=== PATIENT | female | born 1945 | race Caucasian/White ===

== ENCOUNTER 2020-08-10 15:10 | Outpatient (REF) | payer MEDICARE, SELFPAY ==
--- NOTE | 2020-08-10 15:14 | MM_ITS ---
EXAMINATION: MM SCREENING DIGITAL BREAST TOMOSYNTHESIS, BILATERAL CLINICAL INFORMATION: Screening. Asymptomatic. The lifetime risk of breast cancer based on the Tyrer-Cuzick Model is 4%. COMPARISON: Mammography: 07/15/2019, 06/18/2018 TECHNIQUE: Digital breast tomosynthesis is performed in both the craniocaudal and mediolateral oblique views along with computer-aided detection (CAD). Synthesized 2D images are generated from the tomosynthesis. Additional left MLO view is provided. FINDINGS: There are scattered areas of fibroglandular density (ACR BI-RADS breast composition Category b). There are no significant masses, abnormal calcifications, or other abnormalities. There is biopsy clip marker posterior central 3:00 right breast. Parenchymal pattern is similar to prior studies. No significant changes. MM/MM tomosynthesis screening BI IMPRESSION: No mammographic evidence of malignancy. ASSESSMENT: BI-RADS 1: Negative RECOMMENDATION: Routine annual mammography screening. This patient's information was entered into a reminder system with a target due date for their next mammogram.
== END 2020-08-10 15:11 | disposition home or self-care (01) ==
LOC: HO.MAMMO 15:10
PROVIDERS: PCP Internal Medicine; Visit Provider Internal Medicine
DX: Z12.31 Encounter for screening mammogram for malignant neoplasm of breast (principal)
CPT/HCPCS: 77063; 77067

== ENCOUNTER 2020-11-10 09:26 | Outpatient (REF) | payer MEDICARE, SELFPAY ==
[2020-11-10 11:36] LABS: Hematocrit 43.9 % (37-47); Hemoglobin 14.3 g/dl (12.0-16.0); Mean Corpuscular HGB Conc 32.6 g/dl (31.0-35.0); Mean Corpuscular Hemoglobin 29.7 pg (27.0-33.0); Mean Corpuscular Volume 91.3 fL (80-98); Mean Platelet Volume 10.2 fL (9.4-12.3); Platelet Count 223 X10*3/uL (160-400); Red Blood Count 4.81 X10*6/uL (4.20-5.50); Red Cell Distribution Width 13.2 % (11.0-16.0); White Blood Count 4.7 X10*3/uL (4.8-10.8)
[2020-11-10 11:51] LABS: Alanine Aminotransferase 15 U/L (0-31); Albumin Level 4.1 g/dL (3.5-5.0); Alkaline Phosphatase 63 U/L (39-117); Anion Gap 11 (12-20); Aspartate Amino Transferase 21 U/L (5-31); Bilirubin Total 0.5 mg/dL (0.0-1.0); Blood Urea Nitrogen 20 mg/dL (9-16); Calcium 8.4 mg/dL (8.4-10.2); Carbon Dioxide 29 mmol/L (22-29); Chloride 106 mmol/L (96-108); Cholesterol 197 mg/dL; Estimated Glomerular Filt Rate > 60; Glucose Fasting 104 mg/dL (60-99); HDL Cholesterol 36 mg/dL; LDL Cholesterol Calculated 136 mg/dl; Potassium 4.6 mmol/L (3.3-5.1); Sodium 141 mmol/L (135-145); Triglycerides 129 mg/dL
[2020-11-10 12:00] LABS: Estimated Average Glucose 117 mg/dL; Hemoglobin A1c % 5.7 %
== END 2020-11-10 09:27 | disposition home or self-care (01) ==
LOC: HO.HMGCLDS 09:26
PROVIDERS: PCP Internal Medicine; Visit Provider Internal Medicine
DX: I10 Essential (primary) hypertension (principal); E78.5 Hyperlipidemia, unspecified; K58.9 Irritable bowel syndrome, unspecified; R73.9 Hyperglycemia, unspecified
CPT/HCPCS: 36415; 80053; 80061; 83036; 85027

== ENCOUNTER 2021-05-28 08:50 | Outpatient (REF) | payer MEDICARE, SELFPAY ==
[2021-05-28 11:30] LABS: Hematocrit 43.9 % (37-47); Hemoglobin 14.7 g/dl (12.0-16.0); Mean Corpuscular HGB Conc 33.5 g/dl (31.0-35.0); Mean Corpuscular Hemoglobin 29.9 pg (27.0-33.0); Mean Corpuscular Volume 89.2 fL (80-98); Mean Platelet Volume 10.7 fL (9.4-12.3); Platelet Count 205 X10*3/uL (160-400); Red Blood Count 4.92 X10*6/uL (4.20-5.50); Red Cell Distribution Width 13.5 % (11.0-16.0); White Blood Count 5.2 X10*3/uL (4.8-10.8)
[2021-05-28 11:49] LABS: Appearance Urine CLEAR; Color Urine YELLOW; Glucose Urine UA NEG (NEG); Leukocyte Esterase Urine NEG (NEG); Nitrite Urine NEG (NEG); Specific Gravity - Urine 1.015 (1.005-1.025); Urine Blood NEG (NEG); Urine Ketones NEG (NEG); Urine Protein NEG (NEG-TRACE)
[2021-05-28 12:11] LABS: RBC Urine 0 /HPF (0); Squamous Epithelial Cell Urine TRACE /LPF; WBC Urine 0 /HPF (0-4)
[2021-05-28 12:18] LABS: Vitamin D 25-OH Total 36.3 ng/mL (>30)
[2021-05-28 12:47] LABS: Alanine Aminotransferase 23 U/L (0-31); Albumin Level 4.2 g/dL (3.5-5.0); Alkaline Phosphatase 65 U/L (39-117); Anion Gap 13 (12-20); Aspartate Amino Transferase 24 U/L (5-31); Bilirubin Total 0.9 mg/dL (0.0-1.0); Blood Urea Nitrogen 14 mg/dL (9-16); Calcium 9.1 mg/dL (8.4-10.2); Carbon Dioxide 25 mmol/L (22-29); Chloride 107 mmol/L (96-108); Cholesterol 178 mg/dL; Estimated Glomerular Filt Rate > 60; Glucose Fasting 112 mg/dL (60-99); HDL Cholesterol 33 mg/dL; LDL Cholesterol Calculated 110 mg/dl; Potassium 4.2 mmol/L (3.3-5.1); Sodium 141 mmol/L (135-145); Total Protein 6.8 g/dL (6.5-8.0); Triglycerides 177 mg/dL
[2021-05-29 07:24] LABS: Estimated Average Glucose 123 mg/dL; Hemoglobin A1c % 5.9 %
== END 2021-05-28 08:51 | disposition home or self-care (01) ==
LOC: HO.HMGCLDS 08:50
PROVIDERS: PCP Internal Medicine; Visit Provider Internal Medicine
DX: E78.5 Hyperlipidemia, unspecified (principal); I10 Essential (primary) hypertension; R73.9 Hyperglycemia, unspecified; E55.9 Vitamin D deficiency, unspecified
CPT/HCPCS: 36415; 80053; 80061; 81001; 82306; 83036; 85027

== ENCOUNTER 2021-08-10 14:10 | Outpatient (REF) | payer MEDICARE, SELFPAY ==
[2021-08-10 17:00] LABS: Anion Gap 13 (12-20); Blood Urea Nitrogen 18 mg/dL (9-16); Calcium 9.6 mg/dL (8.4-10.2); Carbon Dioxide 28 mmol/L (22-29); Chloride 104 mmol/L (96-108); Estimated Glomerular Filt Rate > 60; Glucose Random 100 mg/dL (60-115); Potassium 4.5 mmol/L (3.3-5.1); Sodium 140 mmol/L (135-145)
[2021-08-10 17:23] LABS: TSH reflex Free T4 0.56 uIU/mL (0.32-4.0); Vitamin D 25-OH Total 43.2 ng/mL (>30)
== END 2021-08-10 14:11 | disposition home or self-care (01) ==
LOC: HO.HMGCLDS 14:10
PROVIDERS: PCP Internal Medicine; Visit Provider Internal Medicine
DX: R00.2 Palpitations (principal); I10 Essential (primary) hypertension; E55.9 Vitamin D deficiency, unspecified
CPT/HCPCS: 36415; 80048; 82306; 83735; 84443

== ENCOUNTER → 2021-08-24 14:39 | Outpatient (REF) | payer MEDICARE, SELFPAY ==
--- NOTE | 2021-08-24 14:42 | HM_ITS ---
Total monitoring time 2 days and 7 hours. Underlying rhythm is sinus. Average heart rate 82/Min. No atrial fibrillation or flutter or AV blocks or pauses. Very rare supraventricular and ventricular ectopy with minimal burden. No patient events. MTDD
== END ==
LOC: HO.CARD 14:39
PROVIDERS: PCP Internal Medicine; Visit Provider Internal Medicine
DX: R00.2 Palpitations (principal)
CPT/HCPCS: 93242

== ENCOUNTER 2022-05-25 08:55 | Outpatient (REF) | payer MEDICARE, SELFPAY ==
[2022-05-25 11:40] LABS: Estimated Average Glucose 117 mg/dL; Hemoglobin A1c % 5.7 %
[2022-05-25 12:34] LABS: Folate > 20.0 ng/mL (> or = 4.0); Vitamin B12 > 2000 pg/mL (200-900)
[2022-05-25 13:36] LABS: Estimated Glomerular Filt Rate > 60
[2022-05-25 14:37] LABS: Alanine Aminotransferase 23 U/L (0-31); Albumin Level 4.1 g/dL (3.5-5.0); Alkaline Phosphatase 70 U/L (39-117); Anion Gap 17 (12-20); Aspartate Amino Transferase 24 U/L (5-31); Bilirubin Total 0.4 mg/dL (0.0-1.0); Blood Urea Nitrogen 15 mg/dL (9-16); Calcium 9.4 mg/dL (8.4-10.2); Carbon Dioxide 24 mmol/L (22-29); Chloride 108 mmol/L (96-108); Cholesterol 196 mg/dL; Glucose Fasting 102 mg/dL (60-99); HDL Cholesterol 29 mg/dL; LDL Cholesterol Calculated 120 mg/dl; Potassium 4.6 mmol/L (3.3-5.1); Sodium 144 mmol/L (135-145); Total Protein 7.2 g/dL (6.5-8.0); Triglycerides 238 mg/dL
[2022-05-25 14:47] LABS: Vitamin D 25-OH Total 48.4 ng/mL (>30)
== END 2022-05-25 08:56 | disposition home or self-care (01) ==
LOC: HO.HMGCLDS 08:55
PROVIDERS: PCP Internal Medicine; Visit Provider Internal Medicine
DX: E78.5 Hyperlipidemia, unspecified (principal); I10 Essential (primary) hypertension; R73.9 Hyperglycemia, unspecified; E55.9 Vitamin D deficiency, unspecified
CPT/HCPCS: 36415; 80053; 80061; 82306; 82607; 82746; 83036

== ENCOUNTER 2022-06-10 11:39 | Outpatient (REF) | payer MEDICARE, SELFPAY ==
--- NOTE | ~2022-06-10 | MM_ITS ---
EXAMINATION: MM SCREENING DIGITAL BREAST TOMOSYNTHESIS, BILATERAL CLINICAL INFORMATION: Screening. Asymptomatic. The lifetime risk of breast cancer based on the Tyrer-Cuzick Model is 2%. COMPARISON: Mammography: 08/10/2020, 07/15/2019, 06/18/2018 TECHNIQUE: Digital breast tomosynthesis is performed in both the craniocaudal and mediolateral oblique views along with computer-aided detection (CAD). Synthesized 2D images are generated from the tomosynthesis. FINDINGS: There are scattered areas of fibroglandular density (ACR BI-RADS breast composition Category b). There are no significant masses, abnormal calcifications, or other abnormalities. Parenchymal pattern is similar to prior studies. There is no developing density or architectural abnormality. Incidental biopsy clip marker again seen posterior central right breast. The axilla and skin contours are unremarkable. No significant changes. MM/MM tomosynthesis screening BI IMPRESSION: No mammographic evidence of malignancy. ASSESSMENT: BI-RADS 1: Negative RECOMMENDATION: Routine annual mammography screening. This patient's information was entered into a reminder system with a target due date for their next mammogram.
== END 2022-06-10 11:40 | disposition home or self-care (01) ==
LOC: HO.MAMMO 11:39
PROVIDERS: PCP Internal Medicine; Visit Provider Internal Medicine
DX: Z12.31 Encounter for screening mammogram for malignant neoplasm of breast (principal)
CPT/HCPCS: 77063; 77067

== ENCOUNTER → 2022-07-14 13:25 | Outpatient (BNVA) | payer MEDICARE, SELFPAY | PROVIDERS: PCP Internal Medicine; Visit Provider Surgery Vascular Surgery | DX: I83.12 Varicose veins of left lower extremity with inflammation (principal) | CPT/HCPCS: 99202 ==

== ENCOUNTER 2022-12-07 08:08 | Outpatient (REF) | payer MEDICARE, SELFPAY ==
[2022-12-07 11:29] LABS: Appearance Urine Clear; Color Urine Yellow; Glucose Urine UA Negative (Negative); Leukocyte Esterase Urine Negative (Negative); Nitrite Urine Negative (Negative); PH 5.5 (5.0-9.0); Specific Gravity - Urine 1.015 (1.005-1.025); Urine Blood Negative (Negative); Urine Ketones Negative (Negative); Urine Protein Negative (Neg-Trace)
== END 2022-12-07 08:09 | disposition home or self-care (01) ==
LOC: HO.HMGCLDS 08:08
PROVIDERS: PCP Internal Medicine; Visit Provider Internal Medicine
DX: Z00.00 Encounter for general adult medical examination without abnormal findings (principal)
CPT/HCPCS: 81003

== ENCOUNTER 2022-12-08 08:26 | Outpatient (REF) | payer MEDICARE, SELFPAY ==
[2022-12-08 11:12] LABS: MANUAL DIFF FLAG NO
[2022-12-08 11:26] LABS: Basophils Percent Auto 0.5 % (0-2); Eosinophils Absolute Auto 0.4 X10*3/uL (0.0-0.4); Eosinophils Percent Auto 6.8 % (0-4); Hematocrit 48.3 % (37.0-47.0); Hemoglobin 15.8 g/dl (12.0-16.0); Imm Gran Abs Auto 0.01 X10*3/uL (0.00-0.03); Imm Gran Pct Auto 0.2 % (0.0-0.4); Lymphocytes Absolute Auto 2.1 X10*3/uL (1.2-4.9); Lymphocytes Percent Auto 36.7 % (20-40); Mean Corpuscular HGB Conc 32.7 g/dl (31.0-35.0); Mean Corpuscular Hemoglobin 29.9 pg (27.0-33.0); Mean Corpuscular Volume 91.3 fL (80.0-98.0); Mean Platelet Volume 10.2 fL (9.4-12.3); Monocytes Absolute Auto 0.6 X10*3/uL (0.1-1.2); Monocytes Percent Auto 10.2 % (2-11); Neutrophils Absolute Auto 2.6 x10*3/uL (2.0-8.3); Neutrophils Percent Auto 45.6 % (45-73); Platelet Count 251 X10*3/uL (160-400); Red Blood Count 5.29 X10*6/uL (4.20-5.50); Red Cell Distribution Width 13.2 % (11.0-16.0); White Blood Count 5.6 X10*3/uL (4.8-10.8)
[2022-12-08 11:49] LABS: Alanine Aminotransferase 16 U/L (0-31); Albumin Level 4.2 g/dL (3.5-5.0); Alkaline Phosphatase 79 U/L (39-117); Anion Gap 14 (12-20); Aspartate Amino Transferase 20 U/L (5-31); Bilirubin Total 0.6 mg/dL (0.0-1.0); Blood Urea Nitrogen 14 mg/dL (9-16); Calcium 9.2 mg/dL (8.4-10.2); Carbon Dioxide 25 mmol/L (22-29); Chloride 107 mmol/L (96-108); Cholesterol 205 mg/dL; Estimated Glomerular Filt Rate 55; Glucose Fasting 113 mg/dL (60-99); HDL Cholesterol 38 mg/dL; LDL Cholesterol Calculated 136 mg/dl; Potassium 4.3 mmol/L (3.3-5.1); Sodium 142 mmol/L (135-145); Triglycerides 158 mg/dL
[2022-12-08 12:07] LABS: Vitamin B12 1184 pg/mL (200-900); Vitamin D 25-OH Total 57.1 ng/mL (>30)
== END 2022-12-08 08:27 | disposition home or self-care (01) ==
LOC: HO.HMGCLDS 08:26
PROVIDERS: PCP Internal Medicine; Visit Provider Internal Medicine
DX: Z00.00 Encounter for general adult medical examination without abnormal findings (principal); E55.9 Vitamin D deficiency, unspecified; E78.5 Hyperlipidemia, unspecified; I10 Essential (primary) hypertension; R00.2 Palpitations; R73.9 Hyperglycemia, unspecified; E53.8 Deficiency of other specified B group vitamins
CPT/HCPCS: 36415; 80053; 80061; 82306; 82607; 82746; 84443; 85025

== ENCOUNTER 2023-06-07 08:38 | Outpatient (REF) | payer MEDICARE, SELFPAY ==
[2023-06-07 11:07] LABS: MANUAL DIFF FLAG NO
[2023-06-07 11:33] LABS: Basophils Percent Auto 0.4 % (0-2); Eosinophils Absolute Auto 0.2 X10*3/uL (0.0-0.4); Eosinophils Percent Auto 3.7 % (0-4); Hematocrit 45.3 % (37.0-47.0); Hemoglobin 15.1 g/dl (12.0-16.0); Imm Gran Abs Auto 0.02 X10*3/uL (0.00-0.03); Imm Gran Pct Auto 0.4 % (0.0-0.4); Lymphocytes Absolute Auto 1.5 X10*3/uL (1.2-4.9); Lymphocytes Percent Auto 29.8 % (20-40); Mean Corpuscular HGB Conc 33.3 g/dl (31.0-35.0); Mean Corpuscular Hemoglobin 29.5 pg (27.0-33.0); Mean Corpuscular Volume 88.6 fL (80.0-98.0); Monocytes Absolute Auto 0.6 X10*3/uL (0.1-1.2); Monocytes Percent Auto 11.3 % (2-11); Neutrophils Absolute Auto 2.8 x10*3/uL (2.0-8.3); Neutrophils Percent Auto 54.4 % (45-73); Platelet Count 239 X10*3/uL (160-400); Red Blood Count 5.11 X10*6/uL (4.20-5.50); Red Cell Distribution Width 13.5 % (11.0-16.0); White Blood Count 5.1 X10*3/uL (4.8-10.8)
[2023-06-07 12:20] LABS: Alanine Aminotransferase 19 U/L (0-31); Albumin Level 4.1 g/dL (3.5-5.0); Alkaline Phosphatase 65 U/L (39-117); Anion Gap 10 (12-20); Aspartate Amino Transferase 23 U/L (5-31); Bilirubin Total 0.7 mg/dL (0.0-1.0); Blood Urea Nitrogen 18 mg/dL (9-16); Calcium 9.4 mg/dL (8.4-10.2); Carbon Dioxide 28 mmol/L (22-29); Chloride 105 mmol/L (96-108); Cholesterol 197 mg/dL (<200); Estimated Glomerular Filt Rate > 60; Glucose Fasting 119 mg/dL (60-99); HDL Cholesterol 35 mg/dL (>40); LDL Cholesterol Calculated 130 mg/dL (<100); Potassium 4.4 mmol/L (3.3-5.1); Sodium 139 mmol/L (135-145); Total Protein 7.3 g/dL (6.5-8.0); Triglycerides 161 mg/dL (<150)
[2023-06-07 12:23] LABS: Folate 15.5 ng/mL (> or = 4.0); Vitamin B12 1143 pg/mL (200-900)
[2023-06-07 12:26] LABS: Estimated Average Glucose 120 mg/dL; Hemoglobin A1c % 5.8 % (<6.0)
== END 2023-06-07 08:39 | disposition home or self-care (01) ==
LOC: HO.HMGCLDS 08:38
PROVIDERS: PCP Internal Medicine; Visit Provider Internal Medicine
DX: E53.8 Deficiency of other specified B group vitamins (principal); I10 Essential (primary) hypertension; R73.9 Hyperglycemia, unspecified; E78.5 Hyperlipidemia, unspecified
CPT/HCPCS: 36415; 80053; 80061; 82607; 82746; 83036; 85025

== ENCOUNTER 2023-06-09 09:27 | Outpatient (AMB) | payer MEDICARE, SELFPAY ==
--- NOTE | 2023-06-09 09:28 | MHC.PC.OV ---
Vital Signs 06/09/23 09:29 Height 5 ft 2 in Weight 164 lb BMI 30.0 BP 110/64 Blood Pressure Location Lt brachial Position Sitting Pulse 90 Pulse Source Pulse Oximeter Pulse Oximetry (%) 98 Oxygen Delivery Method Room Air Intake Visit Reasons: 6 month follow up HTN Intake Note: Pt is here today for 6 months follow up visit on labs. Allergies donepezil Adverse Reaction (Intermediate, Verified 06/09/23 09:31) Nausea trazodone Adverse Reaction (Intermediate, Verified 06/09/23 09:31) Dizziness Medication List - Last Reconciled 06/09/23 by Beverley Perez MD ascorbic acid (vitamin C) 1 g PO DAILY cholecalciferol (vitamin D3) 50 mcg PO DAILY felodipine ER 2.5 mg PO DAILY ginkgo biloba-Panax ginseng rt 60-100 mg caps PO [glucosemide with MSM PO] lutein 20 mg PO DAILY multivitamin 1 tab PO DAILY olmesartan 40 mg PO DAILY vitamin B complex (B Complex-Vitamin B12 tablet) 1 tab PO DAILY Tobacco use date assessed: 06/09/23 Fall risk assessment: No Falls in past year Last assessed Fall Risk: 06/09/23 Dental Screening Dental Screen Date: 06/09/23 Did you have a dental visit in the last 12 months?: Yes Did you have a dental problem in the last 6 months where you did not have access to dental care?: No Was dental information given to patient?: Patient has dentist HPI 6 month follow up HTN HPI Details Pt presents for f/u HTN, stable on meds. Pt c/o midback pain and postnasal drip, stable on meds. PFSH Medical History Palpitations Vitamin D deficiency Annual physical exam Insomnia Memory deficit Hyperglycemia Hyperlipidemia History of mammogram Chronic neck pain Arthralgia Tension headache RLS (restless legs syndrome) Osteoarthritis of both knees Balance problem IBS (irritable bowel syndrome) Osteoarthritis of right shoulder Sciatica of left side Sciatica, right side Hypertension Surgical History H/O colonoscopy No pertinent past surgical history Family History (Updated 12/12/22 @ 10:46 by YANIV Howell) Father Stroke Mother Lung cancer Social History Housing: House Alcohol intake: current Alcohol intake frequency: holidays/special occasions only Patient Tobacco Use Status: Never used Tobacco e-Cigarette/Vaping Use: Never Used Current occupational status: retired Cognitive needs: No Hearing needs: No Vision needs: Yes Questionnaire Thrive Questionnaire Date Thrive assessed: 12/12/22 AUDIT C Alcohol Use Questionnaire (AUDIT-C) 1. How often do you have a drink containing alcohol?: Never 3. How often do you have six or more drinks on one occasion?: Never Total Score: 0 MABEL-7 AMB Questionnaire MABEL-7 Date AMBEL - 7 assessed: 12/12/22 Source: Developed by Drs. Rajesh Ellis, Sharon Delarosa, Mikie Staley and colleagues, with an educational carolann from [employer]. Review of Systems Const All systems reviewed & are unremarkable except as noted in HPI and below Reports no additional complaints Eyes Reports no additional complaints ENT Reports no additional complaints Card Reports no additional complaints Resp Reports no additional complaints GI Reports no additional complaints Reports no additional complaints Musc Reports no additional complaints Physical exam (Primary Care) Vital Signs: Last Vital Signs Pulse 90 06/09/23 09:29 BP 110/64 06/09/23 09:29 Pulse Ox 98 06/09/23 09:29 Oxygen Delivery Method Room Air 06/09/23 09:29 BMI result Body Mass Index 30.0 Tobacco/Smoking Status: Tobacco use Status Tobacco use date assessed 06/09/23 06/09/23 09:33 Patient Tobacco Use Status Never used Tobacco 06/09/23 09:33 e-Cigarette/Vaping Use Never Used 06/09/23 09:33 Thrive Assessment: Date of Thrive Assessment Date Thrive assessed 12/12/22 06/09/23 09:33 Const General: no acute distress Neck Neck: Yes supple Resp Effort & Inspection: normal respiratory effort Auscultation: clear to auscultation bilaterally Cardio Rhythm: regular rhythm Heart sounds: S1 normal heart sound present and S2 normal heart sound present GI Inspection: Yes normal to inspection Assessment and Plan Assessment & Plan (1) Back pain: Code(s): M54.9 - Dorsalgia, unspecified Plan: check CXR, back exercises (2) Hypertension: Code(s): I10 - Essential (primary) hypertension Plan: cont meds (3) Hyperglycemia: Code(s): R73.9 - Hyperglycemia, unspecified Plan: ADA diet, (4) Hyperlipidemia: Code(s): E78.5 - Hyperlipidemia, unspecified Plan: low cholesterol diet Orders: Orders Lipid Panel 6 Months E78.5 - Hyperlipidemia, unspecified, I10 - Essential (primary) hypertension, R73.9 - Hyperglycemia, unspecified XR chest 1V Today M54.9 - Dorsalgia, unspecified Comprehensive Half Way. Panel Fast 6 Months E78.5 - Hyperlipidemia, unspecified, I10 - Essential (primary) hypertension, R73.9 - Hyperglycemia, unspecified TSH reflex Free T4 6 Months E78.5 - Hyperlipidemia, unspecified, I10 - Essential (primary) hypertension, R73.9 - Hyperglycemia, unspecified Coding Level of Care Code Est Pt Level 3 (26559) Diagnoses Back pain M54.9 Hypertension I10 Hyperglycemia R73.9 Hyperlipidemia E78.5
[2023-06-09 09:29] VITALS: BP 110/64; PULSE 90; O2SAT 98
== END 2023-06-09 10:14 | disposition home or self-care (01) ==
PROVIDERS: Visit Provider Internal Medicine
DX: M54.9 Dorsalgia, unspecified (principal); I10 Essential (primary) hypertension; R73.9 Hyperglycemia, unspecified; E78.5 Hyperlipidemia, unspecified
CPT/HCPCS: 99213

== ENCOUNTER 2023-07-05 14:07 | Outpatient (REF) | payer MEDICARE, SELFPAY ==
--- NOTE | ~2023-07-05 | MM_ITS ---
EXAMINATION: MM SCREENING DIGITAL BREAST TOMOSYNTHESIS, BILATERAL CLINICAL INFORMATION: Screening. Asymptomatic. COMPARISON: Mammography: This study is compared with prior exams dating back to 2018. TECHNIQUE: Digital breast tomosynthesis is performed in both the craniocaudal and mediolateral oblique views along with computer-aided detection (CAD). Synthesized 2D images are generated from the tomosynthesis. FINDINGS: There are scattered areas of fibroglandular density (ACR BI-RADS breast composition Category b). There are no significant masses, abnormal calcifications, or other abnormalities. There is a tissue marker present in the right breast from prior benign percutaneous biopsy. MM/MM tomosynthesis screening BI IMPRESSION: No mammographic evidence of malignancy. ASSESSMENT: BI-RADS BI-RADS 2 - Benign Findings RECOMMENDATION: Routine annual mammography screening. 1 year F/U This examination should not preclude the clinical evaluation of a suspicious palpable abnormality. This patient's information was entered into a reminder system with a target due date for their next mammogram.
== END 2023-07-05 14:08 | disposition home or self-care (01) ==
LOC: HO.MAMMO 14:07
PROVIDERS: PCP Internal Medicine; Visit Provider Internal Medicine
DX: Z12.31 Encounter for screening mammogram for malignant neoplasm of breast (principal)
CPT/HCPCS: 77063; 77067

== ENCOUNTER → 2023-07-05 14:30 | Outpatient (BNV) | payer MEDICARE, SELFPAY | PROVIDERS: PCP Internal Medicine; Visit Provider Radiology Diagnostic Radiology | DX: Z12.31 Encounter for screening mammogram for malignant neoplasm of breast (principal) | CPT/HCPCS: 77063; 77067 ==

== ENCOUNTER 2023-09-01 07:51 | Outpatient (AMB) | payer MEDICARE, SELFPAY ==
--- NOTE | 2023-09-01 08:10 | A.OFFVIS_ITS ---
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 Patient reports pain has been present for over 5 years that has been progressively getting worse. She states pain radiates down her leg and her leg will give out. Hx of back surgery. No other tx. 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 She states she has worsening pain in her right hip which radiates down to her leg. Her pain is aggravated with lifting and getting in or out of her car. She also c/o her leg giving out with working and experiences pain to a point that she screams. She has not had any treatment in the past but she does perform some spine exercises which provides her transient relief. She has a history of back surgery on 07/25/22. [facility] Medical History (Updated 09/01/23 @ 13:17 by Alicia Garza PA-C) Palpitations Vitamin D deficiency Annual physical exam Insomnia Memory deficit Hyperglycemia Hyperlipidemia History of mammogram Chronic neck pain Arthralgia Tension headache RLS (restless legs syndrome) Osteoarthritis of both knees Balance problem IBS (irritable bowel syndrome) Osteoarthritis of right shoulder Sciatica of left side Sciatica, right side Hypertension Surgical History Hx of spinal surgery H/O colonoscopy No pertinent past surgical history Family History (Updated 12/12/22 @ 10:46 by Nathalia Parra Janna) Father Stroke Mother Lung cancer Social History (Reviewed 09/01/23 @ 08:22 by Poly Owens COUNT INCLUDES [facility]) Housing: House Alcohol intake: current Alcohol intake frequency: holidays/special occasions only Patient Tobacco Use Status: Never used Tobacco e-Cigarette/Vaping Use: Never Used Current occupational status: retired Cognitive needs: No Hearing needs: No Vision needs: Yes Review of Systems Const All systems reviewed & are unremarkable except as noted in HPI and below Physical Exam Vital Signs: BMI result Body Mass Index 30.0 Const General: cooperative, healthy appearing, comfortable, no acute distress, well developed and alert Orientation/consciousness: patient oriented x3 HEENT Head: Yes normal to inspection, Yes normocephalic and Yes atraumatic Eyes General: appearance normal, both eyes and all related structures Resp Effort & Inspection: normal respiratory effort and able to speak in complete sentences Cardio Rate: regular rate Peripheral pulses: Peripheral pulses 2+ throughout GI Palpation (GI): Soft to palpation Skin Lesions: no lesions Rashes: no rashes Neuro General: patient oriented x3 Extrem Other: Right hip: Normal to inspection, ambulates with a slight limp. Has mild discomfort with internal and extension rotation of hip. No significant stiffnes s. Mild discomfort with hip flexion against resistance. NVI. Results Reviewed Results Reviewed: Xrays were obtained in the office today and personally reviewed by me of the right hip show moderate to severe OA with osteophyte formation Assessment & Plan Assessment & Plan (1) Osteoarthritis of right hip: Code(s): M16.11 - Unilateral primary osteoarthritis, right hip Qualifiers: Osteoarthritis type: primary Qualified Code(s): M16.11 - Unilateral primary osteoarthritis, right hip Plan We had a lengthy discussion about the extent of her osteoarthritis and options available which include surgical intervention. He is interested in pursuing Total knee arthroplasty to improve his functional capacity and daily activities. I explained to her the procedure in detail, the hospital stays and details about post op rehab and precautions. He does understand all this and would like to move forward. I did put him in contact with our Nurse Navigator, Fay, who will set him up with pre op planning and book accordingly. All questions were answered. Orders: Orders XR hip RT w [id number] Today M25.559 - Pain in unspecified hip Patient Instructions: Scribed for Alicia Garza PA-C, by Jose Ortiz medical records coder, on 09/01/2023 at 8:00 AM EST. Alicia Cordoba PA-C, have personally reviewed and agree with the information entered by the scribe. Coding Level of Care Code New Pt Level 3 (57770) Diagnoses Primary osteoarthritis of right hip M16.11 Osteoarthritis type: primary
== END 2023-09-01 09:03 | disposition home or self-care (01) ==
PROVIDERS: PCP Internal Medicine; Visit Provider Physician Assistant
DX: M16.11 Unilateral primary osteoarthritis, right hip (principal)
CPT/HCPCS: 99203

== ENCOUNTER 2023-09-01 12:03 | Outpatient (REF) | payer MEDICARE, SELFPAY | END 2023-09-01 12:04 | disposition home or self-care (01) | LOC: HO.HOSX 12:03 | PROVIDERS: Visit Provider Physician Assistant | DX: M16.11 Unilateral primary osteoarthritis, right hip (principal); Z79.899 Other long term (current) drug therapy | CPT/HCPCS: 73502; 99202 ==

== ENCOUNTER 2023-09-21 14:03 | Outpatient (AMB) | payer MEDICARE, SELFPAY ==
--- NOTE | 2023-09-21 14:43 | MHC.OFFVIS ---
Intake Intake Visit Reasons: discuss RT HENRI Intake Note: Anitha is a 78 year old female who presnets today with her daughter to discuss possible Right HENRI Allergies donepezil Adverse Reaction (Intermediate, Verified 09/22/23 13:14) Nausea trazodone Adverse Reaction (Intermediate, Verified 09/22/23 13:14) Dizziness HPI discuss RT HENRI HPI Details Anitha is a 78 year old woman who presents to discuss her right hip OA. She complains of pain with daily activity, worse with climbing in/out of a car, or using stairs. Her pain has been present for ~5 years now, and she says it makes her scream at times. Her pain radiates down her leg, and her leg will occasionally give out on her. She feels she cannot engage in basic daily activities without pain. This problem has resulted in her avoiding many enjoyable recreational activities like walking. [facility] Medical History (Updated 09/24/23 @ 10:07 by Darius Call MD) Palpitations Vitamin D deficiency Annual physical exam Insomnia Memory deficit Hyperglycemia Hyperlipidemia History of mammogram Chronic neck pain Arthralgia Tension headache RLS (restless legs syndrome) Osteoarthritis of both knees Balance problem IBS (irritable bowel syndrome) Osteoarthritis of right shoulder Sciatica of left side Sciatica, right side Hypertension Surgical History Hx of spinal surgery H/O colonoscopy No pertinent past surgical history Family History Father Stroke Mother Lung cancer Social History Housing: House Alcohol intake: current Alcohol intake frequency: holidays/special occasions only Patient Tobacco Use Status: Never used Tobacco e-Cigarette/Vaping Use: Never Used Current occupational status: retired Cognitive needs: No Hearing needs: No Vision needs: Yes Review of Systems Const All systems reviewed & are unremarkable except as noted in HPI and below Physical Exam Const General: no acute distress, alert and awake Orientation/consciousness: patient oriented x3 HEENT Head: Yes normocephalic and Yes atraumatic Eyes EOM: EOMs intact bilaterally Resp Effort & Inspection: normal respiratory effort and able to speak in complete sentences Cardio Jugular venous distension: no JVD Skin General skin exam: turgor normal Rashes: no rashes Neuro General: patient oriented x3 Extrem Other: _ gait antalgia +impingement test right hip that reproduces her primary pain complaint +[facility] Psych Appearance: grossly normal Affect: normal affect Attitude: cooperative Results Reviewed Results Reviewed: I personally reviewed relevant radiographs. Moderate right hip OA with loss of joint space and subchondral sclerosis Assessment & Plan Assessment & Plan (1) Osteoarthritis of right hip: Code(s): M16.11 - Unilateral primary osteoarthritis, right hip Qualifiers: Osteoarthritis type: primary Qualified Code(s): M16.11 - Unilateral primary osteoarthritis, right hip Plan: Right hip OA that has been present for years and decreases the quality of her life. She had spinal fusion ~5 years ago that was helpful. She now would liek to be able to wlak without pain. I discussed surgical and non surgical options. I recommend right HENRI. She is healthy an d active and an excellent surgical candidate. I discussed the risks benefits and alternatives including but not limited to the risk of pain, infection, stiffness, fracture, dislocation, LLD and nerve injury as well as the need for further surgery as well as potential medical complications such as blood clots, pulmonary embolism and cardiac complications. She expressed understanding and we will proceed forward with pre operative clearance. Plan Scribed for Darius Call MD by Angus Rodriguez, emergency medical service coordinator, on 09/21/23 at 2:50 PM, EST. Coding Level of Care Code Est Pt Level 4 (99091) Diagnoses Primary osteoarthritis of right hip M16.11 Osteoarthritis type: primary
== END 2023-09-21 15:38 | disposition home or self-care (01) ==
PROVIDERS: PCP Internal Medicine; Visit Provider Orthopaedic Surgery
DX: M16.11 Unilateral primary osteoarthritis, right hip (principal)
CPT/HCPCS: 99214

== ENCOUNTER → 2023-09-21 14:03 | Outpatient (BNVA) | payer MEDICARE, SELFPAY | PROVIDERS: PCP Internal Medicine; Visit Provider Orthopaedic Surgery | DX: M16.11 Unilateral primary osteoarthritis, right hip (principal) | CPT/HCPCS: 99212 ==

== ENCOUNTER 2023-09-22 12:44 | Outpatient (AMB) | payer MEDICARE, SELFPAY ==
--- OUTSIDE RECORDS SUMMARY | 2023-09-22 12:45 | XMS_ITS | Continuity of Care Document ---
Author Name Unknown Organization [facility] Address [address] [place] [id number] Care Team Providers Care Companion Name Role Phone Beverley Perez MD Primary Care Physician [phone] Encounter [facility] ACCT [facility] [id number] Date(s): 08/04/20 - 09/03/20 [facility] [address] [place] [address]- Attending Physician: Jaycee Fields Admitting Physician: Jaycee Fields Referring Physician: Admtr ArAwa Allergies, Adverse Reactions, Alerts Substance Reaction Severity Status NKA Active Medications dicyclomine 10 mg oral capsule TK 1 C PO TID Start Date: 06/24/20 Status: Ordered Fish Oil By Mouth, Daily, 0 Refills, Maintenance, 11/14/19 10:49:00 EST Start Date: 11/14/19 Status: Ordered Glucosamine By Mouth, Daily, 0 Refills, Maintenance, 11/14/19 10:49:00 EST Start Date: 11/14/19 Status: Ordered Lutein By Mouth, Daily, 0 Refills, Maintenance, 05/04/20 10:41:00 EDT Start Date: 05/04/20 Status: Ordered olmesartan 40 mg oral tablet 1 tablet = 40 mg, By Mouth, Daily, # 30 tablet, 0 Refills, Maintenance, 05/04/20 10:39:00 EDT, Tablet Start Date: 05/04/20 Status: Ordered Vital-D By Mouth, Daily, 0 Refills, Maintenance, 11/14/19 10:49:00 EST Start Date: 11/14/19 Status: Ordered Problem List Condition Effective Dates Status Health Status Inform ant Chest pain(Confirmed) Active Right ovarian cyst(Confirmed) Active HTN (hypertension)(Confirmed) Active Social History Social History Type Response Smoking Status Never (less than 100 in lifetime) entered on: 05/04/20 Sex
[2023-09-22 12:49] VITALS: BP 130/74; PULSE 89; O2SAT 98; BMI 29.8
--- NOTE | 2023-09-22 12:49 | MHC.PC.OV ---
Vital Signs 09/22/23 12:49 Height 5 ft 2 in Weight 163 lb BMI 29.8 BP 130/74 Blood Pressure Location Lt brachial Position Sitting Pulse 89 Pulse Source Pulse Oximeter Pulse Oximetry (%) 98 Oxygen Delivery Method Room Air Intake Visit Reasons: back pain, left breast pain Intake Note: Pt is here today for a sick visit. Pt c/o back pain and L breast pain. Allergies donepezil Adverse Reaction (Intermediate, Verified 09/22/23 13:14) Nausea trazodone Adverse Reaction (Intermediate, Verified 09/22/23 13:14) Dizziness Medication List - Last Reconciled 09/22/23 by Beverley Perez MD ascorbic acid (vitamin C) 1 g PO DAILY cholecalciferol (vitamin D3) 50 mcg PO DAILY felodipine ER 2.5 mg PO DAILY ginkgo biloba-Panax ginseng rt 60-100 mg caps PO [glucosemide with MSM PO] lutein 20 mg PO DAILY multivitamin 1 tab PO DAILY olmesartan 40 mg PO DAILY Tobacco use date assessed: 09/22/23 Fall risk assessment: No Falls in past year Last assessed Fall Risk: 09/22/23 Dental Screening Dental Screen Date: 09/22/23 Did you have a dental visit in the last 12 months?: Yes Did you have a dental problem in the last 6 months where you did not have access to dental care?: No Was dental information given to patient?: Patient has dentist HPI back pain, left breast pain HPI Details Pt c/o chronic postnasal drip, intermittent cough for few weeks. Patient denies fever chills night sweats PND orthopnea. Hypertension is controlled on current medications She will have R hip replacement surgery in spring. [facility] Medical History (Updated 09/22/23 @ 13:41 by Beverley Perez MD) Palpitations Vitamin D deficiency Annual physical exam Insomnia Memory deficit Hyperglycemia Hyperlipidemia History of mammogram Chronic neck pain Arthralgia Tension headache RLS (restless legs syndrome) Osteoarthritis of both knees Balance problem IBS (irritable bowel syndrome) Osteoarthritis of right shoulder Sciatica of left side Sciatica, right side Hypertension Surgical History Hx of spinal surgery H/O colonoscopy No pertinent past surgical history Family History Father Stroke Mother Lung cancer Social History Housing: House Alcohol intake: current Alcohol intake frequency: holidays/special occasions only Patient Tobacco Use Status: Never used Tobacco e-Cigarette/Vaping Use: Never Used Current occupational status: retired Cognitive needs: No Hearing needs: No Vision needs: Yes Questionnaire PHQ-9 Over the last 2 weeks, how often have you been bothered by any of the following problems? 1. Little interest or pleasure in doing things: not at all 2. Feeling down, depressed, or hopeless: not at all 3. Trouble falling or staying asleep, or sleeping too much: not at all 4. Feeling tired or having little energy: not at all 5. Poor appetite or overeating: not at all 6. Feeling bad about yourself - or that you are a failure or have let yourself or your family down: not at all 7. Trouble concentrating on things, such as reading the newspaper or watching television: not at all 8. Moving or speaking so slowly that other people could have noticed. Or the opposite - being so fidgety or restless that you have been moving around a lot more than usual: not at all 9. Thoughts that you would be better off or of hurting yourself in some way: not at all Total score: 0 Depression Screening Interpretation: Negative Depression Screening Done: Yes Source: Developed by Drs. Rajesh Ellis, Sharon Delarosa, Mikie Staley and colleagues, with an educational carolann from [employer]. Thrive Questionnaire Date Thrive assessed: 09/22/23 I am a: Patient What is your living situation today?: I have a steady place to live Within the past 12 months, did the food you bought not last and you didn't have the money to get more?: Never true Within the past 12 months, did you worry whether your food would run out before you got money to buy more?: Never true Do you have trouble paying for medicines?: No Do you have trouble getting transportation to medical appointments?: No Do you have trouble paying your heating and electricity bill?: No Do you have trouble taking care of your child, family member or friend?: No Do you have trouble with day-to-day activities such as bathing, preparing meals, shopping, managing finances, etc.?: No Are you currently unemployed and looking for a job?: No Are you interested in more education?: No Please select the resources that you would like help with: None AUDIT C Alcohol Use Questionnaire (AUDIT-C) 1. How often do you have a drink containing alcohol?: Never 3. How often do you have six or more drinks on one occasion?: Never Total Score: 0 MABEL-7 AMB Questionnaire MABEL-7 Date MABEL - 7 assessed: 09/22/23 Feeling nervous, anxious, or on edge: 0 = Not at all Not being able to stop or control worryin = Not at all Worrying too much about different things: 0 = Not at all Trouble relaxin = Not at all Being so restless that it is hard to sit still: 0 = Not at all Becoming easily annoyed or irritable: 0 = Not at all Feeling afraid as if something awful might happen: 0 = Not at all Total MABEL-7 score (0-4 normal; 5-9 mild; 10-14 moderate; 15-21 severe): 0 Source: Developed by Drs. Rajesh Ellis, Sharon Delarosa, Mikie Staley and colleagues, with an educational carolann from [employer]. Review of Systems Const All systems reviewed & are unremarkable except as noted in HPI and below Reports no additional complaints Eyes Reports no additional complaints ENT Reports no additional complaints Card Reports no additional complaints Resp Reports no additional complaints GI Reports no additional complaints Reports no additional complaints Musc Reports no additional complaints Physical exam (Primary Care) Vital Signs: Last Vital Signs Pulse 89 09/22/23 12:49 BP 130/74 09/22/23 12:49 Pulse Ox 98 09/22/23 12:49 Oxygen Delivery Method Room Air 09/22/23 12:49 BMI result Body Mass Index 29.8 Tobacco/Smoking Status: Tobacco use Status Tobacco use date assessed 09/22/23 09/22/23 12:50 Patient Tobacco Use Status Never used Tobacco 09/22/23 12:50 e-Cigarette/Vaping Use Never Used 09/22/23 12:50 Depression Screening Interpretation: Negative Thrive Assessment: Date of Thrive Assessment Date Thrive assessed 12/12/22 09/22/23 12:50 Const General: no acute distress HENMT Head: Yes normal to inspection Ears: hearing grossly normal bilaterally General nose exam: Abnormal mucous membranes and turbinates present erythematous Face and sinus: No sinus tenderness Mouth: Normal oral and palatal mucosa present Throat: Yes postnasal drainage Eyes General: appearance normal, both eyes and all related structures Neck Neck: Yes no lymphadenopathy and Yes supple Thyroid: diffusely enlarged Resp Effort & Inspection: normal respiratory effort Auscultation: clear to auscultation bilaterally Cardio Rhythm: regular rhythm Heart sounds: S1 normal heart sound present and S2 normal heart sound present GI Inspection: Yes normal to inspection Palpation (GI): Soft to palpation Percussion: Yes normal to percussion Auscultation: normal bowel sounds Assessment and Plan Assessment & Plan (1) Enlarged thyroid: Code(s): E04.9 - Nontoxic goiter, unspecified Plan: check thyroid US (2) Postnasal drip: Code(s): R09.82 - Postnasal drip Plan: Try Flonase alternate with saline nasal spray and antihistamine as needed (3) Hypertension: Code(s): I10 - Essential (primary) hypertension Plan: Continue current medications (4) Osteoarthritis of right hip: Comment: advanced , will have surgery 01/02 Code(s): M16.11 - Unilateral primary osteoarthritis, right hip Qualifiers: Osteoarthritis type: primary Qualified Code(s): M16.11 - Unilateral primary osteoarthritis, right hip Plan: Follow-up with ortho Orders: Orders US thyroid Today E04.9 - Nontoxic goiter, unspecified Medications: Refilled felodipine ER 2.5 mg PO DAILY 90 tabs 3RF Coding Level of Care Code Est Pt Level 4 (39794) Diagnoses Enlarged thyroid E04.9 Postnasal drip R09.82 Hypertension I10 Primary osteoarthritis of right hip M16.11 Osteoarthritis type: primary
== END 2023-09-22 13:43 | disposition home or self-care (01) ==
LOC: HO.HMGC 12:44
PROVIDERS: PCP Internal Medicine; Visit Provider Internal Medicine
DX: E04.9 Nontoxic goiter, unspecified (principal); R09.82 Postnasal drip; I10 Essential (primary) hypertension; M16.11 Unilateral primary osteoarthritis, right hip
CPT/HCPCS: 99214

== ENCOUNTER 2023-10-10 15:25 | Outpatient (REF) | payer MEDICARE, SELFPAY ==
--- NOTE | ~2023-10-10 | US_ITS ---
EXAMINATION: US THYROID CLINICAL INFORMATION: Nontoxic goiter, unspecified. COMPARISON: None available. TECHNIQUE: Linear transducer butler-scale and color Doppler examination with attention to the region of the thyroid. FINDINGS: SIZE: Measurements of the thyroid lobes and nodules are given in sagittal, anteroposterior and transverse dimensions respectively. Right Thyroid Lobe: 5.8 x 1.8 x 1.6 cm, volume 8.8 mL. Parenchyma: The gland echotexture is homogeneous. Thyroid vascularity is normal. Left Thyroid Lobe: 7.0 x 3.5 x 3.0 cm, volume 38.5 mL. Parenchyma: The gland echotexture is heterogeneous. Thyroid vascularity is increased. Isthmus: 2.3 cm in maximum AP dimension. Estimated total number of nodules greater than or equal to 1 cm: 4. Consulting Solution Director nodules are described as follows: 1. Location: Right inferior isthmus. Size: 1.3 x 0.8 x 1.1 cm, volume 0.6 mL. Nodule characteristics: Composition: Solid/almost completely solid (2). Echogenicity: Isoechoic (1). Shape: Not taller than wide (0). Margins: Smooth (0). Echogenic Foci: None (0). ACR TI-RADS total points: 3 ACR TI-RADS category: 3 2. Location: Left inferior isthmus. Size: 0.8 x 2.0 x 2.3 cm, volume 6.6 mL. Nodule characteristics: Composition: Solid (2). Echogenicity: Hypoechoic (2). Shape: Not taller than wide (0). Margins: Extrathyroidal extension (3). Echogenic Foci: None (0). ACR TI-RADS total points: 7 ACR TI-RADS category: 5 3. Location: Left inferior. Size: 4.0 x 2.6 x 3.2 cm, volume 17.5 mL. Nodule characteristics: Composition: Solid (2). Echogenicity: Hypoechoic (2). Shape: Not taller than wide (0). Margins: Extrathyroidal extension (3). Echogenic Foci: Comet-tail artifacts (0). Macrocalcifications (1). ACR TI-RADS total points: 8 ACR TI-RADS category: 5 4. Location: Left superior. Size: 2.0 x 1.7 x 1.9 cm, volume 3.4 mL. Nodule characteristics: Composition: Solid (2). Echogenicity: Isoechoic (1). Shape: Not taller than wide (0). Margins: Irregular (2). Echogenic Foci: None (0). ACR TI-RADS total points: 5 ACR TI-RADS category: 4 NODES: No lymphadenopathy is seen in the tissue surrounding the thyroid gland. US/US thyroid IMPRESSION: 1. 4.0 cm inferior left thyroid lobe and 2.0 cm inferior thyroid isthmus TR 5 nodules both meet ACR biopsy criteria and are amenable to ultrasound-guided biopsy, if clinically indicated and not already performed. 2. There is an asymmetric goiter, left lobe greater than right. 3. There is heterogeneous thyroid echotexture and increased vascularity, which may be associated with thyroiditis. ACR TI-RADS RECOMMENDATION REFERENCE: Ultrasound-guided fine-needle aspiration, followup ultrasound, no further follow up. * TR1 (0 point) and TR2 (2 points): No FNA or follow up. * TR3 (3 points): FNA if more than or equal to 2.5 cm in maximum dimension, followup ultrasound in 1, 3 and 5 years if 1.5 to 2.4 cm in maximum dimension. * TR4 (4-6 points): FNA if more than or equal to 1.5 cm in maximum dimension, followup ultrasound in 1, 2, 3 and 5 years if 1 to 1.4 cm in maximum dimension. * TR5 (more than or equal to 7 points): FNA if more than or equal to 1 cm in maximum dimension, followup ultrasound every year for 5 years if 0.5 to 0.9 cm in maximum dimension. * TR3, TR4 or TR5 nodules that are below the size threshold for followup receive no follow up.
== END 2023-10-10 15:26 | disposition home or self-care (01) ==
LOC: HO.HMGCX 15:25
PROVIDERS: PCP Internal Medicine; Visit Provider Internal Medicine
DX: E04.9 Nontoxic goiter, unspecified (principal)
CPT/HCPCS: 76536

== ENCOUNTER → 2023-11-09 15:00 | Outpatient (BNVA) | payer MEDICARE, SELFPAY | PROVIDERS: PCP Internal Medicine; Visit Provider Orthopaedic Surgery ==

== ENCOUNTER → 2023-11-09 15:00 | Outpatient (BNVA) | payer MEDICARE, SELFPAY | PROVIDERS: PCP Internal Medicine; Visit Provider Orthopaedic Surgery ==

== ENCOUNTER 2023-11-27 08:52 | Outpatient (AMB) | payer MEDICARE, SELFPAY ==
--- NOTE | 2023-11-27 08:53 | A.OFFPC_ITS ---
Vital Signs 11/27/23 08:59 Height 5 ft 2 in Weight 165 lb BMI 30.2 BP 128/74 Blood Pressure Location Lt brachial Position Sitting Pulse 80 Pulse Source Pulse Oximeter Pulse Oximetry (%) 97 Oxygen Delivery Method Room Air Intake Visit Reasons: Pre op R hip surgery on 12/13/23 Dr. Call Intake Note: Pt is here today for pre op visit. Pt is having R hip surgery with Dr. Call on 12/13/23. Allergies donepezil Adverse Reaction (Intermediate, Verified 11/27/23 09:04) Nausea trazodone Adverse Reaction (Intermediate, Verified 11/27/23 09:04) Dizziness Medication List - Last Reconciled 11/27/23 by Beverley Perez MD amoxicillin 2,000 mg (4 x 500 mg) PO ONCE ascorbic acid (vitamin C) 1 g PO DAILY cholecalciferol (vitamin D3) 50 mcg PO DAILY felodipine ER 2.5 mg PO DAILY ginkgo biloba-Panax ginseng rt 60-100 mg caps PO [glucosemide with MSM PO] lutein 20 mg PO DAILY multivitamin 1 tab PO DAILY olmesartan 40 mg PO DAILY [prevagen PO] Tobacco use date assessed: 11/27/23 Dental Screening Dental Screen Date: 11/27/23 Did you have a dental visit in the last 12 months?: Yes Did you have a dental problem in the last 6 months where you did not have access to dental care?: No Was dental information given to patient?: Patient has dentist HPI HPI Comments History of Present Illness Details Pt presents for follow-up visit. Hypertension is controlled on current medications. Thyroid ultrasound showed multiple nodules including 2 large ones 4 cm and 2 cm. Patient had negative biopsy body scheduled to have partial thyroidectomy at [facility]. Hypertension is controlled on current medications patient complains of chronic midthoracic pain positional worse at the end of the day. Patient denies weakness or numbness in extremities, change in bladder or bowel function. [facility] Medical History (Updated 11/27/23 @ 10:28 by Beverley Perez MD) Palpitations Vitamin D deficiency Annual physical exam Insomnia Memory deficit Hyperglycemia Hyperlipidemia History of mammogram Chronic neck pain Arthralgia Tension headache RLS (restless legs syndrome) Osteoarthritis of both knees Balance problem IBS (irritable bowel syndrome) Osteoarthritis of right shoulder Sciatica of left side Sciatica, right side Hypertension Surgical History Hx of spinal surgery H/O colonoscopy No pertinent past surgical history Family History Father Stroke Mother Lung cancer Social History Housing: House Alcohol intake: current Alcohol intake frequency: holidays/special occasions only Patient Tobacco Use Status: Never used Tobacco e-Cigarette/Vaping Use: Never Used Current occupational status: retired Cognitive needs: No Hearing needs: No Vision needs: Yes Questionnaire Thrive Questionnaire Date Thrive assessed: 09/22/23 AUDIT C Alcohol Use Questionnaire (AUDIT-C) 1. How often do you have a drink containing alcohol?: Never 3. How often do you have six or more drinks on one occasion?: Never Total Score: 0 MABEL-7 AMB Questionnaire MABEL-7 Date MABEL - 7 assessed: 09/22/23 Source: Developed by Drs. Rajesh Ellis, Sharon Delarosa, Mikie Staley and colleagues, with an educational carolann from [employer]. Review of Systems Const All systems reviewed & are unremarkable except as noted in HPI and below Reports no additional complaints Eyes Reports no additional complaints ENT Reports no additional complaints Card Reports no additional complaints Resp Reports no additional complaints GI Reports no additional complaints Reports no additional complaints Physical exam (Primary Care) Vital Signs: Last Vital Signs Pulse 80 11/27/23 08:59 BP 128/74 11/27/23 08:59 Pulse Ox 97 11/27/23 08:59 Oxygen Delivery Method Room Air 11/27/23 08:59 BMI result Body Mass Index 30.2 Tobacco/Smoking Status: Tobacco use Status Tobacco use date assessed 11/27/23 11/27/23 09:07 Patient Tobacco Use Status Never used Tobacco 11/27/23 09:07 e-Cigarette/Vaping Use Never Used 11/27/23 08:53 Thrive Assessment: Date of Thrive Assessment Date Thrive assessed 09/22/23 11/27/23 08:53 Const General: no acute distress HENMT Head: Yes normal to inspection Face and sinus: Yes normal facial exam Neck Neck: Yes no lymphadenopathy and Yes supple Resp Effort & Inspection: normal respiratory effort Auscultation: clear to auscultation bilaterally Cardio Rhythm: regular rhythm Heart sounds: S1 normal heart sound present and S2 normal heart sound present GI Inspection: Yes normal to inspection Palpation (GI): Soft to palpation Percussion: Yes normal to percussion Auscultation: normal bowel sounds Back/Spine/Pelvis Other: Paraspinal tenderness in the midthoracic region no spinal tenderness, full range of motion in thoracic and lumbar spine Assessment and Plan Assessment & Plan (1) Thoracic back pain: Code(s): M54.6 - Pain in thoracic spine Plan: Obtain x-ray of T-spine patient declined physical therapy (2) Hyperglycemia: Code(s): R73.9 - Hyperglycemia, unspecified Plan: Continue ADA diet check fasting blood work today (3) Hyperlipidemia: Code(s): E78.5 - Hyperlipidemia, unspecified Plan: Continue low-cholesterol diet (4) Enlarged thyroid: Comment: 2 thyroid left nodules 4 cm and 2 cm, referred to Endo 11/04. Scheduled to have partial thyroidectomy 12/02 at [facility] Code(s): E04.9 - Nontoxic goiter, unspecified Plan: Follow-up with retail department manager and thyroid surgeon (5) Hypertension: Code(s): I10 - Essential (primary) hypertension Plan: Continue current medications, EKG showed normal sinus with no ST-T changes Orders: Orders Vitamin D 25-OH Total Today E78.5 - Hyperlipidemia, unspecified, M54.6 - Pain in thoracic spine, R73.9 - Hyperglycemia, unspecified XR thoracic spine 2V Today M54.6 - Pain in thoracic spine TSH reflex Free T4 Today E78.5 - Hyperlipidemia, unspecified, M54.6 - Pain in thoracic spine, R73.9 - Hyperglycemia, unspecified Comprehensive Jud. Panel Fast Today E78.5 - Hyperlipidemia, unspecified, M54.6 - Pain in thoracic spine, R73.9 - Hyperglycemia, unspecified Complete Blood Count Auto Diff Today E78.5 - Hyperlipidemia, unspecified, M54.6 - Pain in thoracic spine, R73.9 - Hyperglycemia, unspecified Vitamin B12 and Folate Today E78.5 - Hyperlipidemia, unspecified, M54.6 - Pain in thoracic spine, R73.9 - Hyperglycemia, unspecified Medications: New amoxicillin 1 hr prior to dental visit 2,000 mg (4 x 500 mg) PO ONCE 4 caps 1RF Coding Level of Care Code Est Pt Level 4 (38727) Diagnoses Thoracic back pain M54.6 Hyperglycemia R73.9 Hyperlipidemia E78.5 Enlarged thyroid E04.9 Hypertension I10
[2023-11-27 08:59] VITALS: BP 128/74; PULSE 80; O2SAT 97; BMI 30.2
== END 2023-11-27 10:31 | disposition home or self-care (01) ==
PROVIDERS: PCP Internal Medicine; Visit Provider Internal Medicine
DX: M54.6 Pain in thoracic spine (principal); R73.9 Hyperglycemia, unspecified; E78.5 Hyperlipidemia, unspecified; E04.9 Nontoxic goiter, unspecified; I10 Essential (primary) hypertension
CPT/HCPCS: 99214

== ENCOUNTER 2023-11-27 09:52 | Outpatient (REF) | payer MEDICARE, SELFPAY ==
--- NOTE | ~2023-11-27 | XR_ITS ---
EXAMINATION: XR THORACOLUMBAR SPINE CLINICAL INFORMATION: Pain. COMPARISON: None available. TECHNIQUE: 2 views of the thoracic spine. FINDINGS: No acute compression deformity or subluxation. Mild multilevel intervertebral disc height loss with small anterior osteophytes. Normal appearance of the posterior elements. No significant paraspinal soft tissue abnormality. XR/XR thoracic spine 2V IMPRESSION: 1. No acute compression deformity or subluxation. 2. Mild thoracic spondylosis.
[2023-11-27 13:12] LABS: MANUAL DIFF FLAG NO
[2023-11-27 13:41] LABS: Basophils Percent Auto 0.6 % (0-2); Eosinophils Absolute Auto 0.2 X10*3/uL (0.0-0.4); Eosinophils Percent Auto 4.2 % (0-4); Hematocrit 46.1 % (37.0-47.0); Hemoglobin 15.1 g/dl (12.0-16.0); Imm Gran Abs Auto 0.01 X10*3/uL (0.00-0.03); Imm Gran Pct Auto 0.2 % (0.0-0.4); Lymphocytes Absolute Auto 1.6 X10*3/uL (1.2-4.9); Lymphocytes Percent Auto 31.2 % (20-40); Mean Corpuscular HGB Conc 32.8 g/dl (31.0-35.0); Mean Corpuscular Hemoglobin 29.6 pg (27.0-33.0); Mean Corpuscular Volume 90.4 fL (80.0-98.0); Mean Platelet Volume 10.6 fL (9.4-12.3); Monocytes Absolute Auto 0.6 X10*3/uL (0.1-1.2); Monocytes Percent Auto 10.6 % (2-11); Neutrophils Absolute Auto 2.8 x10*3/uL (2.0-8.3); Neutrophils Percent Auto 53.2 % (45-73); Platelet Count 223 X10*3/uL (160-400); Red Cell Distribution Width 13.2 % (11.0-16.0); White Blood Count 5.3 X10*3/uL (4.8-10.8)
[2023-11-27 14:24] LABS: Alanine Aminotransferase 21 U/L (0-31); Albumin Level 4.1 g/dL (3.5-5.0); Alkaline Phosphatase 61 U/L (39-117); Anion Gap 13 (12-20); Aspartate Amino Transferase 24 U/L (5-31); Bilirubin Total 0.4 mg/dL (0.0-1.0); Blood Urea Nitrogen 21 mg/dL (9-16); Calcium 9.1 mg/dL (8.4-10.2); Carbon Dioxide 26 mmol/L (22-29); Chloride 106 mmol/L (96-108); Cholesterol 181 mg/dL (<200); Estimated Glomerular Filt Rate > 60; Glucose Fasting 103 mg/dL (60-99); HDL Cholesterol 33 mg/dL (>40); LDL Cholesterol Calculated 110 mg/dL (<100); Potassium 4.7 mmol/L (3.3-5.1); Sodium 140 mmol/L (135-145); TSH reflex Free T4 0.61 uIU/mL (0.32-4.0); Total Protein 7.4 g/dL (6.5-8.0); Triglycerides 191 mg/dL (<150); Vitamin D 25-OH Total 48.4 ng/mL (>30)
[2023-11-27 14:27] LABS: Folate 13.1 ng/mL (> or = 4.0); Vitamin B12 862 pg/mL (200-900)
== END 2023-11-27 09:53 | disposition home or self-care (01) ==
LOC: HO.HMGCX 09:52
PROVIDERS: PCP Internal Medicine; Visit Provider Internal Medicine
DX: M54.6 Pain in thoracic spine (principal); R73.9 Hyperglycemia, unspecified; E78.5 Hyperlipidemia, unspecified; I10 Essential (primary) hypertension
CPT/HCPCS: 36415; 72070; 80053; 80061; 82306; 82607; 82746; 84443; 85025

== ENCOUNTER 2023-12-07 14:46 | Outpatient (AMB) | payer MEDICARE, SELFPAY ==
--- NOTE | 2023-12-07 14:49 | MHC.OFFVIS ---
Intake Vital Signs 12/07/23 14:53 Height 5 ft 2 in Weight 165 lb BMI 30.2 Intake Visit Reasons: pre-op right HENRI 12/13/23 with NE Intake Note: Anitha is a 78 year old female who presents today for a pre op appointment for her right HENRI 12/13/23 NE. Allergies donepezil Adverse Reaction (Intermediate, Verified 12/07/23 14:52) Nausea trazodone Adverse Reaction (Intermediate, Verified 12/07/23 14:52) Dizziness HPI pre-op right HENRI 12/13/23 with NE HPI Details 78-year-old female who presents in the office today for her preoperative history and physical exam prior to a right total hip arthroplasty to be performed on 12/13/[address] Darius Call. Patient is accompanied in the office today by her daughter who is interrupting for her. Patient has an allergy history, as follows: -Donepezil; nausea -Trazodone; dizziness Patient is currently taking, as follows: -Amoxicillin 2,000 mg PO once -Ascorbic acid 1 gram PO daily PRN -Cholecalciferol 50 mcg PO daily -Coenzyme Q10 200 mg PO daily -Felodipine ER 2.5 mg PO daily -Ginkgo biloba-panax ginseng er 60-100 mg 2 caps PO daily -Lutein 20 mg PO daily -Olmesartan 40 mg PO daily -Prevagen 1 tab PO daily -Vitamin E 180 mg PO daily Patient has a medical history, as follows: -Thyroid nodule -Palpitations -Vitamin D deficiency -Insomnia -Memory deficit -Hyperglycemia -Hyperlipidemia -Arthralgia -Tension headache -RLS (restless legs syndrome) -Balance problem -IBS (irritable bowel syndrome) -Sciatica of left side -Sciatica, right side -Hypertension Patient has a surgical history, as follows: -Hx of bunionectomy -Hx of shoulder surgery; bilateral -Hx of spinal surgery; 07/2022 -Hx of colonoscopy; 07/2020 Dr. Mathis [facility] Medical History (Updated 12/05/23 @ 12:11 by Bette Birmingham RN) Thyroid nodule Arthritis Palpitations Vitamin D deficiency Annual physical exam Insomnia Memory deficit Hyperglycemia Hyperlipidemia History of mammogram Chronic neck pain Arthralgia Tension headache RLS (restless legs syndrome) Osteoarthritis of both knees Balance problem IBS (irritable bowel syndrome) Osteoarthritis of right shoulder Sciatica of left side Sciatica, right side Hypertension Surgical History (Updated 12/05/23 @ 12:13 by Bette Birmingham RN) History of bunionectomy Hx of shoulder surgery Hx of spinal surgery H/O colonoscopy Family History Father Stroke Mother Lung cancer Social History Housing: House Are you a primary laboratory animal caretaker to a significant other at home: No Do you presently have visiting nurse or other home services: No Alcohol intake: current Alcohol intake frequency: does not drink Patient Tobacco Use Status: Never used Tobacco e-Cigarette/Vaping Use: Never Used Current occupational status: retired Cognitive needs: No Hearing needs: No Vision needs: Yes Review of Systems Const All systems reviewed & are unremarkable except as noted in HPI and below Physical Exam Vital Signs: BMI result Body Mass Index 30.2 Const General: cooperative, healthy appearing and no acute distress Orientation/consciousness: patient oriented x3 HEENT Head: Yes normocephalic and Yes atraumatic Eyes EOM: EOMs intact bilaterally Resp Effort & Inspection: normal respiratory effort and able to speak in complete sentences Cardio Jugular venous distension: no JVD Rate: regular rate Peripheral pulses: Peripheral pulses 2+ throughout GI Palpation (GI): Soft to palpation Skin General skin exam: turgor normal Lesions: no lesions Rashes: no rashes Neuro General: patient oriented x3 Extrem Other: Right hip: Skin is clean and intact _ gait antalgia +impingement test right hip that reproduces her primary pain complaint +[facility] 90/30/10 Psych Appearance: grossly normal Affect: normal affect Attitude: cooperative Assessment & Plan Assessment & Plan (1) Osteoarthritis of right hip: Code(s): M16.11 - Unilateral primary osteoarthritis, right hip Qualifiers: Osteoarthritis type: primary Qualified Code(s): M16.11 - Unilateral primary osteoarthritis, right hip Plan: Beverley fuentes [phone] please call after surgery Would need ambulance transport home Plan for 2 night stay, has cancer and cannot help her much at home. Plan Ms. Xavier is a 78-year-old female who presents in the office today for her preoperative history and physical exam prior to a right total hip arthroplasty to be performed on 12/13/[address] Darius Call. Patient is accompanied in the office today by her daughter who is interrupting for her. Patient has an allergy history, as follows: -Donepezil; nausea -Trazodone; dizziness Patient is currently taking, as follows: -Amoxicillin 2,000 mg PO once -Ascorbic acid 1 gram PO daily PRN -Cholecalciferol 50 mcg PO daily -Coenzyme Q10 200 mg PO daily -Felodipine ER 2.5 mg PO daily -Ginkgo biloba-panax ginseng er 60-100 mg 2 caps PO daily -Lutein 20 mg PO daily -Olmesartan 40 mg PO daily -Prevagen 1 tab PO daily -Vitamin E 180 mg PO daily Patient has a medical history, as follows: -Thyroid nodule -Palpitations -Vitamin D deficiency -Insomnia -Memory deficit -Hyperglycemia -Hyperlipidemia -Arthralgia -Tension headache -RLS (restless legs syndrome) -Balance problem -IBS (irritable bowel syndrome) -Sciatica of left side -Sciatica, right side -Hypertension Patient has a surgical history, as follows: -Hx of bunionectomy -Hx of shoulder surgery; bilateral -Hx of spinal surgery; 07/2022 -Hx of colonoscopy; 07/2020 Dr. Mathis I discussed in detail the procedure and what to expect pre and post operatively. We discussed the risks, benefits and alternatives to the surgery as well as the rehabilitation course. The risks; which include, but are not limited to infection, bleeding, nerve injury, ongoing pain, swelling, and stiffness, perioperative risk of injury to bones and soft tissues, and blood clots. I have answered all questions and with their understanding they have consented to move forward with a left total knee arthroplasty to be performed on 12/13/[address] Darius Call. Follow up will be at the post operative appointment on 12/28/2023 at 3:00 pm, or sooner if needed. Patient is requesting aid to get her home. Her daughter states she is not able to get into the car now and it will be worse after the surgery. They would like for her to have an ambulance ride home. Please call daughter, Beverley, after surgery [phone] They are requesting that her daughter is the main contact and is to act as medical proxy for her mother. A business card was supplied in the office today. Plan for a 2 night stay, has cancer and cannot help the patient with car after the surgery. Patient Instructions: Beverley daughter [phone] please call after surgery Scribed by Tawnya Angulo medical device assembler, for Denisse Magallanes PA-C on 12/07/2023 at 2:51 pm, EST. Coding Level of Care Code Global (30323) Diagnoses Primary osteoarthritis of right hip M16.11 Osteoarthritis type: primary
[2023-12-07 14:53] VITALS: BMI 30.2
== END 2023-12-07 16:40 | disposition home or self-care (01) ==
PROVIDERS: PCP Internal Medicine; Visit Provider Physician Assistant
DX: M16.11 Unilateral primary osteoarthritis, right hip (principal)
CPT/HCPCS: 99024

== ENCOUNTER 2023-12-07 14:46 | Outpatient (REF) | payer MEDICARE, SELFPAY ==
--- NOTE | ~2023-12-07 | XR_ITS ---
EXAMINATION: XR HIP, RIGHT CLINICAL INFORMATION: Pain in unspecified hip COMPARISON: AP pelvis and right hip 09/01/2023 TECHNIQUE: Two views of the right hip. AP pelvis also obtained. FINDINGS: A grid overlies the center of the pelvis. There is bony demineralization. There is moderate narrowing of the cartilage space of the right hip medially. There is peripheral osteophyte formation of the right femoral head. There is subchondral cystic formation of the lateral aspect the right acetabular roof. The cartilage space of the left hip is well-maintained. There is mild subchondral sclerosis of the left acetabular roof. The femoral heads are smooth. There is no fracture or dislocation. The bilateral sacral iliac joints are symmetric and well-maintained. The pubic symphysis is intact. There are multiple pelvic phleboliths. There has been a prior fusion at L5-S1. XR/XR hip RT min 2V IMPRESSION: Moderate osteoarthritis of the right hip and very mild osteoarthritic changes of the left hip. No fracture or dislocation.
== END 2023-12-07 14:47 | disposition home or self-care (01) ==
LOC: HO.HOSX 14:46
PROVIDERS: PCP Internal Medicine; Visit Provider Physician Assistant
DX: Z01.818 Encounter for other preprocedural examination (principal); M16.11 Unilateral primary osteoarthritis, right hip
CPT/HCPCS: 73502; 99212

== ENCOUNTER 2023-12-13 06:29 | Day surgery (SDC) | payer MEDICARE, SELFPAY ==
[2023-12-05 12:28] VITALS: BP 132/61; PULSE 84; RESP 16; O2SAT 94; BMI 30.5
[2023-12-05 14:23] LABS: MRSA Nasal PCR NEGATIVE (Negative); SA Nasal PCR POSITIVE (Negative)
[2023-12-13] VITALS (17 sets, daily range): BP systolic 118–156; BP diastolic 59–81; PULSE 87–100; RESP 9–18; TEMP 36–36.6; O2SAT 93–98
--- NOTE | ~2023-12-13 | XR_ITS ---
EXAMINATION: XR PELVIS CLINICAL INFORMATION: Right total hip replacement. COMPARISON: 12/07/2023 TECHNIQUE: AP view of the pelvis. FINDINGS: Right total hip replacement has been performed, prosthetic components appear appropriate in position. Satisfactory alignment. Surgical hardware again identified lower lumbar spine. Pelvic phleboliths. XR/XR pelvis 1-2V IMPRESSION: Right total hip replacement.
--- NOTE | 2023-12-13 07:20 | MHC.SHP ---
Pre-Procedural Eval Section A - 24 Hr Update-Section A only Date of Service: 12/13/23 The patient is an INPATIENT: No Changes since office visit: No Cold of Flu in the past 2 weeks, No New Medical Problems, No Changes in Medication and No Patient answered all questions The patient has been examined within 24 hours of the surgical procedure. The History & Physical has been completed within 30 days and I have reviewed it.: Yes Section B - Complete if H&P > 30 days Chief Complaint: Unilateral primary osteoarthritis, right hip Allergies: Allergies Allergy/AdvReac Type Severity Reaction Status Date / Time donepezil AdvReac Intermediate Nausea Verified 12/13/23 06:36 trazodone AdvReac Intermediate Dizziness Verified 12/13/23 06:36 Plan I have reviewed the history and physical and performed a pertinent physical examination on my patient. No changes have occurred unless specified. Time Spent With Patient Time: Total time managing care of this patient today ____ minutes.
[2023-12-13] MEDS: Lactated Ringers 1,000 ML 100 ML IVCONT ×3 (07:30→23:07)
--- NOTE | 2023-12-13 07:30 | HO.ANESPROP2 ---
Documented by User: Faith Marcum NP 12/12/23 08:36 HPI - Anesthesia Eval Consult details Narrative: 78yo F for Right Hip Total Replacement PAT with Dr Castillo 12/05/23 Medically cleared PMFSH Active Problems Active Problems: All Active Problems (Updated 12/05/23 @ 12:11 by Bette Birmingham RN) Thoracic back pain (Acute) Postnasal drip (Acute) Enlarged thyroid (Acute) Osteoarthritis of right hip (Acute) Right hip pain (Acute) Back pain (Acute) Vitamin B12 deficiency (Acute) Varicose veins of left lower extremity with inflammation (Acute) Increased frequency of urination (Acute) Shortness of breath (Acute) Chest pain (Acute) Sciatica, right side (Acute) Palpitations (Acute) Vitamin D deficiency (Acute) Annual physical exam (Acute) Insomnia (Acute) Memory deficit (Acute) Hypertension (Acute) Hyperglycemia (Acute) Hyperlipidemia (Acute) Past Medical History Medical History (Updated 12/05/23 @ 12:11 by Bette Birmingham RN) Thyroid nodule Arthritis Palpitations Vitamin D deficiency Annual physical exam Insomnia Memory deficit Hyperglycemia Hyperlipidemia History of mammogram Chronic neck pain Arthralgia Tension headache RLS (restless legs syndrome) Osteoarthritis of both knees Balance problem IBS (irritable bowel syndrome) Osteoarthritis of right shoulder Sciatica of left side Sciatica, right side Hypertension Family History Family History Father Stroke Mother Lung cancer Surgical History Surgical History (Updated 12/05/23 @ 12:13 by Bette Birmingham RN) History of bunionectomy Hx of shoulder surgery Hx of spinal surgery H/O colonoscopy Social History Social History Housing: House Are you a primary director career services to a significant other at home: No Do you presently have visiting nurse or other home services: No Alcohol intake: current Alcohol intake frequency: does not drink Patient Tobacco Use Status: Never used Tobacco e-Cigarette/Vaping Use: Never Used Use of substances other than those prescribed or required for medical reasons: No Have you been hit, kicked, punched, or otherwise hurt by someone within the past year? If so, by whom?: No Advance Directives: No Advance Directives Information Provided: Yes Advance Directives on File: No Recently lost weight without trying: No Eating poorly because of decreased appetite: No Nutrition Risks: No Nutritional Risk Patient : No : No Poor oral hygiene: Yes (bottom partial denture, crown on the top X2) Current occupational status: retired Cognitive needs: No Hearing needs: No Vision needs: Yes Meds Allergies Allergy/AdvReac Type Severity Reaction Status Date / Time donepezil AdvReac Intermediate Nausea Verified 12/13/23 06:36 trazodone AdvReac Intermediate Dizziness Verified 12/13/23 06:36 Home Medications Medication Instructions Recorded Confirmed Last Taken Type ascorbic acid (vitamin C) 1,000 mg 1 g PO DAILY PRN Flu Symptoms 09/07/20 12/05/23 12/08/23 History tablet cholecalciferol (vitamin D3) 50 50 mcg PO DAILY@1700 09/07/20 12/05/23 12/08/23 History mcg (2,000 unit) tablet glucosemide with MSM 2 tab PO DAILY 09/07/20 12/05/23 12/08/23 History lutein 20 mg capsule 20 mg PO DAILY 09/07/20 12/05/23 12/08/23 History ginkgo biloba extract-Panax 2 cap PO DAILY 07/23/21 12/05/23 12/08/23 History ginseng root extract 60 mg-100 mg capsule prevagen 1 tab PO DAILY 11/27/23 12/05/23 12/08/23 History cholecalciferol (vitamin D3) 50 50 mcg PO DAILY 12/05/23 12/05/23 12/08/23 History mcg (2,000 unit) capsule (Vitamin D3) coenzyme Q10 200 mg capsule (Co 200 mg PO DAILY 12/05/23 12/05/23 12/08/23 History Q-10) vitamin E (dl, acetate) 180 mg 180 mg PO DAILY 12/05/23 12/05/23 12/08/23 History (400 unit) capsule Exam Height,Weight and Vital Signs: Height 5 ft 2 in Weight 75.75 kg Last Vital Signs Pulse 84 12/05/23 12:28 Resp 16 12/05/23 12:28 BP 132/61 12/05/23 12:28 Pulse Ox 94 12/05/23 12:28 O2 Del Method Room Air 12/05/23 12:28 Pertinent Lab Results Pertinent Lab Results: Laboratory Tests 12/05/23 12/05/23 12:35 13:08 Nasal Screen MRSA (PCR) NEGATIVE Nasal S. aureus Screen POSITIVE A Nasal MRSA/S.aureus Interp SEE NOTE Blood Type O Positive Antibody Screen NEGATIVE Laboratory Tests 11/27/23 10:04 WBC 5.3 Hgb 15.1 Hct 46.1 Plt Count 223 Sodium 140 Potassium 4.7 Chloride 106 Carbon Dioxide 26 BUN 21 H Creatinine 0.86 Narrative Narrative: EKG 11/2023 NSR @ 80 Assessment and Plan Assessment Anesthesia Assessment: Chart Reviewed Documented by User: Bijal Kang DO 12/13/23 07:36 PMFSH Past Medical History Medical History (Updated 12/05/23 @ 12:11 by Bette Birmingham RN) Thyroid nodule Arthritis Palpitations Vitamin D deficiency Annual physical exam Insomnia Memory deficit Hyperglycemia Hyperlipidemia History of mammogram Chronic neck pain Arthralgia Tension headache RLS (restless legs syndrome) Osteoarthritis of both knees Balance problem IBS (irritable bowel syndrome) Osteoarthritis of right shoulder Sciatica of left side Sciatica, right side Hypertension Family History Family History Father Stroke Mother Lung cancer Family history of problems with anesthesia: No Surgical History Surgical History (Updated 12/05/23 @ 12:13 by Bette Birmingham RN) History of bunionectomy Hx of shoulder surgery Hx of spinal surgery H/O colonoscopy History of Problems with Anesthesia: No Social History Social History Housing: House Are you a primary director career services to a significant other at home: No Do you presently have visiting nurse or other home services: No Alcohol intake: current Alcohol intake frequency: does not drink Patient Tobacco Use Status: Never used Tobacco e-Cigarette/Vaping Use: Never Used Use of substances other than those prescribed or required for medical reasons: No Have you been hit, kicked, punched, or otherwise hurt by someone within the past year? If so, by whom?: No Advance Directives: No Advance Directives Information Provided: Yes Advance Directives on File: No Recently lost weight without trying: No Eating poorly because of decreased appetite: No Nutrition Risks: No Nutritional Risk Patient : No : No Poor oral hygiene: Yes (bottom partial denture, crown on the top X2) Current occupational status: retired Cognitive needs: No Hearing needs: No Vision needs: Yes Meds Allergies Allergy/AdvReac Type Severity Reaction Status Date / Time donepezil AdvReac Intermediate Nausea Verified 12/13/23 06:36 trazodone AdvReac Intermediate Dizziness Verified 12/13/23 06:36 Home Medications Medication Instructions Recorded Confirmed Last Taken Type ascorbic acid (vitamin C) 1,000 mg 1 g PO DAILY PRN Flu Symptoms 09/07/20 12/05/23 12/08/23 History tablet cholecalciferol (vitamin D3) 50 50 mcg PO DAILY@1700 09/07/20 12/05/23 12/08/23 History mcg (2,000 unit) tablet glucosemide with MSM 2 tab PO DAILY 09/07/20 12/05/23 12/08/23 History lutein 20 mg capsule 20 mg PO DAILY 09/07/20 12/05/23 12/08/23 History ginkgo biloba extract-Panax 2 cap PO DAILY 07/23/21 12/05/23 12/08/23 History ginseng root extract 60 mg-100 mg capsule prevagen 1 tab PO DAILY 11/27/23 12/05/23 12/08/23 History cholecalciferol (vitamin D3) 50 50 mcg PO DAILY 12/05/23 12/05/23 12/08/23 History mcg (2,000 unit) capsule (Vitamin D3) coenzyme Q10 200 mg capsule (Co 200 mg PO DAILY 12/05/23 12/05/23 12/08/23 History Q-10) vitamin E (dl, acetate) 180 mg 180 mg PO DAILY 12/05/23 12/05/23 12/08/23 History (400 unit) capsule Exam Exam Date and Time: December 13, 2023 0730 Height,Weight and Vital Signs: Height 5 ft 2 in Weight 75.75 kg Last Vital Signs Pulse 84 12/05/23 12:28 Resp 16 12/05/23 12:28 BP 132/61 12/05/23 12:28 Pulse Ox 94 12/05/23 12:28 O2 Del Method Room Air 12/05/23 12:28 Height 5 ft 2 in Weight 75.75 kg Vital Signs Pulse Rate 84 12/05/23 12:28 Respiratory Rate 16 12/05/23 12:28 Blood Pressure 132/61 12/05/23 12:28 Pulse Oximetry 94 12/05/23 12:28 Oxygen Delivery Method Room Air 12/05/23 12:28 Pulse Rate 84 12/05/23 12:28 Respiratory Rate 16 12/05/23 12:28 Blood Pressure 132/61 12/05/23 12:28 Pulse Oximetry 94 12/05/23 12:28 Oxygen Delivery Method Room Air 12/05/23 12:28 Airway Mallampati Class: I TM Dist: >3cm Neck ROM: Full Loose/Missing/Broken Teeth: Yes (a few crowns and dentures already removed at home) Heart: S1S2 Lungs: CTAB Assessment and Plan Assessment Anesthesia Assessment: Anesthesia Plan Discussed and Chart Reviewed Final Anesthetic Review Family History of Problems with Anesthesia: No History of Problems with Anesthesia: No NPO: Yes ASA Class: II Final Preanesthetic Review: No Changes in Pt Med Stat, Meds/Allgs Chart Reviewed, Consent Obtained/Reviewed and Anes Risks/Benef Reviewed Patient Risk: Low Procedure Risk: Intermediate Anesthetic Plan Anesthetic Plan: GA and Agree w/ Assess. and Plan Disposition: Standard PACU
--- NOTE | 2023-12-13 10:21 | PM.OP ---
Brief Operative Note Date of Service: 12/13/23 Pre-op diagnosis: Right hip OA Post-op diagnosis: same Procedure: Right HENRI Implants: Kimmy Trident 2 48 [place] Accolade2 #5 127 deg with +4 32 ceramic femoral head Surgeon: Darius Call MD Anesthesia: GETA Was an Continuous Mining Machine Lode Miner used for this Procedure?: Yes Continuous Mining Machine Lode Miner: Denisse Magallanes Estimated blood loss (mL): 200 IV fluids (mL): 1,200 Pathology: other Condition: stable Disposition: PACU
--- NOTE | 2023-12-13 11:39 | P.CONHOSP_ITS ---
History of Present Illness Data of Consult Service Date: 12/13/23 Primary Care Provider: Beverley Perez MD HPI 78-year-old woman with a history of hypertension admitted by Orthopedic surgery and is status post right total hip arthroplasty. Surgery was unremarkable. The patient is hemodynamically stable. She has been able to eat and drink without any nausea or vomiting. She has no acute medical complaints at this time. Review of Systems Review of Systems: Denies any recent fever chills or decrease in appetite respiratory denies any shortness of breath or cough cardiovascular denies chest pain gastrointestinal denies any dysphagia abdominal pain nausea vomiting or diarrhea genitourinary denies any dysuria frequency or hematuria musculoskeletal denies any joint pain or swelling neuropsych denies any weakness or seizures all other systems reviewed are negative [facility] Medical History Thyroid nodule Arthritis Palpitations Vitamin D deficiency Annual physical exam Insomnia Memory deficit Hyperglycemia Hyperlipidemia History of mammogram Chronic neck pain Arthralgia Tension headache RLS (restless legs syndrome) Osteoarthritis of both knees Balance problem IBS (irritable bowel syndrome) Osteoarthritis of right shoulder Sciatica of left side Sciatica, right side Hypertension Family History Father Stroke Mother Lung cancer Surgical History History of bunionectomy Hx of shoulder surgery Hx of spinal surgery H/O colonoscopy Social History Household Members: [facility] Are you a primary healthcare management consultant to a significant other at home: No Do you presently have visiting nurse or other home services: No Alcohol intake: current Alcohol intake frequency: does not drink Patient Tobacco Use Status: Never used Tobacco e-Cigarette/Vaping Use: Never Used Use of substances other than those prescribed or required for medical reasons: No Currently Displaying Signs/Symptoms of Drug Intoxication Withdrawal: No Have you been hit, kicked, punched, or otherwise hurt by someone within the past year? If so, by whom?: No Do you feel safe in your current relationship?: Yes Is there a partner from a previous relationship who is making you feel unsafe now?: No Are you made to feel afraid or neglected: No Advance Directives: No Advance Directives Information Provided: Yes Advance Directives on File: No Do you have thoughts of harming others: None Do you have a plan to hurt others: No Plan Recently lost weight without trying: No Eating poorly because of decreased appetite: No Nutrition Risks: No Nutritional Risk Patient : No : No Poor oral hygiene: No Current occupational status: retired Cognitive needs: No Hearing needs: No Vision needs: Yes Meds Allergies Allergy/AdvReac Type Severity Reaction Status Date / Time donepezil AdvReac Intermediate Nausea Verified 12/13/23 06:36 trazodone AdvReac Intermediate Dizziness Verified 12/13/23 06:36 Active Medications: Current Medications Acetaminophen (Acetaminophen 325 Mg Tablet) 650 mg PO Q6H PRN PRN Reason: Pain, Mild (Pain Scale 1-3) Aspirin (Aspirin 325 Mg Tablet) 325 mg PO BID [facility] Celecoxib (Celecoxib 200 Mg Capsule) 200 mg PO BID [facility] Docusate Sodium (Docusate Sodium 100 Mg Capsule) 100 mg PO BID [facility] Haloperidol Lactate (Haloperidol Lactate 5 Mg/Ml Vial) 0.5 mg IVPUSH ONCE PRN PRN Reason: Nausea and Vomiting Hydromorphone HCl (Hydromorphone Hcl 0.5 Mg/0.5 Ml Syringe) 0.5 mg IVPUSH Q5M PRN; Protocol PRN Reason: Pain, Severe (Pain Scale 7-10) Stop: 12/13/23 13:36 Hydromorphone HCl (Hydromorphone Hcl 0.5 Mg/0.5 Ml Syringe) 0.25 mg IVPUSH Q4H PRN; Protocol PRN Reason: Pain, Severe (Pain Scale 7-10) Lactated Ringer's (Lr) 1,000 mls @ 100 mls/hr IVCONT .Q10H [facility] Last Admin: 12/13/23 07:30 Dose: 100 mls/hr Lactated Ringer's (Lr) 1,000 mls @ 100 mls/hr IVCONT .Q10H [facility] Cefazolin Sodium/Dextrose (Ancef) 2 gm in 50 mls @ 100 mls/hr IV POSTOP ONE Stop: 12/13/23 14:59 Ondansetron HCl (Ondansetron Hcl 4 Mg/2 Ml Vial) 4 mg IVPUSH Q8H PRN PRN Reason: Nausea and Vomiting Oxycodone HCl (Oxycodone Hcl Immed Release 5 Mg Tablet) 5 mg PO Q4H PRN PRN Reason: Pain, Moderate(Pain Scale 4-6) Oxycodone HCl (Oxycodone Hcl Er 10 Mg Tab.Er.12h) 10 mg PO BID [facility] Sodium Chloride (0.9 % Sodium Chloride Flush 3 Ml Syringe) 3 ml IVFLUSH QSHIFT [facility] Home Medications Medication Instructions Recorded Confirmed Last Taken Type ascorbic acid (vitamin C) 1,000 mg 1 g PO DAILY PRN Flu Symptoms 09/07/20 12/05/23 12/08/23 History tablet glucosemide with MSM 2 tab PO DAILY 09/07/20 12/05/23 12/08/23 History lutein 20 mg capsule 20 mg PO DAILY 09/07/20 12/05/23 12/08/23 History ginkgo biloba extract-Panax 2 cap PO DAILY 07/23/21 12/05/23 12/08/23 History ginseng root extract 60 mg-100 mg capsule prevagen 1 tab PO DAILY 11/27/23 12/05/23 12/08/23 History cholecalciferol (vitamin D3) 50 50 mcg PO DAILY 12/05/23 12/05/23 12/08/23 History mcg (2,000 unit) capsule (Vitamin D3) coenzyme Q10 200 mg capsule (Co 200 mg PO DAILY 12/05/23 12/05/23 12/08/23 History Q-10) vitamin E (dl, acetate) 180 mg 180 mg PO DAILY 12/05/23 12/05/23 12/08/23 History (400 unit) capsule Physical Exam Vital Signs and Narrative: Vital Signs: Last Vital Signs Temp 97.5 F 12/13/23 10:28 Pulse 90 12/13/23 11:30 Resp 10 L 12/13/23 11:30 BP 131/69 12/13/23 11:30 Pulse Ox 94 12/13/23 11:30 O2 Del Method Room Air 12/13/23 11:30 O2 Flow Rate 2 12/13/23 10:43 BMI result Body Mass Index 30.5 Appearing in no acute distress head is normocephalic atraumatic eyes pupils are PERRLA sclera is anicteric mouth throat mucous membranes are intact and moist neck is supple no lymphadenopathy, no JVD noted lung sounds are clear to auscultation heart regular rate rhythm, clear S1, S2 positive bowel sounds, abdomen is soft, nontender neuro patient is alert x3, no focal deficits Results Imaging Radiologist's Impressions: Impressions Pelvis X-Ray 12/13/23 11:09 IMPRESSION: Right total hip replacement. Assessment and Plan (1) Osteoarthritis of right hip: Qualifiers: Osteoarthritis type: primary Qualified Code(s): M16.11 - Unilateral primary osteoarthritis, right hip Status: Acute Plan 78-year-old woman admitted by Orthopedic surgery and is status post right total hip arthroplasty Right total hip arthroplasty Management as per surgical team Pain management Hypertension Stable blood pressure at this time On olmesartan at home, may continue tomorrow as blood pressure allows DVT prophylaxis with full-dose aspirin Medical consultation complete. Will sign off
--- NOTE | 2023-12-13 12:13 | PHA.MEDREC ---
Pharmacy Consult ? Medication Reconciliation Pharmacy has reviewed the medication reconciliation completed by nursing, utilized pffice visit med rec completed om 12/05/2023, remove amoxicillin as it is used prior to dental visits.
[2023-12-13] MEDS: HYDROmorphone HCl 0.5 MG/0.5 ML SYRINGE 0.25 MG IVPUSH (13:48)
[2023-12-13] MEDS: ceFAZolin Sodium/Dextrose,Iso 2 GM/50 ML PIGGYBACK IV (14:53)
[2023-12-13] MEDS: Acetaminophen 325 MG TABLET 650 MG PO (15:57)
[2023-12-13] MEDS: oxyCODONE HCl Immed Release 5 MG TABLET PO ×2 (15:57→19:45)
[2023-12-13] MEDS: Docusate Sodium 100 MG CAPSULE PO (19:45)
[2023-12-13] MEDS: oxyCODONE HCl ER 10 MG TAB.ER.12H PO (19:45)
[2023-12-13] MEDS: Celecoxib 200 MG CAPSULE PO (19:45)
[2023-12-14 04:00] VITALS: BP 126/58; PULSE 100; RESP 16; TEMP 36.7; O2SAT 93
[2023-12-14 06:20] LABS: Basophils Percent Auto 0.2 % (0-2); Hematocrit 36.8 % (37.0-47.0); Hemoglobin 12.1 g/dl (12.0-16.0); Imm Gran Abs Auto 0.08 X10*3/uL (0.00-0.03); Imm Gran Pct Auto 0.6 % (0.0-0.4); Lymphocytes Absolute Auto 1.4 X10*3/uL (1.2-4.9); Lymphocytes Percent Auto 10.7 % (20-40); MANUAL DIFF FLAG SCAN; Mean Corpuscular HGB Conc 32.9 g/dl (31.0-35.0); Mean Corpuscular Hemoglobin 29.8 pg (27.0-33.0); Mean Corpuscular Volume 90.6 fL (80.0-98.0); Mean Platelet Volume 9.8 fL (9.4-12.3); Monocytes Absolute Auto 1.5 X10*3/uL (0.1-1.2); Monocytes Percent Auto 11.9 % (2-11); Neutrophils Absolute Auto 9.8 x10*3/uL (2.0-8.3); Neutrophils Percent Auto 76.6 % (45-73); Platelet Count 198 X10*3/uL (160-400); Red Blood Count 4.06 X10*6/uL (4.20-5.50); Red Cell Distribution Width 14.1 % (11.0-16.0); SCAN SMEAR FLAG 1; White Blood Count 12.8 X10*3/uL (4.8-10.8)
[2023-12-14 06:33] LABS: Anion Gap 12 (12-20); Blood Urea Nitrogen 21 mg/dL (9-16); Calcium 8.7 mg/dL (8.4-10.2); Carbon Dioxide 26 mmol/L (22-29); Chloride 107 mmol/L (96-108); Estimated Glomerular Filt Rate > 60; Glucose Fasting 128 mg/dL (60-99); Potassium 4.9 mmol/L (3.3-5.1); Sodium 140 mmol/L (135-145)
[2023-12-14 07:24] LABS: SLIDE REVIEW VERIFIED
[2023-12-14 07:31] VITALS: BP 134/61; PULSE 98; RESP 18; TEMP 36.6; O2SAT 94
[2023-12-14] MEDS: Aspirin 325 MG TABLET PO (08:31)
[2023-12-14] MEDS: Vitamin E (Dl,Tocopheryl Acet) 180 MG (400 UNIT) CAPSULE PO (08:32)
[2023-12-14] MEDS: Cholecalciferol (Vitamin D3) 25 MCG TABLET 50 MCG PO (08:32)
[2023-12-14] MEDS: Celecoxib 200 MG CAPSULE PO (08:32)
[2023-12-14] MEDS: amLODIPine Besylate 2.5 MG TABLET PO (08:32)
[2023-12-14] MEDS: Docusate Sodium 100 MG CAPSULE PO (08:32)
[2023-12-14] MEDS: Valsartan 160 MG TABLET PO (08:32)
[2023-12-14] MEDS: oxyCODONE HCl ER 10 MG TAB.ER.12H PO (08:32)
[2023-12-14] MEDS: Lactated Ringers 1,000 ML 100 ML IVCONT (08:35)
[2023-12-14 08:41] VITALS: BP 134/61; PULSE 98; O2SAT 94
--- NOTE | 2023-12-14 10:21 | PM.DS ---
DS: Providers Provider Date of Service: 12/14/23 Primary care physician: Beverley Perez MD Consults: 12/13/23 10:16 Consult to Hospitalist Routine Comment: Consulting Provider: Hospitalist Reason For Exam: routine medical management DS: Diagnosis Discharge Diagnosis (1) Osteoarthritis of right hip: Status: Acute DS: Summary Hospital Course Hospital Course: The patient underwent a successful right total hip arthroplasty, they were transferred to PACU and then to the floor to recover. During their stay, their vitals were stable, afebrile at 97.9. Labs were unremarkable, H/H . POD 1 they were started on Aspirin 325mg po bid for DVT ppx, they also received Physical Therapy. Prior to discharge, their dressing was clean dry and intact and the plan was to be discharged home with VNA services. Time Attestation Discharge Coordination Time (in mins): 30 Quality: Safe Use of Opioids Does Pt have an Active Cancer Diagnosis on the Problem List?: No Quality: Stroke Does the patient have a stroke diagnosis?: No Physical Exam Vital Signs: Vital Signs: Last Vital Signs Temp 97.9 F 12/14/23 07:31 Pulse 98 12/14/23 08:41 Resp 18 12/14/23 07:31 BP 134/61 12/14/23 08:41 Pulse Ox 94 12/14/23 08:41 O2 Del Method Room Air 12/14/23 07:31 O2 Flow Rate 1 12/13/23 12:23 BMI result Body Mass Index 30.5 Const: General: cooperative, healthy appearing and no acute distress Resp: Effort & Inspection: normal respiratory effort and able to speak in complete sentences Cardio: Rate: regular rate Peripheral pulses: Peripheral pulses 2+ throughout GI: Palpation (GI): Soft to palpation Skin: Lesions: no lesions Rashes: no rashes Extrem: Other: rt hip dressing is c/d/i. Able to dorsi/plantar flex. Calf is supple and nontender. Sensation intact. Pedal pulse intact. DS: Data Data Completed and Pending Pending studies at discharge: Pending at discharge 12/13/23 09:52 Surgical [PTH] Routine Labs on day of discharge: Laboratory Results - last 24 hr 12/14/23 05:50 WBC 12.8 H RBC 4.06 L D Hgb 12.1 Hct 36.8 L D MCV 90.6 MCH 29.8 MCHC 32.9 RDW 14.1 Plt Count 198 MPV 9.8 Immature Gran % (Auto) 0.6 H Neut % (Auto) 76.6 H Lymph % (Auto) 10.7 L [place] % (Auto) 11.9 H Eos % (Auto) 0.0 Baso % (Auto) 0.2 Lymph # (Auto) 1.4 Deuel # (Auto) 1.5 H Eos # (Auto) 0.0 Baso # (Auto) 0.0 Abs Immat Gran (auto) 0.08 H Absolute Neuts (auto) 9.8 H Absolute Nucleated RBC 0.000 Nucleated RBC % (auto) 0.0 Smear Tech's Comments VERIFIED Sodium 140 Potassium 4.9 Chloride 107 Carbon Dioxide 26 Anion Gap 12 BUN 21 H Creatinine 0.80 Estim Creat Clear Calc 57.0 Estimated GFR > 60 Fasting Glucose 128 H Calcium 8.7 Discharge Plan Discharge Patient Disposition: Home, Self-Care Referrals: Denisse Magallanes PA-C [Physician Blown Film Extrusion Operator] - 12/28/23 3:00 pm Discharge Medications: New acetaminophen 325 mg Tablet 650 mg PO Q6H PRN (Reason: Pain, Mild (Pain Scale 1-3)) 30 Days Qty: 240 0RF aspirin 325 mg Tablet 325 mg PO BID 42 Days Qty: 84 0RF celecoxib 200 mg Capsule 200 mg PO BID 30 Days Qty: 60 0RF docusate sodium 100 mg Capsule 100 mg PO BID 30 Days Qty: 60 0RF oxycodone 5 mg Tablet 5 mg PO Q4H PRN (Reason: Pain, Moderate(Pain Scale 4-6)) 7 Days Qty: 42 0RF Rx Instructions: Partial Fill upon patient request. Continued olmesartan 40 mg tablet 40 mg PO DAILY Qty: 90 3RF coenzyme Q10 [Co Q-10] 200 mg Capsule 200 mg PO DAILY cholecalciferol (vitamin D3) [Vitamin D3] 50 mcg (2,000 unit) Capsule 50 mcg PO DAILY vitamin E (dl, acetate) 180 mg (400 unit) Capsule 180 mg PO DAILY glucosemide with MSM 2 tab PO DAILY lutein 20 mg capsule 20 mg PO DAILY Rx Instructions: give with meal/snack ascorbic acid (vitamin C) 1,000 mg tablet 1 g PO DAILY PRN (Reason: Flu Symptoms) felodipine 2.5 mg tablet extended release 24 hr 2.5 mg PO DAILY Qty: 90 3RF prevagen 1 tab PO DAILY ginkgo biloba-Panax ginseng rt 60-100 mg capsule 2 cap PO DAILY Discharge Orders: Discharge Order (Routine); Ordered 12/14/23 Ordered By: Denisse Magallanes Diet: Regular diet Activity on Discharge: Use cane or walker Activity Restrictions/Additional Instructions: Physical Therapy for total hip arthroplasty: posterior precautions, gait training, ROM, strength Limit stair climbing No showering, no tub bath-keep dressing clean, dry and intact No driving x6 weeks Continue anticoag tabs once a day x 6 weeks Follow up with [facility] in 2 weeks Print Language: Vietnamese
[2023-12-14] MEDS: oxyCODONE HCl Immed Release 5 MG TABLET PO (10:26)
[2023-12-14 10:35] VITALS: BP 134/61; PULSE 98; O2SAT 94
--- NOTE | 2023-12-14 11:22 | P.F2F_ITS ---
Service Date Service Date: 12/14/23 Encounter Date of encounter: 12/14/23 Reasons for Services Signs and symptoms assessed: s/p RTHA Pt. is considered homebound due to recent surgery. Unable to drive, poor balance, poor gait mechanics. Reason for physical therapy: home safety and mobility, therapeutic exercises, restore joint function, gait/transfer training, assess need for DME and ADL training Reason for occupational therapy: home safety and mobility, therapeutic exercises, restore joint function, gait/transfer training, assess need for DME and ADL training Homebound: Leaving the home is medically contraindicated at this time without the asist of a device and/or another person due th the listed conditions above and below. Reason homebound: unsteady gait / fall risk, leg weakness, pain with ambulation, pain with transfers, poor balance / fall risk and unable to drive Certification: Based on the above findings, I certify that this patient is confined to the home and needs intermittent [facility] care, physical therapy and/or speech therapy, or continues to need occupational therapy. The patient is under my care, and I have initiated the establishment of the plan of care. The patient will be followed by a physician who will periodically review the plan of care. Time Spent With Patient Time: Total time managing care of this patient today ____ minutes.
--- NOTE | 2023-12-14 11:25 | MHC.CM.PN ---
IMM delivered. Patient is from home w/ . Ambulates w/ walker. Independent w/ ADL's. PCP Beverley Perez MD HCP on file, agents are 1) Agustín and 2) daughter Beverley [phone] DP: Patient is medically cleared for dc home w/ services. Prefers [facility], who has accepted and is aware of dc. BLS transportation scheduled to return home at 3pm. Patient and RN aware.
[2023-12-14 11:35] VITALS: BP 134/61; PULSE 98; O2SAT 94
[2023-12-14 12:00] VITALS: BP 131/61; PULSE 97; RESP 18; TEMP 36.9; O2SAT 93
--- NOTE | 2023-12-14 14:40 | HO.POSTANES ---
Post Anesthesia Evaluation Post Anesthesia Evaluation Date of Service: 12/14/23 Vital Signs: Vital Signs Temp Pulse Resp BP Pulse Ox O2 Del Method 12/14/23 12:00 98.4 F 97 18 131/61 93 Room Air 12/14/23 11:35 98 134/61 94 12/14/23 10:35 98 134/61 94 12/14/23 08:41 98 134/61 94 12/14/23 07:31 97.9 F 98 18 134/61 94 Room Air 12/14/23 04:00 98.0 F 100 16 126/58 L 93 Room Air Anesthesia: General Mental Status: Awake Pain Control: Satisfactory Nausea/Vomiting: None Hydration: Adequate Anesthesia-Related Issues: No Anes. Related Issues
--- NOTE | 2023-12-15 16:50 | P.OP_ITS ---
Operative Note Operative Note Date of Service: 12/13/23 Narrative: Date of Service: 12/13/23 Pre-op diagnosis: Right hip OA Post-op diagnosis: same Procedure: Right HENRI Implants: [place] Trident 2 48 [place] Accolade2 #5 127 deg with +4 32 ceramic femoral head Surgeon: Darius Call MD Anesthesia: GETA Was an Ground Equipment Mechanic used for this Procedure?: Yes Ground Equipment Mechanic: Denisse Magallanes Estimated blood loss (mL): 200 IV fluids (mL): 1,200 Pathology: other Condition: stable Disposition: PACU Procedure in detail: Patient was brought into the operating room and placed in the right lateral decubitus position. All bony prominences were well padded and the limb was prepped and draped in standard sterile fashion. A time-out was called to identify proper site procedure proper surgeon IV antibiotics and 1 g of transaxemic acid were administered. I began by making a curvilinear incision over the posterolateral aspect of the greater trochanter. Dissection was taken down to the tensor fascia which was incised in line with the incision and a Charnley retractor was placed. Cautery was used to maintain hemostasis. The hip was internally rotated and the external rotators were identified. The vessels were cauterized and a full-thickness capsular/external rotator layer was developed starting just proximal to the piriformis. This layer was tagged and a dull Hohmann retractor was placed underneath the neck in the hip was dislocated. A neck cut was made 1 cm proximal to the lesser trochanter and the head and neck were removed and measured 44-46 mm on the back table. The head was eburnated. I then removed the labrum and cauterized the fovea. I started with a 42reamer and medialized to the inner table. I sequentially reamed up to a size 48 and impacted a 48mm cup at 45 degrees of inclination and 25 degrees of version. I then placed a 10deg posterior lipped liner and turned my attention to the femur. I identified the piriformis insertion and used this as a starting point for my beatrice cutter. The medius tendon was protected with a Hibs retractor. A Charnley awl was inserted in the canal and a curved curette used to remove the lateral bone. I irrigated copiously. I then sequentially broached in the patient's natural version to a size 5 and placed my trial implants. I used a #5/127/+4 based on my pre-operative template. Using a trail head I took the hip through range of motion. I was satisfied with the stability. I removed all instrumentation and copiously irrigated. I placed my final femoral implant and again took the hip through range of motion and was satisfied with the stability and length. The final +4/32 implant was impacted in place and the hip reduced. I then irrigated copiously and placed 1 g of local transaxemic acid. I performed a capsular closure with 2.0 fiberwire, Jin's fascia with 0 Vicryl, subcuticular with 2-0 Vicryl and the skin with edwin. Patient was placed into a sterile dressing. Patient was extubated brought to the recovery room in stable condition. There were no known complications.
== END 2023-12-14 15:17 | disposition home health service (06) ==
LOC: HO.SSS 06:30 → HO.S3 10:38
PROVIDERS: Physician Assistant; PCP Internal Medicine; Visit Provider Orthopaedic Surgery
PROC: (CPT 27130; principal; 2023-12-13 08:30)
DX: M16.11 Unilateral primary osteoarthritis, right hip (principal); E55.9 Vitamin D deficiency, unspecified; E78.5 Hyperlipidemia, unspecified; I10 Essential (primary) hypertension; R73.9 Hyperglycemia, unspecified; Z79.899 Other long term (current) drug therapy; Z88.8 Allergy status to other drugs, medicaments and biological substances
CPT/HCPCS: 27130; 36415; 72170; 80048; 85025; 86850; 86900; 86901; 87640; 87641; 88304; 88311; 97110; 97116; 97162; 97166; C1776; J0131; J0690; J1100; J1170; J2371; J2405; J2704; J2795; J3010; J7120

== ENCOUNTER → 2023-12-13 06:29 | Outpatient (BNV) | payer MEDICARE, SELFPAY | PROVIDERS: PCP Internal Medicine; Visit Provider Orthopaedic Surgery | DX: Z47.1 Aftercare following joint replacement surgery (principal); Z96.651 Presence of right artificial knee joint | CPT/HCPCS: 27130; 99024; 99212; G0180 ==

== ENCOUNTER → 2023-12-13 06:29 | Outpatient (BNV) | payer MEDICARE, SELFPAY | PROVIDERS: PCP Internal Medicine; Visit Provider Nurse Practitioner Acute Care | DX: I10 Essential (primary) hypertension (principal); M16.11 Unilateral primary osteoarthritis, right hip | CPT/HCPCS: 99222 ==

== ENCOUNTER 2023-12-28 10:41 | Outpatient (REF) | payer MEDICARE, SELFPAY ==
--- NOTE | ~2023-12-28 | XR_ITS ---
EXAMINATION: XR PELVIS CLINICAL INFORMATION: Pain in unspecified hip COMPARISON: Pelvis 12/13/2023 TECHNIQUE: AP view of the pelvis. FINDINGS: There is no significant change in the appearance of the right total hip arthroplasty. Prosthetic components appear in appropriate position. Satisfactory alignment. Surgical hardware is again identified in the lower lumbar spine. No fracture. The left hip joint space is maintained. Sacroiliac joints and pubic symphysis are normal. Pelvic phleboliths are again seen. XR/XR pelvis 1-2V IMPRESSION: Satisfactory appearance of right total hip arthroplasty.
== END 2023-12-28 10:42 | disposition home or self-care (01) ==
LOC: HO.HOSX 10:41
PROVIDERS: Visit Provider Physician Assistant
DX: T84.84XA Pain due to internal orthopedic prosthetic devices, implants and grafts, initial encounter (principal); Z96.641 Presence of right artificial hip joint
CPT/HCPCS: 72170; 99212

== ENCOUNTER 2023-12-28 14:52 | Outpatient (AMB) | payer MEDICARE, SELFPAY ==
--- NOTE | 2023-12-28 15:15 | MHC.OFFVIS ---
Vital Signs 12/28/23 15:24 Height 5 ft 2 in Weight 165 lb BMI 30.2 Intake Visit Reasons: PO right HENRI 12/13/23 with NE Intake Note: Anitha is a 78 year old female who presents today for a post op appointment s/p right HENRI 12/13/23 with NE. Patient reports she is doing well. Allergies donepezil Adverse Reaction (Intermediate, Verified 12/28/23 15:20) Nausea trazodone Adverse Reaction (Intermediate, Verified 12/28/23 15:20) Dizziness HPI HPI PO right HENRI 12/13/23 with NE: Details: 78-year-old female who presents in the office today 15 days status post right total hip arthroplasty, which was performed on 12/15/[address] Call. Patient went to PT today and was told she is doing well, and they do not feel she needs to continue to attend. Patient is accompanied in the office today by her daughter, who is translating for her. PFS Medical History (Updated 12/15/23 @ 00:03 by Alan Ruiz) Osteoarthritis of right hip Thyroid nodule Arthritis Palpitations Vitamin D deficiency Annual physical exam Insomnia Memory deficit Hyperglycemia Hyperlipidemia History of mammogram Chronic neck pain Arthralgia Tension headache RLS (restless legs syndrome) Osteoarthritis of both knees Balance problem IBS (irritable bowel syndrome) Osteoarthritis of right shoulder Sciatica of left side Sciatica, right side Hypertension Surgical History (Updated 12/28/23 @ 15:33 by Tawnya Angulo) History of bunionectomy Hx of shoulder surgery Hx of spinal surgery H/O colonoscopy Family History Father Stroke Mother Lung cancer Social History Household Members: Spouse Housing: Condominium Are you a primary before and after school daycare worker to a significant other at home: No Do you presently have visiting nurse or other home services: No Alcohol intake: current Alcohol intake frequency: does not drink Patient Tobacco Use Status: Never used Tobacco e-Cigarette/Vaping Use: Never Used service: No Current occupational status: retired Cognitive needs: No Hearing needs: No Vision needs: Yes Review of Systems Const All systems reviewed & are unremarkable except as noted in HPI and below Physical Exam Vital Signs: BMI result Body Mass Index 30.2 Const General: cooperative, healthy appearing and no acute distress Resp Effort & Inspection: normal respiratory effort and able to speak in complete sentences Cardio Rate: regular rate Peripheral pulses: Peripheral pulses 2+ throughout GI Palpation (GI): Soft to palpation Skin Lesions: no lesions Rashes: no rashes Extrem Other: Right hip: Incision site is clean, dry, and intact. No surrounding erythema or drainage. No signs of infection. Full ROM in all planes. Assessment & Plan Assessment & Plan (1) History of total right hip replacement: Onset Date: ~12/15/23 Comment: NE Code(s): Z96.641 - Presence of right artificial hip joint Category: Surgical Plan Ms. Xavier is a 78-year-old female who presents in the office today 15 days status post right total hip arthroplasty, which was performed on 12/15/[address] Call. Patient went to PT today and was told she is doing well, and they do not feel she needs to continue to attend. Patient is accompanied in the office today by her daughter, who is translating for her. [place] were removed and steri-stripes were applied. She will transition to outpatient physical therapy at this time. An order was placed in the office today. Follow-up will be in [address] Call, or sooner if needed. X-rays of the pelvis which were obtained while in the office today and were reviewed by me, Denisse Magallanes PA-C, revealed intact orthopedic hardware with good alignment. Orders: Orders XR pelvis 1-2V Today M25.559 - Pain in unspecified hip PT Evaluation and Treatment Today Z96.641 - Presence of right artificial hip joint Patient Instructions: Scribed by Tawnya Angulo medical authorization specialist, for Denisse Magallanes PA-C on 12/28/2023 at 3:30 pm, EST.
[2023-12-28 15:24] VITALS: BMI 30.2
== END 2023-12-28 15:42 | disposition home or self-care (01) ==
PROVIDERS: PCP Internal Medicine; Visit Provider Physician Assistant
DX: Z96.641 Presence of right artificial hip joint (principal)
CPT/HCPCS: 99024

== ENCOUNTER 2023-12-29 10:09 | Outpatient (AMB) | payer MEDICARE, SELFPAY ==
--- NOTE | 2023-12-29 10:17 | A.OFFVIS_ITS ---
Intake Visit Reasons: PO - right HENRI 12/13/23 with NE(wound check) Intake Note: Anitha is a 78 year old female who presents today s/p Right HENRI 12/13/23. Her steri strips had come off when she was using the bathroom. Incision site was cleaned and steris applied Allergies donepezil Adverse Reaction (Intermediate, Verified 12/28/23 15:20) Nausea trazodone Adverse Reaction (Intermediate, Verified 12/28/23 15:20) Dizziness HPI HPI PO - right HENRI 12/13/23 with NE(wound check): Details: 78--year-old female who presents in the office today 16 days status post right total hip arthroplasty, which was performed on 12/15/[address] Call. I last saw the patient yesterday, 12/27/2023, when she was instructed, she would transition to outpatient PT. Patient presented to the office reporting her steri-stripes fell off the skin. She reports her incision site does not look correct. PFS Medical History (Updated 12/15/23 @ 00:03 by Alan Ruiz) Osteoarthritis of right hip Thyroid nodule Arthritis Palpitations Vitamin D deficiency Annual physical exam Insomnia Memory deficit Hyperglycemia Hyperlipidemia History of mammogram Chronic neck pain Arthralgia Tension headache RLS (restless legs syndrome) Osteoarthritis of both knees Balance problem IBS (irritable bowel syndrome) Osteoarthritis of right shoulder Sciatica of left side Sciatica, right side Hypertension Surgical History (Updated 12/28/23 @ 15:33 by Tawnya Angulo) History of bunionectomy Hx of shoulder surgery Hx of spinal surgery H/O colonoscopy Family History Father Stroke Mother Lung cancer Social History Household Members: Spouse Housing: Condominium Are you a primary neonatal intensive care unit nurse to a significant other at home: No Do you presently have visiting nurse or other home services: No Alcohol intake: current Alcohol intake frequency: does not drink Patient Tobacco Use Status: Never used Tobacco e-Cigarette/Vaping Use: Never Used service: No Current occupational status: retired Cognitive needs: No Hearing needs: No Vision needs: Yes Review of Systems Const All systems reviewed & are unremarkable except as noted in HPI and below Physical Exam Const General: cooperative, healthy appearing and no acute distress Resp Effort & Inspection: normal respiratory effort and able to speak in complete sentences Cardio Rate: regular rate Peripheral pulses: Peripheral pulses 2+ throughout GI Palpation (GI): Soft to palpation Skin Lesions: no lesions Rashes: no rashes Extrem Other: Right hip: Incision site is clean, dry, and intact. No surrounding erythema or drainage. No signs of infection. Steri-stripes came off. NVI. Assessment & Plan Assessment & Plan (1) History of total right hip replacement: Onset Date: ~12/15/23 Comment: NE Code(s): Z96.641 - Presence of right artificial hip joint Category: Surgical Plan Ms. Xavier is a 78--year-old female who presents in the office today 16 days status post right total hip arthroplasty, which was performed on 12/15/[address] Call. I last saw the patient yesterday, 12/27/2023, when she was instructed, she would transition to outpatient PT. Patient presented to the office reporting her steri-stripes fell off the skin. She reports her incision site does not look correct. The incision site was cleaned, and new steri-stripes were applied in the office today. There are no signs of infection or erythema. Follow up will be at her regularly scheduled appointment, or sooner if needed. Patient Instructions: Scribed by Tawnya Angulo, bilingual medical assistant, for Denisse Magallanes PA-C on at 10:11 am, EST.
== END 2023-12-29 10:46 | disposition home or self-care (01) ==
LOC: HO.HOS 10:09
PROVIDERS: PCP Internal Medicine; Visit Provider Physician Assistant
DX: Z96.641 Presence of right artificial hip joint (principal)
CPT/HCPCS: 99024

== ENCOUNTER → 2023-12-29 10:09 | Outpatient (BNVA) | payer MEDICARE, SELFPAY | PROVIDERS: PCP Internal Medicine; Visit Provider Physician Assistant | DX: Z47.1 Aftercare following joint replacement surgery (principal); Z96.641 Presence of right artificial hip joint | CPT/HCPCS: 99212 ==

== ENCOUNTER 2024-01-18 14:57 | Outpatient (AMB) | payer MEDICARE, SELFPAY ==
--- NOTE | 2024-01-18 15:07 | A.OFFVIS_ITS ---
Intake Visit Reasons: 6 wk PO right HENRI 12/13/23 with NE Intake Note: Anitha is a 78 year old female who presents today for a 6 week post operative appointment s/p Right HENRI 12/13/23. Patient reports that she is doing well. Allergies donepezil Adverse Reaction (Intermediate, Verified 12/28/23 15:20) Nausea trazodone Adverse Reaction (Intermediate, Verified 12/28/23 15:20) Dizziness HPI HPI 6 wk PO right HENRI 12/13/23 with NE: Details: Anitha is a 78 year old female who presents today for a 6 week post operative appointment s/p Right HENRI 12/13/23. Patient reports that she is doing well. [facility] Medical History (Updated 12/15/23 @ 00:03 by Alan Ruiz) Osteoarthritis of right hip Thyroid nodule Arthritis Palpitations Vitamin D deficiency Annual physical exam Insomnia Memory deficit Hyperglycemia Hyperlipidemia History of mammogram Chronic neck pain Arthralgia Tension headache RLS (restless legs syndrome) Osteoarthritis of both knees Balance problem IBS (irritable bowel syndrome) Osteoarthritis of right shoulder Sciatica of left side Sciatica, right side Hypertension Surgical History (Updated 12/28/23 @ 15:33 by Tawnya Angulo) History of bunionectomy Hx of shoulder surgery Hx of spinal surgery H/O colonoscopy Family History Father Stroke Mother Lung cancer Social History [facility] Members: [facility] Are you a primary health care marketing manager to a significant other at home: No Do you presently have visiting nurse or other home services: No Alcohol intake: current Alcohol intake frequency: does not drink Patient Tobacco Use Status: Never used Tobacco e-Cigarette/Vaping Use: Never Used service: No Current occupational status: retired Cognitive needs: No Hearing needs: No Vision needs: Yes Physical Exam Extrem Other: nl gait inc c/d/i no pain with hip ROM Assessment & Plan Assessment & Plan (1) History of total right hip replacement: Onset Date: ~12/15/23 Comment: NE Code(s): Z96.641 - Presence of right artificial hip joint Category: Medical Plan: Doing well Continue activity as tolerated Hip precautions discussed f/u 6 weeks Coding Level of Care Code Global (91261) Diagnoses History of total right hip replacement Z96.641
== END 2024-01-18 15:11 | disposition home or self-care (01) ==
PROVIDERS: PCP Internal Medicine; Visit Provider Orthopaedic Surgery
DX: Z96.641 Presence of right artificial hip joint (principal)
CPT/HCPCS: 99024

== ENCOUNTER → 2024-01-18 14:57 | Outpatient (BNVA) | payer MEDICARE, SELFPAY | PROVIDERS: PCP Internal Medicine; Visit Provider Orthopaedic Surgery | DX: Z96.641 Presence of right artificial hip joint (principal); M16.11 Unilateral primary osteoarthritis, right hip | CPT/HCPCS: 99212 ==

== ENCOUNTER 2024-01-23 08:10 | Outpatient (REF) | payer MEDICARE, SELFPAY ==
[2024-01-23 10:50] LABS: Basophils Percent Auto 0.5 % (0-2); Eosinophils Absolute Auto 1.3 X10*3/uL (0.0-0.4); Eosinophils Percent Auto 20.2 % (0-4); Hematocrit 43.6 % (37.0-47.0); Hemoglobin 14.2 g/dl (12.0-16.0); Imm Gran Abs Auto 0.02 X10*3/uL (0.00-0.03); Imm Gran Pct Auto 0.3 % (0.0-0.4); Lymphocytes Absolute Auto 1.6 X10*3/uL (1.2-4.9); Lymphocytes Percent Auto 23.6 % (20-40); MANUAL DIFF FLAG SCAN; Mean Corpuscular HGB Conc 32.6 g/dl (31.0-35.0); Mean Corpuscular Hemoglobin 30.1 pg (27.0-33.0); Mean Corpuscular Volume 92.6 fL (80.0-98.0); Mean Platelet Volume 10.5 fL (9.4-12.3); Monocytes Absolute Auto 0.6 X10*3/uL (0.1-1.2); Monocytes Percent Auto 9.7 % (2-11); Neutrophils Percent Auto 45.7 % (45-73); Platelet Count 225 X10*3/uL (160-400); Red Blood Count 4.71 X10*6/uL (4.20-5.50); Red Cell Distribution Width 14.2 % (11.0-16.0); SCAN SMEAR FLAG 1; White Blood Count 6.6 X10*3/uL (4.8-10.8)
[2024-01-23 11:21] LABS: SLIDE REVIEW VERIFIED
[2024-01-23 11:32] LABS: Alanine Aminotransferase 18 U/L (0-31); Albumin Level 3.9 g/dL (3.5-5.0); Alkaline Phosphatase 79 U/L (39-117); Anion Gap 14 (12-20); Aspartate Amino Transferase 18 U/L (5-31); Bilirubin Total 0.4 mg/dL (0.0-1.0); Blood Urea Nitrogen 21 mg/dL (9-16); Calcium 9.3 mg/dL (8.4-10.2); Carbon Dioxide 23 mmol/L (22-29); Chloride 109 mmol/L (96-108); Estimated Glomerular Filt Rate > 60; Glucose Fasting 114 mg/dL (60-99); Iron 131 mcg/dL (30-160); Percent Iron Saturation 58 % (15-50); Potassium 4.4 mmol/L (3.3-5.1); Sodium 142 mmol/L (135-145); Total Iron Binding Capacity 226 mcg/dL (228-428); Unsaturated Iron Binding 95 ug/dL
[2024-01-23 11:52] LABS: TSH reflex Free T4 1.02 uIU/mL (0.32-4.0)
[2024-01-23 11:57] LABS: Vitamin B12 715 pg/mL (200-900)
== END 2024-01-23 08:11 | disposition home or self-care (01) ==
LOC: HO.HMGCLDS 08:10
PROVIDERS: PCP Internal Medicine; Visit Provider Internal Medicine
DX: R73.9 Hyperglycemia, unspecified (principal); E78.5 Hyperlipidemia, unspecified; E53.8 Deficiency of other specified B group vitamins
CPT/HCPCS: 36415; 80053; 82607; 82746; 83540; 84443; 85025

== ENCOUNTER 2024-02-26 10:03 | Outpatient (AMB) | payer MEDICARE, SELFPAY ==
[2024-02-26 10:06] VITALS: BP 142/72; PULSE 87; TEMP 36.8; O2SAT 96; BMI 30.4
--- NOTE | 2024-02-26 10:06 | AM.OFFWIN_ITS ---
Intake Vital Signs 02/26/24 10:06 Height 5 ft 2 in Weight 166 lb BMI 30.4 BP 142/72 H Blood Pressure Location Rt brachial Position Sitting Pulse 87 Pulse Source Pulse Oximeter Temp 98.2 F Temp Source Oral Pulse Oximetry (%) 96 Intake Visit Reasons: EP RT/LT AB pain Intake Note: pt is here for right and left abd pain, unable to give urine sample Patient Tobacco Use Status: Never used Tobacco Allergies donepezil Adverse Reaction (Intermediate, Verified 02/26/24 10:06) Nausea trazodone Adverse Reaction (Intermediate, Verified 02/26/24 10:06) Dizziness Do you need a note to return to daycare/school/sports/work: No HPI HPI Comments History of Present Illness Details Patient is a 78-year-old female complaining of 3 days of both right- sided and left-sided abdominal pain. She states the pain comes and goes on each side. She does admit to increased frequency of urination but denies any fevers, nausea, vomiting, diarrhea, pain with urination, history of diverticulitis, history of diverticulosis or kidney stones. She states she used a ?mixed of Faroese medications which she took on Monday and seemed to help for a little while. She is worried because her brother has pancreatic cancer. [facility] Medical History (Updated 02/26/24 @ 10:37 by Beckie Peacock PA-C) Osteoarthritis of right hip Thyroid nodule Arthritis Palpitations Vitamin D deficiency Annual physical exam Insomnia Memory deficit Hyperglycemia Hyperlipidemia History of mammogram Chronic neck pain Arthralgia Tension headache RLS (restless legs syndrome) Osteoarthritis of both knees Balance problem IBS (irritable bowel syndrome) Osteoarthritis of right shoulder Sciatica of left side Sciatica, right side Hypertension Surgical History (Updated 12/28/23 @ 15:33 by Tawnya Angulo) History of bunionectomy Hx of shoulder surgery Hx of spinal surgery H/O colonoscopy Family History Father Stroke Mother Lung cancer Social History Household Members: Spouse Housing: Condominium Are you a primary customer care manager to a significant other at home: No Do you presently have visiting nurse or other home services: No Alcohol intake: current Alcohol intake frequency: does not drink Patient Tobacco Use Status: Never used Tobacco e-Cigarette/Vaping Use: Never Used service: No Current occupational status: retired Cognitive needs: No Hearing needs: No Vision needs: Yes Review of Systems Const All systems reviewed & are unremarkable except as noted in HPI and below Physical Exam Vital Signs: Last Vital Signs Temp 98.2 F 02/26/24 10:06 Pulse 87 02/26/24 10:06 BP 142/72 H 02/26/24 10:06 Pulse Ox 96 02/26/24 10:06 BMI result Body Mass Index 30.4 Const General: cooperative, healthy appearing, comfortable, no acute distress and well developed Orientation/consciousness: patient oriented x3 Limitations: no limitations Eyes General: appearance normal, both eyes and all related structures Resp Effort & Inspection: normal respiratory effort and able to speak in complete sentences GI Inspection: Yes normal to inspection Palpation (GI): Soft to palpation, nontender and no guarding Skin Other: General skin exam: no rashes or lesions noted Neuro General: patient oriented x3 Results AMB Urinalysis, Automated UA Leukoctes 0 Norma/uL Last Edit by NERIS Stewart on 02/26/24 10:39 UA Nitrite Negative Last Edit by NERIS Stewart on 02/26/24 10:39 UA Urobilinogen 0.2 mg/dL Last Edit by NERIS Stewart on 02/26/24 10:3 9 UA Protein 0 mg/dL Last Edit by NERIS Stewart on 02/26/24 10:39 UA pH 6.0 Last Edit by NERIS Stewart on 02/26/24 10:39 UA Blood 0 Francisco/uL Last Edit by NERIS Stewart on 02/26/24 10:39 UA Specific [place] 1.005 Last Edit by NERIS Stewart on 02/26/24 10: 39 UA Ketone Negative Last Edit by NERIS Stewart on 02/26/24 10:39 UA Bilirubin 0 mg/dL Last Edit by NERIS Stewart on 02/26/24 10:39 UA Glucose 0 mg/dL Last Edit by NERIS Stewart on 02/26/24 10:39 Assessment & Plan Assessment & Plan (1) Abdominal pain in female: Code(s): R10.9 - Unspecified abdominal pain Plan UA is negative in the office, physical exam was unremarkable, vital signs are stable. It was not clear if she actually has increased frequency of urination. Recommended going to the emergency department if her symptoms continue or get worse. Did educate her that pancreatic cancer is not something I could diagnose here, she would need a CT scan and usually it is not painful. Orders: Orders AMB Urinalysis Automated Today Z13.9 - Encounter for screening, unspecified Coding Level of Care Code Est Pt Level 3 (09260) Diagnoses Abdominal pain in female R10.9
== END 2024-02-26 10:48 | disposition home or self-care (01) ==
PROVIDERS: PCP Internal Medicine; Visit Provider Physician Assistant
DX: R10.9 Unspecified abdominal pain (principal)
CPT/HCPCS: 81003; 99213

== ENCOUNTER 2024-03-08 08:06 | Outpatient (AMB) | payer MEDICARE, SELFPAY ==
[2024-03-08 08:10] VITALS: BP 124/70; PULSE 89; O2SAT 97; BMI 30.7
--- NOTE | 2024-03-08 08:10 | A.OFFPC_ITS ---
Vital Signs 03/08/24 08:10 Height 5 ft 2 in Weight 168 lb BMI 30.7 BP 124/70 Blood Pressure Location Rt brachial Position Sitting Pulse 89 Pulse Source Pulse Oximeter Pulse Oximetry (%) 97 Oxygen Delivery Method Room Air Intake Visit Reasons: Pre op cataract surgery 04/09/24 Intake Note: Pt is gere today for pre op visit.Pt is having cataract surgery on 04/09/24. Pt states that the the surgery is in CT. Allergies donepezil Adverse Reaction (Intermediate, Verified 03/08/24 08:14) Nausea trazodone Adverse Reaction (Intermediate, Verified 03/08/24 08:14) Dizziness Tobacco use date assessed: 03/08/24 Fall risk assessment: No Falls in past year Last assessed Fall Risk: 03/08/24 Dental Screening Dental Screen Date: 11/27/23 HPI Pre op cataract surgery 04/09/24 HPI Details Pt presents for preop for cataract surgery. HTN is stable on Olmesartan and Felodipine. [facility] Medical History (Updated 03/08/24 @ 08:34 by Beverley Perez MD) Osteoarthritis of right hip Thyroid nodule Arthritis Palpitations Vitamin D deficiency Annual physical exam Insomnia Memory deficit Hyperglycemia Hyperlipidemia History of mammogram Chronic neck pain Arthralgia Tension headache RLS (restless legs syndrome) Osteoarthritis of both knees Balance problem IBS (irritable bowel syndrome) Osteoarthritis of right shoulder Sciatica of left side Sciatica, right side Hypertension Surgical History History of bunionectomy Hx of shoulder surgery Hx of spinal surgery H/O colonoscopy Family History Father Stroke Mother Lung cancer Social History Household Members: Spouse Housing: Condominium Are you a primary career development engineer to a significant other at home: No Do you presently have visiting nurse or other home services: No Alcohol intake: current Alcohol intake frequency: does not drink Patient Tobacco Use Status: Never used Tobacco e-Cigarette/Vaping Use: Never Used service: No Current occupational status: retired Cognitive needs: No Hearing needs: No Vision needs: Yes Questionnaire PHQ-9 Over the last 2 weeks, how often have you been bothered by any of the following problems? 1. Little interest or pleasure in doing things: several days 2. Feeling down, depressed, or hopeless: not at all 3. Trouble falling or staying asleep, or sleeping too much: more than half the days 4. Feeling tired or having little energy: several days 5. Poor appetite or overeating: several days 6. Feeling bad about yourself - or that you are a failure or have let yourself or your family down: not at all 7. Trouble concentrating on things, such as reading the newspaper or watching television: nearly every day 8. Moving or speaking so slowly that other people could have noticed. Or the opposite - being so fidgety or restless that you have been moving around a lot more than usual: not at all 9. Thoughts that you would be better off or of hurting yourself in some way: not at all Total score: 8 Depression Screening Interpretation: Negative Depression Screening Done: Yes Source: Developed by Drs. Rajesh Ellis, Sharon Delarosa, Mikie Staley and colleagues, with an educational carolann from [employer]. Thrive Questionnaire Date Thrive assessed: 03/08/24 I am a: Patient What is your living situation today?: I have a steady place to live Within the past 12 months, did the food you bought not last and you didn't have the money to get more?: Sometimes True Within the past 12 months, did you worry whether your food would run out before you got money to buy more?: Sometimes True Do you have trouble paying for medicines?: No Do you have trouble getting transportation to medical appointments?: No Do you have trouble paying your heating and electricity bill?: No Do you have trouble taking care of your child, family member or friend?: No Do you have trouble with day-to-day activities such as bathing, preparing meals, shopping, managing finances, etc.?: No Are you currently unemployed and looking for a job?: No Are you interested in more education?: Yes Please select the resources that you would like help with: None THRIVE Score: 2 MABEL-7 AMB Questionnaire MABEL-7 Date MABEL - 7 assessed: 03/08/24 Feeling nervous, anxious, or on edge: 1 = Several days Not being able to stop or control worryin = Not at all Worrying too much about different things: 2 = More than half the days Trouble relaxin = Several days Being so restless that it is hard to sit still: 2 = More than half the days Becoming easily annoyed or irritable: 1 = Several days Feeling afraid as if something awful might happen: 0 = Not at all Total MABEL-7 score (0-4 normal; 5-9 mild; 10-14 moderate; 15-21 severe): 7 Source: Developed by Drs. Rajesh Ellis, Sharon Delarosa, Mikie Staley and colleagues, with an educational carolann from [facility]. Review of Systems Const All systems reviewed & are unremarkable except as noted in HPI and below Eyes Reports no additional complaints ENT Reports no additional complaints Card Reports no additional complaints Resp Reports no additional complaints GI Reports no additional complaints Reports no additional complaints Physical exam (Primary Care) Vital Signs: Last Vital Signs Pulse 89 03/08/24 08:10 BP 124/70 03/08/24 08:10 Pulse Ox 97 03/08/24 08:10 Oxygen Delivery Method Room Air 03/08/24 08:10 BMI result Body Mass Index 30.7 Tobacco/Smoking Status: Tobacco use Status Tobacco use date assessed 03/08/24 03/08/24 08:16 Patient Tobacco Use Status Never used Tobacco 03/08/24 08:10 e-Cigarette/Vaping Use Never Used 03/08/24 08:10 PHQ-9: PHQ-9 Score PHQ-9: Total score 8 03/08/24 08:22 Depression Screening Interpretation: Negative Thrive Assessment: Date of Thrive Assessment Date Thrive assessed 03/08/24 03/08/24 08:22 Const General: no acute distress HENMT Head: Yes normal to inspection Ears: hearing grossly normal bilaterally Face and sinus: Yes normal facial exam Throat: Yes posterior oropharynx normal Neck Neck: Yes supple Resp Effort & Inspection: normal respiratory effort Auscultation: clear to auscultation bilaterally Cardio Rhythm: regular rhythm Heart sounds: S1 normal heart sound present and S2 normal heart sound present GI Inspection: Yes normal to inspection Palpation (GI): Soft to palpation Percussion: Yes normal to percussion Assessment and Plan Assessment & Plan (1) Hypertension: Code(s): I10 - Essential (primary) hypertension Plan: Continue current medications (2) Cataract: Code(s): H26.9 - Unspecified cataract Plan: Patient is medically cleared for cataract surgery (3) Enlarged thyroid: Comment: 2 thyroid left nodules 4 cm and 2 cm, referred to Endo 11/04, negative bx Code(s): E04.9 - Nontoxic goiter, unspecified Plan: Follow-up with boat outboard engine mechanic regularly Coding Level of Care Code Est Pt Level 4 (62882) Diagnoses Hypertension I10 Cataract H26.9 Enlarged thyroid E04.9
== END 2024-03-08 08:35 | disposition home or self-care (01) ==
LOC: HO.HMGC 08:06
PROVIDERS: PCP Internal Medicine; Visit Provider Internal Medicine
DX: I10 Essential (primary) hypertension (principal); H26.9 Unspecified cataract; E04.9 Nontoxic goiter, unspecified
CPT/HCPCS: 99214

== ENCOUNTER 2024-03-18 14:41 | Outpatient (AMB) | payer MEDICARE, SELFPAY ==
--- NOTE | 2024-03-18 14:43 | A.OFFVIS_ITS ---
Vital Signs 03/18/24 14:46 Height 5 ft 2 in Weight 168 lb BMI 30.7 Intake Visit Reasons: OV right hip follow up Intake Note: Anitha is a 78 year old female who presents today with her daughter for a follow up visit s/p Right HENRI 12/13/23. Patient reports overall she is not doing bad. Has a list of questions she would like to go over with Dr Call. She has been continuing her activities as tolerated. Accompanied by: Daughter Allergies donepezil Adverse Reaction (Intermediate, Verified 03/18/24 14:45) Nausea trazodone Adverse Reaction (Intermediate, Verified 03/18/24 14:45) Dizziness HPI HPI OV right hip follow up: Details: Anitha is a 78 year old female who presents today with her daughter for a follow up visit s/p Right HENRI 12/13/23. Patient reports overall she is not doing bad. Has a list of questions she would like to go over with Dr Call. She has been continuing her activities as tolerated. She has been walking but feels that her back has been bothering her recently. She has NOT done any outpatient PT. [facility] Medical History Osteoarthritis of right hip Thyroid nodule Arthritis Palpitations Vitamin D deficiency Annual physical exam Insomnia Memory deficit Hyperglycemia Hyperlipidemia History of mammogram Chronic neck pain Arthralgia Tension headache RLS (restless legs syndrome) Osteoarthritis of both knees Balance problem IBS (irritable bowel syndrome) Osteoarthritis of right shoulder Sciatica of left side Sciatica, right side Hypertension Surgical History History of bunionectomy Hx of shoulder surgery Hx of spinal surgery H/O colonoscopy Family History Father Stroke Mother Lung cancer Social History Household Members: Spouse Housing: Condominium Are you a primary skin care technician to a significant other at home: No Do you presently have visiting nurse or other home services: No Alcohol intake: current Alcohol intake frequency: does not drink Patient Tobacco Use Status: Never used Tobacco e-Cigarette/Vaping Use: Never Used service: No Current occupational status: retired Cognitive needs: No Hearing needs: No Vision needs: Yes Physical Exam Vital Signs: BMI result Body Mass Index 30.7 Extrem Other: No hip pain with passive or active ROM. + Trendelenberg gait Assessment & Plan Assessment & Plan (1) History of total right hip replacement: Onset Date: ~12/15/23 Comment: NE Code(s): Z96.641 - Presence of right artificial hip joint Category: Surgical Plan: Doign well with poor gait mechanics and irritated lumbar paraspinal musclesd. Outpatient PT and follow up in 8 weeks Orders: Orders PT Evaluation and Treatment 03/18/24 Z96.641 - Presence of right artificial hip joint Coding Level of Care Code Global (39640) Diagnoses History of total right hip replacement Z96.641
[2024-03-18 14:46] VITALS: BMI 30.7
== END 2024-03-18 15:04 | disposition home or self-care (01) ==
PROVIDERS: PCP Internal Medicine; Visit Provider Orthopaedic Surgery
DX: Z47.1 Aftercare following joint replacement surgery (principal); Z96.641 Presence of right artificial hip joint
CPT/HCPCS: 99213

== ENCOUNTER → 2024-03-18 14:41 | Outpatient (BNVA) | payer MEDICARE, SELFPAY | PROVIDERS: PCP Internal Medicine; Visit Provider Orthopaedic Surgery | DX: Z47.1 Aftercare following joint replacement surgery (principal); Z96.641 Presence of right artificial hip joint | CPT/HCPCS: 99212 ==

== ENCOUNTER 2024-04-29 14:24 | Outpatient (AMB) | payer MEDICARE, SELFPAY ==
--- NOTE | 2024-04-29 14:29 | A.OFFVIS_ITS ---
Vital Signs 04/29/24 14:30 Height 5 ft 2 in Weight 168 lb BMI 30.7 Intake Visit Reasons: OV- right hip follow up Intake Note: Anitha is a 78 year old female who presents today with her daughter for a follow up visit s/p Right HENRI 12/13/23. Patient reports that she has intermittent pain. Allergies donepezil Adverse Reaction (Intermediate, Verified 03/18/24 14:45) Nausea trazodone Adverse Reaction (Intermediate, Verified 03/18/24 14:45) Dizziness HPI HPI OV- right hip follow up: Details: Anitha is a 78 year old female who presents today with her daughter for a follow up visit s/p Right HENRI 12/13/23. Patient reports that she has intermittent pain. [facility] Medical History Osteoarthritis of right hip Thyroid nodule Arthritis Palpitations Vitamin D deficiency Annual physical exam Insomnia Memory deficit Hyperglycemia Hyperlipidemia History of mammogram Chronic neck pain Arthralgia Tension headache RLS (restless legs syndrome) Osteoarthritis of both knees Balance problem IBS (irritable bowel syndrome) Osteoarthritis of right shoulder Sciatica of left side Sciatica, right side Hypertension Surgical History History of bunionectomy Hx of shoulder surgery Hx of spinal surgery H/O colonoscopy Family History Father Stroke Mother Lung cancer Social History Household Members: [facility] Are you a primary childcare attendant to a significant other at home: No Do you presently have visiting nurse or other home services: No Alcohol intake: current Alcohol intake frequency: does not drink Patient Tobacco Use Status: Never used Tobacco e-Cigarette/Vaping Use: Never Used service: No Current occupational status: retired Cognitive needs: No Hearing needs: No Vision needs: Yes Physical Exam Vital Signs: BMI result Body Mass Index 30.7 Extrem Other: Trendeleberg gait neg Trendelenberg sign No pain with passive or active hip ROM Assessment & Plan Assessment & Plan (1) History of total right hip replacement: Onset Date: ~12/15/23 Comment: NE Code(s): Z96.641 - Presence of right artificial hip joint Category: Surgical Plan: Right hip OA . Taught strengthening exercises. f/u 2 months Coding Level of Care Code Est Pt Level 3 (36093) Diagnoses History of total right hip replacement Z96.641
[2024-04-29 14:30] VITALS: BMI 30.7
== END 2024-04-29 14:48 | disposition home or self-care (01) ==
PROVIDERS: PCP Internal Medicine; Visit Provider Orthopaedic Surgery
DX: Z47.1 Aftercare following joint replacement surgery (principal); Z96.641 Presence of right artificial hip joint
CPT/HCPCS: 99212

== ENCOUNTER → 2024-04-29 14:24 | Outpatient (BNVA) | payer MEDICARE, SELFPAY | PROVIDERS: PCP Internal Medicine; Visit Provider Orthopaedic Surgery | DX: M25.551 Pain in right hip (principal); Z96.641 Presence of right artificial hip joint | CPT/HCPCS: 99212 ==

== ENCOUNTER 2024-05-02 08:05 | Outpatient (AMB) | payer MEDICARE, SELFPAY ==
--- NOTE | 2024-05-02 08:09 | MHC.PC.OV ---
Vital Signs 05/02/24 08:10 Height 5 ft 2 in Weight 167 lb BMI 30.5 BP 128/74 Blood Pressure Location Rt brachial Position Sitting Pulse 98 Pulse Source Pulse Oximeter Pulse Oximetry (%) 93 Oxygen Delivery Method Room Air Intake Visit Reasons: Pre op second eye cataract surgery on 05/06/24 Intake Note: Pt is here today for pre op visit. Pt is having cataract surgery on her R eye on 05/06/24. Allergies donepezil Adverse Reaction (Intermediate, Verified 05/02/24 08:14) Nausea trazodone Adverse Reaction (Intermediate, Verified 05/02/24 08:14) Dizziness Medication List - Last Reconciled 05/02/24 by Beverley Perez MD acetaminophen 650 mg (2 x 325 mg) PO Q6H PRN 30 days amoxicillin 2,000 mg (4 x 500 mg) PO ONCE ascorbic acid (vitamin C) 1 g PO DAILY PRN aspirin 325 mg PO BID 42 days cholecalciferol (vitamin D3) (Vitamin D3) 50 mcg PO DAILY coenzyme Q10 (Co Q-10) 200 mg PO DAILY docusate sodium 100 mg PO BID 30 days felodipine ER 2.5 mg PO DAILY ginkgo biloba-Panax ginseng rt 60-100 mg 2 caps PO DAILY [glucosemide with MSM 2 tabs PO DAILY] lutein 20 mg PO DAILY olmesartan 40 mg PO DAILY [prevagen 1 tab PO DAILY] vitamin E (dl, acetate) 180 mg PO DAILY Tobacco use date assessed: 05/02/24 Dental Screening Dental Screen Date: 11/27/23 HPI Pre op second eye cataract surgery on 05/06/24 HPI Details Pt presents for preop for cataract surgery. HTN is stable on meds. [facility] Medical History Osteoarthritis of right hip Thyroid nodule Arthritis Palpitations Vitamin D deficiency Annual physical exam Insomnia Memory deficit Hyperglycemia Hyperlipidemia History of mammogram Chronic neck pain Arthralgia Tension headache RLS (restless legs syndrome) Osteoarthritis of both knees Balance problem IBS (irritable bowel syndrome) Osteoarthritis of right shoulder Sciatica of left side Sciatica, right side Hypertension Surgical History History of bunionectomy Hx of shoulder surgery Hx of spinal surgery H/O colonoscopy Family History Father Stroke Mother Lung cancer Social History Household Members: Spouse Housing: Condominium Are you a primary child care attendant school to a significant other at home: No Do you presently have visiting nurse or other home services: No Alcohol intake: current Alcohol intake frequency: does not drink Patient Tobacco Use Status: Never used Tobacco e-Cigarette/Vaping Use: Never Used service: No Current occupational status: retired Cognitive needs: No Hearing needs: No Vision needs: Yes Questionnaire Thrive Questionnaire Date Thrive assessed: 05/02/24 I am a: Patient What is your living situation today?: I choose not to answer this question Within the past 12 months, did the food you bought not last and you didn't have the money to get more?: I choose not to answer this question Within the past 12 months, did you worry whether your food would run out before you got money to buy more?: I choose not to answer this question Do you have trouble paying for medicines?: I choose not to answer this question Do you have trouble getting transportation to medical appointments?: I choose not to answer this question Do you have trouble paying your heating and electricity bill?: I choose not to answer this question Do you have trouble taking care of your child, family member or friend?: I choose not to answer this question Do you have trouble with day-to-day activities such as bathing, preparing meals, shopping, managing finances, etc.?: I choose not to answer this question Are you currently unemployed and looking for a job?: I choose not to answer this question Are you interested in more education?: I choose not to answer this question Please select the resources that you would like help with: None Currently or been in a relationship where the following occur: I choose not to answer THRIVE Score: 0 MABEL-7 AMB Questionnaire MABEL-7 Date MABEL - 7 assessed: 03/08/24 Source: Developed by Drs. Rajesh Ellis, Sharon Delarosa, Mikie Staley and colleagues, with an educational carolann from [employer] Review of Systems Const All systems reviewed & are unremarkable except as noted in HPI and below Reports no additional complaints Eyes Reports no additional complaints ENT Reports no additional complaints Card Reports no additional complaints Resp Reports no additional complaints GI Reports no additional complaints Reports no additional complaints Physical exam (Primary Care) Vital Signs: Last Vital Signs Pulse 98 05/02/24 08:10 BP 128/74 05/02/24 08:10 Pulse Ox 93 05/02/24 08:10 Oxygen Delivery Method Room Air 05/02/24 08:10 BMI result Body Mass Index 30.5 Tobacco/Smoking Status: Tobacco use Status Tobacco use date assessed 05/02/24 05/02/24 08:16 Patient Tobacco Use Status Never used Tobacco 05/02/24 08:16 e-Cigarette/Vaping Use Never Used 05/02/24 08:16 Thrive Assessment: Date of Thrive Assessment Date Thrive assessed 05/02/24 05/02/24 08:16 Currently or been in a relationship where the following occur: I choose not to answer Const General: no acute distress HENMT Head: Yes normal to inspection Ears: hearing grossly normal bilaterally Mouth: Normal oral and palatal mucosa present Throat: Yes posterior oropharynx normal Eyes General: appearance normal, both eyes and all related structures Neck Neck: Yes no lymphadenopathy and Yes supple Resp Effort & Inspection: normal respiratory effort Auscultation: clear to auscultation bilaterally Cardio Rhythm: regular rhythm Heart sounds: S1 normal heart sound present and S2 normal heart sound present GI Inspection: Yes normal to inspection Palpation (GI): Soft to palpation Percussion: Yes normal to percussion Auscultation: normal bowel sounds Assessment and Plan Assessment & Plan (1) Hypertension: Code(s): I10 - Essential (primary) hypertension Plan: cont meds (2) Hyperlipidemia: Code(s): E78.5 - Hyperlipidemia, unspecified Plan: Continue low-cholesterol diet (3) Vitamin D deficiency: Code(s): E55.9 - Vitamin D deficiency, unspecified (4) Cataract: Code(s): H26.9 - Unspecified cataract Plan: Patient is medically cleared for cataract surgery Orders: Orders Comprehensive [place]. Panel Fast 6 Months E55.9 - Vitamin D deficiency, unspecified, E78.5 - Hyperlipidemia, unspecified, I10 - Essential (primary) hypertension Complete Blood Count Auto Diff 6 Months E55.9 - Vitamin D deficiency, unspecified, E78.5 - Hyperlipidemia, unspecified, I10 - Essential (primary) hypertension Lipid Panel 6 Months E55.9 - Vitamin D deficiency, unspecified, E78.5 - Hyperlipidemia, unspecified, I10 - Essential (primary) hypertension TSH reflex Free T4 6 Months E55.9 - Vitamin D deficiency, unspecified, E78.5 - Hyperlipidemia, unspecified, I10 - Essential (primary) hypertension Vitamin D 25-OH Total 6 Months E55.9 - Vitamin D deficiency, unspecified, E78.5 - Hyperlipidemia, unspecified, I10 - Essential (primary) hypertension Coding Level of Care Code Est Pt Level 3 (37591) Diagnoses Hypertension I10 Hyperlipidemia E78.5 Vitamin D deficiency E55.9 Cataract H26.9
[2024-05-02 08:10] VITALS: BP 128/74; PULSE 98; O2SAT 93; BMI 30.5
== END 2024-05-02 09:05 | disposition home or self-care (01) ==
PROVIDERS: PCP Internal Medicine; Visit Provider Internal Medicine
DX: I10 Essential (primary) hypertension (principal); E78.5 Hyperlipidemia, unspecified; E55.9 Vitamin D deficiency, unspecified; H26.9 Unspecified cataract
CPT/HCPCS: 99213

== ENCOUNTER 2024-05-29 07:57 | Outpatient (AMB) | payer MEDICARE, SELFPAY ==
[2024-05-29 08:10] VITALS: BP 118/78; PULSE 89; O2SAT 98; BMI 30.5
--- NOTE | 2024-05-29 08:10 | A.OFFPC_ITS ---
Vital Signs 05/29/24 08:10 Height 5 ft 2 in Weight 167 lb BMI 30.5 BP 118/78 Blood Pressure Location Rt brachial Position Sitting Pulse 89 Pulse Source Pulse Oximeter Pulse Oximetry (%) 98 Oxygen Delivery Method Room Air Intake Visit Reasons: Follow up on headaches Intake Note: Pt is here today for a follow up visit on headaches. Allergies donepezil Adverse Reaction (Intermediate, Verified 05/02/24 08:14) Nausea trazodone Adverse Reaction (Intermediate, Verified 05/02/24 08:14) Dizziness Medication List - Last Reconciled 05/29/24 by Beverley Perez MD acetaminophen 650 mg (2 x 325 mg) PO Q6H PRN 30 days amoxicillin 2,000 mg (4 x 500 mg) PO ONCE ascorbic acid (vitamin C) 1 g PO DAILY PRN cholecalciferol (vitamin D3) (Vitamin D3) 50 mcg PO DAILY [choline 800 mg ] felodipine ER 2.5 mg PO DAILY ginkgo biloba-Panax ginseng rt 60-100 mg 2 caps PO DAILY [glucosemide with MSM 2 tabs PO DAILY] [instafle 3 tablets] lutein 20 mg PO DAILY [magnesium PO] olmesartan 40 mg PO DAILY Tobacco use date assessed: 05/29/24 Dental Screening Dental Screen Date: 11/27/23 HPI Follow up on headaches HPI Details Pt c/o new onset VILLAFANA for 1 week sharp like in L temporal region constant spreading throughout the whole head. She denies fever chills nausea vomiting change in vision balanced weakness or numbness in extremities. Hypertension is controlled on current medications PFSH Medical History Osteoarthritis of right hip Thyroid nodule Arthritis Palpitations Vitamin D deficiency Annual physical exam Insomnia Memory deficit Hyperglycemia Hyperlipidemia History of mammogram Chronic neck pain Arthralgia Tension headache RLS (restless legs syndrome) Osteoarthritis of both knees Balance problem IBS (irritable bowel syndrome) Osteoarthritis of right shoulder Sciatica of left side Sciatica, right side Hypertension Surgical History History of bunionectomy Hx of shoulder surgery Hx of spinal surgery H/O colonoscopy Family History Father Stroke Mother Lung cancer Social History Household Members: Spouse Housing: Condominium Are you a primary plant health care technician to a significant other at home: No Do you presently have visiting nurse or other home services: No Alcohol intake: current Alcohol intake frequency: does not drink Patient Tobacco Use Status: Never used Tobacco e-Cigarette/Vaping Use: Never Used service: No Current occupational status: retired Cognitive needs: No Hearing needs: No Vision needs: Yes Questionnaire Thrive Questionnaire Date Thrive assessed: 05/02/24 I am a: Patient What is your living situation today?: I choose not to answer this question Within the past 12 months, did the food you bought not last and you didn't have the money to get more?: I choose not to answer this question Within the past 12 months, did you worry whether your food would run out before you got money to buy more?: I choose not to answer this question Do you have trouble paying for medicines?: I choose not to answer this question Do you have trouble getting transportation to medical appointments?: I choose not to answer this question Do you have trouble paying your heating and electricity bill?: I choose not to answer this question Do you have trouble taking care of your child, family member or friend?: I choose not to answer this question Do you have trouble with day-to-day activities such as bathing, preparing meals, shopping, managing finances, etc.?: I choose not to answer this question Are you currently unemployed and looking for a job?: I choose not to answer this question Are you interested in more education?: I choose not to answer this question Please select the resources that you would like help with: None Currently or been in a relationship where the following occur: I choose not to answer THRIVE Score: 0 MABEL-7 AMB Questionnaire MABEL-7 Date MABEL - 7 assessed: 03/08/24 Source: Developed by Drs. Rajesh Ellis, Sharon Delarosa, Mikie Staley and colleagues, with an educational carolann from [employer] Review of Systems Const All systems reviewed & are unremarkable except as noted in HPI and below Eyes Reports no additional complaints Card Reports no additional complaints Resp Reports no additional complaints GI Reports no additional complaints Reports no additional complaints Physical exam (Primary Care) Vital Signs: Last Vital Signs Pulse 89 05/29/24 08:10 BP 118/78 05/29/24 08:10 Pulse Ox 98 05/29/24 08:10 Oxygen Delivery Method Room Air 05/29/24 08:10 BMI result Body Mass Index 30.5 Tobacco/Smoking Status: Tobacco use Status Tobacco use date assessed 05/29/24 05/29/24 08:20 Patient Tobacco Use Status Never used Tobacco 05/29/24 08:10 e-Cigarette/Vaping Use Never Used 05/29/24 08:10 Thrive Assessment: Date of Thrive Assessment Date Thrive assessed 05/02/24 05/29/24 08:10 Currently or been in a relationship where the following occur: I choose not to answer Const General: no acute distress HENMT Head: Yes normal to inspection Ears: hearing grossly normal bilaterally Face and sinus: Yes normal facial exam Mouth: Normal oral and palatal mucosa present Throat: Yes posterior oropharynx normal Eyes General: appearance normal, both eyes and all related structures Visual Crow: normal visual crow by confrontation Pupils: Equal, round and reactive pupils present EOM: EOMs intact bilaterally Neck Neck: Yes supple Resp Effort & Inspection: normal respiratory effort Auscultation: clear to auscultation bilaterally Cardio Rhythm: regular rhythm Heart sounds: S1 normal heart sound present and S2 normal heart sound present Neuro Cranial nerves: Yes CN's II-XII intact bilaterally and Yes Equal, round and reactive pupils present Motor exam (neuro): 5/5 motor strength present throughout Coordination: [id number] test normal Romberg Test: Negative Assessment and Plan Assessment & Plan (1) New onset headache: Code(s): R51.9 - Headache, unspecified Plan: For new onset headache obtain CT of brain, check sed rate (2) Hypertension: Code(s): I10 - Essential (primary) hypertension Plan: Continue current medications (3) Hyperglycemia: Code(s): R73.9 - Hyperglycemia, unspecified Plan: Monitor A1c (4) Hyperlipidemia: Code(s): E78.5 - Hyperlipidemia, unspecified Plan: Continue low-cholesterol diet Orders: Orders Comprehensive Met. Panel Today R51.9 - Headache, unspecified Erythrocyte Sedimentation Rate Today R51.9 - Headache, unspecified Complete Blood Count Auto Diff Today R51.9 - Headache, unspecified CT head/brain wo IV con Today R51.9 - Headache, unspecified Lipid Panel Today E78.5 - Hyperlipidemia, unspecified, I10 - Essential (primary) hypertension, R00.2 - Palpitations, R73.9 - Hyperglycemia, unspecified Hemoglobin A1c Today E78.5 - Hyperlipidemia, unspecified, I10 - Essential (primary) hypertension, R00.2 - Palpitations, R73.9 - Hyperglycemia, unspecified TSH reflex Free T4 Today E78.5 - Hyperlipidemia, unspecified, I10 - Essential (primary) hypertension, R00.2 - Palpitations, R73.9 - Hyperglycemia, unspecified Coding Level of Care Code Est Pt Level 4 (42908) Diagnoses New onset headache R51.9 Hypertension I10 Hyperglycemia R73.9 Hyperlipidemia E78.5
== END 2024-05-29 08:59 | disposition home or self-care (01) ==
PROVIDERS: PCP Internal Medicine; Visit Provider Internal Medicine
DX: R51.9 Headache, unspecified (principal); I10 Essential (primary) hypertension; R73.9 Hyperglycemia, unspecified; E78.5 Hyperlipidemia, unspecified

== ENCOUNTER → 2024-05-29 07:57 | Outpatient (BNVA) | payer MEDICARE, SELFPAY | PROVIDERS: PCP Internal Medicine; Visit Provider Internal Medicine | DX: R51.9 Headache, unspecified (principal); I10 Essential (primary) hypertension; R73.9 Hyperglycemia, unspecified; E78.5 Hyperlipidemia, unspecified | CPT/HCPCS: 99212 ==

== ENCOUNTER 2024-06-04 07:15 | Outpatient (REF) | payer MEDICARE, SELFPAY ==
--- NOTE | ~2024-06-04 | CT_ITS ---
EXAMINATION: CT HEAD WITHOUT CONTRAST CLINICAL INFORMATION: Headaches unspecified COMPARISON: None available. TECHNIQUE: Contiguous axial imaging was performed from the skull base to vertex without intravenous administration of contrast. This CT examination was performed using dose optimization techniques as appropriate, variously including the following: *Automated exposure control *Adjustment of mA and/or kV according to patient size (this includes techniques or standardized protocols for targeted exams where dose is matched to indication/reason for exam; i.e. extremities or head) *Use of iterative reconstruction technique DLP: 710 mGy-cm FINDINGS: No intra or extra-axial fluid collection, hemorrhage, mass, or mass effect. Mild deep white matter gliosis noted. Punctate calcification in the basal ganglia. Calvarium intact. CT/CT head/brain wo IV con IMPRESSION: No acute intracranial pathology. Electronically signed by: Christopher Royal MD 06/04/2024 09:49 AM EDT
== END 2024-06-04 07:16 | disposition home or self-care (01) ==
LOC: HO.CT 07:15
PROVIDERS: PCP Internal Medicine; Visit Provider Internal Medicine
DX: R51.9 Headache, unspecified (principal)
CPT/HCPCS: 70450

== ENCOUNTER 2024-07-01 07:47 | Outpatient (REF) | payer MEDICARE, SELFPAY ==
[2024-07-01 10:12] LABS: MANUAL DIFF FLAG NO
[2024-07-01 10:32] LABS: Basophils Percent Auto 0.6 % (0-2); Eosinophils Absolute Auto 0.3 X10*3/uL (0.0-0.4); Hematocrit 45.3 % (37.0-47.0); Hemoglobin 14.7 g/dl (12.0-16.0); Imm Gran Abs Auto 0.01 X10*3/uL (0.00-0.03); Imm Gran Pct Auto 0.2 % (0.0-0.4); Lymphocytes Absolute Auto 1.5 X10*3/uL (1.2-4.9); Mean Corpuscular HGB Conc 32.5 g/dl (31.0-35.0); Mean Corpuscular Hemoglobin 29.6 pg (27.0-33.0); Mean Corpuscular Volume 91.3 fL (80.0-98.0); Mean Platelet Volume 10.2 fL (9.4-12.3); Monocytes Absolute Auto 0.5 X10*3/uL (0.1-1.2); Monocytes Percent Auto 10.5 % (2-11); Neutrophils Absolute Auto 2.8 x10*3/uL (2.0-8.3); Neutrophils Percent Auto 53.7 % (45-73); Platelet Count 250 X10*3/uL (160-400); Red Blood Count 4.96 X10*6/uL (4.20-5.50); Red Cell Distribution Width 14.4 % (11.0-16.0); White Blood Count 5.1 X10*3/uL (4.8-10.8)
[2024-07-01 10:40] LABS: Alanine Aminotransferase 27 U/L (0-31); Albumin Level 4.2 g/dL (3.5-5.0); Alkaline Phosphatase 73 U/L (39-117); Anion Gap 11 (12-20); Bilirubin Total 0.4 mg/dL (0.0-1.0); Blood Urea Nitrogen 18 mg/dL (9-16); Calcium 9.4 mg/dL (8.4-10.2); Carbon Dioxide 28 mmol/L (22-29); Chloride 106 mmol/L (96-108); Cholesterol 207 mg/dL (<200); Estimated Glomerular Filt Rate 56; Glucose Random 122 mg/dL (60-115); HDL Cholesterol 38 mg/dL (>40); LDL Cholesterol Calculated 131 mg/dL (<100); Potassium 4.9 mmol/L (3.3-5.1); Sodium 140 mmol/L (135-145); Total Protein 7.3 g/dL (6.5-8.0); Triglycerides 193 mg/dL (<150)
[2024-07-01 10:42] LABS: Estimated Average Glucose 126 mg/dL; Hemoglobin A1C 161.1497 umol/L; Total Hemoglobin (HGBA1C) 3794.2057 umol/L
[2024-07-01 11:12] LABS: TSH reflex Free T4 0.85 uIU/mL (0.32-4.0)
[2024-07-01 11:13] LABS: Erythrocyte Sedimentation Rate 9 MM/HR (0-20)
[2024-07-01 11:44] LABS: Aspartate Amino Transferase 28 U/L (5-31)
== END 2024-07-01 07:48 | disposition home or self-care (01) ==
LOC: HO.HMGCLDS 07:47
PROVIDERS: PCP Internal Medicine; Visit Provider Internal Medicine
DX: Z47.1 Aftercare following joint replacement surgery (principal); M76.71 Peroneal tendinitis, right leg; Z96.641 Presence of right artificial hip joint; R51.9 Headache, unspecified; I10 Essential (primary) hypertension; R73.9 Hyperglycemia, unspecified; E78.5 Hyperlipidemia, unspecified; R00.2 Palpitations
CPT/HCPCS: 36415; 80053; 80061; 83036; 84443; 85025; 85652; 99212

== ENCOUNTER 2024-07-01 14:28 | Outpatient (AMB) | payer MEDICARE, SELFPAY ==
--- NOTE | 2024-07-01 14:44 | MHC.OFFVIS ---
Vital Signs 07/01/24 14:45 Height 5 ft 2 in Weight 167 lb BMI 30.5 Intake Visit Reasons: OV- right hip follow up Intake Note: Anitha is a 78 year old female who presents today with her daughter for a follow up visit s/p Right HENRI 12/13/23. Patient reports that she has intermittent pain. Allergies donepezil Adverse Reaction (Intermediate, Verified 05/02/24 08:14) Nausea trazodone Adverse Reaction (Intermediate, Verified 05/02/24 08:14) Dizziness HPI HPI OV- right hip follow up: Details: Anitha is a 78 year old female who presents today with her daughter for a follow up visit s/p Right HENRI 12/13/23. Patient reports that she has intermittent pain but that overall she is doing very well. Her primary complaint is right and foot pain. She states this is lateral and bothers her after a period of immobilization. She has had this in the past and has used orthotics. She does not currently have those and would like to be fitted for new orthotics. [facility] Medical History Osteoarthritis of right hip Thyroid nodule Arthritis Palpitations Vitamin D deficiency Annual physical exam Insomnia Memory deficit Hyperglycemia Hyperlipidemia History of mammogram Chronic neck pain Arthralgia Tension headache RLS (restless legs syndrome) Osteoarthritis of both knees Balance problem IBS (irritable bowel syndrome) Osteoarthritis of right shoulder Sciatica of left side Sciatica, right side Hypertension Surgical History History of bunionectomy Hx of shoulder surgery Hx of spinal surgery H/O colonoscopy Family History Father Stroke Mother Lung cancer Social History Household Members: Spouse Housing: Condominium Are you a primary small animal caretaker to a significant other at home: No Do you presently have visiting nurse or other home services: No Alcohol intake: current Alcohol intake frequency: does not drink Patient Tobacco Use Status: Never used Tobacco e-Cigarette/Vaping Use: Never Used service: No Current occupational status: retired Cognitive needs: No Hearing needs: No Vision needs: Yes Physical Exam Vital Signs: BMI result Body Mass Index 30.5 Extrem Other: Normal gait with no hip pain on range of motion. There is tenderness to palpation over the right peroneal tendons with mild pain on resisted ankle eversion. Assessment & Plan Assessment & Plan (1) History of total right hip replacement: Onset Date: ~12/15/23 Comment: NE Code(s): Z96.641 - Presence of right artificial hip joint Category: Surgical Plan: Status post hip replacement doing well. No additional recommendations as she is functional and with minimal pain and improving regularly. (2) Peroneal tendinitis, right leg: Code(s): M76.71 - Peroneal tendinitis, right leg Category: Medical Plan: Her primary complaint is right peroneal tendinitis. A referral was written for orthotic fitting. Medications: New [ankle orthosis] As directed 1 ea 0RF right peroneal tendonitis M76.71 - Peroneal tendinitis, right leg Coding Level of Care Code Est Pt Level 3 (46089) Diagnoses History of total right hip replacement Z96.641 Peroneal tendinitis, right leg M76.71
[2024-07-01 14:45] VITALS: BMI 30.5
== END 2024-07-01 15:07 | disposition home or self-care (01) ==
PROVIDERS: PCP Internal Medicine; Visit Provider Orthopaedic Surgery
DX: Z47.89 Encounter for other orthopedic aftercare (principal); Z96.641 Presence of right artificial hip joint; M76.71 Peroneal tendinitis, right leg
CPT/HCPCS: 99212

== ENCOUNTER 2024-07-02 10:48 | Outpatient (AMB) | payer MEDICARE, SELFPAY ==
[2024-07-02 10:49] VITALS: BP 110/70; PULSE 85; O2SAT 97; BMI 30.7
--- NOTE | 2024-07-02 10:49 | A.OFFPC_ITS ---
Vital Signs 07/02/24 10:49 Height 5 ft 2 in Weight 168 lb BMI 30.7 BP 110/70 Blood Pressure Location Rt brachial Position Sitting Pulse 85 Pulse Source Pulse Oximeter Pulse Oximetry (%) 97 Oxygen Delivery Method Room Air Intake Visit Reasons: 1 month f/up Intake Note: Pt is here today for 1 month follow up visit. Allergies donepezil Adverse Reaction (Intermediate, Verified 07/02/24 10:50) Nausea trazodone Adverse Reaction (Intermediate, Verified 07/02/24 10:50) Dizziness Medication List - Last Reconciled 07/02/24 by Beverley Perez MD acetaminophen 650 mg (2 x 325 mg) PO Q6H PRN 30 days amoxicillin 2,000 mg (4 x 500 mg) PO ONCE [ankle orthosis As directed] ascorbic acid (vitamin C) 1 g PO DAILY PRN cholecalciferol (vitamin D3) (Vitamin D3) 50 mcg PO DAILY [choline 800 mg ] felodipine ER 2.5 mg PO DAILY ginkgo biloba-Panax ginseng rt 60-100 mg 2 caps PO DAILY [glucosemide with MSM 2 tabs PO DAILY] [instafle 3 tablets] lutein 20 mg PO DAILY [magnesium PO] olmesartan 40 mg PO DAILY Tobacco use date assessed: 07/02/24 Dental Screening Dental Screen Date: 11/27/23 HPI 1 month f/up HPI Details Pt presents for HTN stable on meds. Pt has been following ADA and low cholesterol diet. Patient had a negative brain CT for chronic headaches. She has been under a lot of stress because of her 's [facility] Medical History Osteoarthritis of right hip Thyroid nodule Arthritis Palpitations Vitamin D deficiency Annual physical exam Insomnia Memory deficit Hyperglycemia Hyperlipidemia History of mammogram Chronic neck pain Arthralgia Tension headache RLS (restless legs syndrome) Osteoarthritis of both knees Balance problem IBS (irritable bowel syndrome) Osteoarthritis of right shoulder Sciatica of left side Sciatica, right side Hypertension Surgical History History of bunionectomy Hx of shoulder surgery Hx of spinal surgery H/O colonoscopy Family History Father Stroke Mother Lung cancer Social History Household Members: Spouse Housing: Condominium Are you a primary resident caregiver to a significant other at home: No Do you presently have visiting nurse or other home services: No Alcohol intake: current Alcohol intake frequency: does not drink Patient Tobacco Use Status: Never used Tobacco e-Cigarette/Vaping Use: Never Used service: No Current occupational status: retired Cognitive needs: No Hearing needs: No Vision needs: Yes Questionnaire Thrive Questionnaire Date Thrive assessed: 05/02/24 Do you have trouble getting transportation to medical appointments?: I choose not to answer this question Do you have trouble paying your heating and electricity bill?: I choose not to answer this question Do you have trouble taking care of your child, family member or friend?: I choose not to answer this question Do you have trouble with day-to-day activities such as bathing, preparing meals, shopping, managing finances, etc.?: I choose not to answer this question Are you currently unemployed and looking for a job?: I choose not to answer this question Are you interested in more education?: I choose not to answer this question Please select the resources that you would like help with: None Currently or been in a relationship where the following occur: I choose not to answer THRIVE Score: 0 AUDIT C Alcohol Use Questionnaire (AUDIT-C) 1. How often do you have a drink containing alcohol?: Never Total Score: 0 MABEL-7 AMB Questionnaire MABEL-7 Date MABEL - 7 assessed: 03/08/24 Feeling nervous, anxious, or on edge: 0 = Not at all Not being able to stop or control worryin = Not at all Worrying too much about different things: 0 = Not at all Trouble relaxin = Not at all Being so restless that it is hard to sit still: 0 = Not at all Becoming easily annoyed or irritable: 0 = Not at all Feeling afraid as if something awful might happen: 0 = Not at all Total MABEL-7 score (0-4 normal; 5-9 mild; 10-14 moderate; 15-21 severe): 0 Source: Developed by Drs. Rajesh Ellis, Sharon Delarosa, Mikie Staley and colleagues, with an educational carolann from [employer]. Review of Systems Const All systems reviewed & are unremarkable except as noted in HPI and below Card Reports no additional complaints Resp Reports no additional complaints GI Reports no additional complaints Reports no additional complaints Physical exam (Primary Care) Vital Signs: Last Vital Signs Pulse 85 07/02/24 10:49 BP 110/70 07/02/24 10:49 Pulse Ox 97 07/02/24 10:49 Oxygen Delivery Method Room Air 07/02/24 10:49 BMI result Body Mass Index 30.7 Tobacco/Smoking Status: Tobacco use Status Tobacco use date assessed 07/02/24 07/02/24 10:53 Patient Tobacco Use Status Never used Tobacco 07/02/24 10:53 e-Cigarette/Vaping Use Never Used 07/02/24 10:53 Thrive Assessment: Date of Thrive Assessment Date Thrive assessed 05/02/24 07/02/24 10:53 Currently or been in a relationship where the following occur: I choose not to answer Const General: no acute distress HENMT Head: Yes normal to inspection Ears: hearing grossly normal bilaterally Mouth: Normal oral and palatal mucosa present Throat: Yes posterior oropharynx normal Eyes General: appearance normal, both eyes and all related structures Neck Neck: Yes no lymphadenopathy and Yes supple Resp Effort & Inspection: normal respiratory effort Auscultation: clear to auscultation bilaterally Cardio Rhythm: regular rhythm Heart sounds: S1 normal heart sound present and S2 normal heart sound present GI Inspection: Yes normal to inspection Coding Level of Care Code Est Pt Level 4 (87101) Diagnoses Hypertension I10 Hyperglycemia R73.9 Vitamin D deficiency E55.9 Assessment & Plan Assessment & Plan (1) Hypertension: Code(s): I10 - Essential (primary) hypertension Category: Medical Plan: Continue current medications (2) Hyperglycemia: Code(s): R73.9 - Hyperglycemia, unspecified Category: Medical Plan: A1c is 6.0, ADA diet increase exercise weight loss discussed with the patient. Follow-up in 6 months with a fasting labs before (3) Vitamin D deficiency: Code(s): E55.9 - Vitamin D deficiency, unspecified Category: Medical Plan: Continue vitamin-D supplement Orders: Orders Complete Blood Count Auto Diff 6 Months E55.9 - Vitamin D deficiency, unspecified, I10 - Essential (primary) hypertension, R73.9 - Hyperglycemia, unspecified, Z00.00 - Encounter for general adult medical examination without abnormal findings TSH reflex Free T4 6 Months E55.9 - Vitamin D deficiency, unspecified, I10 - Essential (primary) hypertension, R73.9 - Hyperglycemia, unspecified, Z00.00 - Encounter for general adult medical examination without abnormal findings Hemoglobin A1c 6 Months E55.9 - Vitamin D deficiency, unspecified, I10 - Essential (primary) hypertension, R73.9 - Hyperglycemia, unspecified, Z00.00 - Encounter for general adult medical examination without abnormal findings Lipid Panel 6 Months E55.9 - Vitamin D deficiency, unspecified, I10 - Essential (primary) hypertension, R73.9 - Hyperglycemia, unspecified, Z00.00 - Encounter for general adult medical examination without abnormal findings Comprehensive [place]. Panel Fast 6 Months E55.9 - Vitamin D deficiency, unspecified, I10 - Essential (primary) hypertension, R73.9 - Hyperglycemia, unspecified, Z00.00 - Encounter for general adult medical examination without abnormal findings Medications: Refilled felodipine ER 2.5 mg PO DAILY 90 tabs 3RF olmesartan 40 mg PO DAILY 90 tabs 3RF
== END 2024-07-02 11:22 | disposition home or self-care (01) ==
PROVIDERS: PCP Internal Medicine; Visit Provider Internal Medicine
DX: I10 Essential (primary) hypertension (principal); R73.9 Hyperglycemia, unspecified; E55.9 Vitamin D deficiency, unspecified

== ENCOUNTER → 2024-07-02 10:48 | Outpatient (BNVA) | payer MEDICARE, SELFPAY | PROVIDERS: PCP Internal Medicine; Visit Provider Internal Medicine | DX: I10 Essential (primary) hypertension (principal); R73.9 Hyperglycemia, unspecified; E55.9 Vitamin D deficiency, unspecified; Z79.899 Other long term (current) drug therapy | CPT/HCPCS: 99212 ==

== ENCOUNTER 2024-07-10 13:59 | Outpatient (REF) | payer MEDICARE, SELFPAY ==
--- NOTE | ~2024-07-10 | MM_ITS ---
EXAMINATION: MM SCREENING DIGITAL BREAST TOMOSYNTHESIS, BILATERAL CLINICAL INFORMATION: Screening. Asymptomatic. COMPARISON: Mammography: Comparison is made with available priors TECHNIQUE: Digital breast mammography with tomosynthesis is performed in both the craniocaudal and mediolateral oblique views along with computer-aided detection (CAD). FINDINGS: There are scattered areas of fibroglandular density (ACR BI-RADS breast composition Category b). Right marker clip. There are no significant masses, abnormal calcifications, or other abnormalities. MM/MM tomosynthesis screening BI IMPRESSION: No mammographic evidence of malignancy. ASSESSMENT: BI-RADS BI-RADS 2 - Benign Findings RECOMMENDATION: Routine annual mammography screening. 1 year F/U This examination should not preclude the clinical evaluation of a suspicious palpable abnormality. This patient's information was entered into a reminder system with a target due date for their next mammogram. Electronically signed by: Araceli Kenny DO 07/19/2024 09:35 AM GIANNA
== END 2024-07-10 14:00 | disposition home or self-care (01) ==
LOC: HO.MAMMO 13:59
PROVIDERS: PCP Internal Medicine; Visit Provider Internal Medicine
DX: Z12.31 Encounter for screening mammogram for malignant neoplasm of breast (principal)
CPT/HCPCS: 77063; 77067

== ENCOUNTER → 2024-07-10 14:30 | Outpatient (BNV) | payer MEDICARE, SELFPAY | PROVIDERS: PCP Internal Medicine; Visit Provider Internal Medicine | DX: Z12.31 Encounter for screening mammogram for malignant neoplasm of breast (principal) | CPT/HCPCS: 77063; 77067 ==

== ENCOUNTER 2024-10-15 11:43 | Outpatient (REF) | payer MEDICARE, SELFPAY ==
--- OUTSIDE RECORDS SUMMARY | 2024-10-15 13:13 | XMS_ITS | Clinical Summary ---
Author Organization [employer] Address [address] [facility] 7 [place] [address] Care Team Providers Care Citizenship Teacher Name Role Phone Unavailable Primary Care Provider [...] Upcoming Encounters Date Type Department Care Team ([facility] st Contact Info) Description 11/11/2024 9:15 AM EST Office Visit [facility] [address] [place] [address] Health Maintenance Due Date Last Done Comments [...] to complete this topic Insurance DENTAL - [facility]
--- OUTSIDE RECORDS SUMMARY | 2024-10-15 13:13 | XMS_ITS | Clinical Summary ---
Author Organization [facility] Address [address] [place] [address] Phone Care Team Providers Care Equity Structurer Name Role Phone Beverley Perez MD Primary Care Provider [phone] Encounters Date Type Department Care Team Description 09/26/2024 Telephone [facility] [place] [address] [place] [address] Rinku Valentin MD from Last 3 Months Surgical History Surgery Date Site/Laterality Comments OTHER SURGICAL HISTORY Right PROCEDURE: [place] BIOPSY OVARY UNI/BI SEPARATE PROCEDURE Medical History [...] - [facility] [address] [place] [address] Rinku Valentin MD [address] [place] [address] 01/31/2025 2:15 PM EDT Appointment Radiology Department - [address] [phone] Health Maintenance Due Date Last Done Comments [...] age to complete this topic Care Teams Equity Structurer Relationship Specialty Start Date End Date Beverley Perez MD PCP - General Internal Medicine 11/23/15
--- OUTSIDE RECORDS SUMMARY | 2024-10-15 13:13 | XMS_ITS | Encounter Summary ---
Author Organization [facility] Address [address] [place] [address] Care Team Providers Care Warehouse Operations Associate Name Role Phone Beverley Perez MD Primary Care Provider [phone] Encounter Details Date Type Department Care Team (Late st Contact Info) Description 09/26/2024 Telephone [facility] [address] [place] [address] Rinku Valentin MD [address] [place] [phone] Social History Tobacco Use Types Packs/Day Years [...] Description 10/31/2024 2:00 PM EST [facility] [address] [place] [address] Rinku Valentin MD [address] [place] [address] 01/31/2025 2:15 PM EDT Appointment Radiology Department [address] [phone] documented as of this encounter Visit Diagnoses Not on filedocumented in this encounter Care Teams Warehouse Operations Associate Relationship Specialty Start Date End Date Beverley Perez MD PCP - General Internal Medicine 11/23/15 documented as of this encounter
[2024-10-15 17:00] LABS: Appearance Urine Clear; Color Urine Yellow; Glucose Urine UA Negative (Negative); Leukocyte Esterase Urine Negative (Negative); Nitrite Urine Negative (Negative); PH 5.5 (5.0-9.0); Urine Blood Negative (Negative); Urine Ketones Negative (Negative); Urine Protein Negative (Neg-Trace)
[2024-10-15 17:06] LABS: Bacteria Urine None Seen (None Seen); Hyaline Casts Urine 0-2 /LPF (0-2); RBC Urine 0-2 /HPF (0-2); Squamous Epithelial Cell Urine 0-2 /HPF (0-2); WBC Urine 0-5 /HPF (0-5)
== END 2024-10-15 11:44 | disposition home or self-care (01) ==
LOC: HO.HMGCLDS 11:43
PROVIDERS: PCP Internal Medicine; Visit Provider Internal Medicine
DX: R30.0 Dysuria (principal); K29.70 Gastritis, unspecified, without bleeding; I10 Essential (primary) hypertension
CPT/HCPCS: 81001; 87086; 96127; 99212

== ENCOUNTER 2024-10-15 11:43 | Outpatient (AMB) | payer MEDICARE, SELFPAY ==
[2024-10-15 11:50] VITALS: BP 126/72; PULSE 83; O2SAT 97; BMI 31.3
--- NOTE | 2024-10-15 11:50 | A.OFFPC_ITS ---
Vital Signs 10/15/24 11:50 Height 5 ft 2 in Weight 171 lb BMI 31.3 BP 126/72 Blood Pressure Location Lt brachial Position Sitting Pulse 83 Pulse Source Pulse Oximeter Pulse Oximetry (%) 97 Oxygen Delivery Method Room Air Intake Visit Reasons: Hiccups Intake Note: Pt is here today for a follow up visit. Allergies donepezil Adverse Reaction (Intermediate, Verified 10/15/24 11:57) Nausea trazodone Adverse Reaction (Intermediate, Verified 10/15/24 11:57) Dizziness Medication List - Last Reconciled 10/15/24 by Beverley Perez MD acetaminophen 650 mg (2 x 325 mg) PO Q6H PRN 30 days amoxicillin 2,000 mg (4 x 500 mg) PO ONCE [ankle orthosis As directed] ascorbic acid (vitamin C) 1 g PO DAILY PRN cholecalciferol (vitamin D3) (Vitamin D3) 50 mcg PO DAILY [choline 800 mg ] famotidine (Pepcid) 40 mg PO DAILY felodipine ER 2.5 mg PO DAILY ginkgo biloba-Panax ginseng rt 60-100 mg 2 caps PO DAILY [glucosemide with MSM 2 tabs PO DAILY] [instafle 3 tablets] lutein 20 mg PO DAILY [magnesium PO] olmesartan 40 mg PO DAILY Tobacco use date assessed: 10/15/24 Fall risk assessment: 1 Fall in past year Last assessed Fall Risk: 10/15/24 Dental Screening Dental Screen Date: 10/15/24 Did you have a dental visit in the last 12 months?: Yes Did you have a dental problem in the last 6 months where you did not have access to dental care?: No Was dental information given to patient?: Patient has dentist HPI Hiccups HPI Details Patient presents complaining of intermittent epigastric abdominal discomfort worse after eating on and off for few months. Patient denies change in bowel habits, constipation diarrhea hematochezia melena nausea vomiting. Patient reports frequent hiccups after eating. She complains of increased urinary frequency but no dysuria. Patient needs to urinate at least 5 times at night. She reports vaginal irritation but denies any vaginal discharge and had a normal pelvic exam with a tread booker last month. Hypertension is controlled on current medications. [facility] Medical History Osteoarthritis of right hip Thyroid nodule Arthritis Palpitations Vitamin D deficiency Annual physical exam Insomnia Memory deficit Hyperglycemia Hyperlipidemia History of mammogram Chronic neck pain Arthralgia Tension headache RLS (restless legs syndrome) Osteoarthritis of both knees Balance problem IBS (irritable bowel syndrome) Osteoarthritis of right shoulder Sciatica of left side Sciatica, right side Hypertension Surgical History History of bunionectomy Hx of shoulder surgery Hx of spinal surgery H/O colonoscopy Family History Father Stroke Mother Lung cancer Social History Household Members: [facility] Are you a primary patient centered care specialist to a significant other at home: No Do you presently have visiting nurse or other home services: No Alcohol intake: current Alcohol intake frequency: does not drink Patient Tobacco Use Status: Never used Tobacco e-Cigarette/Vaping Use: Never Used service: No Current occupational status: retired Cognitive needs: No Hearing needs: No Vision needs: Yes Questionnaire PHQ-9 Over the last 2 weeks, how often have you been bothered by any of the following problems? 1. Little interest or pleasure in doing things: not at all 2. Feeling down, depressed, or hopeless: not at all 3. Trouble falling or staying asleep, or sleeping too much: not at all 4. Feeling tired or having little energy: more than half the days 5. Poor appetite or overeating: not at all 6. Feeling bad about yourself - or that you are a failure or have let yourself or your family down: not at all 7. Trouble concentrating on things, such as reading the newspaper or watching television: not at all 8. Moving or speaking so slowly that other people could have noticed. Or the opposite - being so fidgety or restless that you have been moving around a lot more than usual: not at all 9. Thoughts that you would be better off or of hurting yourself in some way: not at all Total score: 2 Depression Screening Interpretation: Negative Depression Screening Done: Yes 12890 - PHQ-9 Billing: Yes Source: Developed by Drs. Rajesh Ellis, Sharon B.WMikie Guerra and colleagues, with an educational carolann from [employer]. Thrive Questionnaire Date Thrive assessed: 10/15/24 I am a: Patient AUDIT C Alcohol Use Questionnaire (AUDIT-C) 1. How often do you have a drink containing alcohol?: Never 3. How often do you have six or more drinks on one occasion?: Never Total Score: 0 MABEL-7 AMB Questionnaire MABEL-7 Date MABEL - 7 assessed: 10/15/24 Feeling nervous, anxious, or on edge: 2 = More than half the days Not being able to stop or control worryin = More than half the days Worrying too much about different things: 2 = More than half the days Trouble relaxin = Not at all Being so restless that it is hard to sit still: 0 = Not at all Becoming easily annoyed or irritable: 0 = Not at all Feeling afraid as if something awful might happen: 0 = Not at all Total MABEL-7 score (0-4 normal; 5-9 mild; 10-14 moderate; 15-21 severe): 6 Source: Developed by Drs. Rajesh Ellis, Mikie Bear and colleagues, with an educational carolann from [employer]. MABEL-7 Assessment Billing MABEL-7 Assessment Tool: MABEL-7 Assessment 26625 Review of Systems Const All systems reviewed & are unremarkable except as noted in HPI and below Eyes Reports no additional complaints ENT Reports no additional complaints Card Reports no additional complaints Resp Reports no additional complaints GI Reports no additional complaints Reports no additional complaints Musc Reports no additional complaints Physical exam (Primary Care) Vital Signs: Last Vital Signs Pulse 83 10/15/24 11:50 BP 126/72 10/15/24 11:50 Pulse Ox 97 10/15/24 11:50 Oxygen Delivery Method Room Air 10/15/24 11:50 BMI result Body Mass Index 31.3 Tobacco/Smoking Status: Tobacco use Status Tobacco use date assessed 10/15/24 10/15/24 11:52 Patient Tobacco Use Status Never used Tobacco 10/15/24 11:52 e-Cigarette/Vaping Use Never Used 10/15/24 11:52 PHQ-9: PHQ-9 Score PHQ-9: Total score 2 10/15/24 11:52 Depression Screening Interpretation: Negative Thrive Assessment: Date of Thrive Assessment Date Thrive assessed 10/15/24 10/15/24 11:52 Const General: no acute distress HENMT Head: Yes normal to inspection Eyes General: appearance normal, both eyes and all related structures Resp Effort & Inspection: normal respiratory effort Auscultation: clear to auscultation bilaterally Cardio Rhythm: regular rhythm Heart sounds: S1 normal heart sound present and S2 normal heart sound present GI Inspection: Yes normal to inspection Palpation (GI): Soft to palpation and nontender Percussion: Yes normal to percussion Auscultation: normal bowel sounds Coding Level of Care Code Est Pt Level 4 (54447) Diagnoses Dysuria R30.0 Gastritis K29.70 Hypertension I10 Additional Codes MABEL-7 Assessment Billing - MABEL-7 Assessment Tool: MABEL-7 Assessment 07021 ([id number]) PHQ-9 - 24821 - PHQ-9 Billing: Yes ([id number]) Assessment & Plan Assessment & Plan (1) Dysuria: Code(s): R30.0 - Dysuria Category: Medical Plan: Check UA and culture, try estradiol vaginal cream twice a week (2) Gastritis: Code(s): K29.70 - Gastritis, unspecified, without bleeding Category: Medical Plan: Anti GERD diet, try of Pepcid 40 mg daily if the symptoms persist patient will be referred to GI for endoscopy (3) Hypertension: Code(s): I10 - Essential (primary) hypertension Category: Medical Plan: Continue current medications Orders: Orders Urine Culture Today R30.0 - Dysuria UA w Microscopic Today R30.0 - Dysuria Medications: New famotidine (Pepcid) 40 mg PO DAILY 30 tabs 4RF estradiol 0.01%(0.1mg/gram) (Estrace) 1 g vaginal 2XW 42.5 grams 5RF
--- OUTSIDE RECORDS SUMMARY | 2024-10-15 12:39 | XMS_ITS | Clinical Summary ---
Author Organization [facility] Address [address] [place] [address] Phone Care Team Providers Care Oil Paint Shader Name Role Phone Beverley Perez MD Primary Care Provider [phone] Encounters Date Type Department Care Team Description 09/26/2024 Telephone Neurostroke - [place] [address] [place] [address] Rinku Valentin MD from Last 3 Months Surgical History Surgery Date Site/Laterality Comments OTHER SURGICAL HISTORY Right PROCEDURE: ID BIOPSY OVARY UNI/BI SEPARATE PROCEDURE Medical History Medical History Date Comments Diverticular disease DX:Divertic ular disease Hypertension DX:Hypertension Joint ache DX:Joint ache; C OMMENT: Back Fibroids DX:Fibroids Family History Medical History Relation Name Comments Lung cancer Mother Breast cancer Neg Hx Colon cancer Neg Hx Ovarian cancer Neg Hx Pancreatic cancer Neg Hx Prostate cancer Neg Hx Uterine cancer Neg Hx Relation Name Status Comments Mother Social History Tobacco Use Types Packs/Day Years Used Date Smoking Tobacco: Never Smokeless Tobacco: Never Alcohol Use Standard Drinks/Week Comments No 0 (1 standard drink = 0.6 oz pur e alcohol) Sex and Gender Information Value Date Recorded Sex Assigned at Not on file Gender Identity Not on file Sexual Orientation Not on file Obstetrics History Last Filed Vital Signs Vital Sign Reading Time Taken Comments Blood Pressure 113/70 12/04/2023 2:26 PM EDT Pulse 85 12/04/2023 2:26 PM EDT Temperature - - Respiratory Rate - - Oxygen Saturation - - Inhaled Oxygen Concentration - - Weight 75.8 kg (167 lb) 12/04/2023 2:26 PM EDT Height 157.5 cm (5' 2 ) 12/04/2023 2:26 PM EDT Body Mass Index 30.54 12/04/2023 2:26 PM EDT Plan of Treatment Upcoming Encounters Date Type Department Care Team (Late st Contact Info) Description 10/31/2024 2:00 PM EST Office Visit Neurostroke - [place] [address] [place] [phone] Rinku Valentin MD [address] [place] [address] 01/31/2025 2:15 PM EDT Appointment Radiology Department - [address] [phone] Health Maintenance Due Date Last Done Comments DTaP,Tdap,and Td Vaccines (1 - Tdap) 1966 Zoster Vaccines (1 of 2) 1997 Pneumococcal Vaccine: 65+ Ye ars (1 of 1 - PCV) 2012 RSV Immunization Patients 60 + Years Old (1 - 1-dose 75+ series) 2022 Depression Screening 04/09/2024 Falls Risk Assessment 04/09/2024 Hepatitis C Screening 04/09/2024 Medicare Annual Wellness Visit 04/09/2024 Osteoporosis Screening (Bone Density Screening) 04/09/2024 Social Influencers of Health Screening 04/09/2024 COVID-19 Vaccine ( - 2023-2 5 season) 2024 Influenza Vaccine (#1) 2024 HIB Vaccines Aged Out No longer eligi ble based on patient's age to complete this topic HPV Vaccines Aged Out No longer eligi ble based on patient's age to complete this topic Hepatitis A Vaccines Aged Out No long er eligible based on patient's age to complete this topic Hepatitis B Vaccines Aged Out No long er eligible based on patient's age to complete this topic IPV Vaccines Aged Out No longer eligi ble based on patient's age to complete this topic MMR Vaccines Aged Out No longer eligi ble based on patient's age to complete this topic Meningococcal ACWY Vaccine Aged Out N o longer eligible based on patient's age to complete this topic RSV Immunization Patients Un shen 20 months Aged Out No longer eligible b ased on patient's age to complete this topic Varicella Vaccines Aged Out No longer eligible based on patient's age to complete this topic Care Teams Oil Paint Shader Relationship Specialty Start Date End Date Beverley Perez MD PCP - General Internal Medicine 11/23/15
--- OUTSIDE RECORDS SUMMARY | 2024-10-15 12:40 | XMS_ITS | Encounter Summary ---
Author Organization [facility] Address [address] [place] [address] Care Team Providers Care Ranch Hand Name Role Phone Beverley Perez MD Primary Care Provider [phone] Encounter Details Date Type Department Care Team (Late st Contact Info) Description 09/26/2024 Telephone [facility] [place] [address] [place] [address] Rinku Valentin MD [address] [place] [id number] Social History Tobacco Use Types Packs/Day Years Used Date Smoking Tobacco: Never Smokeless Tobacco: Never Alcohol Use Standard Drinks/Week Comments No 0 (1 standard drink = 0.6 oz pur e alcohol) Sex and Gender Information Value Date Recorded Sex Assigned at Not on file Gender Identity Not on file Sexual Orientation Not on file documented as of this encounter Progress Notes * Poly García - 09/26/2024 10:12 AM EST Patients daughter called to make an appointment. However, we don't have a referral. I would have made an appointment. However, 's schedule isn't open for yet. documented in this encounter Plan of Treatment Upcoming Encounters Date Type Department Care Team (Late Contact Info) Description 10/31/2024 2:00 PM EST [facility] [address] [place] [address] Rinku Valentin MD [address] [place] [address] 01/31/2025 2:15 PM EDT Appointment Radiology Department [address] [address] documented as of this encounter Visit Diagnoses Not on filedocumented in this encounter Care Teams Ranch Hand Relationship Specialty Start Date End Date Beverley Perez MD PCP - General Internal Medicine 11/23/15 documented as of this encounter
--- OUTSIDE RECORDS SUMMARY | 2024-10-15 12:40 | XMS_ITS | Clinical Summary ---
Author Organization [facility] Address [address] [facility] 7 [place] [address] Care Team Providers Care Anchor Operator Name Role Phone Unavailable Primary Care Provider Unavailabl e Social History Tobacco Use Types Packs/Day Years Used Date Smoking Tobacco: Never Assessed Comments Unknown Sex and Gender Information Value Date Recorded Sex Assigned at Female 08/13/2024 12:27 PM EST Legal Sex Female 12:25 PM EST Gender Identity Female 08/13/2024 12:27 PM EST Sexual Orientation Don't know 08/13/2024 12 :27 PM EST Plan of Treatment Upcoming Encounters Date Type Department Care Team ([facility] st Contact Info) Description 11/11/2024 9:15 AM EST Office Visit [facility] [address] [place] [address] Health Maintenance Due Date Last Done Comments Dental Oral Exam 1947 Dental Prophylaxis 1947 Dental X-Ray: Bitewings 1947 Dental X-Ray: Full Mouth 1947 Depression Screening 1947 SDOH Screening 1947 Alcohol/Substance Use Screening 1959 Tobacco Screening 1959 Hepatitis C Screening 1965 DTaP/Tdap/Td Vaccines (1 - Tdap) 1966 Pneumococcal Vaccine: 50+ Ye ars (1 of 1 - PCV) 1997 Zoster Vaccines (1 of 2) 1997 RSV Patients and Pa tients Aged 60 years or older (1 - 1-dose 75+ series) 2022 COVID-19 Vaccine ( - 2023-2 5 season) [...] patient's age to complete this topic Meningococcal Vaccine Aged Out No aman kaitlyn eligible based on patient's age to complete this topic RSV under 20 months Aged Out No longe r eligible based on patient's age to complete this topic Rotavirus Vaccines Aged Out No longer eligible based on patient's age to complete this topic Insurance DENTAL - [facility]
== END 2024-10-15 12:57 | disposition home or self-care (01) ==
PROVIDERS: PCP Internal Medicine; Visit Provider Internal Medicine
DX: R30.0 Dysuria (principal); K29.70 Gastritis, unspecified, without bleeding; I10 Essential (primary) hypertension

== ENCOUNTER 2025-01-09 08:02 | Outpatient (REF) | payer MEDICARE, SELFPAY ==
--- OUTSIDE RECORDS SUMMARY | 2025-01-09 08:06 | XMS_ITS | Patient Health Record ---
Author Organization [employer] [facility] Address [address] [facility] [address] [place] [address] Care Team Providers Care Sitecore Developer Name Role Phone Beverley Perez MD Primary Care Provider FATOUMATA Pop Unavailable [phone] Allergies No Known Allergies Reason For Referral No Information Medications Medication SIG (Take, Route, Frequency, Duration) Notes Start Date End Date Status Lutein Active Fish Oil Active Glucosamine Active Clotrimazole-Betamethaso ne 1-0.05 % 1 application Externally Twice a day for 10 days 11/25/2024 Active Vitamin D-3 5000 UNIT 1 tablet Orally On ce a day for 30 day(s) Active Olmesartan Medoxomil 40 MG 1 tablet Orally Once a day for 30 day(s) Active Felodipine ER 2.5 MG as directed Orally Active Magnesium Active Choline Active Estradiol Active Niacin Not-Taking Vagisil Active Biotin 1 MG as directed Orally Not-Taking Vitamin C 500 MG as directed Orally Active Social History Tobacco Use: Social History Observation Description Date Details (start date - stop date) Never Smoker NA - NA Tobacco Use/Smoking Question Answer Notes Are you a nonsmoker Alcohol Screen (Audit-C) Question Answer Notes Did you have a drink containing alcohol in the p ast year? No Points 0 Interpretation Negative Problems Problem Type SNOMED Code ICD Code Onset Dates Problem Status W/U Status Risk Notes Problem Cyst of right ovary (853232320168 99469) Other ovarian cyst, right side (N83.291) Active confirmed Vital Signs Temperature 97.8 degrees Fahrenheit 11/25/2024 Blood pressure diastolic 88 mm Hg 11/25/2024 Height 62.5 in 11/25/2024 Blood pressure systolic 158 mm Hg 11/25/2024 Weight 167 lbs 11/25/2024 BMI 30.05 kg/m2 11/25/2024 Encounters Encounter Location Date Provider Diagnosis Total [email or web address] [facility] [address] [place] [address] 10/07/2024 FATOUMATA QUIÑONES Encounter for gynecological examination (general) (routine) without abnormal findings Z01.419 and Encounter for screening mammogram for malignant neoplasm of breast Z12.31 [facility] [email or web address] [facility] [address] [place] [address] 11/25/2024 FATOUMATA QUIÑONES Pruritus vulvae L29. 2 Assessments Encounter Date Diagnosis (ICD Code) Assessment Notes Treatment Notes Treatment Clinical Notes Section Notes 10/07/2024 Encounter for gynecological examination (general) (routine) without abnormal findings (ICD-10 - Z01.419) During the visit, the following areas of concern were addressed: Discussed sstopping cervical cancer screening as per ASCCP guidelines. Advised continued annual pelvic exams. Patient encouraged to increase her level of exercise. SBE technique encouraged/tau ght. Patient reminded when annual mammogram is due. Patient encouraged to keep colon screening up to date. She states she will take her blood pressure med when she gets home - she picked up a refill today. 11/25/2024 Pruritus vulvae (ICD-10 - L29.2) 10/07/2024 Encounter for screening mammogram for malignant neoplasm of breast (ICD-10 - Z12.31) Plan Of Treatment Pending Test Test Name Order Date PELVIC ULTRASOUND W/TRANSVAGINAL 020 PELVIC ULTRASOUND W/TRANSVAGINAL 021 ULTRASOUND: PELVIC W/TRANSVAGINAL 2022 MM Digital Screening Mammogram 3D 2024 MM Digital Screening Mammogram 3D 2022 Future Test Test Name Order Date PELVIC ULTRASOUND W/TRANSVAGINAL 019 ULTRASOUND: PELVIC W/TRANSVAGINAL 2018 Insurance Providers Payer Name Payer Address Payer Phone Subscriber Number Group Number Insured Name Patient Relationship to Insured Coverage Start Date Coverage End Date [employer] MEDICARE COMPLETE [address] [address] [place] [address] [id number] CORNELL JOSHI Self - patient is the insured Medical (General) History Medical History History ICD Code Hypertension Arthritis Other ovarian cyst, right side N83.291 Surgical History Surgery Date(Month/Year) Laparoscopy - Rt Cystectomy 2003 Shoulder Surgery 2007 Foot Surgery R shoulder 11/24/19 LUMBAR SURGERY @ L4 , L5 07/25/2022 Right hip replacement 2022 Hospitalization History Reason Date(Month/Year) see surgery Hx child
--- OUTSIDE RECORDS SUMMARY | 2025-01-09 08:06 | XMS_ITS ---
Author Name [facility] Organization Unknown Results Test Name/Text Value Interpretation Date Range Source Folate SerPl-mCnc 10.1ng/ml Normal [id number] - [facility] Vit B12 SerPl-mCnc 618pcg/mL Normal [id number] 180 - 91 4 [facility] History of Medication Use Medication Directions Dispensed Refills Start Date End Date Stat us estradioL (ESTRACE) 0.01 % (0.1 mg/gram) vaginal cream USE 1 GRAM VAGINALLY 2 TIMES A WEEK 10/15/2024 active famotidine (PEPCID) 40 mg tablet Take 1 tablet (40 mg total) by mouth 1 (one) time each day. 10/15/2024 active amoxicillin (AMOXIL) 500 mg capsule TAKE 4 CAPSULE BY MOUTH ONCE 1 HOURS PRIOR TO DENTAL VISIT 04/23/2024 active olmesartan (BENICAR) 40 mg tablet 10/06/2023 active ascorbic acid (VITAMIN C) 1,000 mg tablet Take 1 tablet (1,000 mg total) by mouth. active aspirin 325 mg EC tablet active biotin 1 mg capsule Take by mouth. active cholecalciferol (VITAMIN D-3) 50 mcg (2,000 unit) capsule Take 1 capsule (2,000 Units total) by mouth daily. active Problems Problem Status Onset Date Problem Type Date of Resoluti on Source Confusion active EncounterDiagnosisAct [facility] Other amnesia active 2024-10-[address] [facility] Encounters Encounter Type Encounter Reason Primary Diagnosis Location Date Ambulatory [facility] 01/07/2025 Ambulatory Memory Loss Other amnesia [facility] 10/31/2024 [facility] 05/23/2024 [facility] 05/07/2024 [facility] 04/23/2024 Ambulatory [facility] 04/09/2024 Ambulatory [facility] 11/14/2023 Care Team Organization Name Specialty Phone Email Start Date End Da te [facility] Beverley Perez Primary Care 11/20/2024 [facility] Beverley Perez Primary Care 11/01/2024 [facility] 12/01/2023 [facility] Beverley Perez Primary Care 11/14/2023 11/28/19 [facility] Beverley [facility] Primary Care 11/14/2023
--- OUTSIDE RECORDS SUMMARY | 2025-01-09 08:06 | XMS_ITS | Clinical Summary ---
Author Organization [employer] Address [address] [facility] [address] [place] [address] Care Team Providers Care Terra Cotta Mold Maker Name Role Phone Unavailable Primary Care Provider Unavailabl e Allergies No known active allergies Medications ascorbic acid (Vitamin C) 1000 MG tablet Take 1,000 mg by mouth. Active felodipine ER (Plendil) 2.5 MG 24 hr tablet Take 2.5 mg by mouth Once per day. Active olmesartan (BENIcar) 40 MG tablet 40 mg. 05/04/2020 Active biotin 1 MG capsule Take by mouth. Active cholecalciferol VITAMIN D (Vitamin D-3) 50 MCG (2000 UT) capsule Take by mouth. Active magnesium oxide (Mag-Ox) 400 mg tablet 400 mg Once per day. Active calcium citrate (Calcitrate) 950 (200 Ca) MG tablet Take 950 mg by mouth Once per day. Active choline fenofibrate (Trilipix) [address] capsule Take 800 mg by mouth Once per day. Do not crush, chew, or split. Active Active Problems Problem Noted Date Diagnosed Date Chest pain 12/02/2024 HTN (hypertension) 12/02/2024 Right ovarian cyst 12/02/2024 Other amnesia 10/31/2024 Nocturia 01/18/2018 Overview (12/02/2024): Last Assessment & Plan: Recommendd she limit fluid intake within 3 hours of going to bed. Urinary urgency 01/18/2018 Overview (12/02/2024): Last Assessment & Plan: Recommended avoid bladder irritants and timed urination Q 2 hours. Pain of left hip joint 11/13/2017 Primary osteoarthritis involving multiple joints 07/13/2017 Trochanteric bursitis of both hips 07/13/2017 Encounters Date Type Department Care Team Description 12/16/2024 Telephone [facility] [address] [place] [address] Jad RivasJEFFREY recinosKanika 12/02/2024 10:15 AM EDT Office Visit [facility]ULT [facility] [address] [place] [address] Bassam Rivas DDS Dental calculus (Primary Dx) from Last 3 Months Social History Tobacco Use Types Packs/Day Years Used Date Smoking Tobacco: Never Smokeless Tobacco: Never Tobacco Cessation:Counseling Given: Not Answered Alcohol Use Standard Drinks/Week Comments Never 0 (1 standard drink = 0.6 oz pur e alcohol) Comments Unknown Sex and Gender Information Value Date Recorded Sex Assigned at Female 08/13/2024 12:27 PM EST Legal Sex Female 12:25 PM EST Gender Identity Female 08/13/2024 12:27 PM EST Sexual Orientation Don't know 08/13/2024 12 :27 PM EST Last Filed Vital Signs Vital Sign Reading Time Taken Comments Blood Pressure 130/82 12/02/2024 10:22 AM EDT Pulse - - Temperature - - Respiratory Rate - - Oxygen Saturation - - Inhaled Oxygen Concentration - - Weight - - Height - - Body Mass Index - - Plan of Treatment Health Maintenance Due Date Last Done Comments Dental Oral Exam 1947 Dental Prophylaxis 1947 Dental X-Ray: Bitewings 1947 Dental X-Ray: Full Mouth 1947 Depression Screening 1947 Lipid Panel 1947 SDOH Screening 1947 Alcohol/Substance Use Screening 1959 Hepatitis C Screening 1965 DTaP/Tdap/Td Vaccines (1 - Tdap) 1966 Pneumococcal Vaccine: 50+ Ye ars (1 of 1 - PCV) 1997 Zoster Vaccines (1 of 2) 1997 RSV Patients and Pa tients Aged 60 years or older (1 - 1-dose 75+ series) 2022 COVID-19 Vaccine ( - 2023-2 5 season) 2024 Influenza Vaccine (#1) 2024 Tobacco Screening 12/02/2025 12/02/2024 HIB Vaccines Aged Out No longer eligi [...] on patient's age to complete this topic Procedures Procedure Name Priority Date/Time Associated Diagnosis Comments CASE PRESENTATION, DETAILED AND EXTENSIVE TREATMENT PLANNING Routine 12/02/2024 10:15 AM EDT LIMITED ORAL EVALUATION - PROBLEM FOCUSED Routine 12/02/2024 10:15 AM EDT 14,15 INTRAORAL - PERIAPICAL FIRST RADIOGRAPHIC IMAGE Routine 12/02/2024 10:15 AM EDT 14 CROWN - PORCELAIN/CERAMIC Routine 12/02/2024 12:00 AM EDT from Last 3 Months Insurance DENTAL - [facility]
--- OUTSIDE RECORDS SUMMARY | 2025-01-09 08:06 | XMS_ITS | Clinical Summary ---
Author Organization [facility] Address [address] [place] [address] Phone Care Team Providers Care Serger Name Role Phone Beverley Perez MD Primary Care Provider [phone] Medications amoxicillin (AMOXIL) 500 mg capsule TAKE 4 CAPSULE BY MOUTH ONCE 1 HOURS PRIOR TO DENTAL VISIT 4 Active ascorbic acid (VITAMIN C) 1,000 mg tablet Take 1 tablet (1,000 mg total) by mouth. Active aspirin 325 mg EC tablet Active biotin 1 mg capsule Take by mouth. Activ e cholecalciferol (VITAMIN D-3) 50 mcg (2,000 unit) capsule Take 1 capsule (2,000 Units total) by mouth daily. Active estradioL (ESTRACE) 0.01 % (0.1 mg/gram) vaginal cream USE 1 GRAM VAGINALLY 2 TIMES A WEEK 5 Active famotidine (PEPCID) 40 mg tablet Take 1 tablet (40 mg total) by mouth 1 (one) time each day. 5 Active olmesartan (BENICAR) 40 mg tablet 4 Active memantine (NAMENDA) 5 mg tabletIndicatio ns:Mild cognitive impairment Take 1 tablet (5 mg total) by mouth at bedtime for 14 days, THEN 2 tablets (10 mg total) at bedtime for 16 days. 46 each 5 02/07/20 25 Active memantine (NAMENDA) 10 mg tabletIndicatio ns:Mild cognitive impairment Take 1 tablet (10 mg total) by mouth at bedtime. 90 each 2 5 02/07/20 26 Active Active Problems Problem Noted Date Diagnosed Date Other amnesia 10/31/2024 Encounters Date Type Department Care Team Description 01/07/2025 2:20 PM EDT Office Visit Neurology - [address] [place] [phone] Rinku Valentin MD Cluster headache, not intractable, unspecified chronicity pattern (Primary Dx); Gait difficulty; Unilateral headache; Cerebral aneurysm, nonruptured; Mild cognitive impairment 11/21/2024 12:18 PM EDT - 11/21/2024 11:59 PM EDT Hospital Encounter [facility] Neurodiagnostic [address] [place] [phone] Memory change Discharge Disposition: Home or Self Care 11/05/2024 12:32 PM EST - 11/05/2024 11:59 PM EST Hospital Encounter Radiology Department - [address] [phone] Memory change Discharge Disposition: Home or Self Care 10/31/2024 2:00 PM EST Office Visit Neurostroke - [place] [address] [place] [phone] Rinku Valentin MD Confusion (Primary Dx); Memory change from Last 3 Months Surgical History Surgery Date Site/Laterality Comments OTHER SURGICAL HISTORY Right PROCEDURE: [place] BIOPSY OVARY UNI/BI SEPARATE PROCEDURE Medical History [...] Recorded Sex Assigned at Not on file Legal Sex Female 1:27 AM EST Gender Identity Not on file Sexual Orientation Not on file Obstetrics History Last Filed Vital Signs Vital Sign Reading Time Taken Comments Blood Pressure 162/86 10/31/2024 1:52 PM EST Pulse 86 10/31/2024 1:52 PM EST Temperature - - Respiratory Rate - - Oxygen Saturation 98% 10/31/2024 1:52 PM EST Inhaled Oxygen Concentration - - Weight 75.8 kg (167 lb) 12/04/2023 2:26 PM EDT Height 157.5 cm (5' 2 ) 12/04/2023 2:26 PM EDT Body Mass Index 30.54 12/04/2023 2:26 PM EDT Plan of Treatment Upcoming Encounters Date Type Department Care Team (Late st Contact Info) Description 01/30/2025 2:15 PM EDT Appointment Radiology Department [address] [address] Health Maintenance Due Date Last Done Comments DTaP,Tdap,and Td Vaccines (1 - Tdap) 1966 Zoster Vaccines (1 of 2) 1997 Pneumococcal Vaccine: 50+ Years (2 of 2 - PCV) 08/02/2017 08/02/2016 RSV Immunization Adult Patients (1 - 1-dose 75+ series) 2022 Cholesterol Screening (Lipid Panel) 04/09/2024 Depression Screening 04/09/2024 Falls Risk Assessment 04/09/2024 Hepatitis C Screening 04/09/2024 Medicare Annual Wellness Visit 04/09/2024 Osteoporosis Screening (Bone Density Screening) 04/09/2024 Social Influencers of Health Screening 04/09/2024 COVID-19 Vaccine ( season) 2024 06/01/2022, 06/14/2021, 12/13/2020, Additional history exists Hypertension/CHF/CAD Annual BMP Blood Test 10/31/2024 Influenza Vaccine (Season Ended) 2025 HIB Vaccines Aged Out No longer eligi [...] patient's age to complete this topic Meningococcal B Vaccine Aged Out No l onger eligible based on patient's age to complete this topic RSV Immunization Patients Under 20 months Aged Out No longer eligible based on patient's age to complete this topic Varicella Vaccines Aged Out No longer eligible based on patient's age to complete this topic Procedures Procedure Name Priority Date/Time Associated Diagnosis Comments ROUTINE EEG Routine 11/21/2024 2:23 PM EDT Memory change MR BRAIN WO CONTRAST Routine 11/05/2024 1:20 PM EST Memory change VITAMIN B12 AND FOLATE Routine 10/31/2024 2:51 PM EST Other amnesia from Last 3 Months Results * ROUTINE EEG (11/21/2024 2:23 PM EDT) Narrative Rinku Valentin MD - 11/21/2024 1:00 PM EDT Rinku Valentin MD ? 12/09/2024 ??5:04 PM ROUTINE ELECTROENCEPHALOGRAPHY (EEG) REPORT Study Date: 11/21/2024 Clinical Information History: Anitha Xavier is a 79 y.o. woman with concern of memory loss Medications: Current Outpatient Medications: ??amoxicillin (AMOXIL) 500 mg capsule, TAKE 4 CAPSULE BY MOUTH ONCE 1 HOURS PRIOR TO DENTAL VISIT, Disp: , Rfl: ??ascorbic acid (VITAMIN C) 1,000 mg tablet, Take 1 tablet (1,000 mg total) by mouth., Disp: , Rfl: ??aspirin 325 mg EC tablet, , Disp: , Rfl: ??biotin 1 mg capsule, Take by mouth., Disp: , Rfl: ??cholecalciferol (VITAMIN D-3) 50 mcg (2,000 unit) capsule, Take 1 capsule (2,000 Units total) by mouth daily., Disp: , Rfl: ??estradioL (ESTRACE) 0.01 % (0.1 mg/gram) vaginal cream, USE 1 GRAM VAGINALLY 2 TIMES A WEEK, Disp: , Rfl: ??famotidine (PEPCID) 40 mg tablet, Take 1 tablet (40 mg total) by mouth 1 (one) time each day., Disp: , Rfl: ??olmesartan (BENICAR) 40 mg tablet, , Disp: , Rfl: Recording Techniques A digital video EEG was performed using the standard international 10-20 electrode placement and single channel EKG electrode. ?? Total Recording Time: 24 minutes Montages: Standard 10-20 system montages Type of Study: Routine EEG Video recorded: Yes Conditions of Recording: Awake - drowsy - asleep Results Background: The record was well organized. The waking EEG was characterized by a symmetrical, well-formed and modulated 9-10 Hz posterior dominant rhythm, with medium amplitude (20-70 uV) and reactive to eye opening. The background over the rest of the head consisted of a mixture of alpha and beta frequencies. Sleep: During drowsiness, the alpha rhythm attenuated and diffuse background slowing appeared. Stage 2 sleep was characterized by the appearance of sleep spindles and vertex waves. Focal slowing: There were no focal abnormalities or persistent asymmetries. Epileptiform discharges: None Activation Procedures: Hyperventilation was not performed. Photic stimulation was not performed. Clinical events: None Heart Rate: Normal sinus rhythm Classification of the findings: ?? Normal Impression This is a normal routine EEG recording in the [id number] states. ??There were no seizures, periodic patterns, or epileptiform discharges. There is no focal slowing or persistent focal asymmetries of the background rhythms. CC Rinku Valentin MD Damian Moskal, MD Epileptologist [facility] us Rinku Valetnin MD NEUROLOGY ORDERABLES Final Resu lt * MR Brain wo Contrast (11/05/2024 1:20 PM EST) Anatomical Region Laterality Modality Head and Neck Magnetic Resonan ce 11/05/2024 2:15 PM EST Impressions 11/05/2024 2:26 PM EST 1. ??No acute intracranial findings. 2. ??Interval progression of the white matter changes, nonspecific, most likely secondary to chronic small vessel ischemic changes. -------- FINAL REPORT -------- Dictated By: Cortney Parish Dictated Date: 11/05/2024 14:15 ET Assigned Physician: Cortney Parish Reviewed and Electronically Signed By: Cortney Parish Signed Date: 11/05/2024 14:26 ET Workstation ID: [id number] Transcribed By: Self Edit Transcribed Date: 11/05/2024 14:15 ET Narrative 11/05/2024 2:26 PM EST MR BRAIN WO CONTRAST TECHNIQUE: Multisequence MRI of the brain was performed without administration of intravenous contrast. COMPARISON: Brain MRI on December 08, 2017. HISTORY: Memory loss FINDINGS: Brain Parenchyma: Multiple scattered white matter lesions, predominantly in bilateral frontal lobes, increased in number from 2018, likely represent chronic small vessel ischemic changes. ??No shift of midline structures. ??No evidence of acute infarct, parenchymal hemorrhage or mass effect. Ventricular System and Extra-Axial Spaces: Mild generalized prominence of the brain sulci is likely age appropriate. ??No hydrocephalus. ??No extra-axial fluid collection. Extracranial Structures: Arterial flow voids in the skull base are present. Paranasal sinuses and mastoid air cells are essentially clear. Procedure Note Cortney Parish MD - 11/05/2024 MR BRAIN WO CONTRAST TECHNIQUE: Multisequence MRI of the brain was performed withoutadministration of intravenous contrast. COMPARISON: Brain MRI on December 08, 2017. HISTORY: Memory loss FINDINGS: Brain Parenchyma: Multiple scattered white matter lesions, predominantlyin bilateral frontal lobes, increased in number from 2018, likelyrepresent chronic small vessel ischemic changes. No shift of midlinestructures. No evidence of acute infarct, parenchymal hemorrhage or masseffect. Ventricular System and Extra-Axial Spaces: Mild generalized prominence ofthe brain sulci is likely age appropriate. No hydrocephalus. Noextra-axial fluid collection. Extracranial Structures: Arterial flow voids in the skull base arepresent. Paranasal sinuses and mastoid air cells are essentially clear. IMPRESSION: 1. No acute intracranial findings. 2. Interval progression of the white matter changes, nonspecific, mostlikely secondary to chronic small vessel ischemic changes. -------- FINAL REPORT -------- Dictated By: Cortney Parish Dictated Date: 11/05/2024 14:15 ET Assigned Physician: Cortney Parish Reviewed and Electronically Signed By: Cortney Parish Signed Date: 11/05/2024 14:26 ET Workstation ID: [id number] Transcribed By: Self Edit Transcribed Date: 11/05/2024 14:15 ET Rinku Valentin MD IMG MRI PROCEDURES Final Result * Vitamin B12 and folate (10/31/2024 2:51 PM EST) Vitamin B-12 618 180 - 914 pcg/mL LAB CHEMISTRY METHOD 10/31/2024 4:57 PM EST [facility] Folate 10.1 >=3.0 ng/ml LAB CHEMISTRY METHOD 10/31/2024 4:57 PM EST [facility] Blood Venous blood specimen / Unknown Venipuncture / Unknown 10/31/2024 2:51 PM EST 10/31/2024 3:44 PM EST Rinku Valentin MD LAB BLOOD ORDERABLES Final Resu lt [facility] [address] [place] [address], [place] [phone] from Last [address] Insurance [facility] [place] [address] Care Teams Serger Relationship Specialty Start Date End Date Beverley Perez MD [address] [place] [address] PCP - General Internal Medicine 10/31/24
--- OUTSIDE RECORDS SUMMARY | 2025-01-09 08:06 | XMS_ITS ---
Author Organization [facility] Address [address] [facility] [address] [address] Care Team Providers Care Urologic Surgeon Name Role Phone Beverley Perez MD Primary Care Provider FATOUMATA Pop Unavailable [phone] Allergies No Known Allergies REASON FOR VISIT ? YEAST INFECT OTC NOT WORKING Medications Medication SIG (Take, Route, Frequency, Duration) Notes Start Date End Date Status Fish Oil Active Glucosamine Active Vitamin D-3 5000 UNIT 1 tablet Orally On ce a day for 30 day(s) Active Olmesartan Medoxomil 40 MG 1 tablet Orally Once a day for 30 day(s) Active Felodipine ER 2.5 MG as directed Orally Active Clotrimazole-Betamethaso ne 1-0.05 % 1 application Externally Twice a day for 10 days 11/25/2024 Active Magnesium Active Choline Active Estradiol Active Vagisil Active Lutein Active Niacin Not-Taking Biotin 1 MG as directed Orally Not-Taking [...] ast year? No Points 0 Interpretation Negative Vital Signs Temperature 97.8 degrees Fahrenheit 11/26/19 25 Blood pressure systolic 158 mm Hg 11/26/19 25 Blood pressure diastolic 88 mm Hg 025 Height 62.5 in 11/25/2024 Weight 167 lbs 11/25/2024 BMI 30.05 kg/m2 11/25/2024 Encounters Encounter Location Date Provider Diagnosis [facility] [address] [address] 11/25/2024 FATOUMATA ISHMAEL Pruritus vulvae L29.2 Assessments Encounter Date Diagnosis (ICD Code) Assessment Notes Treatment Notes Treatment Clinical Notes Section Notes 11/25/2024 Pruritus vulvae (ICD-10 - L29.2) Plan Of Treatment Medication Medication Name Sig Start Date Stop Date Notes Clotrimazole-Betamethasone 1-0.05 % 1 application Externally Twice a day for 10 days 11/25/2024 Next Appt Details Follow Up: prn, Reason: Progress Notes * CORNELL CHRISTENSENDOB: [birth year] (79 yo F)Acc No.[id number]:11/25/2024 PROGRESS NOTES Patient:?SUHDAKARBINHSOTOELENI CORNELL Provider:?FATOUMATA QUIÑONES MD :1945???Age:79 Y???Sex:Female D ate:11/25/2024 Address: [facility] Pcp:Beverley Perez MD Subjective: * Chief Complaints: * ? YEAST INFECT OTC NOT WO RKING * HPI: ???GUSSET EDGER (Problems):?79 year old female presents with c/o Vulvar Lesions/Itching/Pain:?Vulvar complaints:?itching ?Date of onset:?about a week ago ?Symptoms reported:?itching ?Severity of symptoms:?moderate ?Aggravating factors:?none ?Alleviating factors:?[id number] creams/ointments ?Prior treatments:?Vagisil anti-itch cream 3 times daily (contains benzocaine 20% and resorcinol 3%), as well as her usual twice weekly estradiol vaginal cream (Sundays and Wednesdays) ? She reports no change in her washing, but she reports she uses soap and a genital spray. Denies new sexual partners, hasn't been sexually active recently (her is very sick). * ROS:?General/Constitutional:?Denies?Chills.?Denies?Fever.?Hematology:?Denies?Swollen glands.?Women Only:?Patient denies?new sexual partners, wearing pads regularly, new soaps/detergents/fabric softeners.?Denies?Painful intercourse.?Denies?Vaginal discharge/itching.? * Medical History:? * Coating Engineer History:?/ Para?2/2.?Sexual activity?currently sexually active, with men.?Last Pap Smear:?04/08/20 NIL NEG HRHPV, PAPS NO LONGER INDICATED, 2018, neg.?Mammogram:?06/29.?LMP and menses?menopause at 55.?Endoscopy *?2019.?Colonoscopy?2020 With Endoscopy.?Bone Density:??date. States was WNL.?Gardasil:?has not had vaccine.?*Hep B Vac?unsure.? * OB History:?Total pregnancies?2.?Total living children?2.?NVD?2.? * Surgical History:?Laparoscop y - Rt Cystectomy 2004Shoulder Surgery 2008Foot Surgery R shoulder 11/24/19LUMBAR SURGERY @ L4 , L5 2Right hip replacement 2022 * Hospitalization/Major Diagno stic Procedure:?child see surgery Hx * Family History:?Mother: dece ased, lung cancer.?Father: .? * Social History:?Tobacco Use:?Tobacco Use/Smoking?Are you a?nonsmoker ???Sexual History:?Details of Sexual History?Are you sexually active??No ???Drugs/Alcohol:?Drugs?Have you used drugs other than those for medical reasons in the past 12 months??No ?Alcohol Screen (Audit-C)?Did you have a drink containing alcohol in the past year??No ?Points?0 ?Interpretation?Negative ???Miscellaneous:?Children: yes. ?Exercise: yes, walking. ?Housing: owns a home. ?Living with: spouse. ?Marital status: , Agustín. ?Natural support system: yes. ?Occupation: Retired. ?Pets: none. ?Sexually active: yes, monogamous relationship. * Medications:?TakingVagisil E stradiol Choline Magnesium Felodipine ER 2.5 MG Tablet Extended Release 24 Hour as directed Orally Olmesartan Medoxomil 40 MG Tablet 1 tablet Orally Once a day Vitamin D-3 5000 UNIT Tablet 1 tablet Orally Once a day Glucosamine Fish Oil Lutein Vitamin C 500 MG Capsule as directed Orally Taking Vagisil Taking Estradiol Taking Choline Taking Magnesium Taking Felodipine ER 2.5 MG Tablet Extended Release 24 Hour as directed Orally Taking Olmesartan Medoxomil 40 MG Tablet 1 tablet Orally Once a day Taking Vitamin D-3 5000 UNIT Tablet 1 tablet Orally Once a day Taking Glucosamine Taking Fish Oil Taking Lutein Taking Vitamin C 500 MG Capsule as directed Orally Not-TakingBiotin 1 MG Capsule as directed Orally Niacin Medication List reviewed and reconciled with the patientNot-Taking Biotin 1 MG Capsule as directed Orally Not-Taking Niacin Medication List reviewed and reconciled with the patient * Allergies:?N.K.D.A.no[Allerg ies Verified] Objective: * Vitals:?Ht: 62.5 in, Wt: 167 lbs, BMI:30.05Index, BP: 158/88 mm Hg, Temp: 97.8 F. * Examination: ???Genitourinary - Female: ?GENERAL APPEARANCE:? alert, oriented, no apparent distress, time study analyst present in room.?ABDOMEN:? soft, non-tender, no mass.?EXTERNAL GENITALS:?erythema inner vulva.?URETHRAL MEATUS:? normal.?VAGINA:? healthy pink mucosa without any lesions, large amount of white creamy medication present.?ANUS/PERINEUM:?normal.?CERVIX:? downward, normal appearing, no cervical movement tenderness.?UTERUS:? normal size, mobile, non tender.?OVARIES:? not palpable.? Assessment: * Assessment: 1.?Pruritus vulvae - L29.2 ( Primary)??? Plan: * Treatment: * Procedure Codes:? * Preventive Medicine:?Limit your exposure to pads or cotton fabrics that can hold moisture against the skin. Change underwear if they get damp. Wear nothing below the waist when going to bed at night. Stop using soap and sprays in the genital area - use only water for cleaning. * Follow Up:?prn * Images: Billing Information: * Visit Code:? 69182 Office Visit, Est Pt., Level 3. * Procedure Codes:? * Sign off status: Completed true * Provider:?FATOUMATA QUIÑONES MD Date:?2024 Generated for Alonso oreilly/Marilynn/eTransmitting on:?01/09/2025 08:06 AM EDT History and Physical Notes * HPI (History of Present Illness) Category Sub-Category Detail Notes Category Not es GUSSET EDGER (Problems) Vulvar Lesions/Itching/Pain: Vulvar complaints:: itching She reports no change in her washing, but she reports she uses soap and a genital spray. Denies new sexual partners, hasn't been sexually active recently (her is very sick). Date of onset:: about a week ago Symptoms reported:: itching Severity of symptoms:: moderate Aggravating factors:: none Alleviating factors:: over-t he-counter creams/ointments Prior treatments:: Vagisil anti-itch cr eam 3 times daily (contains benzocaine 20% and resorcinol 3%), as well as her usual twice weekly estradiol vaginal cream (Sundays and Wednesdays) Examination Category Sub-Category Detail Notes Category Not es Genitourinary - Female ABDOMEN: soft, non-tender, no mass EXTERNAL GENITALS: erythema inner vulva VAGINA: healthy pink mucosa without any lesions, large amount of white creamy medication present CERVIX: downward, normal leona earing, no cervical movement tenderness UTERUS: normal size, mobile, non tender OVARIES: not palpable GENERAL APPEARANCE: alert, oriented, no apparent distress, time study analyst present in room URETHRAL MEATUS: normal ANUS/PERINEUM: normal
--- OUTSIDE RECORDS SUMMARY | 2025-01-09 08:06 | XMS_ITS ---
Author Organization [facility] Address [address] [address] Care Team Providers Care Power Cutting Machine Operator Name Role Phone Beverley Perez MD Primary Care Provider FATOUMATA Pop Unavailable [phone] Allergies No Known Allergies REASON FOR VISIT LR MEDICARE PE Medications Medication SIG (Take, Route, Frequency, Duration) Notes Start Date End Date Status Felodipine ER 2.5 MG as directed Orally Active Olmesartan Medoxomil 40 MG 1 tablet Orally Once a day for 30 day(s) Active Niacin Not-Taking Choline Active Magnesium Active Glucosamine Active Fish Oil Active Lutein Active Vitamin C 500 MG as directed Orally Active Biotin 1 MG as directed Orally Not-Taking Vitamin D-3 5000 UNIT 1 tablet Orally On ce a day for 30 day(s) Active Social History Tobacco Use: Social History Observation Description Date Details (start date - stop date) Never Smoker NA - NA Tobacco Use/Smoking Question Answer Notes Are you a nonsmoker Alcohol Screen (Audit-C) Question Answer Notes Did you have a drink containing alcohol in the p ast year? No Points 0 Interpretation Negative Vital Signs Temperature 97.8 degrees Fahrenheit 10/07/19 25 Blood pressure systolic 160 mm Hg 10/07/19 25 Blood pressure diastolic 94 mm Hg 025 Height 62.5 in 10/07/2024 Weight 165 lbs 10/07/2024 BMI 29.69 kg/m2 10/07/2024 Encounters Encounter Location Date Provider Diagnosis [facility] [employer] [address] [address] 10/07/2024 FATOUMATA QUIÑONES Encounter for gynecological examination (general) (routine) without abnormal findings Z01.419 and Encounter for screening mammogram for malignant neoplasm of breast Z12.31 Assessments Encounter Date Diagnosis (ICD Code) Assessment [...] - she picked up a refill today. 10/07/2024 Encounter for screening mammogram for malignant neoplasm of breast (ICD-10 - Z12.31) Plan Of Treatment Treatment Notes Assessment Notes Encounter for gynecological examination (general) (routine) without abnormal findings During the visit, the following areas of concern were addressed: Discussed sstopping cervical cancer screening as per ASCCP guidelines. Advised continued annual pelvic exams. Patient encouraged to increase her level of exercise. SBE technique encouraged/taught. Patient reminded when annual mammogram is due. Patient encouraged to keep colon screening up to date. She states she will take her blood pressure med when she gets home - she picked up a refill today. 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 ?She has been in state of good health since her last exam. She has the following concerns: none Blood pressure is high, but she did not take her meds today. ?She has received the [employer] Covid-19 vaccine and boosters. ?Relationship status: since 1966. She is not sexually active. Sexual partner(s): male. She does not wish to have STI testing. ?The patient has never had an abnormal pap smear. Her most recent pap smear was 04/08/2020 - NIL, neg HR HPV. Pap smears are no longer indicated. ?She has not been diagnosed with breast cancer. She does not have a family history of breast cancer. Her last mammogram was 07/2024 (done at [facility] [place]). ?She does not have a family history of colon cancer. She a has had a colonoscopy. The last colonoscopy was in 2019. ?The patient does not exercise, since surgery - L4-L5 fusion. She walks daily, weather dependent. * ROS:?Annual Group Counselor Exam ROS:?Bowel habit changes?denies.?Bladder symptoms?denies.?Vaginal discharge, unusual?denies.?Vaginal itch or odor?denies.?weight or appetite changes?denies.?Chest pains, SOB?denies.?depression?denies.?General/Constitutional:?Denies?Headache.?Ophthalmologic:?Patient denies?seeing spots, or any other visual scotomata.?Breast:?Denies?Breast lump.?Denies?Nipple discharge.?Hematology:?Denies?Swollen glands.?Skin:?Patient denies?changing moles.?Psychiatric:?Denies?Anxiety.? * Medical History:? * Group Counselor History:?/ Para?2/2.?Sexual activity?currently sexually active, with men.?Last Pap Smear:?04/08/20 NIL NEG HRHPV, PAPS NO LONGER INDICATED, 2018, neg.?Mammogram:?06/29.?LMP and menses?menopause at 55.?Endoscopy *?2020.?Colonoscopy?2020 With Endoscopy.?Bone Density:??date. States was WNL.?Gardasil:?has not had vaccine.?*Hep B Vac?unsure.? * OB History:?Total pregnancies?2.?Total living children?2.?NVD?2.? * Surgical History:?Laparoscop y - Rt Cystectomy 2004Shoulder Surgery 2008Foot Surgery R shoulder 11/24/19LUMBAR SURGERY @ L4 , L5 07/25/2022ight hip replacement 2022 * Hospitalization/Major Diagno stic [...] none. ?Sexually active: yes, monogamous relationship. * Medications:?TakingCholine M agnesium Felodipine ER 2.5 MG Tablet Extended Release 24 Hour as directed Orally Olmesartan Medoxomil 40 MG Tablet 1 tablet Orally Once a day Vitamin D-3 5000 UNIT Tablet 1 tablet Orally Once a day Glucosamine Fish Oil Lutein Vitamin C 500 MG Capsule as directed Orally Taking Choline Taking Magnesium Taking Felodipine ER [...] Verified] Objective: * Vitals:?Ht: 62.5 in, Wt: 165 lbs, BMI:29.69Index, BP: 160/94 mm Hg, Temp: 97.8 F. * Examination: ???General Examination: ?GENERAL APPEARANCE:?in no acute distress, well developed, well nourished, client representative present in room.?HEAD:?normocephalic, atraumatic.?NECK/THYROID:?neck supple, full range of motion, thyroid normal.?LYMPH NODES:?no axillary or supraclavicular adenopathy.?SKIN:? normal, good turgor, no rashes, no suspicious lesions.?BREASTS:? normal, no dimpling, no discharge, no drainage, no masses palpable bilaterally, nontender.?ABDOMEN:? soft, non-tender, non distended without masses or hepatosplenomegay.?RECTAL:? normal tone, no masses palpable.?BACK:? no costovertebral angle tenderness.?FEMALE GENITOURINARY:?Vulva without lesions or masses, vagina pink without abnormal discharge, lesions or masses, cervix appears normal and is not tender to palpation, uterus is normal size, mobile, nontender and anteverted, ovaries are not palpable.?NEUROLOGIC:? alert and oriented, gait normal.?PSYCH:? alert, oriented, cognitive function intact, cooperative with exam, good eye contact, mood/affect full range, speech clear.? Assessment: * Assessment: 1.?Encounter for gynecologic al examination (general) (routine) without abnormal findings - Z01.419 (Primary)???2.?Encounter for screening mammogram for malignant neoplasm of breast - Z12.31??? Plan: * Treatment: 2.?Encounter for screening m ammogram for malignant neoplasm of breast?Imaging: MM Digital Screening Mammogram 3D * Procedure Codes:? * Follow Up:?2 year (Reason: R outine Group Counselor Exam) * Images: Billing Information: * Visit Code:? 80470 Preventive Care Est Pt. Age 65 and over. * Procedure Codes:? 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 She has been in state of good health since her last exam. She has the following concerns: none Blood pressure is high, but she did not take her meds today. She has received the [employer] Covid-19 vaccine and boosters. Relationship status: since 1966. She is not sexually active. Sexual partner(s): male. She does not wish to have STI testing. The patient has never had an abnormal pap smear. Her most recent pap smear was 04/08/2020 - NIL, neg HR HPV. Pap smears are no longer indicated. She has not been diagnosed with breast cancer. She does not have a family history of breast cancer. Her last mammogram was 07/2024 (done at [facility] [place]). She does not have a family history of colon cancer. She a has had a colonoscopy. The last colonoscopy was in 2019. The patient does not exercise, since surgery - L4-L5 fusion. She walks daily, weather dependent. Examination Category Sub-Category Detail Notes Category Not es General Examination GENERAL APPEARANCE: in no ac [place] distress, well developed, well nourished, client representative present in room HEAD: normocephalic, atrau matic NECK/THYROID: neck supple, full ra nge of motion, thyroid normal ABDOMEN: soft, non-tender, no n distended without masses or hepatosplenomegay NEUROLOGIC: alert and oriented, gait normal SKIN: normal, good turgor, no rashes, no suspicious lesions BACK: no costovertebral an gle tenderness BREASTS: normal, no dimpling, no discharge, no drainage, no masses palpable bilaterally, nontender LYMPH NODES: no axillary or supra clavicular adenopathy RECTAL: normal tone, no mass es palpable PSYCH: alert, oriented, cog nitive function intact, cooperative with exam, good eye contact, mood/affect full range, speech clear FEMALE GENITOURINARY: Vulva without lesi ons or masses, vagina pink without abnormal discharge, lesions or masses, cervix appears normal and is not tender to palpation, uterus is normal size, mobile, nontender and anteverted, ovaries are not palpable
--- OUTSIDE RECORDS SUMMARY | 2025-01-09 08:06 | XMS_ITS | Continuity of Care Document ---
Author Organization [facility] Address [address] [place] [address] Phone [phone] Care Team Providers Care Interpersonal Communications Professor Name Role Phone Beverley Perez Care Team Information Cycle Specialist + [phone] Problems Active Problems Provider Date Vitamin D deficiency GENEVIEVE Moran Onset: 0 02/09/2024 Hyperlipidemia GENEVIEVE Moran Onset: 2023 Essential hypertension GENEVIEVE Moran Onset: 02/09/2024 Non-toxic nodular goiter GENEVIEVE Moran Onse t: 02/09/2024 Insomnia GENEVIEVE Moran Onset: 2023 Memory impairment GENEVIEVE Moran Onset: 01/11 Irritable bowel syndrome GENEVIEVE Moran Onse t: 02/09/2024 Restless legs GENEVIEVE Moran Onset: 2023 Social History Type Date Description Comments Sex Unknown Marital Status Legal Status: Lives With Spouse Tobacco Use Start: Unknown Never Smoked Cigarettes ETOH Use Never used alcohol Allergies and adverse reactions Description No Known Drug Allergies Medications Active Medications SIG Qnty Indications Ordering Provider Date Felodipine ER2.5mg Tablets ER 24HR Take 1 Tablet By Mouth Daily Beverley Perez Olmesartan [id number] Tablets Take 1 Tablet By Mouth Daily Beverley Perez [id number] Tablets DR Take 1 Tablet By Mouth Twice Daily Denisse Magallanes PA Vital Signs Date Vital Result Comment 08/16/2024 10:12am BP Systolic 138 mmHg BP Diastolic 72 mmHg Heart Rate 94 /min Height 62 inches 5'2 Weight 168.00 lb BMI (Body Mass Index) 30.7 kg/m2 Results Test Acquired Date Facility Test Result H/L Range N ote TSH Rfx on Abnormal to Free T4 08/16/2024 [facility] TSH Rfx on Abnormal to Free T4 1.020 uIU/mL 0.450-4.50 0 Thyroid Peroxidase (Tpo) Ab 03/08/2024 [facility] Thyroid Peroxidase (Tpo) Ab <9 IU/mL 0-34 Medical Devices Description No Information Available Encounters Type Date Location Provider Dx Diagnosis Office Visit 08/16/2024 10:15a Main Office GENEVIEVE Moran E04.2 Nontoxic mult inodular goiter Assessments Date Code Description Provider 08/16/2024 E04.2 Nontoxic multinodular goiter GENEVIEVE Moran Plan of Treatment Future Appointment(s):* 02/14/2025 10:15 am - GENEVIEVE Moran at Main Office 02/09/2024 - GENEVIEVE Moarn* E04.2 Nontoxic multinodular goiter Functional Status Description No Information Available Mental Status Description No Information Available Referrals Description No Information Available
--- OUTSIDE RECORDS SUMMARY | 2025-01-09 08:06 | XMS_ITS | Encounter Summary ---
Author Organization [facility] Address [address] [place] [address] Care Team Providers Care Principal Programmer Name Role Phone eBverley Perez MD Primary Care Provider [phone] Reason for Referral * Imaging (Routine) - Pending Review Specialty Diagnoses / Procedures Referred By Contac t Referred To Contact Radiology Diagnoses Cluster headache, not intractable, unspecified chronicity pattern Unilateral headache Cerebral aneurysm, nonruptured Procedures MR Angio Head wo Contrast Rinku Valentin MD [address] [address] Phone: tel: fax: [address] [address] Phone: tel: Referral ID Status Reason Start Date Expiration Date V isits Requested Visits Authorized [id number] Pending Review 01/07/2025 01/07/2026 1 1 * Consultation (Routine) - Pending Review Specialty Diagnoses / Procedures Referred By Contac t Referred To Contact Physical Therapy Diagnoses Gait difficulty Rinku Valentin MD [address] [place] [address] [place] [address] Phone: tel: fax: Referral ID Status Reason Start Date Expiration Date Visits Requested Visits Authorized [id number] Pending Review Specialty Services Required 01/07/2025 01/07/2026 1 1 Encounter Details Date Type Department Care Team ([facility] Contact Info) Description 01/07/2025 2:20 PM EDT Office Visit Neurology - [address] [place] [phone] Rinku Valentin MD [address] [place] [address] [place] [address] Cluster headache, not intractable, unspecified chronicity pattern (Primary Dx); Gait difficulty; Unilateral headache; Cerebral aneurysm, nonruptured; Mild cognitive impairment Social History Tobacco Use Types Packs/Day Years [...] on file documented as of this encounter Ordered Prescriptions Prescription Sig Dispense Quantity Refills Last Filled Start Date End Date memantine (NAMENDA) 10 mg tabletIndications: Mild cognitive impairment Take 1 tablet (10 mg total) by mouth at bedtime. 90 each 2 02/06/2025 memantine (NAMENDA) 5 mg tabletIndications: Mild cognitive impairment Take 1 tablet (5 mg total) by mouth at bedtime for 14 days, THEN 2 tablets (10 mg total) at bedtime for 16 days. 46 each 01/07/2025 documented in this encounter Plan of Treatment Upcoming Encounters Date Type Department Care Team ([facility] Contact Info) Description 01/30/2025 2:15 PM EDT Appointment Radiology Department [address] [address] Scheduled Orders Name Type Priority Associated Diagnoses Orde r Schedule MR Angio Head wo Contrast Imaging Routine Cluster headache, not intractable, unspecified chronicity pattern Unilateral headache Cerebral aneurysm, nonruptured Expected: 01/07/2025, Expires: 01/07/2026 Scheduled Referrals Name Type Priority Associated Diagnoses Order Schedule Ambulatory referral to Physical Therapy and Athletic Training Outpatient Referral Routine Gait difficulty 1 Occurrences starting 01/07/2025 until 01/07/2026 documented as of this encounter Visit Diagnoses Diagnosis Cluster headache, not intractable, unspecified chronicity pattern- Primary Gait difficulty Abnormality of gait Unilateral headache Headache Cerebral aneurysm, nonruptured Mild cognitive impairment Mild cognitive impairment, so stated documented in this encounter Care Teams Principal Programmer Relationship Specialty Start Date End Date Beverley Perez MD [address] [place] [address] PCP - General Internal Medicine 10/31/24 documented as of this encounter
[2025-01-09 10:06] LABS: MANUAL DIFF FLAG NO
[2025-01-09 10:16] LABS: Basophils Percent Auto 0.6 % (0-2); Eosinophils Absolute Auto 0.3 X10*3/uL (0.0-0.4); Eosinophils Percent Auto 5.7 % (0-4); Hemoglobin 15.2 g/dl (12.0-16.0); Imm Gran Abs Auto 0.01 X10*3/uL (0.00-0.03); Imm Gran Pct Auto 0.2 % (0.0-0.4); Lymphocytes Absolute Auto 1.3 X10*3/uL (1.2-4.9); Lymphocytes Percent Auto 24.6 % (20-40); Mean Corpuscular Hemoglobin 30.3 pg (27.0-33.0); Mean Corpuscular Volume 91.6 fL (80.0-98.0); Mean Platelet Volume 10.2 fL (9.4-12.3); Monocytes Absolute Auto 0.6 X10*3/uL (0.1-1.2); Monocytes Percent Auto 11.2 % (2-11); Neutrophils Absolute Auto 3.2 x10*3/uL (2.0-8.3); Neutrophils Percent Auto 57.7 % (45-73); Platelet Count 215 X10*3/uL (160-400); Red Blood Count 5.02 X10*6/uL (4.20-5.50); Red Cell Distribution Width 13.8 % (11.0-16.0); White Blood Count 5.5 X10*3/uL (4.8-10.8)
[2025-01-09 10:20] LABS: Estimated Average Glucose 131 mg/dL; Hemoglobin A1C 163.8006 umol/L; Hemoglobin A1c % 6.2 % (<6.0); Total Hemoglobin (HGBA1C) 3747.7018 umol/L
[2025-01-09 10:44] LABS: Alanine Aminotransferase 23 U/L (0-31); Alkaline Phosphatase 62 U/L (39-117); Anion Gap 12 (12-20); Aspartate Amino Transferase 25 U/L (5-31); Bilirubin Total 0.6 mg/dL (0.0-1.0); Blood Urea Nitrogen 23 mg/dL (9-16); Calcium 9.4 mg/dL (8.4-10.2); Carbon Dioxide 28 mmol/L (22-29); Chloride 105 mmol/L (96-108); Cholesterol 194 mg/dL (<200); Estimated Glomerular Filt Rate 54; Glucose Fasting 122 mg/dL (60-99); HDL Cholesterol 43 mg/dL (>40); LDL Cholesterol Calculated 127 mg/dL (<100); Potassium 4.8 mmol/L (3.3-5.1); Sodium 140 mmol/L (135-145); Triglycerides 123 mg/dL (<150)
[2025-01-09 11:07] LABS: TSH reflex Free T4 0.89 uIU/mL (0.32-4.0)
== END 2025-01-09 08:03 | disposition home or self-care (01) ==
LOC: HO.HMGCLDS 08:02
PROVIDERS: PCP Internal Medicine; Visit Provider Internal Medicine
DX: Z00.00 Encounter for general adult medical examination without abnormal findings (principal); E55.9 Vitamin D deficiency, unspecified; I10 Essential (primary) hypertension; R73.9 Hyperglycemia, unspecified
CPT/HCPCS: 36415; 80053; 80061; 83036; 84443; 85025

== ENCOUNTER 2025-01-13 13:17 | Outpatient (AMB) | payer MEDICARE, SELFPAY ==
--- NOTE | 2025-01-13 13:29 | MHC.PC.OV ---
Vital Signs 01/13/25 13:30 Height 5 ft 2 in Weight 171 lb BMI 31.3 BP 134/76 Blood Pressure Location Lt brachial Position Sitting Respiration 18 Pulse 86 Pulse Source Pulse Oximeter Pulse Oximetry (%) 97 Oxygen Delivery Method Room Air Intake Visit Reasons: Annual PE - see comments Intake Note: Pt is here today for PE. Pt would like a referral for sleep study. Allergies donepezil Adverse Reaction (Intermediate, Verified 01/13/25 13:35) Nausea trazodone Adverse Reaction (Intermediate, Verified 01/13/25 13:35) Dizziness Medication List - Last Reconciled 01/13/25 by Beverley Perez MD acetaminophen 650 mg (2 x 325 mg) PO Q6H PRN 30 days amoxicillin 2,000 mg (4 x 500 mg) PO ONCE [ankle orthosis As directed] ascorbic acid (vitamin C) 1 g PO DAILY PRN biotin 1,000 mcg PO DAILY cholecalciferol (vitamin D3) (Vitamin D3) 50 mcg PO DAILY [choline 800 mg ] estradiol 0.01%(0.1mg/gram) (Estrace) 1 g vaginal 2XW famotidine (Pepcid) 40 mg PO DAILY felodipine ER 2.5 mg PO DAILY ginkgo biloba-Panax ginseng rt 60-100 mg 2 caps PO DAILY [glucosemide with MSM 2 tabs PO DAILY] glycine 1,000 mg PO [instafle 3 tablets] lutein 20 mg PO DAILY [magnesium PO] memantine 5 mg PO QAM olmesartan 40 mg PO DAILY vitamin K2 100 mcg PO DAILY Tobacco use date assessed: 01/13/25 Fall risk assessment: No Falls in past year Last assessed Fall Risk: 01/13/25 Dental Screening Dental Screen Date: 01/13/25 Did you have a dental visit in the last 12 months?: Yes Did you have a dental problem in the last 6 months where you did not have access to dental care?: No Was dental information given to patient?: Patient has dentist HPI Annual PE - see comments HPI Details Pt presents for PE. Patient reports chronic abdominal bloating and increased gas. She denies constipation or diarrhea, hematochezia melena nausea vomiting abdominal pain. She tried Pepcid without significant change. She had negative colonoscopy in 2019. [facility] Medical History (Updated 01/13/25 @ 15:21 by Beverley Perez MD) IBS (irritable bowel syndrome) Osteoarthritis of right hip Thyroid nodule Arthritis Palpitations Vitamin D deficiency Annual physical exam Insomnia Memory deficit Hyperglycemia Hyperlipidemia History of mammogram Chronic neck pain Arthralgia Tension headache RLS (restless legs syndrome) Osteoarthritis of both knees Balance problem Osteoarthritis of right shoulder Sciatica of left side Sciatica, right side Hypertension Surgical History History of bunionectomy Hx of shoulder surgery Hx of spinal surgery H/O colonoscopy Family History Father Stroke Mother Lung cancer Social History Household Members: Spouse Housing: [facility] Are you a primary career resource specialist to a significant other at home: No Do you presently have visiting nurse or other home services: No Alcohol intake: current Alcohol intake frequency: does not drink Patient Tobacco Use Status: Never used Tobacco e-Cigarette/Vaping Use: Never Used service: No Current occupational status: retired Cognitive needs: No Hearing needs: No Vision needs: Yes Questionnaire PHQ-9 Over the last 2 weeks, how often have you been bothered by any of the following problems? 1. Little interest or pleasure in doing things: not at all 2. Feeling down, depressed, or hopeless: not at all 3. Trouble falling or staying asleep, or sleeping too much: not at all 4. Feeling tired or having little energy: not at all 5. Poor appetite or overeating: not at all 6. Feeling bad about yourself - or that you are a failure or have let yourself or your family down: not at all 7. Trouble concentrating on things, such as reading the newspaper or watching television: several days 8. Moving or speaking so slowly that other people could have noticed. Or the opposite - being so fidgety or restless that you have been moving around a lot more than usual: not at all 9. Thoughts that you would be better off or of hurting yourself in some way: not at all Total score: 1 Depression Screening Interpretation: Negative Depression Screening Done: Yes 31819 - PHQ-9 Billing: Yes Source: Developed by Drs. Rajesh Ellis, Mikie Bear and colleagues, with an educational carolann from [employer]. Thrive Questionnaire Date Thrive assessed: 01/13/25 I am a: Patient What is your living situation today?: I have a steady place to live Within the past 12 months, did the food you bought not last and you didn't have the money to get more?: Never true Within the past 12 months, did you worry whether your food would run out before you got money to buy more?: Never true Do you have trouble paying for medicines?: No Do you have trouble getting transportation to medical appointments?: No Do you have trouble paying your heating and electricity bill?: No Do you have trouble taking care of your child, family member or friend?: No Do you have trouble with day-to-day activities such as bathing, preparing meals, shopping, managing finances, etc.?: No Are you currently unemployed and looking for a job?: No Are you interested in more education?: No THRIVE Score: 0 AUDIT C Alcohol Use Questionnaire (AUDIT-C) 1. How often do you have a drink containing alcohol?: Never 3. How often do you have six or more drinks on one occasion?: Never Total Score: 0 MABEL-7 AMB Questionnaire MABEL-7 Date MABEL - 7 assessed: 01/13/25 Feeling nervous, anxious, or on edge: 0 = Not at all Not being able to stop or control worryin = Not at all Worrying too much about different things: 0 = Not at all Trouble relaxin = Not at all Being so restless that it is hard to sit still: 0 = Not at all Becoming easily annoyed or irritable: 0 = Not at all Feeling afraid as if something awful might happen: 0 = Not at all Total MABEL-7 score (0-4 normal; 5-9 mild; 10-14 moderate; 15-21 severe): 0 Source: Developed by Drs. Rajesh Ellis, Mikie Bear and colleagues, with an educational carolann from [employer]. MABEL-7 Assessment Billing MABEL-7 Assessment Tool: MABEL-7 Assessment 90895 Review of Systems Const All systems reviewed & are unremarkable except as noted in HPI and below Reports no additional complaints Eyes Reports no additional complaints ENT Reports no additional complaints Card Reports no additional complaints Resp Reports no additional complaints GI Reports no additional complaints Reports no additional complaints Physical exam (Primary Care) Vital Signs: Last Vital Signs Pulse 86 01/13/25 13:30 Resp 18 01/13/25 13:30 BP 134/76 01/13/25 13:30 Pulse Ox 97 01/13/25 13:30 Oxygen Delivery Method Room Air 01/13/25 13:30 BMI result Body Mass Index 31.3 Tobacco/Smoking Status: Tobacco use Status Tobacco use date assessed 01/13/25 01/13/25 13:36 Patient Tobacco Use Status Never used Tobacco 01/13/25 13:36 e-Cigarette/Vaping Use Never Used 01/13/25 13:30 PHQ-9: PHQ-9 Score PHQ-9: Total score 1 01/13/25 13:50 Depression Screening Interpretation: Negative Thrive Assessment: Date of Thrive Assessment Date Thrive assessed 01/13/25 01/13/25 13:50 Const General: no acute distress HENMT Head: Yes normal to inspection General nose exam: Normal external nose present Mouth: Normal oral and palatal mucosa present Throat: Yes posterior oropharynx normal Eyes General: appearance normal, both eyes and all related structures Neck Neck: Yes no lymphadenopathy and Yes supple Resp Effort & Inspection: normal respiratory effort Auscultation: clear to auscultation bilaterally Cardio Rhythm: regular rhythm Heart sounds: S1 normal heart sound present and S2 normal heart sound present GI Inspection: Yes normal to inspection Palpation (GI): Soft to palpation Percussion: Yes normal to percussion Auscultation: normal bowel sounds Coding Level of Care Code Est Pt Prev Care >65y(15126) Diagnoses Annual physical exam Z00.00 Hypertension I10 Hyperlipidemia E78.5 Hyperglycemia R73.9 Sleep apnea G47.30 Dysuria R30.0 IBS (irritable bowel syndrome) K58.9 Additional Codes MABEL-7 Assessment Billing - MABEL-7 Assessment Tool: MABEL-7 Assessment 10791 ([id number]) PHQ-9 - 58065 - PHQ-9 Billing: Yes ([id number]) Assessment & Plan Assessment & Plan (1) Annual physical exam: Code(s): Z00.00 - Encounter for general adult medical examination without abnormal findings Category: Medical Plan: well balanced diet, regular exercise, (2) Hypertension: Code(s): I10 - Essential (primary) hypertension Category: Medical Plan: cont meds (3) Hyperlipidemia: Code(s): E78.5 - Hyperlipidemia, unspecified Category: Medical Plan: cont low cholesterol diet (4) Hyperglycemia: Code(s): R73.9 - Hyperglycemia, unspecified Category: Medical Plan: A1C is 6.2, ADA diet, regular exercise, weight loss discussed with the patient follow-up in 6 months with a fasting labs (5) Sleep apnea: Comment: Witnessed sleep apnea Code(s): G47.30 - Sleep apnea, unspecified Category: Medical Plan: Obtain sleep study for witnessed sleep (6) Dysuria: Code(s): R30.0 - Dysuria Category: Medical Plan: Check UA and culture today (7) IBS (irritable bowel syndrome): Code(s): K58.9 - Irritable bowel syndrome, unspecified Category: Medical Plan: Try dicyclomine Orders: Orders Lipid Panel 6 Months E78.5 - Hyperlipidemia, unspecified, I10 - Essential (primary) hypertension, R73.9 - Hyperglycemia, unspecified Hemoglobin A1c 6 Months E78.5 - Hyperlipidemia, unspecified, I10 - Essential (primary) hypertension, R73.9 - Hyperglycemia, unspecified UA w Microscopic Today E78.5 - Hyperlipidemia, unspecified, I10 - Essential (primary) hypertension, R73.9 - Hyperglycemia, unspecified Comprehensive [place]. Panel Fast 6 Months E78.5 - Hyperlipidemia, unspecified, I10 - Essential (primary) hypertension, R73.9 - Hyperglycemia, unspecified Complete Blood Count Auto Diff 6 Months E78.5 - Hyperlipidemia, unspecified, I10 - Essential (primary) hypertension, R73.9 - Hyperglycemia, unspecified RT home sleep study Today G47.30 - Sleep apnea, unspecified Urine Culture Today R30.0 - Dysuria Medications: New dicyclomine 10 mg PO TID 90 caps 0RF Refilled felodipine ER 2.5 mg PO DAILY 90 tabs 3RF olmesartan 40 mg PO DAILY 90 tabs 3RF Discontinued famotidine (Pepcid) Discontinued Reason: Doctor's Order 40 mg PO DAILY 30 tabs 4RF
[2025-01-13 13:30] VITALS: BP 134/76; PULSE 86; RESP 18; O2SAT 97; BMI 31.3
--- OUTSIDE RECORDS SUMMARY | 2025-01-13 14:43 | XMS_ITS | Continuity of Care Document ---
Author Organization [facility] Address [address] [place] [address] Phone [phone] Care Team Providers Care Taximeter Repairer Name Role Phone Beverley Perez Care Team Information Mail Clerk Bills + [phone] Problems Active Problems Provider Date Vitamin D [...] Tablet By Mouth Daily Beverley Perez Olmesartan [id number] Tablets Take 1 Tablet By Mouth Daily Beverley Perez [id number] Tablets DR Take 1 Tablet By Mouth [...] Moran at Main Office 02/09/2024 - GENEVIEVE Moran* E04.2 Nontoxic multinodular goiter Functional Status Description No Information Available Mental Status Description No Information Available Referrals Description No Information Available
--- OUTSIDE RECORDS SUMMARY | 2025-01-13 14:43 | XMS_ITS | Patient Health Record ---
Author Organization [facility] Address [address] [place] [address] Care Team Providers Care Cylinder Machine Operator Pulp Drier Name Role Phone Beverley Perez MD Primary Care Provider FATOUMATA Pop Unavailable [phone] Allergies No Known Allergies Reason For Referral [...] Risk Notes Problem Cyst of right ovary ([id number]) Other ovarian cyst, right side (N83.291) Active confirmed Vital Signs Temperature 97.8 degrees Fahrenheit 11/25/2024 Blood pressure diastolic 88 mm Hg 11/25/2024 Height 62.5 in 11/25/2024 Blood pressure systolic 158 mm Hg 11/25/2024 Weight 167 lbs 11/25/2024 BMI 30.05 kg/m2 11/25/2024 Encounters Encounter Location Date Provider Diagnosis [email or web address] [address] [place] [address] 10/07/2024 FATOUMATA QUIÑONES Encounter for gynecological examination (general) (routine) without abnormal findings Z01.419 and Encounter for screening mammogram for malignant neoplasm of breast Z12.31 [email or web address] [address] [place] [address] 11/25/2024 FATOUMATA QUIÑONES Pruritus vulvae L29. 2 [...] End Date [employer] MEDICARE COMPLETE [address] [address] [place] [address] [id number] CORNELL JOSHI Self - patient is the [...]
--- OUTSIDE RECORDS SUMMARY | 2025-01-13 14:43 | XMS_ITS ---
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 ?She has been in state of good health since her last exam. She has the following concerns: none Blood pressure is high, but she did not take her meds today. ?She has received the [employer] Covid-19 vaccine and boosters. ?Relationship status: since [...] Her last mammogram was 07/2024 (done at [facility]). ?She does not have a family history of colon cancer. She a has had a colonoscopy. The last colonoscopy was in 2019. ?The patient does not exercise, since surgery - L4-L5 fusion. She walks daily, weather dependent. 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 * Medical History:? 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 18683 Preventive Care Est Pt. Age 65 and over. * Procedure Codes:? 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 She has been in state of good health since her last exam. She has the following concerns: none Blood pressure is high, but she did not take her meds today. She has received the [employer] Covid-19 vaccine and boosters. Relationship status: since [...] Her last mammogram was 07/2024 (done at [facility]). She does not have a family history of colon cancer. She a has had a colonoscopy. The last colonoscopy was in 2019. The patient does not exercise, since surgery - L4-L5 fusion. She walks daily, weather dependent. Examination Category Sub-Category Detail Notes Category Not es General Examination GENERAL APPEARANCE: in no ac [place] distress, well developed, well nourished, concreter present in room HEAD: normocephalic, atrau matic [...]
--- OUTSIDE RECORDS SUMMARY | 2025-01-13 14:43 | XMS_ITS | Clinical Summary ---
Author Organization [email or web address] Address [address] [place] [address] Care Team Providers Care Multi Care Technician Name Role Phone Unavailable Primary Care Provider [...] Type Department Care Team Description 12/16/2024 Telephone [facility] [address] [place] [address] Jad RivasJEFFREY recinosKanika 12/02/2024 10:15 AM EDT Office Visit [facility] [address] [place] [address] Bassam Rivas DDS Dental calculus (Primary Dx) [...] from Last 3 Months Insurance DENTAL - [facility]
--- OUTSIDE RECORDS SUMMARY | 2025-01-13 14:43 | XMS_ITS ---
Author Organization [facility] [employer] [facility] Address [address] [place] [address] [address] Care Team Providers Care Electric Motorman Name Role Phone Beverley Perez MD Primary Care Provider FATOUMATA Pop Unavailable [phone] Allergies No Known Allergies REASON FOR VISIT [...] Provider Diagnosis [facility] [employer] [address] [address] 11/25/2024 FATOUMATA ISHMAEL Pruritus vulvae L29.2 Assessments [...] * CORNELL CHRISTENSENDOB: [birth year] (79 yo F)Acc No.[id number]:11/25/2024 PROGRESS NOTES Patient:?SUDHAKARBINHSOTOELENI CORNELL Provider:?FATOUMATA QUIÑONES MD :1945???Age:79 Y???Sex:Female D ate:11/25/2024 Address: [place] [facility] Pcp:Beverley Perez MD Subjective: * Chief Complaints: * ? YEAST INFECT OTC NOT WO RKING * HPI: ???WORK STUDY STUDENT (Problems):?79 year old female presents with c/o Vulvar Lesions/Itching/Pain:?Vulvar complaints:?itching ?Date of onset:?about a week ago ?Symptoms reported:?itching ?Severity of symptoms:?moderate ?Aggravating factors:?none ?Alleviating factors:?dirb-tcz-vfphlpm creams/ointments ?Prior treatments:?Vagisil anti-itch cream 3 times [...] softeners.?Denies?Painful intercourse.?Denies?Vaginal discharge/itching.? * Medical History:? 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 alert, oriented, no apparent distress, vp director of creative strategy present in room.?ABDOMEN:? soft, non-tender, no mass.?EXTERNAL [...] * Images: Billing Information: * Visit Code:? 16444 Office Visit, Est Pt., Level 3. * Procedure Codes:? * Sign off status: Completed true * Provider:?FATOUMATA QUIÑONES MD Date:?2024 Generated for Alonso oreilly/Marilynn/eTransmitting on:?01/13/2025 02:43 PM EDT History and Physical Notes * HPI (History of Present Illness) Category Sub-Category Detail Notes Category Not es WORK STUDY STUDENT (Problems) Vulvar Lesions/Itching/Pain: Vulvar complaints:: itching She [...] GENERAL APPEARANCE: alert, oriented, no apparent distress, vp director of creative strategy present in room URETHRAL MEATUS: normal ANUS/PERINEUM: normal
--- OUTSIDE RECORDS SUMMARY | 2025-01-13 14:44 | XMS_ITS | Encounter Summary ---
Author Organization [facility] Address [address] [place] [address] Care Team Providers Care Potable Water Treatment Operator Name Role Phone Beverley Perez MD Primary Care Provider [phone] Reason for Referral * Imaging (Routine) - Authorized Specialty Diagnoses / Procedures Referred By Contbetty t Referred To Contact Radiology Diagnoses Cluster headache, not intractable, unspecified chronicity pattern Unilateral headache Cerebral aneurysm, nonruptured Procedures MR Angio Head wo Contrast Crystal Valentin MD [address] [place] [address] Phone: tel: fax: [address] [address] Phone: tel: Referral ID Status Reason Start Date Expiration Date V isits Requested Visits Authorized [id number] Authorized 01/07/2025 01/07/2026 1 1 * Consultation (Routine) - Pending Review Specialty Diagnoses / Procedures Referred By Luna t Referred To Contact Physical Therapy Diagnoses Gait difficulty Crystal Valentin MD [address] [place] [address] [place] [address] Phone: tel: fax: Referral ID Status Reason Start Date Expiration Date Visits Requested Visits Authorized [id number] Pending Review Specialty Services Required 01/07/2025 01/07/2026 1 1 Reason for Visit * Reason Comments Memory Loss Encounter Details Date Type Department Care Team (Late st Contact Info) Description 01/07/2025 2:20 PM EDT Office Visit Neurology - [address] [place] [address] Crystal Valentin MD [address] [place] [address] Cluster headache, not intractable, unspecified chronicity pattern [...] 46 each 01/07/2025 documented in this encounter Progress Notes * Crystal Valentin MD - 01/07/2025 2:20 PM EDTAddended by: CRYSTAL VALENTIN on: 01/10/2025 08:32 AM Modules accepted: Level of Service * Crystal Valentin MD - 01/07/2025 2:20 PM EDT Ambulatory Neurology: Follow up Visit Chief Complaint/Reason for Visit: Chief Complaint Patient presents with Memory Loss History of Present Illness : Anitha Xavier is a 79 y.o. woman with HTN presenting for evaluation of vertigo, memory changes, headaches. She is accompanied by her daughter who provides collateral information. Memory difficultystarted approximately 2-3 years ago. It has gotten to the point where she has difficulty when cooking, sometimes forgets what ingredient she already put in. Mid-sentence will forget what she wants tosay or will lose her train of thought. Forgets where she puts things. She got in to use her 's car once and couldn't figure out how to use it. Headaches can have varying qualities. Bitemporal or band like, like nails or vertex of the head. Usually very brief (nails going into head for 1-2 minutes before resolving). She feels a squeezing sensation around her head all the time. Sensation of dizziness/loss of balance described as all of a sudden feels as if she is pulled to one side. No room spinning sensation. Never did vestibular therapy. Vertigo has been ongoing for several years, with intermittent exacerbations. She reports poor sleep, frequently waking up throughout the night. Unisom for sleep Felodipine Olmesartan Luten Glucosamine Ginkgo Biloba Biotin Choline Vitamin D Magnesium K2 Citracal 01/07/25: Since last time memory has been unchanged Does report increased stress recently due to 's worsening health condition (tearful during visit) Sometimes sudden onset headache, sometimes several seconds, usually left temporal and resolves. Toofast for medication to take effect Continues to have episodes of loss of balance. Often when goes from sitting to standing, but not always. Can also happen when standing at a counter and when twists to start walking etc. Does not haveLOC or darkening of vision. Patient fell asleep quickly after EEG was connected Allergies as of 01/07/2025 (Not on File) Family and Social History: Family History: Neurological FHx: Medical FHx: Social History: Home Situation: Smoking: None Alcohol: None Drugs: None Activities of daily living: Education: Driving: Past Medical History: Past Medical History: Diagnosis Date Diverticular disease DX:Diverticular disease Fibroids DX:Fibroids Hypertension DX:Hypertension Joint ache DX:Joint ache; COMMENT: Back Past Surgical History: Past Surgical History: Procedure Laterality Date OTHER SURGICAL HISTORY Right PROCEDURE: [place] BIOPSY OVARY UNI/BI SEPARATE PROCEDURE Current Outpatient Medications Medication Sig Dispense Refill amoxicillin (AMOXIL) 500 mg capsule TAKE 4 CAPSULE BY MOUTH ONCE 1 HOURS PRIOR TO DENTAL VISIT ascorbic acid (VITAMIN C) 1,000 mg tablet Take 1 tablet (1,000 mg total) by mouth. aspirin 325 mg EC tablet biotin 1 mg capsule Take by mouth. cholecalciferol (VITAMIN D-3) 50 mcg (2,000 unit) capsule Take 1 capsule (2,000 Units total) by mouth daily. estradioL (ESTRACE) 0.01 % (0.1 mg/gram) vaginal cream USE 1 GRAM VAGINALLY 2 TIMES A WEEK famotidine (PEPCID) 40 mg tablet Take 1 tablet (40 mg total) by mouth 1 (one) time each day. [START ON 02/06/2025] memantine (NAMENDA) 10 mg tablet Take 1 tablet (10 mg total) by mouth at bedtime. 90 each 2 memantine (NAMENDA) 5 mg tablet Take 1 tablet (5 mg total) by mouth at bedtime for 14 days, THEN 2 tablets (10 mg total) at bedtime for 16 days. 46 each 0 olmesartan (BENICAR) 40 mg tablet No current facility-administered medications for this visit. Review of symptoms No recent fevers, chills, chest pain, shortness of breath or palpitations. No focal weakness or focal sensory changes. Headaches, memory changes Remainder of ROS reviewed and negative except as discussed above and in HPI. EXAM There were no vitals filed for this visit. General Exam: Well appearing adult in no acute distress. HEENT: normocephalic, atraumatic. mucous membranes are moist. CARDIOVASCULAR heart rate regular RESPIRATORY: Respirations nonlabored EXTREMITIES AND SKIN: no clubbing, cyanosis, edema, or ecchymosis NEUROLOGIC: Mental Status: Awake and alert. Oriented to person, place, and date. Delayed recall 1/3. Naming intact. No aphasia. No dysarthria. Cranial Nerves: Pupils equal and reactive, no APD, no VF deficits EOM intact with nystagmus when looking to the left Sensation V1, V2,V3 intact to light touch Face symmetric Hearing intact Palate elevated symmetrically. Uvula midline. 5/5 shoulder shrug bilaterally Tongue midline Motor: Normal bulk and tone throughout No drift in b/l upper extremities. Strength 5/5 in bilateral bicep, triceps, hip flexion, knee flexion and extension, dorsiflexion andplantarflexion. Sensory: Normal to light touch throughout. Proprioception intact in both toes. Reflexes: Deferred Coordination: Finger to nose without dysmetria with mild tremor on left Station and Gait: Normal stance, no truncal ataxia. Narrow based gait with good arm swing although cautious. Unable to tandem (losing balance). Romberg negative Laboratory: No results found for: WBC , RBC , HCT , HGB , MCV , MCH , MCHC , RDW , PLTCOUNT , MPV , NEUTROPHILS , LYMPHOCYTES , MONOCYTES , BASOPHILS No results found for: BUN , CREATININE , NA , K , CL , CO2 , CALCIUM , ALBUMIN , ALKPHOS , AST , ALT No results found for: CHOL , HDL , LDLCALC , VLDL , TRIG No results found for: HGBA1C Imaging: Routine EEG 11/21/24: Classification of the findings: Normal Impression This is a normal routine EEG recording in the pgdhn-mavskb-ltijrp states. There were no seizures, periodic patterns, or epileptiform discharges. There is no focal slowing or persistent focal asymmetries of the background rhythms. MRI Brain without contrast 11/05/24: IMPRESSION: 1. No acute intracranial findings. 2. Interval progression of the white matter changes, nonspecific, most likely secondary to chronic small vessel ischemic changes. CTH at [facility] 06/04/24: Findings: No intra or extra-axial fluid collection, hemorrhage, mass or mass effect. Mild deep white matter gliosis noted. Punctate calcification in the basal ganglia. Calvarium intact. Assessment/Plan: Anitha Xavier is a 79 y.o. woman with HTN presenting for evaluation of vertigo, memory changes, headaches. She is accompanied by her daughter who provides collateral information. Memory difficultystarted approximately 2-3 years ago. It has gotten to the point where she has difficulty when cooking, sometimes forgets what ingredient she already put in. Mid-sentence will forget what she wants tosay or will lose her train of thought. Forgets where she puts things. She got in to use her 's car once and couldn't figure out how to use it. Headaches can have varying qualities. Bitemporal or band like, like nails or vertex of the head. Usually very brief (nails going into head for 1-2 minutes before resolving). She feels a squeezing sensation around her head all the time. Exam significant for nystagmus with left gaze. No dysmetria. Mild intention tremor b/l, L>R. Impression: Likely multifactorial; age related changes vs vascular changes vs neurodegenerative disorder vs poor sleep. They may be component of mood/anxiety; however, this less likely. She follows with endocrinology; do not need to repeat TSH at this time. Recommendations: -MRA head -Referral to PT[facility] in [place] -Memantine 5mg qhs for 14 days then 10mg qhs thereafter-discussed potential adverse effects -Ask PCP to sleep medicine for sleep evaluation also to help with insomnia (has had to take sleep aids in the past). Discussed sleep hygiene. -There is concern that some of her memory difficulty is due to underlying increased chronic life stressors. Discussed this with patient and family and advised to discuss further with PCP -Reviewed MRI Brain, EEG, serum B12 -Follow up with me in 3 months I spent more than 76 minutes for the chart review, interval history, examination of the patient, review of neurodiagnostic imaging report, formulation of treatment plan and discussion with the patient. Time was also spent for post visit documentation. I have applied the code G2211 to this patient's visit as the primary care provider managing patientwith memory loss leading to the extensive work up, and management associated with the medical care of this patient. This patient's serious conditions and complex medical conditions also required several consultants needing management and coordination through my office. I have reviewed all information as it pertains to the management of this patient for final approval. documented in this encounter Plan of Treatment Upcoming Encounters Date Type Department Care Team (Late st Contact Info) Description 01/14/2025 11:30 AM EDT Appointment Radiology Department - [address] [address] 01/30/2025 2:15 PM EDT Appointment Radiology Department - [address] [place] [address] Scheduled Orders Name Type Priority Associated Diagnoses [...] stated documented in this encounter Care Teams Potable Water Treatment Operator Relationship Specialty Start Date End Date Beverley Perez MD [address] [place] [address] PCP - General Internal Medicine 10/31/24 documented as of this encounter
== END 2025-01-13 14:28 | disposition home or self-care (01) ==
LOC: HO.HMCC 13:17
PROVIDERS: PCP Internal Medicine; Visit Provider Internal Medicine
DX: Z00.00 Encounter for general adult medical examination without abnormal findings (principal); I10 Essential (primary) hypertension; E78.5 Hyperlipidemia, unspecified; R73.9 Hyperglycemia, unspecified; G47.30 Sleep apnea, unspecified; R30.0 Dysuria; K58.9 Irritable bowel syndrome, unspecified

== ENCOUNTER → 2025-01-13 13:17 | Outpatient (BNVA) | payer MEDICARE, SELFPAY | PROVIDERS: PCP Internal Medicine; Visit Provider Internal Medicine | DX: Z00.00 Encounter for general adult medical examination without abnormal findings (principal); I10 Essential (primary) hypertension; E78.5 Hyperlipidemia, unspecified; R73.9 Hyperglycemia, unspecified; G47.30 Sleep apnea, unspecified; R30.0 Dysuria; K58.9 Irritable bowel syndrome, unspecified | CPT/HCPCS: 96127; 99397 ==

== ENCOUNTER 2025-01-14 08:47 | Outpatient (REF) | payer MEDICARE, SELFPAY ==
--- OUTSIDE RECORDS SUMMARY | 2025-01-14 09:19 | XMS_ITS | Clinical Summary ---
Author Organization [employer] Address [address] [facility] [address] [place] [address] Care Team Providers Care Television Maintenance Man Name Role Phone Unavailable Primary Care Provider [...] Type Department Care Team Description 12/16/2024 Telephone [facility] [address] [place] [address] Jad RivasJEFFREY recinosaKnika 12/02/2024 10:15 AM EDT Office Visit [facility] [address] [place] [address] Bassam Rivas DDS Dental calculus (Primary Dx) [...]
--- OUTSIDE RECORDS SUMMARY | 2025-01-14 09:19 | XMS_ITS | Patient Health Record ---
Author Organization [facility] Address [address] [facility] [facility] [address] [place] [address] Care Team Providers Care Senior Core Java Developer Name Role Phone Beverley Perez MD Primary Care Provider FATOUMATA Pop Unavailable [phone] Allergies No Known Allergies Reason For Referral [...] Risk Notes Problem Cyst of right ovary ([id number]) Other ovarian cyst, right side (N83.291) Active confirmed Vital Signs Temperature 97.8 degrees Fahrenheit 11/25/2024 Blood pressure diastolic 88 mm Hg 11/25/2024 Height 62.5 in 11/25/2024 Blood pressure systolic 158 mm Hg 11/25/2024 Weight 167 lbs 11/25/2024 BMI 30.05 kg/m2 11/25/2024 Encounters Encounter Location Date Provider Diagnosis [email or web address] [address] [place] [address] 10/07/2024 FATOUMATA QUIÑONES Encounter for gynecological examination (general) (routine) without abnormal findings Z01.419 and Encounter for screening mammogram for malignant neoplasm of breast Z12.31 [email or web address] [facility] [address] [place] [address] 11/25/2024 FATOUMATA QUIÑONES Pruritus vulvae L29. 2 [...] End Date [employer] MED[employer]ARE COMPLETE [address] [address] [place] [address] [id number] CORNELL JOSHI Self - patient is the [...]
--- OUTSIDE RECORDS SUMMARY | 2025-01-14 09:20 | XMS_ITS | Clinical Summary ---
Author Organization [facility] Address [address] [place] [address] Phone Care Team Providers Care Sheriff Detective Name Role Phone Beverley Perez MD Primary Care Provider [phone] Medications amoxicillin (AMOXIL) 500 mg capsule TAKE [...] 2:20 PM EDT Office Visit Neurology - [address] [place] [address] Rinku Valentin MD Cluster headache, not intractable, unspecified chronicity pattern (Primary Dx); Gait difficulty; Unilateral headache; Cerebral aneurysm, nonruptured; Mild cognitive impairment 11/21/2024 12:18 PM EDT - 11/21/2024 11:59 PM EDT Hospital Encounter [facility] [address] [place] [phone] Memory change Discharge Disposition: Home or Self Care 11/05/2024 12:32 PM EST - 11/05/2024 11:59 PM EST Hospital Encounter Radiology Department [address] [address] Memory change Discharge Disposition: Home or Self Care 10/31/2024 2:00 PM EST Office Visit Neurostroke - [place] [address] [place] [phone] Rinku Valentin MD Confusion (Primary Dx); Memory change from Last 3 Months Surgical History Surgery Date Site/Laterality Comments OTHER SURGICAL HISTORY Right PROCEDURE: [place] BIOPSY OVARY UNI/BI SEPARATE PROCEDURE Medical History [...] 11:30 AM EDT Appointment Radiology Department - [address] [address] 01/30/2025 2:15 PM EDT Appointment Radiology Department - [address] [address] Health Maintenance Due Date Last Done Comments [...] a normal routine EEG recording in the vlfxe-vksdnc-vnaaez states. ??There were no seizures, periodic patterns, or epileptiform discharges. There is no focal slowing or persistent focal asymmetries of the background rhythms. CC Rinku Valentin MD Damian Moskal, MD Epileptologist [facility] us Rinku Valentin MD NEUROLOGY ORDERABLES Final Resu lt * MR Brain wo Contrast (11/05/2024 1:20 PM EST) Anatomical Region Laterality Modality Head and Neck Magnetic Resonan ce 11/05/2024 2:15 PM EST Impressions 11/05/2024 2:26 PM EST 1. ??No acute intracranial findings. 2. ??Interval progression of the white matter changes, nonspecific, most likely secondary to chronic small vessel ischemic changes. -------- FINAL REPORT -------- Dictated By: Cortnye Parish Dictated Date: 11/05/2024 14:15 ET Assigned Physician: Cortney Parish Reviewed and Electronically Signed By: Cortney Parish Signed Date: 11/05/2024 14:26 ET Workstation ID: [id number] Transcribed By: Self Edit Transcribed Date: 11/05/2024 [...] Signed Date: 11/05/2024 14:26 ET Workstation ID: [id number] Transcribed By: Self Edit Transcribed Date: 11/05/2024 14:15 ET us Rinku Valentin MD IMG MRI PROCEDURES Final Result * Vitamin B12 and folate (10/31/2024 2:51 PM EST) Vitamin B-12 618 180 - 914 pcg/mL LAB CHEMISTRY METHOD 10/31/2024 4:57 PM EST [facility] Folate 10.1 >=3.0 ng/ml LAB CHEMISTRY METHOD 10/31/2024 4:57 PM EST [facility] Blood Venous blood specimen / Unknown Venipuncture / Unknown 10/31/2024 2:51 PM EST 10/31/2024 3:44 PM EST us Rinku Valentin MD LAB BLOOD ORDERABLES Final Resu lt [facility] [address] [place] [address], [place] [phone] from Last 3 Months Insurance [employer] [place] [address] Care Teams Sheriff Detective Relationship Specialty Start Date End Date Beverley Perez MD [address] [place] [address] PCP - General Internal Medicine 10/31/24
--- OUTSIDE RECORDS SUMMARY | 2025-01-14 09:20 | XMS_ITS | Encounter Summary ---
Author Organization [facility] Address [address] [place] [address] Care Team Providers Care Credit Administration Specialist Name Role Phone Beverley Perez MD Primary Care Provider [phone] Reason for Referral * Imaging (Routine) - Authorized Specialty Diagnoses / Procedures Referred By Contbetty t Referred To Contact Radiology Diagnoses Cluster headache, not intractable, unspecified chronicity pattern Unilateral headache Cerebral aneurysm, nonruptured Procedures MR Angio Head wo Contrast Crystal Valentin MD [address] [place] [address] Phone: tel: fax: [address] [address] Phone: tel: Referral ID Status Reason Start Date Expiration Date V isits Requested Visits Authorized [id number] Authorized 01/07/2025 01/07/2026 1 1 * Consultation (Routine) - Pending Review Specialty Diagnoses / Procedures Referred By Luna t Referred To Contact Physical Therapy Diagnoses Gait difficulty Crystal Valentin MD [address] [place] [address] [place] [address] Phone: tel: fax: Referral ID Status Reason Start Date Expiration Date Visits Requested Visits Authorized [id number] Pending Review Specialty Services Required 01/07/2025 01/07/2026 1 1 Reason for Visit * Reason Comments Memory Loss Encounter Details Date Type Department Care Team (Late st Contact Info) Description 01/07/2025 2:20 PM EDT Office Visit Neurology - [address] [place] [address] Crystal Valentin MD [address] [place] [address] Cluster headache, not intractable, unspecified chronicity pattern [...] Laterality Date OTHER SURGICAL HISTORY Right PROCEDURE: [place] BIOPSY OVARY UNI/BI SEPARATE PROCEDURE Current Outpatient [...] a normal routine EEG recording in the ullzj-rwdxsw-gmjfqy states. There were no seizures, periodic patterns, or epileptiform discharges. There is no focal slowing or persistent focal asymmetries of the background rhythms. MRI Brain without contrast 11/05/24: IMPRESSION: 1. No acute intracranial findings. 2. Interval progression of the white matter changes, nonspecific, most likely secondary to chronic small vessel ischemic changes. CTH at [facility] 06/04/24: Findings: No intra or extra-axial [...] Recommendations: -MRA head -Referral to [facility] in [place] -Memantine 5mg qhs for 14 days then [...] 11:30 AM EDT Appointment Radiology Department - [address] [address] 01/30/2025 2:15 PM EDT Appointment Radiology Department - [address] [place] [address] Scheduled Orders Name Type Priority Associated Diagnoses [...] stated documented in this encounter Care Teams Credit Administration Specialist Relationship Specialty Start Date End Date Beverley Perez MD [address] [place] [address] PCP - General Internal Medicine 10/31/24 documented as of this encounter
--- OUTSIDE RECORDS SUMMARY | 2025-01-14 09:20 | XMS_ITS ---
Author Organization [facility] Address [address] [address] Care Team Providers Care Supervisor Cytogenetic Laboratory Name Role Phone Beverley Perez MD Primary Care Provider FATOUMATA Pop Unavailable [phone] Allergies No Known Allergies REASON FOR VISIT [...] 10/07/2024 Encounters Encounter Location Date Provider Diagnosis 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 ?She has been in state of good health since her last exam. She has the following concerns: none Blood pressure is high, but she did not take her meds today. ?She has received the [employer] Covid-19 vaccine and boosters. ?Relationship status: since [...] Her last mammogram was 07/2024 (done at [place]). ?She does not have a family history of colon cancer. She a has had a colonoscopy. The last colonoscopy was in 2019. ?The patient does not exercise, since surgery - L4-L5 fusion. She walks daily, weather dependent. * ROS:?Annual Transfer Car Operator Drier Exam ROS:?Bowel habit changes?denies.?Bladder symptoms?denies.?Vaginal discharge, unusual?denies.?Vaginal itch or odor?denies.?weight or appetite changes?denies.?Chest pains, SOB?denies.?depression?denies.?General/Constitutional:?Denies?Headache.?Ophthalmologic:?Patient denies?seeing spots, or any other visual scotomata.?Breast:?Denies?Breast lump.?Denies?Nipple discharge.?Hematology:?Denies?Swollen glands.?Skin:?Patient denies?changing moles.?Psychiatric:?Denies?Anxiety.? * Medical History:? * Transfer Car Operator Drier History:?/ Para?2/2.?Sexual activity?currently sexually active, with men.?Last [...] no acute distress, well developed, well nourished, canvas goods supervisor present in room.?HEAD:?normocephalic, atraumatic.?NECK/THYROID:?neck supple, full range [...] * Follow Up:?2 year (Reason: R outine Transfer Car Operator Drier Exam) * Images: Billing Information: * Visit Code:? 44721 Preventive Care Est Pt. Age 65 and over. * Procedure Codes:? 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 She has been in state of good health since her last exam. She has the following concerns: none Blood pressure is high, but she did not take her meds today. She has received the [employer] Covid-19 vaccine and boosters. Relationship status: since [...] Her last mammogram was 07/2024 (done at [place]). She does not have a family history of colon cancer. She a has had a colonoscopy. The last colonoscopy was in 2019. The patient does not exercise, since surgery - L4-L5 fusion. She walks daily, weather dependent. Examination Category Sub-Category Detail Notes Category Not es General Examination GENERAL APPEARANCE: in no ac tlingit & haida distress, well developed, well nourished, canvas goods supervisor present in room HEAD: normocephalic, atrau matic [...]
--- OUTSIDE RECORDS SUMMARY | 2025-01-14 09:20 | XMS_ITS | Continuity of Care Document ---
Author Organization [facility] Address [address] [place] [address] Phone [phone] Care Team Providers Care Osd Clerk Name Role Phone Beverley Perez Care Team Information Campaign Worker [phone] Problems Active Problems Provider Date Vitamin D [...] Tablet By Mouth Daily Beverley Perez Olmesartan [id number] Tablets Take 1 Tablet By Mouth Daily Beverley Perez [id number] Tablets DR Take 1 Tablet By Mouth [...]
--- OUTSIDE RECORDS SUMMARY | 2025-01-14 09:20 | XMS_ITS ---
Author Organization [facility] Address [address] [employer] [address] [address] Care Team Providers Care Scenario Writer Name Role Phone Beverley Perez MD Primary Care Provider FATOUMATA Pop Unavailable [phone] Allergies No Known Allergies REASON FOR VISIT [...] Provider Diagnosis [facility] [address] [address] 11/25/2024 FATOUMATA ISHMAEL Pruritus vulvae L29.2 Assessments [...] * CORNELL CHRISTENSENDOB: [birth year] (79 yo F)Acc No.[id number]:11/25/2024 PROGRESS NOTES Patient:?SUDHAKARBINHSOTOELENI CORNELL Provider:?FATOUMATA QUIÑONES MD :1945???Age:79 Y???Sex:Female D ate:11/25/2024 Address: [facility] Pcp:Beverley Perez MD Subjective: * Chief Complaints: * ? 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 * Medical History:? * Operations Support Manager History:?/ Para?2/2.?Sexual activity?currently sexually active, with men.?Last [...] ?GENERAL APPEARANCE:? alert, oriented, no apparent distress, kier boiler present in room.?ABDOMEN:? soft, non-tender, no mass.?EXTERNAL [...] * Images: Billing Information: * Visit Code:? 80335 Office Visit, Est Pt., Level 3. * Procedure Codes:? 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
[2025-01-14 10:11] LABS: Appearance Urine Clear; Color Urine Yellow; Glucose Urine UA Negative (Negative); Leukocyte Esterase Urine Negative (Negative); Nitrite Urine Negative (Negative); PH 5.5 (5.0-9.0); Urine Blood Negative (Negative); Urine Ketones Negative (Negative); Urine Protein Negative (Neg-Trace)
[2025-01-14 10:16] LABS: Bacteria Urine None Seen (None Seen); Hyaline Casts Urine 0-2 /LPF (0-2); RBC Urine 0-2 /HPF (0-2); Squamous Epithelial Cell Urine 0-2 /HPF (0-2); WBC Urine 0-5 /HPF (0-5)
== END 2025-01-14 08:48 | disposition home or self-care (01) ==
LOC: HO.HMGCLDS 08:47
PROVIDERS: PCP Internal Medicine; Visit Provider Internal Medicine
DX: R73.9 Hyperglycemia, unspecified (principal); E78.5 Hyperlipidemia, unspecified; I10 Essential (primary) hypertension; R30.0 Dysuria
CPT/HCPCS: 81001; 87086

== ENCOUNTER 2025-02-11 08:28 | Outpatient (REF) | payer MEDICARE, SELFPAY ==
--- OUTSIDE RECORDS SUMMARY | 2025-02-12 08:37 | XMS_ITS | Patient Health Record ---
Author Organization [employer] [facility] Address [address] [facility] [address] [place] [address] Care Team Providers Care Mental Health Nurse Practitioner Name Role Phone Beverley Perez MD Primary Care Provider FATOUMATA Pop Unavailable [phone] Allergies No Known Allergies Reason For Referral [...] Risk Notes Problem Cyst of right ovary ([id number] 11070) Other ovarian cyst, right side (N83.291) Active confirmed Vital Signs Temperature 97.8 degrees Fahrenheit 11/25/2024 Blood pressure diastolic 88 mm Hg 11/25/2024 Height 62.5 in 11/25/2024 Blood pressure systolic 158 mm Hg 11/25/2024 Weight 167 lbs 11/25/2024 BMI 30.05 kg/m2 11/25/2024 Encounters Encounter Location Date Provider Diagnosis Total [employer] [facility] [address] [place] [address] 10/07/2024 FATOUMATA QUIÑONES Encounter for gynecological examination (general) (routine) without abnormal findings Z01.419 and Encounter for screening mammogram for malignant neoplasm of breast Z12.31 Total [employer] [facility] [address] [place] [address] 11/25/2024 FATOUMATA QUIÑONES Pruritus vulvae L29. 2 [...] End Date [employer] MEDICARE COMPLETE [address] [address] [place] [address] [id number] CORNELL JOSHI Self - patient is the [...]
== END 2025-02-11 08:29 | disposition home or self-care (01) ==
LOC: HO.HOSX 08:28
PROVIDERS: Visit Provider Physician Assistant
DX: Z13.89 Encounter for screening for other disorder (principal)

== ENCOUNTER 2025-02-17 12:26 | Outpatient (AMB) | payer MEDICARE, SELFPAY ==
--- NOTE | 2025-02-17 12:55 | A.OFFPC_ITS ---
Vital Signs 02/17/25 12:56 Height 5 ft 2 in Weight 169 lb BMI 30.9 BP 128/80 Blood Pressure Location Lt brachial Position Sitting Respiration 18 Pulse 83 Pulse Source Pulse Oximeter Temp 98.1 F Temp Source Oral Pulse Oximetry (%) 96 Oxygen Delivery Method Room Air Intake Visit Reasons: medication consulting Intake Note: Pt is here today for a sick visit. Pt c/o muscle cramps. Allergies donepezil Adverse Reaction (Intermediate, Verified 01/13/25 13:35) Nausea trazodone Adverse Reaction (Intermediate, Verified 01/13/25 13:35) Dizziness Medication List - Last Reconciled 02/17/25 by Beverley Perez MD acetaminophen 650 mg (2 x 325 mg) PO Q6H PRN 30 days amoxicillin 2,000 mg (4 x 500 mg) PO ONCE [ankle orthosis As directed] biotin 1,000 mcg PO DAILY cholecalciferol (vitamin D3) (Vitamin D3) 50 mcg PO DAILY [choline 800 mg ] dicyclomine 10 mg PO TID estradiol 0.01%(0.1mg/gram) (Estrace) 1 g vaginal 2XW felodipine ER 2.5 mg PO DAILY ginkgo biloba-Panax ginseng rt 60-100 mg 2 caps PO DAILY [glucosemide with MSM 2 tabs PO DAILY] glycine 1,000 mg PO [instafle 3 tablets] lutein 20 mg PO DAILY [magnesium PO] magnesium oxide 400 mg PO BEDTIME memantine 5 mg PO QAM olmesartan 40 mg PO DAILY vitamin K2 100 mcg PO DAILY Tobacco use date assessed: 01/13/25 Dental Screening Dental Screen Date: 01/13/25 HPI medication consulting HPI Details Patient presents for the follow-up. Her 2 weeks ago and patient is grieving. Hypertension is controlled on current medications. Patient complains of frequent leg cramps usually worse at night waking patient up. She tried taking sogc-nnz-fnwhhbt magnesium and mustard seeds without improvement [facility] Medical History IBS (irritable bowel syndrome) Osteoarthritis of right hip Thyroid nodule Arthritis Palpitations Vitamin D deficiency Annual physical exam Insomnia Memory deficit Hyperglycemia Hyperlipidemia History of mammogram Chronic neck pain Arthralgia Tension headache RLS (restless legs syndrome) Osteoarthritis of both knees Balance problem Osteoarthritis of right shoulder Sciatica of left side Sciatica, right side Hypertension Surgical History History of bunionectomy Hx of shoulder surgery Hx of spinal surgery H/O colonoscopy Family History Father Stroke Mother Lung cancer Social History Household Members: Spouse Housing: Condominium Are you a primary coronary care unit nurse to a significant other at home: No Do you presently have visiting nurse or other home services: No Alcohol intake: current Alcohol intake frequency: does not drink Patient Tobacco Use Status: Never used Tobacco e-Cigarette/Vaping Use: Never Used service: No Current occupational status: retired Cognitive needs: No Hearing needs: No Vision needs: Yes Questionnaire Thrive Questionnaire Date Thrive assessed: 10/15/24 I am a: Patient MABEL-7 AMB Questionnaire MABEL-7 Date MABEL - 7 assessed: 01/13/25 Source: Developed by Drs. Rajesh Ellis, Sharon Delarosa, Mikie Staley and colleagues, with an educational carolann from [employer]. Review of Systems Const All systems reviewed & are unremarkable except as noted in HPI and below Eyes Reports no additional complaints ENT Reports no additional complaints Card Reports no additional complaints Resp Reports no additional complaints GI Reports no additional complaints Reports no additional complaints Physical exam (Primary Care) Vital Signs: Last Vital Signs Temp 98.1 F 02/17/25 12:56 Pulse 83 02/17/25 12:56 Resp 18 02/17/25 12:56 BP 128/80 02/17/25 12:56 Pulse Ox 96 02/17/25 12:56 Oxygen Delivery Method Room Air 02/17/25 12:56 BMI result Body Mass Index 30.9 Tobacco/Smoking Status: Tobacco use Status Tobacco use date assessed 01/13/25 02/17/25 12:58 Patient Tobacco Use Status Never used Tobacco 02/17/25 12:58 e-Cigarette/Vaping Use Never Used 02/17/25 12:58 Thrive Assessment: Date of Thrive Assessment Date Thrive assessed 10/15/24 02/17/25 12:58 Const General: no acute distress HENMT Head: Yes normal to inspection Face and sinus: Yes normal facial exam Throat: Yes posterior oropharynx normal Resp Effort & Inspection: normal respiratory effort Auscultation: clear to auscultation bilaterally Cardio Rhythm: regular rhythm Heart sounds: S1 normal heart sound present and S2 normal heart sound present GI Inspection: Yes normal to inspection Palpation (GI): Soft to palpation Percussion: Yes normal to percussion Auscultation: normal bowel sounds Coding Level of Care Code Est Pt Level 3 (15806) Diagnoses Hypertension I10 Vitamin D deficiency E55.9 Leg cramps R25.2 Assessment & Plan Assessment & Plan (1) Hypertension: Code(s): I10 - Essential (primary) hypertension Category: Medical Plan: Continue current medications (2) Vitamin D deficiency: Code(s): E55.9 - Vitamin D deficiency, unspecified Category: Medical Plan: Continue vitamin-D supplement (3) Leg cramps: Code(s): R25.2 - Cramp and spasm Category: Medical Plan: Patient will try magnesium oxide, and quinine supplement Medications: New magnesium oxide 400 mg PO BEDTIME 90 tabs 0RF
[2025-02-17 12:56] VITALS: BP 128/80; PULSE 83; RESP 18; TEMP 36.7; O2SAT 96; BMI 30.9
--- OUTSIDE RECORDS SUMMARY | 2025-02-17 14:06 | XMS_ITS | Patient Health Record ---
Author Organization [facility] [facility] Address [address] [facility] [address] [place] [address] Care Team Providers Care Airplane Pilot Supervisor Name Role Phone Beverley Perez MD Primary Care Provider FATOUMATA Pop Unavailable [phone] Allergies No Known Allergies Reason For Referral [...] Risk Notes Problem Cyst of right ovary ([id number] 87250) Other ovarian cyst, right side (N83.291) Active confirmed Vital Signs Temperature 97.8 degrees Fahrenheit 11/25/2024 Blood pressure diastolic 88 mm Hg 11/25/2024 Height 62.5 in 11/25/2024 Blood pressure systolic 158 mm Hg 11/25/2024 Weight 167 lbs 11/25/2024 BMI 30.05 kg/m2 11/25/2024 Encounters Encounter Location Date Provider Diagnosis Total [facility] [address] [place] [address] 10/07/2024 FATOUMATA QUIÑONES Encounter for gynecological examination (general) (routine) without abnormal findings Z01.419 and Encounter for screening mammogram for malignant neoplasm of breast Z12.31 Total [facility] [address] [place] [address] 11/25/2024 FATOUMATA QUIÑONES Pruritus vulvae L29. 2 [...] End Date [employer]ARP MEDICARE COMPLETE [address] [address] [place] [address] [id number] CORNELL JOSHI Self - patient is the [...]
== END 2025-02-17 16:01 | disposition home or self-care (01) ==
LOC: HO.HMCC 12:27
PROVIDERS: PCP Internal Medicine; Visit Provider Internal Medicine
DX: I10 Essential (primary) hypertension (principal); E55.9 Vitamin D deficiency, unspecified; R25.2 Cramp and spasm

== ENCOUNTER → 2025-02-17 12:26 | Outpatient (BNVA) | payer MEDICARE, SELFPAY | PROVIDERS: PCP Internal Medicine; Visit Provider Internal Medicine | DX: I10 Essential (primary) hypertension (principal); E55.9 Vitamin D deficiency, unspecified; R25.2 Cramp and spasm | CPT/HCPCS: 99212 ==

== ENCOUNTER 2025-03-13 08:05 | Outpatient (AMB) | payer MEDICARE, SELFPAY ==
--- OUTSIDE RECORDS SUMMARY | 2025-03-13 08:08 | XMS_ITS | Clinical Summary ---
Author Organization [facility] Address [address] [facility] 7[address] [place] [address] Care Team Providers Care Wharf Attendant Name Role Phone Unavailable Primary Care Provider [...] Encounters Date Type Department Care Team Description 02/18/2025 Telephone [facility] ADULT DENTAL [address] [place] [address] Bassam Rivas DDS 12/16/2024 Telephone [facility] ADULT D[facility]AL [address] [place] [address] Bassam Rivas DDS from Last 3 Months Social History Tobacco [...] - 2023-2 5 season) 2024 Influenza Vaccine (Season Ended) 2025 Tobacco Screening 12/02/2025 12/02/2024 HIB Vaccines Aged [...] to complete this topic Insurance DENTAL - [facility] [place] [id number]
--- OUTSIDE RECORDS SUMMARY | 2025-03-13 08:08 | XMS_ITS ---
Author Name [facility] Organization Unknown Results Test Name/Text Value Interpretation Date Range Source Folate SerPl-mCnc 10.1 ng/ml Normal 10/31/2024 - [facility] Vit B12 SerPl-mCnc 618.0 pcg/mL Normal 10/31/2024 180 - 9 14 [facility] History of Medication Use Medication Directions Dispensed Refills Start Date End Date Stat memantine (NAMENDA) 5 mg tablet Take 1 tablet (5 mg total) by mouth at bedtime for 14 days, THEN 2 tablets (10 mg total) at bedtime for 16 days. 01/07/2025 active estradioL (ESTRACE) 0.01 % (0.1 mg/gram) vaginal [...] (2,000 Units total) by mouth daily. active memantine (NAMENDA) 10 mg tablet Take 1 tablet (10 mg total) by mouth at bedtime. active Problems Problem Status Onset Date Problem Type Date of Resolution Source Cerebral aneurysm, nonruptured active EncounterDiagnosisAct [facility] Cluster headache, not intractable, unspecified chronicity pattern active EncounterDiagnosisAct [facility] Unilateral headache active EncounterDiagnosisAct [facility] Other amnesia active 2024-10-31 ProblemAct [facility] Gait difficulty active EncounterDiagnosisAct [facility] Mild cognitive impairment active EncounterDiagnosisAct [facility] Encounters Encounter Type Encounter Reason Primary Diagnosis Location Date Ambulatory [facility] 01/07/2025 Ambulatory Memory Loss Other amnesia [facility] 10/31/2024 Ambulatory [place] 05/23/2024 [facility] 05/07/2024 [facility] 04/23/2024 [facility] [employer] 04/09/2024 [facility] 11/14/2023 Care Team Organization Name Specialty Phone Email Start Date End [facility] te [facility]/20/2024 [facility] 12/01/2023 [place] [facility] [facility] 11/14/2023 11/28/19 [email or web address] [facility] 11/14/2023
--- OUTSIDE RECORDS SUMMARY | 2025-03-13 08:08 | XMS_ITS | Patient Health Record ---
Author Organization [employer] [facility] Address [address] [place] [address] Care Team Providers Care Colorectal Surgeon Name Role Phone Beverley Perez MD Primary Care Provider FATOUMATA Pop Unavailable [phone] Allergies No Known Allergies Reason For Referral No Information Medications Medication SIG (Take, Route, Frequency, Duration) Notes Start Date End Date Status Lutein Active Fish Oil Active Glucosamine Active Clotrimazole-Betamethaso ne 1-0.05 % 1 application Externally Twice a day; Duration: 10 days 11/25/2024 Active Vitamin D-3 5000 UNIT 1 tablet Orally On ce a day; Duration: 30 day(s) Active Olmesartan Medoxomil 40 MG 1 tablet Orally Once a day; Duration: 30 day(s) Active Felodipine ER 2.5 MG [...] Risk Notes Problem Cyst of right ovary ([id number] 35469) Other ovarian cyst, right side (N83.291) Active confirmed Vital Signs Temperature 97.8 degrees Fahrenheit 11/25/2024 Blood pressure diastolic 88 mm Hg 11/25/2024 Height 62.5 in 11/25/2024 Blood pressure systolic 158 mm Hg 11/25/2024 Weight 167 lbs 11/25/2024 BMI 30.05 kg/m2 11/25/2024 Encounters Encounter Location Date Provider Diagnosis Total [employer] [facility] [address] [place] [address] 10/07/2024 FATOUMATA QUIÑONES Encounter for gynecological examination (general) (routine) without abnormal findings Z01.419 and Encounter for screening mammogram for malignant neoplasm of breast Z12.31 [facility] [employer] [facility] [address] [place] [address] 11/25/2024 FATOUMATA QUIÑONES Pruritus vulvae L29. 2 [...] End Date AARP MEDICARE COMPLETE [address] [address] [place] [address] [phone] [id number] CORNELL JOSHI Self - patient is the [...]
--- OUTSIDE RECORDS SUMMARY | 2025-03-13 08:09 | XMS_ITS | Clinical Summary ---
Author Organization [facility] [address] [facility] Address [address] [place] [address] Phone Care Team Providers Care Service Mechanic Name Role Phone Beverley Perez MD Primary Care Provider [phone] Medications amoxicillin (AMOXIL) 500 mg capsule TAKE [...] bedtime for 16 days. 46 each 5 Active memantine (NAMENDA) 10 mg tabletIndicatio ns:Mild cognitive impairment Take 1 tablet (10 mg total) by mouth at bedtime. 90 each 2 5 02/07/20 26 Active Active Problems Problem Noted Date Diagnosed Date Other amnesia 10/31/2024 Encounters Date Type Department Care Team Description 01/30/2025 1:46 PM EDT - 01/30/2025 11:59 PM EDT Hospital Encounter Radiology Department - [address] [phone] Multiple thyroid nodules Discharge Disposition: Home or Self Care 01/14/2025 11:15 AM EDT - 01/14/2025 11:59 PM EDT Hospital Encounter Radiology Department - [address] [address] Cluster headache, not intractable, unspecified chronicity pattern; Unilateral headache; Cerebral aneurysm, nonruptured Discharge Disposition: Home or Self Care 01/07/2025 2:20 PM EDT Office Visit Neurology - [address] [place] [address] Rinku Valentin MD Cluster headache, not intractable, unspecified chronicity pattern (Primary Dx); Gait difficulty; Unilateral headache; Cerebral aneurysm, nonruptured; Mild cognitive impairment from Last 3 Months Surgical History Surgery Date Site/Laterality Comments OTHER SURGICAL HISTORY Right PROCEDURE: PA BIOPSY OVARY UNI/BI SEPARATE PROCEDURE Medical History [...] Care Team (Late st Contact Info) Description 09/15/2025 9:20 AM EST Office Visit Endocrinology - [place] [address] [place] [address] Maddi De La Cruz PA [address] [place] [address] Health Maintenance Due Date Last Done Comments [...] Annual BMP Blood Test 10/31/2024 Influenza Vaccine (#1) 2025 HIB Vaccines Aged Out No longer [...] Procedure Name Priority Date/Time Associated Diagnosis Comments US HEAD NECK SOFT TISSUE Routine 01/30/2025 2:14 PM EDT Multiple thyroid nodules MR ANGIO HEAD WO CONTRAST Routine 01/14/2025 12:01 PM EDT Cluster headache, not intractable, unspecified chronicity pattern Unilateral headache Cerebral aneurysm, nonruptured from Last 3 Months Results * US Head Neck Soft Tissue (01/30/2025 2:14 PM EDT) Anatomical Region Laterality Modality Head and Neck Ultrasound 01/30/2025 2:18 PM EDT Impressions 01/30/2025 2:32 PM EDT No worrisome interval change in thyroid nodules. POS - [id number] -------- FINAL REPORT -------- Dictated By: Sara Mccracken Dictated Date: 01/30/2025 14:18 ET Assigned Physician: Sara Mccracken Reviewed and Electronically Signed By: Sara Mccracken Signed Date: 01/30/2025 14:32 ET Workstation ID: [id number] Transcribed By: Self Edit Transcribed Date: 01/30/2025 14:18 ET Narrative 01/30/2025 2:32 PM EDT EXAM: Thyroid ultrasound HISTORY: Follow-up thyroid nodules. History of nondiagnostic fine-needle aspirations of a left lower lobe nodule and left isthmus nodule on 11/10/2023. COMPARISON: 06/25/2024 and 10/10/2023 FINDINGS: Right thyroid lobe is normal in size measuring 4.9 x 1.9 x 1.6 cm. Left lobe is again noted to be enlarged measuring 6.1 x 3.4 x 2.3 cm. Isthmus measures 0.4 cm in thickness. Thyroid parenchyma is heterogeneous without hypervascularity on color Doppler. Right lobe: -1.2 x 1.1 x 0.8 cm predominantly solid isoechoic nodule in the lower lobe is not significantly changed in size but small cystic components have enlarged in the interval. Left lobe: -1.7 x 1.7 x 1.5 cm predominantly solid isoechoic nodule in mid lobe is not significantly changed in size but small cystic components are present. This was biopsy-proven benign 11/10/2023. -3.2 x 3.1 x 3.0 cm solid hypoechoic nodule in the lower lobe is not significantly changed. Isthmus: -2.8 x 2.0 x 1.6 cm solid hypoechoic nodule in the left inferior isthmus is not significantly changed. Procedure Note Sara Mccracken MD - 01/30/2025 EXAM: Thyroid ultrasound HISTORY: Follow-up thyroid nodules. History of nondiagnostic fine- needleaspirations of a left lower lobe nodule and left isthmus nodule on11/10/2023. COMPARISON: 06/25/2024 and 10/10/2023 FINDINGS: Right thyroid lobe is normal in size measuring 4.9 x 1.9 x 1.6 cm. Leftlobe is again noted to be enlarged measuring 6.1 x 3.4 x 2.3 cm. Isthmusmeasures 0.4 cm in thickness. Thyroid parenchyma is heterogeneous withouthypervascularity on color Doppler. Right lobe: -1.2 x 1.1 x 0.8 cm predominantly solid isoechoic nodule in the lower lobeis not significantly changed in size but small cystic components haveenlarged in the interval. Left lobe: -1.7 x 1.7 x 1.5 cm predominantly solid isoechoic nodule in mid lobe isnot significantly changed in size but small cystic components are present.This was biopsy-proven benign 11/10/2023. -3.2 x 3.1 x 3.0 cm solid hypoechoic nodule in the lower lobe is notsignificantly changed. Isthmus: -2.8 x 2.0 x 1.6 cm solid hypoechoic nodule in the left inferior isthmusis not significantly changed. IMPRESSION: No worrisome interval change in thyroid nodules. POS - [id number] -------- FINAL REPORT -------- Dictated By: Sara Mccracken Dictated Date: 01/30/2025 14:18 ET Assigned Physician: Sara Mccracken Reviewed and Electronically Signed By: Sara Mccracken Signed Date: 01/30/2025 14:32 ET Workstation ID: [id number] Transcribed By: Self Edit Transcribed Date: 01/30/2025 14:18 ET us Emil Ha MD IMАндрей US PROCEDURES Final Result * MR Angio Head wo Contrast (01/14/2025 12:01 PM EDT) Anatomical Region Laterality Modality Head and Neck Magnetic Resonan ce 01/14/2025 5:29 PM EDT Impressions 01/14/2025 5:34 PM EDT Impression:Normal MRA of the poarch of [place]. -------- FINAL REPORT -------- Dictated By: Sb Armenta Dictated Date: 01/14/2025 17:29 ET Assigned Physician: Sb Armenta Reviewed and Electronically Signed By: Sb Armenta Signed Date: 01/14/2025 17:34 ET Workstation ID: [id number] Transcribed By: Self Edit Transcribed Date: 01/14/2025 17:29 ET Narrative 01/14/2025 5:34 PM EDT MRA HEAD Clinical Statement: Cluster headaches Comparison: MRI brain from 11/05/2024 Technique: 3-D time of flight magnetic resonance angiographic images of the [place] were obtained and presented with the source images, compression image, and maximum intensity projection images in rotating format. Findings: The vertebral arteries are codominant. The basilar artery is normal in appearance and gives off normal superior cerebellar and posterior cerebral arteries. The internal carotid arteries are normal from the distal cervical segments to the carotid terminus. The middle and anterior cerebral arteries are normal in appearance. There is no evidence of significant intracranial stenosis, major branch occlusion, aneurysm, or vascular malformation. Procedure Note Sb Armenta MD - 01/14/2025 MRA HEAD Clinical Statement: Cluster headaches Comparison: MRI brain from 11/05/2024 Technique: 3-D time of flight magnetic resonance angiographic images ofthe [place] of [place] were obtained and presented with the source images,compression image, and maximum intensity projection images in rotatingformat. Findings: The vertebral arteries are codominant. The basilar artery is normal inappearance and gives off normal superior cerebellar and posterior cerebralarteries. The internal carotid arteries are normal from the distalcervical segments to the carotid terminus. The middle and anteriorcerebral arteries are normal in appearance. There is no evidence ofsignificant intracranial stenosis, major branch occlusion, aneurysm, orvascular malformation. IMPRESSION: Impression:Normal MRA of the [place] of [place]. -------- FINAL REPORT -------- Dictated By: Sb Armenta Dictated Date: 01/14/2025 17:29 ET Assigned Physician: Sb Armenta Reviewed and Electronically Signed By: Sb Armenta Signed Date: 01/14/2025 17:34 ET Workstation ID: [id number] Transcribed By: Self Edit Transcribed Date: 01/14/2025 17:29 ET Rinku Valentin MD IMG MRI PROCEDURES Final Result from Last 3 Months Insurance [facility] MEDICARE Care Teams Service Mechanic Relationship Specialty Start Date End Date Beverley Perez MD [address] [place] [address] PCP - General Internal Medicine 10/31/24
--- OUTSIDE RECORDS SUMMARY | 2025-03-13 08:09 | XMS_ITS | Continuity of Care Document ---
Author Organization [facility] Address [address] [place] [address] Phone [phone] Care Team Providers Care Cabin Service Agent Name Role Phone Beverley Perez Care Team Information Tnt Line Supervisor + [phone] Problems Active Problems Provider Date Vitamin D [...] Social History Type Date Description Comments Sex Female Sex Unknown Marital Status Legal Status: Lives With Spouse Tobacco Use Start: Unknown Never Smoked Cigarettes ETOH Use Never used alcohol Allergies and adverse reactions Description No Known Drug Allergies Medications Active Medications SIG Qnty Indications Ordering Provider Date Felodipine ER2.5mg Tablets ER 24HR Take 1 Tablet By Mouth Daily Beverley Perez Olmesartan Zcvnnnngt82rd Tablets Take 1 Tablet By Mouth Daily Beverley Perez Dezwmfv702ja Tablets DR Take 1 Tablet By Mouth Twice Daily Denisse Magallanes PA Iqygua55ey Capsules Unknown Vjfdurwvfzi628rt Capsules Unknown [id number] Chewtabs 1 by mouth every day Unknown Fsghzapyh696tx Tablets 1 by mouth every day Unknown Qxxotywanb26ik Tablets 1 by mouth every day Unknown Vital Signs Date Vital Result Comment 02/12/2025 2:25pm BP Systolic 120 mmHg BP Diastolic 64 mmHg Heart Rate 87 /min Height 62 inches 5'2 Weight 169.50 lb BMI (Body Mass Index) 31.0 kg/m2 Results Test Acquired Date Facility Test Result H/L Range N ote TSH Rfx on Abnormal to Free T4 08/16/2024 [facility] TSH Rfx on Abnormal to Free T4 1.020 uIU/mL 0.450-4.50 0 Thyroid Peroxidase (Tpo) Ab 03/08/2024 [facility] Thyroid Peroxidase (Tpo) Ab <9 IU/mL 0-34 Medical Devices Description No Information Available Encounters Type Date Location Provider Dx Diagnosis Office Visit 02/12/2025 2:15p Main Office GENEVIEVE Moran 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
[2025-03-13 08:11] VITALS: BP 144/76; PULSE 102; TEMP 37.1; O2SAT 96; BMI 31.0
--- NOTE | 2025-03-13 08:11 | AM.OFFWIN_ITS ---
Intake Vital Signs 03/13/25 08:11 Height 5 ft 2 in Weight 169 lb 6 oz BMI 31.0 BP 144/76 H Blood Pressure Location Rt brachial Position Sitting Pulse 102 H Pulse Source Pulse Oximeter Temp 98.8 F Temp Source Oral Pulse Oximetry (%) 96 Oxygen Delivery Method Room Air Intake Visit Reasons: EP Dry Cough, throat Intake Note: Patient went to of the country and returned last Monday and has had cough since she return, cough is dry non productive and not painful Patient Tobacco Use Status: Never used Tobacco Instrument Maker And Repairer Required: Yes Patient : No Allergies donepezil Adverse Reaction (Intermediate, Verified 03/13/25 08:16) Nausea trazodone Adverse Reaction (Intermediate, Verified 03/13/25 08:16) Dizziness Do you need a note to return to daycare/school/sports/work: Yes HPI HPI Comments History of Present Illness Details 79 y/o Female patient who presents to [facility] walk in clinic with c/o Non- productive cough for 5 days now. She was outside the country, returned Last Monday. Denies fevers, chills, nausea or vomiting. [facility] Medical History (Updated 03/13/25 @ 08:41 by Stephie Dodson NP) Acute respiratory disease IBS (irritable bowel syndrome) Osteoarthritis of right hip Thyroid nodule Arthritis Palpitations Vitamin D deficiency Annual physical exam Insomnia Memory deficit Hyperglycemia Hyperlipidemia History of mammogram Chronic neck pain Arthralgia Tension headache RLS (restless legs syndrome) Osteoarthritis of both knees Balance problem Osteoarthritis of right shoulder Sciatica of left side Sciatica, right side Hypertension Surgical History History of bunionectomy Hx of shoulder surgery Hx of spinal surgery H/O colonoscopy Family History Father Stroke Mother Lung cancer Social History Household Members: Spouse Housing: Condominium Are you a primary complex care nurse to a significant other at home: No Do you presently have visiting nurse or other home services: No Alcohol intake: current Alcohol intake frequency: does not drink Patient Tobacco Use Status: Never used Tobacco e-Cigarette/Vaping Use: Never Used Patient : No service: No Current occupational status: retired Cognitive needs: No Hearing needs: No Vision needs: Yes Review of Systems Const All systems reviewed & are unremarkable except as noted in HPI and below Physical Exam Vital Signs: Last Vital Signs Temp 98.8 F 03/13/25 08:11 Pulse 102 H 03/13/25 08:11 BP 144/76 H 03/13/25 08:11 Pulse Ox 96 03/13/25 08:11 Oxygen Delivery Method Room Air 03/13/25 08:11 BMI result Body Mass Index 31.0 Const General: no acute distress Nutritional Appearance: overweight Orientation/consciousness: patient oriented x3 HEENT Head: Yes normocephalic Ears: external ears normal and TM abnormal bulging and with fluid behind the TM bilateral; not perforated and not retracted General nose exam: Nasal discharge present Face and sinus: Yes sinuses nontender Mouth: moist mucous membranes Throat: Yes uvula midline Resp Effort & Inspection: normal respiratory effort and able to speak in complete sentences Auscultation: clear to auscultation bilaterally, no crackles, no rales, no rhonchi and no wheezes Cardio Heart sounds: S1 normal heart sound present and S2 normal heart sound present Neuro General: patient oriented x3 Assessment & Plan Assessment & Plan (1) Acute respiratory disease: Code(s): J06.9 - Acute upper respiratory infection, unspecified Plan: Ordered Cough medicines Ordered SARs Acetaminophen for pain relief. Orders: Orders SARS-CoV2/FLU/RSV Today J06.9 - Acute upper respiratory infection, unspecified Medications: New dextromethorphan polistirex ER (Delsym 12 hour) 10 mL PO Q12H 89 mL 0RF cough J06.9 - Acute upper respiratory infection, unspecified benzonatate 200 mg (2 x 100 mg) PO BID 60 caps 0RF cough J06.9 - Acute upper respiratory infection, unspecified Coding Level of Care Code Est Pt Level 4 (14857) Diagnoses Acute respiratory disease J06.9 Time Spent (min) 20
== END 2025-03-13 08:41 | disposition home or self-care (01) ==
PROVIDERS: PCP Internal Medicine; Visit Provider Nurse Practitioner Family
DX: J06.9 Acute upper respiratory infection, unspecified (principal)

== ENCOUNTER 2025-03-13 08:05 | Outpatient (REF) | payer MEDICARE, SELFPAY ==
[2025-03-13 11:07] LABS: Resp Syncy Virus RNA Qual PCR NEGATIVE (Negative); SARS COV2 PCR INHOUSE NEGATIVE (Negative)
== END 2025-03-13 08:06 | disposition home or self-care (01) ==
LOC: HO.LAB 08:05
PROVIDERS: PCP Internal Medicine; Visit Provider Nurse Practitioner Family
DX: J06.9 Acute upper respiratory infection, unspecified (principal); R05.9 Cough, unspecified; Z20.822 Contact with and (suspected) exposure to COVID-19
CPT/HCPCS: 87637; 99212

== ENCOUNTER → 2025-03-26 10:32 | Outpatient (REF) | payer MEDICARE, SELFPAY ==
--- OUTSIDE RECORDS SUMMARY | 2025-03-26 11:06 | XMS_ITS | Clinical Summary ---
Author Organization [facility] [address] Address [address] [place] [address] Phone Care Team Providers Care Distribution Operations Supervisor Name Role Phone Beverley Perez MD Primary Care Provider [phone] Medications amoxicillin (AMOXIL) 500 mg capsule TAKE [...] PM EDT Hospital Encounter Radiology Department - [address] [phone] Multiple thyroid nodules Discharge Disposition: Home or Self Care 01/14/2025 11:15 AM EDT - 01/14/2025 11:59 PM EDT Hospital Encounter Radiology Department - [address] [address] Cluster headache, not intractable, unspecified chronicity pattern; Unilateral headache; Cerebral aneurysm, nonruptured Discharge Disposition: Home or Self Care 01/07/2025 2:20 PM EDT Office Visit Neurology - [address] [place] [address] Rinku Valentin MD Cluster headache, not intractable, unspecified chronicity pattern (Primary Dx); Gait difficulty; Unilateral headache; Cerebral aneurysm, nonruptured; Mild cognitive impairment from Last 3 Months Surgical History Surgery Date Site/Laterality Comments OTHER SURGICAL HISTORY Right PROCEDURE: NC BIOPSY OVARY UNI/BI SEPARATE PROCEDURE Medical History [...] 9:20 AM EST Office Visit Endocrinology - [facility] [address] [place] [id number] Maddi De La Cruz PA [address] [place] [address] Health Maintenance Due Date Last Done Comments [...] interval change in thyroid nodules. POS - [id number] -------- FINAL REPORT -------- Dictated By: Sara Mccracken Dictated Date: 01/30/2025 14:18 ET Assigned Physician: Sara Mccracken Reviewed and Electronically Signed By: Sara Mccracken Signed Date: 01/30/2025 14:32 ET Workstation ID: [id number] Transcribed By: Self Edit Transcribed Date: 01/30/2025 [...] interval change in thyroid nodules. POS - [id number] -------- FINAL REPORT -------- Dictated By: Sara Mccracken Dictated Date: 01/30/2025 14:18 ET Assigned Physician: Sara Mccracken Reviewed and Electronically Signed By: Sara Mccracken Signed Date: 01/30/2025 14:32 ET Workstation ID: [id number] Transcribed By: Self Edit Transcribed Date: 01/30/2025 14:18 ET us Emil Ha MD IMАндрей US PROCEDURES Final Result * MR Angio Head wo Contrast (01/14/2025 12:01 PM EDT) Anatomical Region Laterality Modality Head and Neck Magnetic Resonan ce 01/14/2025 5:29 PM EDT Impressions 01/14/2025 5:34 PM EDT Impression:Normal MRA of the [place]. -------- FINAL REPORT -------- Dictated By: Sb Armenta Dictated Date: 01/14/2025 17:29 ET Assigned Physician: Sb Armenta Reviewed and Electronically Signed By: Sb Armenta Signed Date: 01/14/2025 17:34 ET Workstation ID: [id number] Transcribed By: Self Edit Transcribed Date: 01/14/2025 17:29 ET Narrative 01/14/2025 5:34 PM EDT MRA HEAD Clinical Statement: Cluster headaches Comparison: MRI brain from 11/05/2024 Technique: 3-D time of flight magnetic resonance angiographic images of the [place] were obtained and presented with [...] of flight magnetic resonance angiographic images ofthe [place] were obtained and presented with [...] orvascular malformation. IMPRESSION: Impression:Normal MRA of the [place]. -------- FINAL REPORT -------- Dictated By: Sb Armenta Dictated Date: 01/14/2025 17:29 ET Assigned Physician: Sb Armenta Reviewed and Electronically Signed By: Sb Armenta Signed Date: 01/14/2025 17:34 ET Workstation ID: [id number] Transcribed By: Self Edit Transcribed Date: 01/14/2025 17:29 ET Rinku Valentin MD IMG MRI PROCEDURES Final Result from Last 3 Months Insurance [facility] MEDICARE Care Teams Distribution Operations Supervisor Relationship Specialty Start Date End Date Beverley Perez MD [address] [place] [address] PCP - General Internal Medicine 10/31/24
--- OUTSIDE RECORDS SUMMARY | 2025-03-26 11:06 | XMS_ITS | Patient Health Record ---
Author Organization [facility] Address [address] [place] [address] Care Team Providers Care Spring Bender Name Role Phone Beverley Perez MD Primary Care Provider FATOUMATA Pop Unavailable [phone] Allergies No Known Allergies Reason For Referral [...] Risk Notes Problem Cyst of right ovary ([id number]) Other ovarian cyst, right side (N83.291) Active confirmed Vital Signs Temperature 97.8 degrees Fahrenheit 11/25/2024 Blood pressure diastolic 88 mm Hg 11/25/2024 Height 62.5 in 11/25/2024 Blood pressure systolic 158 mm Hg 11/25/2024 Weight 167 lbs 11/25/2024 BMI 30.05 kg/m2 11/25/2024 Encounters Encounter Location Date Provider Diagnosis [facility] [employer] [facility] [address] [place] [address] 10/07/2024 FATOUMATA QUIÑONES Encounter for gynecological examination (general) (routine) without abnormal findings Z01.419 and Encounter for screening mammogram for malignant neoplasm of breast Z12.31 [facility] [address] [place] [address] 11/25/2024 FATOUMATA QUIÑONES Pruritus vulvae L29. 2 [...] End Date [employer] MEDICARE COMPLETE [address] [address] [place] [address] [id number] CORNELL JOSHI Self - patient is the [...]
--- OUTSIDE RECORDS SUMMARY | 2025-03-26 11:06 | XMS_ITS | Clinical Summary ---
Author Organization [facility] Address [address] [place] [address] Care Team Providers Care Business Account Manager Name Role Phone Unavailable Primary Care Provider [...] Type Department Care Team Description 02/18/2025 Telephone [facility]ULT [facility] [address] [place] [address] Bassam Rivas DDS from Last 3 Months [...] - 1-dose 75+ series) 2022 COVID-19 Vaccine (1 - 2023-2 5 season) 2024 Influenza Vaccine (#1) 2025 Tobacco Screening 12/02/2025 12/02/2024 HIB Vaccines [...] to complete this topic Insurance DENTAL - [facility]
== END ==
LOC: HO.SL 10:32
PROVIDERS: PCP Internal Medicine; Visit Provider Internal Medicine
DX: G47.33 Obstructive sleep apnea (adult) (pediatric) (principal); G47.30 Sleep apnea, unspecified
CPT/HCPCS: 95806

== ENCOUNTER → 2025-03-26 10:40 | Outpatient (BNV) | payer MEDICARE, SELFPAY | PROVIDERS: PCP Internal Medicine; Visit Provider Internal Medicine | DX: G47.33 Obstructive sleep apnea (adult) (pediatric) (principal) | CPT/HCPCS: 95806 ==

== ENCOUNTER 2025-06-20 10:51 | Outpatient (AMB) | payer MEDICARE, SELFPAY ==
--- NOTE | 2025-06-20 11:00 | A.OFFVIS_ITS ---
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 Patient complains of frequent leg cramps usually worse at night waking patient up(like horse kicks). She tried taking jyuz-llw-hwpisqz magnesium and mustard seeds without improvement. HST in chart(AHI-20, ROSANA 74%. APAP 6-20cm) Staff Physical Therapy Assistant Required: Yes Staff Physical Therapy Assistant Services: Staff Physical Therapy Assistant Offered & Declined Staff Physical Therapy Assistant Name: Daughter Information Interpreted: non-clinical & clinical Accompanied by: Daughter Allergies donepezil Adverse Reaction (Intermediate, Verified 06/20/25 11:05) Nausea trazodone Adverse Reaction (Intermediate, Verified 06/20/25 11:05) Dizziness HPI Comments Details: 80 year old Thai speaking female presents for an evaluation of ching and memory issues. Beverley her daughter is here with her today and helps with history taking. HST reviewed with pt AHI is 20/hr and oxygen desaturation to 74%, below 88% for 19min, she has mild nocturnal hypoxemia. Once established on therapy [id number] will f/u with overnight oximetry. She recently lost her in January 2025 and has been living alone. Sasha lives 2 miles away from her and visits daily. Sasha notices Anitha's memory is poor as she is more forgetful and confused.She is easily fatigued and needs to nap daily. She used to be an excellent cook, now mixes up recipes and can not remember if salt was added to the dishes. She left soup on the stove and forgot to shut off the stove. She has to write everything down or she will not remember. She forgets the days of the week, loses track of time, lacks attention and focus. She needs direction and repetition with all tasks. She drives locally, short distances and never at night. She is independent with all ADLs. She can dress herself, showers, makes breakfast, and maintains a clean home. Sasha does all her finances, takes her grocery shopping and to her appts. She has bilateral RLS symptoms with kicking and moving her legs at night. She has painful cramps with paresthesias which wake her up from sleep. She has multiple night time arousals with snoring and gasping for air. She denies morning headaches, parasomnias, hallucination, GERD. She has on going balance and gait issues with many near falls is not using any assisted devices. [facility] Medical History Acute respiratory disease IBS (irritable bowel syndrome) Osteoarthritis of right hip Thyroid nodule Arthritis Palpitations Vitamin D deficiency Annual physical exam Insomnia Memory deficit Hyperglycemia Hyperlipidemia History of mammogram Chronic neck pain Arthralgia Tension headache RLS (restless legs syndrome) Osteoarthritis of both knees Balance problem Osteoarthritis of right shoulder Sciatica of left side Sciatica, right side Hypertension Surgical History History of bunionectomy Hx of shoulder surgery Hx of spinal surgery H/O colonoscopy Family History Father Stroke Mother Lung cancer Social History Household Members: [facility] Are you a primary caregiver assisted living to a significant other at home: No Do you presently have visiting nurse or other home services: No Alcohol intake: current Alcohol intake frequency: does not drink Patient Tobacco Use Status: Never used Tobacco e-Cigarette/Vaping Use: Never Used service: No Current occupational status: retired Cognitive needs: No Hearing needs: No Vision needs: Yes Physical Exam Vital Signs: Last Vital Signs Pulse 87 06/20/25 11:01 BP 134/70 06/20/25 11:01 Pulse Ox 93 06/20/25 11:01 Oxygen Delivery Method Room Air 06/20/25 11:01 BMI result Body Mass Index 30.4 Const General: cooperative, comfortable and no acute distress Nutritional Appearance: average body habitus HEENT Face and sinus: Yes face symmetric Teeth and gingiva: other ([place] score of 4) Eyes Pupils: Equal, round and reactive pupils present Neck Neck: Yes full ROM Resp Effort & Inspection: normal respiratory effort and able to speak in complete sentences Neuro Other: language barrier General: moves all extremities Cranial nerves: Yes Equal, round and reactive pupils present, Yes Normal accommodation reflex present, Yes Normal facial strength present, Yes Midline tongue present, Yes Ability to bilaterally rotate head present and Yes Ability to bilaterally elevate shoulders present Gait exam (Neuro): Normal gait present and Wide-based gait present Motor exam (neuro): 5/5 motor strength present throughout and Normal motor muscle tone present throughout Psych Appearance: grossly normal Speech and movement: Normal speech and movement present Attitude: cooperative Results Reviewed Results Reviewed: HST reviewed with pt AHI is 20/hr and oxygen desaturation to 74%, below 88% for 19min, she has mild nocturnal hypoxemia. Labs reviewed with pt. Assessment & Plan Assessment & Plan (1) CHING (obstructive sleep apnea): Code(s): G47.33 - Obstructive sleep apnea (adult) (pediatric) Category: Medical (2) Low vitamin D level: Code(s): R79.89 - Other specified abnormal findings of blood chemistry Category: Medical (3) RLS (restless legs syndrome): Code(s): G25.81 - Restless legs syndrome Category: Medical (4) Confusion and disorientation: Code(s): R41.0 - Disorientation, unspecified Category: Medical (5) Fatigue: Code(s): R53.83 - Other fatigue Category: Medical Qualifiers: Fatigue type: unspecified Qualified Code(s): R53.83 - Other fatigue (6) Chronic fatigue syndrome: Code(s): G93.32 - Myalgic encephalomyelitis/chronic fatigue syndrome Category: Medical Plan CHING Moderately severe will start her on cpap therapy and monitor for compliance, once established on therapy will evaluate nocturnal hypoxemia with night time pulse oximetry. rx sent [facility]. Cognitive impairment start donepezil 5mg po daily, will conduct MMSE at next visit. Bilateral Restless legs with cramps start Gabapentin 300mg po daily at bedtime. Magnesium 400mg po daily, continue B12 1000mcg po every other night. Labs B12 and Vitamin D request from Maria R Osullivan's office Language barrier [phone] please call daughter for mask fitting and appts. pt does not speak Swedish daughter is hcp. Orders: Orders Ferritin Today G93.32 - Myalgic encephalomyelitis/chronic fatigue syndrome, R53.83 - Other fatigue Homocysteine Today G47.9 - Sleep disorder, unspecified, G93.32 - Myalgic encephalomyelitis/chronic fatigue syndrome, R53.83 - Other fatigue Vitamin D 25-OH Total Today G93.32 - Myalgic encephalomyelitis/chronic fatigue syndrome, R53.83 - Other fatigue Vitamin B12 and Folate Today G93.32 - Myalgic encephalomyelitis/chronic fatigue syndrome, R53.83 - Other fatigue Methylmalonic Acid Today G47.9 - Sleep disorder, unspecified, G93.32 - Myalgic encephalomyelitis/chronic fatigue syndrome, R53.83 - Other fatigue Medications: New gabapentin 300 mg PO BEDTIME 90 caps 0RF Restless legs 3 months MDD 300mg G25.81 - Restless legs syndrome, G47.33 - Obstructive sleep apnea (adult) (pediatric), R79.89 - Other specified abnormal findings of blood chemistry donepezil 5 mg PO BEDTIME 90 tabs 0RF confusion 3 months MDD 5mg R41.0 - Disorientation, unspecified Patient Instructions: Sleep Hygiene provided: set a scheduled bedtime and wake time to help regulate the circadian rhythm and balance the release of pituitary hormones. Sleep in a dark room, temperatures below 68 degrees, and no devices n bed. Limit caffeinated products 6 hours prior to bed, and limit fluids 2-4 hours prior to bed. Gentle night yoga, diffusing essential oils, and playing soft music can be relaxing. Coding Level of Care Code New Pt Level 4 (56066) Diagnoses CHING (obstructive sleep apnea) G47.33 Low vitamin D level R79.89 RLS (restless legs syndrome) G25.81 Confusion and disorientation R41.0 Fatigue, unspecified type R53.83 Fatigue type: unspecified Chronic fatigue syndrome G93.32
[2025-06-20 11:01] VITALS: BP 134/70; PULSE 87; O2SAT 93; BMI 30.4
--- OUTSIDE RECORDS SUMMARY | 2025-06-20 11:57 | XMS_ITS | Continuity of Care Document ---
Author Organization [facility] Address [address] [place] [address] Phone [phone] Care Team Providers Care Air Hammer Stripper Name Role Phone Beverley Perez Care Team Information Water Quality Technician + [phone] Problems Active Problems Provider Date Vitamin D [...] Tablet By Mouth Daily Beverley Perez Olmesartan Ltrideuti47gy Tablets Take 1 Tablet By Mouth Daily Beverley Perez Wxfkflo751ft Tablets DR Take 1 Tablet By Mouth Twice Daily Denisse Magallanes PA Ykzmpg91yf Capsules Unknown Gmzdfezdplp979pi Capsules Unknown Uaespn6818upg Chewtabs 1 by mouth every day Unknown Trfkzwtdc091gn Tablets 1 by mouth every day Unknown Yvmekqeyjo95fw Tablets 1 by mouth every day Unknown [...] multinodular goiter GENEVIEVE Moran Plan of Treatment No Information Available Functional Status Description No Information Available Mental Status Description No Information Available Referrals Description No Information Available
== END 2025-06-20 11:42 | disposition home or self-care (01) ==
PROVIDERS: PCP Internal Medicine; Visit Provider Physician Assistant Medical
DX: G47.33 Obstructive sleep apnea (adult) (pediatric) (principal); R79.89 Other specified abnormal findings of blood chemistry; G25.81 Restless legs syndrome; R41.0 Disorientation, unspecified; R53.83 Other fatigue; G93.32 Myalgic encephalomyelitis/chronic fatigue syndrome
CPT/HCPCS: 99204

== ENCOUNTER → 2025-06-20 10:51 | Outpatient (BNVA) | payer MEDICARE, SELFPAY | PROVIDERS: PCP Internal Medicine; Visit Provider Physician Assistant Medical | DX: G47.33 Obstructive sleep apnea (adult) (pediatric) (principal); G93.32 Myalgic encephalomyelitis/chronic fatigue syndrome; G25.81 Restless legs syndrome; R53.83 Other fatigue; R41.0 Disorientation, unspecified; R79.89 Other specified abnormal findings of blood chemistry | CPT/HCPCS: 99202 ==

== ENCOUNTER 2025-07-10 08:19 | Outpatient (REF) | payer MEDICARE, SELFPAY ==
--- OUTSIDE RECORDS SUMMARY | 2025-07-10 08:54 | XMS_ITS | Encounter Summary ---
Author Organization [facility] Address [address] [place] [address] Care Team Providers Care Compression Molding Machine Tender Name Role Phone Beverley Perez MD Primary Care Provider Unavaila ble Encounter Details Date Type Department Care Team Description 10/19/2023 Transfer Records Medical Records [address] [place] [id number] Beverley Perez MD Social History Tobacco Use Types Packs/Day Years Used Date Smoking Tobacco: Never Smokeless Tobacco: Never Alcohol Use Standard Drinks/Week Comments No 0 (1 standard drink = 0.6 oz pur e alcohol) Sex Assigned at Date Recorded Not on file Job Start Date Occupation Industry Not on file Not on file Not on file documented as of this encounter Plan of Treatment Not on file documented as of this encounter Visit Diagnoses Not on filedocumented in this encounter Care Teams Compression Molding Machine Tender Relationship Specialty Start Date End Date Beverley Perez MD PCP - General Internal Medicine 11/23/15 documented as of this encounter
--- OUTSIDE RECORDS SUMMARY | 2025-07-10 08:54 | XMS_ITS | Continuity of Care Document ---
Author Organization [facility] Address [address] [place] [address] Phone [phone] Care Team Providers Care Clinical Documentation Clerk Name Role Phone Beverley Perez Care Team Information Director Of National Sales + [phone] Problems Active Problems Provider Date Vitamin D [...] Tablet By Mouth Daily Beverley Perez Olmesartan Wjnnhhdoj45am Tablets Take 1 Tablet By Mouth Daily Beverley Perez Zvqgdgd706qn Tablets DR Take 1 Tablet By Mouth Twice Daily Denisse Magallanes PA Aisegj51ny Capsules Unknown Xhidmagfeoj523uj Capsules Unknown Tlyjuw6881owa Chewtabs 1 by mouth every day Unknown Tqtzdyxyg936pk Tablets 1 by mouth every day Unknown Ngmocnsdad27gq Tablets 1 by mouth every day Unknown [...]
--- OUTSIDE RECORDS SUMMARY | 2025-07-10 08:54 | XMS_ITS | Clinical Summary ---
Author Organization [facility] Address [address] [address] Phone Care Team Providers Care Kindergartners Helper Name Role Phone Beverley Perez MD Primary Care Provider [phone] Allergies Active Allergy Reactions Criticality Noted Date Comments Ibuprofen Mental Status Change 07/13/2017 Acetaminophen Mental Status Change 07/13/2017 Medications omega 6-ydp-ibc-fish oil 1,000 mg (120 mg-180 mg) Cap Take 1 capsule by mouth daily. Active cholecalciferol (VITAMIN D3) 2,000 unit capsule Take 2,000 Units by mouth daily. Active olmesartan (BENICAR) 40 mg tablet Take 40 mg by mouth daily. Active ginkgo biloba 40 mg Tab Take by mouth. Active glucosamine 500 mg CapIndications: with MSM Take 500 mg by mouth daily. Indications: with MSM Active VITAMIN K2 ORAL Take by mouth. Active LUTEIN ORAL Take by mouth daily. Active ascorbic acid, vitamin C, (VITAMIN C) 1000 MG tablet Take 1,000 mg by mouth daily as needed. Active Active Problems Problem Noted Date Diagnosed Date Pain of left hip joint 11/13/2017 Trochanteric bursitis of both hips 07/13/2017 Primary osteoarthritis involving multiple joints 07/13/2017 Assessment & Plan (10/13/2019 4:53 PM EST): Joint protection, energy conservation. Gentle, regular exercise routine. Avoid falls, injuries, overuse. Limit stair climbing, squatting, kneeling. Keep body weight in ideal range for her height. She may benefit from topical cream such as Arnica, Biofreeze, Aspercreme versus medicated patches such as salonpas, icy hot patch 2-3 times daily and if necessary at bedtime x 3 weeks. Carefully continue glucosamine with MSM. Regular warm pool therapy may provide additional benefit. If worse, unable to manage with above measures consider local steroid injection. Pamphlet on Synvisc provided today Social History Tobacco Use Types Packs/Day Years Used Date Smoking Tobacco: Never Smokeless Tobacco: Never Alcohol Use Standard Drinks/Week Comments No 0 (1 standard drink = 0.6 oz pur e alcohol) Education Answer Date Recorded Are you interested in more education? Not on justo e 01/06/2023 Are you concerned about learning? Not on file 01/06/2023 No 01/06/2023 No 01/06/2023 Digital Access Answer Date Recorded No 02/04/2023 No 02/04/2023 No 02/04/2023 Reliable internet access at home? Not on file 02/04/2023 Device with a working camera? Not on file Comments Unknown Sex and Gender Information Value Date Recorded Sex Assigned at Not on file Legal Sex Female 10:06 PM EDT Gender Identity Not on file Sexual Orientation Not on file Last Filed Vital Signs Vital Sign Reading Time Taken Comments Blood Pressure 130/64 10/10/2019 8:12 AM EST Pulse 76 12/19/2016 10:43 AM EDT Temperature - - Respiratory Rate - - Oxygen Saturation - - Inhaled Oxygen Concentration - - Weight 72 kg (158 lb 12.8 oz) 10/10/2019 8:12 AM EST with shoes Height 160 cm (5' 3 ) 10/10/2019 8:12 AM EST Body Mass Index 28.13 10/10/2019 8:12 AM EST Plan of Treatment Health Maintenance Due Date Last Done Comments Adult Td,Tdap Booster 1945 CREATININE LEVEL 1945 LIPID PANEL 1947 POTASSIUM LEVEL 1947 DEPRESSION SCREENING 1959 HEPATITIS C SCREENING 1965 ZOSTER VACCINES (1 of 2) 1997 OSTEOPOROSIS SCREENING INITIAL (ONE-TIME) 2012 PNEUMOCOCCAL VACCINES (50+ years) (2 of 2 - PCV) 08/02/2017 08/02/2016 RSV VACCINE (1 - 1-dose 75+ series) 2022 INFLUENZA VACCINE (#1) 2025 COVID-19 VACCINE (2024- season) 2025 06/01/2022, 06/14/2021, 12/13/2020, Additional history exists SMOKING STATUS SCREENING (Once After 26 Yrs) Completed 10/10/2019 HEPATITIS A VACCINES Aged Out No long er eligible based on patient's age to complete this topic HIB VACCINES Aged Out No longer eligi ble based on patient's age to complete this topic MENINGOCOCCAL VACCINES (ACWY) Aged Out No longer eligible based on patient's age to complete this topic MENINGOCOCCAL VACCINES (B) Aged Out N o longer eligible based on patient's age to complete this topic Medical Devices Not on file Insurance [facility] MEDIC[facility] REPLACEMENT [facility] RE[facility] REPLACEMENT [facility]PLACEMENT [facility] MED[facility] REPLACEMENT [facility] MED[facility] REPLACEMENT [facility] MEDIC[facility] REPLACEMENT [place] [id number] [facility] MEDIC[facility] REPLACEMENT [place] [id number] Care Teams Kindergartners Helper Relationship Specialty Start Date End Date Beverley Perez MD [address] [place] [address] PCP - General Internal Medicine 07/12/17 Additional Source Comments The information contained in this document represents components of the legal health record. It is not the complete legal health record.[facility]
--- OUTSIDE RECORDS SUMMARY | 2025-07-10 08:54 | XMS_ITS | Clinical Summary ---
Author Organization [employer] Address [address] [facility] [address] [place] [address] Care Team Providers Care Wood Model Builder Name Role Phone Unavailable Primary Care Provider Unavailabl e Allergies Active Allergy Reactions Criticality Noted Date Comments Acetaminophen Mental status change 07/13/2017 Ibuprofen Mental status change 07/13/2017 Medications ascorbic acid (Vitamin C) 1000 MG [...] Do not crush, chew, or split. Active Lutein 20 MG tablet Take by mouth. Active glucosamine-brittanie droitin 500-400 MG tablet Take 1 tablet by mouth 3 times daily. Active famotidine (Pepcid) 40 MG/5ML suspension Take by mouth. Active memantine (Namenda) 5 MG tablet Take by mouth. Active Glucosamine 500 MG capsule Take 500 mg by mouth Once per day. Active Active Problems Problem Noted Date Diagnosed [...] Encounters Date Type Department Care Team Description 05/13/2025 1:00 PM EDT Office Visit [facility] [address] [place] [address] Regina Willingham DDS 04/30/2025 Telephone [facility] [address] [place] [address] Regina Willingham DDS 04/28/2025 1:00 PM EDT Office Visit [facility] [address] [place] [address] Bassam Rivas DDS 04/14/2025 11:30 AM EDT Office Visit [facility] [address] [place] [address] Regina Willingham DDS from Last 3 Months Social History [...] Sign Reading Time Taken Comments Blood Pressure 130/78 04/28/2025 1:35 PM EDT Pulse 67 04/28/2025 1:35 PM EDT Temperature - - Respiratory Rate - - Oxygen Saturation - - Inhaled Oxygen Concentration - - Weight - - Height - - Body Mass Index - - Plan of Treatment Health Maintenance Due Date Last Done Comments Depression Screening 1947 Lipid Panel 1947 SDOH Screening 1947 Alcohol/Substance Use Screening 1959 Hepatitis C Screening 1965 DTaP/Tdap/Td Vaccines (1 - Tdap) 1966 Pneumococcal Vaccine: 50+ Ye ars (1 of 1 - PCV) 1997 Zoster Vaccines (1 of 2) 1997 RSV Patients and Pa tients Aged 60 years or older (1 - 1-dose 75+ series) 2022 COVID-19 Vaccine (1 - 2023-2 5 season) 2025 Influenza Vaccine (#1) 2025 Dental Oral Exam 11/11/2025 05/13/2025 Dental Prophylaxis 11/11/2025 05/13/2025 Tobacco Screening 05/13/2026 05/13/2025 Dental X-Ray: Bitewings 05/14/2026 05/13/2025 Dental X-Ray: Full Mouth 05/14/2028 05/13/2025 HIB Vaccines Aged Out No longer eligi [...] Procedure Name Priority Date/Time Associated Diagnosis Comments INTRAORAL - COMPLETE SERIES OF RADIOGRAPHIC IMAGES Routine 05/13/2025 1:00 PM EDT COMPREHENSIVE ORAL EVALUATION - NEW OR ESTABLISHED PATIENT Routine 05/13/2025 1:00 PM EDT PROPHYLAXIS - ADULT Routine 05/13/2025 1 :00 PM EDT 27 ROOT CANAL Routine 05/13/2025 12:00 AM EDT 27 CROWN - PORCELAIN/CERAMIC Routine 05/13/2025 12:00 AM EDT 25 FI COMPOSITE FILLING Routine 05/13/20 25 12:00 AM EDT 24 FI COMPOSITE FILLING Routine 05/13/20 12:00 AM EDT 23 FF(V)I COMPOSITE FILLING Routine 05/13/2025 12:00 AM EDT 22 FF(V) COMPOSITE FILLING Routine 05/13/2025 12:00 AM EDT 21 CROWN - PORCELAIN/CERAMIC Routine 05/13/2025 12:00 AM EDT 20 CROWN - PORCELAIN/CERAMIC Routine 05/13/2025 12:00 AM EDT 15 DO AMALGAM FILLING Routine 05/13/2025 12:00 AM EDT 13 CROWN - PORCELAIN/CERAMIC Routine 05/13/2025 12:00 AM EDT 12 CROWN - PORCELAIN/CERAMIC Routine 05/13/2025 12:00 AM EDT 12 ROOT CANAL Routine 05/13/2025 12:00 AM EDT 11 CROWN - PORCELAIN/CERAMIC Routine 05/13/2025 12:00 AM EDT 11 ROOT CANAL Routine 05/13/2025 12:00 AM EDT 10 MIDFF(V)LL(V) COMPOSITE FILLING Routine 05/13/2025 12:00 AM EDT 9 MIDFF(V)LL(V) COMPOSITE FILLING Routine 05/13/2025 12:00 AM EDT 8 MIDFF(V)LL(V) COMPOSITE FILLING Routine 05/13/2025 12:00 AM EDT 7 MIDFF(V)LL(V) COMPOSITE FILLING Routine 05/13/2025 12:00 AM EDT 6 CROWN - PORCELAIN/CERAMIC Routine 05/13/2025 12:00 AM EDT 7 ROOT CANAL Routine 05/13/2025 12:00 AM EDT 6 ROOT CANAL Routine 05/13/2025 12:00 AM EDT 22 FLL(V) COMPOSITE FILLING Routine 05/13/2025 12:00 AM EDT 14 LIMITED ORAL EVALUATION - PROBLEM FOCUSED Routine 04/28/2025 1:00 PM EDT CONSULTATION - DIAGNOSTIC SERVICE PROVIDED BY DENTIST OR PHYSICIAN OTHER THAN REQUESTING DENTIST OR PHYSICIAN Routine 04/14/2025 11:30 AM EDT from Last 3 Months Insurance DENTAL - [facility]
--- OUTSIDE RECORDS SUMMARY | 2025-07-10 08:54 | XMS_ITS | Clinical Summary ---
Author Organization [facility] [address] [facility] Address [address] [place] [address] Phone Care Team Providers Care Health Safety Instructor Name Role Phone Beverley Perez MD Primary Care Provider [phone] Medications amoxicillin (AMOXIL) 500 mg capsule TAKE [...] at bedtime. 90 each 2 5 02/07/20 Active Active Problems Problem Noted Date Diagnosed Date Other amnesia 10/31/2024 Surgical History Surgery Date Site/Laterality Comments OTHER SURGICAL HISTORY Right PROCEDURE: KS BIOPSY OVARY UNI/BI SEPARATE PROCEDURE Medical History [...] 9:20 AM EST Office Visit Endocrinology - [place] [address] [place], [place] [phone] Maddi De La Cruz PA [address] [place] [address] Health Maintenance Due Date Last Done Comments DTaP,Tdap,and Td Vaccines (1 - Tdap) 1966 Zoster Vaccines (1 of 2) 1997 Pneumococcal Vaccine: 50+ Years (2 of 2 - PCV) 08/02/2017 08/02/2016 RSV Immunization Adult Patients (1 - 1-dose 75+ series) 2022 Cholesterol Screening (Lipid Panel) 04/09/2024 Falls Risk Assessment 04/09/2024 Hepatitis C Screening 04/09/2024 Medicare Annual Wellness Visit 04/09/2024 Osteoporosis Screening (Bone Density Screening) 04/09/2024 Social Influencers of Health Screening 04/09/2024 Depression Screening 09/11/2024 Hypertension/CHF/CAD Annual BMP Blood Test 10/31/2024 COVID-19 Vaccine ( season) 2025 06/01/2022, 06/14/2021, 12/13/2020, Additional history exists Influenza Vaccine (#1) 2025 HIB Vaccines Aged [...] patient's age to complete this topic Insurance [employer] MEDICARE Care Teams Health Safety Instructor Relationship Specialty Start Date End Date Beverley Perez MD [address] [place] [address] PCP - General Internal Medicine 10/31/24
--- OUTSIDE RECORDS SUMMARY | 2025-07-10 08:54 | XMS_ITS | Encounter Summary ---
Author Organization [employer] Address [address] [facility] [address] [place] [address] Care Team Providers Care Knockout Man Name Role Phone Unavailable Primary Care Provider Unavailabl e Reason for Visit * Reason Onset Date Comments [facility] medical records release and grievance review 03/28/2025 Encounter Details Date Type Department Care Team (Late st Contact Info) Description 03/28/2025 Telephone [facility] [address] [place] [address] WarrenuBassam, DDS [address] [place] [address] [facility] medical records release and grievance review Social History Tobacco Use Types Packs/Day Years Used Date Smoking Tobacco: Never Smokeless Tobacco: Never Alcohol Use Standard Drinks/Week Comments Never 0 (1 standard drink = 0.6 oz pur e alcohol) Comments Unknown Sex and Gender Information Value Date Recorded Sex Assigned at Female 08/13/2024 12:27 PM EST Legal Sex Female 12:25 PM EST Gender Identity Female 08/13/2024 12:27 PM EST Sexual Orientation Don't know 08/13/2024 12 :27 PM EST documented as of this encounter Miscellaneous Notes * Telephone Encounter - Jovita Bates - 03/28/2025 12:00 PM EDT [facility] called in asking if fax for medical records release and grievance review was received at [facility] fax number [phone]. Confirmed with both [facility] front end wheel loader operator as well as Jessica at [facility] front end wheel loader operator and it has not been received. They are going to resend today. documented in this encounter Plan of Treatment Not on file documented as of this encounter Visit Diagnoses Not on filedocumented in this encounter
--- OUTSIDE RECORDS SUMMARY | 2025-07-10 08:55 | XMS_ITS | Encounter Summary ---
Author Organization [facility] Address [address] [facility] [place] [address] Care Team Providers Care Clarification Operator Name Role Phone Beverley Perez MD Primary Care Provider Maea ble Encounter Details Date Type Department Care Team Description 12/15/2015 Business Doc Medical Records [address] [place] [id number] Abstract, Provider Social History Tobacco Use Types Packs/Day Years Used Date Smoking Tobacco: Never Alcohol Use Standard Drinks/Week Comments [...] on filedocumented in this encounter Care Teams Clarification Operator Relationship Specialty Start Date End Date Beverley Perez MD PCP - General Internal Medicine 11/23/15 documented as of this encounter
--- OUTSIDE RECORDS SUMMARY | 2025-07-10 08:55 | XMS_ITS | Patient Health Record ---
Author Organization [employer] [facility] Address [address] [facility] [address] [place] [address] Care Team Providers Care Electronic Assembler Group Leader Name Role Phone Beverley Perez MD Primary Care Provider FATOUMATA Pop Unavailable [phone] Allergies No Known Allergies Reason For Referral [...] Risk Notes Problem Cyst of right ovary ([id number]) Other ovarian cyst, right side (N83.291) Active confirmed Vital Signs Temperature 97.8 degrees Fahrenheit 11/25/2024 Blood pressure diastolic 88 mm Hg 11/25/2024 Height 62.5 in 11/25/2024 Blood pressure systolic 158 mm Hg 11/25/2024 Weight 167 lbs 11/25/2024 BMI 30.05 kg/m2 11/25/2024 Encounters Encounter Location Date Provider Diagnosis Total [facility] [employer] [facility] [address] [place] [address] 10/07/2024 FATOUMATA QUIÑONES Encounter for gynecological examination (general) (routine) without abnormal findings Z01.419 and Encounter for screening mammogram for malignant neoplasm of breast Z12.31 Total [facility] [address] [facility] [address] [place] [address] 11/25/2024 FATOUMATA QUIÑONES Pruritus vulvae L29. 2 [...] End Date [employer] MED[employer]ARE COMPLETE [address] [address] [place] [address] [id number] CORNELL JOSHI Self - patient is the [...]
[2025-07-10 11:05] LABS: MANUAL DIFF FLAG NO
[2025-07-10 11:09] LABS: Hematocrit 45.2 % (37.0-47.0); Hemoglobin 14.4 g/dl (12.0-16.0); Imm Gran Abs Auto 0.01 X10*3/uL (0.00-0.03); Imm Gran Pct Auto 0.2 % (0.0-0.4); Lymphocytes Absolute Auto 1.2 X10*3/uL (1.2-4.9); Mean Corpuscular HGB Conc 31.9 g/dl (31.0-35.0); Mean Corpuscular Hemoglobin 28.7 pg (27.0-33.0); Mean Corpuscular Volume 90.2 fL (80.0-98.0); NRBC Abs Auto 0.000 X10*3/uL (0.0-0.012); NRBC Pct Auto 0.0 /100WBC (0.0-0.2); Platelet Count 227 X10*3/uL (160-400); Red Blood Count 5.01 X10*6/uL (4.20-5.50); White Blood Count 4.5 X10*3/uL (4.8-10.8)
[2025-07-10 12:04] LABS: Alanine Aminotransferase 17 U/L (0-31); Albumin Level 4.1 g/dL (3.5-5.0); Alkaline Phosphatase 65 U/L (39-117); Anion Gap 11 (12-20); Aspartate Amino Transferase 26 U/L (5-31); Blood Urea Nitrogen 15 mg/dL (9-16); Calcium 8.6 mg/dL (8.4-10.2); Carbon Dioxide 25 mmol/L (22-29); Chloride 108 mmol/L (96-108); Cholesterol 189 mg/dL (<200); Estimated Glomerular Filt Rate > 60; HDL Cholesterol 37 mg/dL (>40); Potassium 4.2 mmol/L (3.3-5.1); Sodium 140 mmol/L (135-145); Total Protein 7.0 g/dL (6.5-8.0); Triglycerides 172 mg/dL (<150)
[2025-07-10 13:20] LABS: Appearance Urine Clear; Glucose Urine UA Negative (Negative); PH 6.0 (5.0-9.0); Specific Gravity - Urine <= 1.005 (1.005-1.025)
== END 2025-07-10 08:20 | disposition home or self-care (01) ==
LOC: HO.HMGCLDS 08:19
PROVIDERS: PCP Internal Medicine; Visit Provider Internal Medicine
DX: I10 Essential (primary) hypertension (principal); R73.9 Hyperglycemia, unspecified; E78.5 Hyperlipidemia, unspecified; E55.9 Vitamin D deficiency, unspecified; E53.8 Deficiency of other specified B group vitamins
CPT/HCPCS: 36415; 80053; 80061; 81001; 82570; 83036; 85025

== ENCOUNTER 2025-07-14 12:49 | Outpatient (REF) | payer MEDICARE, SELFPAY ==
--- NOTE | ~2025-07-14 | XR_ITS ---
EXAMINATION: XR SHOULDER, LEFT CLINICAL INFORMATION: M25.512 - Pain in left shoulder COMPARISON: None available. TECHNIQUE: Three views of the left shoulder. FINDINGS: Bone mineralization is decreased. Mild acromioclavicular arthritis. No acute fracture. Glenohumeral joint space is maintained. Mild inferior glenoid subchondral cysts. No abnormal soft tissue calcifications. XR/XR shoulder LT min 2V IMPRESSION: No acute findings Electronically signed by: Elias Masters MD 07/15/2025 03:10 PM GIANNA NEVAREZ
== END 2025-07-14 12:50 | disposition home or self-care (01) ==
LOC: HO.HMGCX 12:49
PROVIDERS: PCP Internal Medicine; Visit Provider Internal Medicine
DX: M25.512 Pain in left shoulder (principal); R10.9 Unspecified abdominal pain; R14.0 Abdominal distension (gaseous); G89.29 Other chronic pain; I10 Essential (primary) hypertension; Z79.899 Other long term (current) drug therapy
CPT/HCPCS: 73030; 96127; 99212

== ENCOUNTER 2025-07-14 12:49 | Outpatient (AMB) | payer MEDICARE, SELFPAY ==
--- NOTE | 2025-07-14 13:07 | MHC.PC.OV ---
Vital Signs 07/14/25 13:08 Height 5 ft 2 in Weight 165 lb BMI 30.2 BP 126/68 Blood Pressure Location Rt brachial Position Sitting Respiration 16 Pulse 88 Pulse Source Pulse Oximeter Temp 97.9 F Temp Source Oral Pulse Oximetry (%) 98 Oxygen Delivery Method Room Air Intake Visit Reasons: 6m follow up Allergies donepezil Adverse Reaction (Intermediate, Verified 07/14/25 13:13) Nausea trazodone Adverse Reaction (Intermediate, Verified 07/14/25 13:13) Dizziness Medication List - Last Reconciled 07/14/25 by Beverley Perez MD acetaminophen 650 mg (2 x 325 mg) PO Q6H PRN 30 days [ankle orthosis As directed] biotin 1,000 mcg PO DAILY cholecalciferol (vitamin D3) (Vitamin D3) 50 mcg PO DAILY [choline 800 mg ] dextromethorphan polistirex ER (Delsym 12 hour) 10 mL PO Q12H dicyclomine 10 mg PO TID donepezil 5 mg PO BEDTIME 3 months MDD 5mg estradiol 0.01%(0.1mg/gram) (Estrace) 1 g vaginal 2XW felodipine ER 2.5 mg PO DAILY gabapentin 300 mg PO BEDTIME 3 months MDD 300mg ginkgo biloba-Panax ginseng rt 60-100 mg 2 caps PO DAILY [glucosemide with MSM 2 tabs PO DAILY] lutein 20 mg PO DAILY magnesium oxide 400 mg PO BEDTIME olmesartan 40 mg PO DAILY vitamin K2 100 mcg PO DAILY Tobacco use date assessed: 07/14/25 Fall risk assessment: No Falls in past year Last assessed Fall Risk: 07/14/25 Dental Screening Dental Screen Date: 01/13/25 HPI 6m follow up HPI Details Pt presents complaining of worsening abdominal pain bloating some nausea no vomiting for 1 week. She denies change in bowel habits hematochezia melena fever or chills back pain. Patient reports decreased appetite. She complains of chronic left shoulder pain when lifting heavy or reaching overhead for 1 year after fall. She denies any weakness or numbness in extremity. Hypertension is controlled on current medications. [facility] Medical History (Updated 07/14/25 @ 14:11 by Beverley Perez MD) Shoulder pain, left Acute respiratory disease IBS (irritable bowel syndrome) Osteoarthritis of right hip Thyroid nodule Arthritis Palpitations Vitamin D deficiency Annual physical exam Insomnia Memory deficit Hyperglycemia Hyperlipidemia History of mammogram Chronic neck pain Arthralgia Tension headache RLS (restless legs syndrome) Osteoarthritis of both knees Balance problem Osteoarthritis of right shoulder Sciatica of left side Sciatica, right side Hypertension Surgical History History of bunionectomy Hx of shoulder surgery Hx of spinal surgery H/O colonoscopy Family History Father Stroke Mother Lung cancer Social History Household Members: Spouse Housing: Condominium Are you a primary caretaker grounds to a significant other at home: No Do you presently have visiting nurse or other home services: No Alcohol intake: current Alcohol intake frequency: does not drink Patient Tobacco Use Status: Never used Tobacco e-Cigarette/Vaping Use: Never Used service: No Current occupational status: retired Cognitive needs: No Hearing needs: No Vision needs: Yes Questionnaire PHQ-9 Over the last 2 weeks, how often have you been bothered by any of the following problems? 1. Little interest or pleasure in doing things: not at all 2. Feeling down, depressed, or hopeless: not at all 3. Trouble falling or staying asleep, or sleeping too much: not at all 4. Feeling tired or having little energy: not at all 5. Poor appetite or overeating: not at all 6. Feeling bad about yourself - or that you are a failure or have let yourself or your family down: not at all 7. Trouble concentrating on things, such as reading the newspaper or watching television: not at all 8. Moving or speaking so slowly that other people could have noticed. Or the opposite - being so fidgety or restless that you have been moving around a lot more than usual: not at all 9. Thoughts that you would be better off or of hurting yourself in some way: not at all Total score: 0 Depression Screening Interpretation: Negative Depression Screening Done: Yes Source: Developed by Drs. Rajesh Ellis, Sharon Delarosa, Mikie Staley and colleagues, with an educational carolann from [employer]. Thrive Questionnaire Date Thrive assessed: 10/15/24 What is your living situation today?: I have a steady place to live Within the past 12 months, did the food you bought not last and you didn't have the money to get more?: Never true Within the past 12 months, did you worry whether your food would run out before you got money to buy more?: Never true Do you have trouble paying for medicines?: No Do you have trouble getting transportation to medical appointments?: No Do you have trouble paying your heating and electricity bill?: No Do you have trouble taking care of your child, family member or friend?: No Do you have trouble with day-to-day activities such as bathing, preparing meals, shopping, managing finances, etc.?: No Are you currently unemployed and looking for a job?: No Are you interested in more education?: No Please select the resources that you would like help with: None Currently or been in a relationship where the following occur: No concerns reported THRIVE Score: 0 AUDIT C Alcohol Use Questionnaire (AUDIT-C) 1. How often do you have a drink containing alcohol?: Never Total Score: 0 MABEL-7 AMB Questionnaire MABEL-7 Date MABEL - 7 assessed: 01/13/25 Feeling nervous, anxious, or on edge: 0 = Not at all Not being able to stop or control worryin = Not at all Worrying too much about different things: 0 = Not at all Trouble relaxin = Not at all Being so restless that it is hard to sit still: 0 = Not at all Becoming easily annoyed or irritable: 0 = Not at all Feeling afraid as if something awful might happen: 0 = Not at all Total MABEL-7 score (0-4 normal; 5-9 mild; 10-14 moderate; 15-21 severe): 0 Source: Developed by Drs. Rajesh Ellis, Sharon Delarosa, Mikie Staley and colleagues, with an educational carolann from [employer]. Review of Systems Const All systems reviewed & are unremarkable except as noted in HPI and below ENT Reports no additional complaints Card Reports no additional complaints Resp Reports no additional complaints GI Reports no additional complaints Reports no additional complaints Physical exam (Primary Care) Vital Signs: Last Vital Signs Temp 97.9 F 07/14/25 13:08 Pulse 88 07/14/25 13:08 Resp 16 07/14/25 13:08 BP 126/68 07/14/25 13:08 Pulse Ox 98 07/14/25 13:08 Oxygen Delivery Method Room Air 07/14/25 13:08 BMI result Body Mass Index 30.2 Tobacco/Smoking Status: Tobacco use Status Tobacco use date assessed 07/14/25 07/14/25 13:15 Patient Tobacco Use Status Never used Tobacco 07/14/25 13:08 e-Cigarette/Vaping Use Never Used 07/14/25 13:08 PHQ-9: PHQ-9 Score PHQ-9: Total score 0 07/14/25 14:05 Depression Screening Interpretation: Negative Thrive Assessment: Date of Thrive Assessment Date Thrive assessed 10/15/24 07/14/25 13:08 Currently or been in a relationship where the following occur: No concerns reported Const General: no acute distress HENMT Head: Yes normal to inspection Throat: Yes posterior oropharynx normal Resp Effort & Inspection: normal respiratory effort Auscultation: clear to auscultation bilaterally Cardio Rhythm: regular rhythm Heart sounds: S1 normal heart sound present and S2 normal heart sound present GI Inspection: Yes normal to inspection Palpation (GI): Soft to palpation and Tenderness to palpation present (GI) in the LLQ; with no rebound tenderness Auscultation: normal bowel sounds Extrem Other: Decreased range of motion in the left shoulder, no joint tenderness Coding Level of Care Code Est Pt Level 4 (47204) Diagnoses Shoulder pain, left M25.512 Diverticulitis K57.92 Hypertension I10 Assessment & Plan Assessment & Plan (1) Shoulder pain, left: Code(s): M25.512 - Pain in left shoulder Category: Medical Plan: For chronic lower shoulder pain obtain x-ray and refer to physical therapy (2) Diverticulitis: Code(s): K57.92 - Diverticulitis of intestine, part unspecified, without perforation or abscess without bleeding Category: Medical Plan: Obtain CT of the abdomen to evaluate for diverticulitis (3) Hypertension: Code(s): I10 - Essential (primary) hypertension Category: Medical Plan: Continue current medications Orders: Orders XR shoulder LT min 2V Today M25.512 - Pain in left shoulder CT abdomen pelvis wo/w IV con Today K57.92 - Diverticulitis of intestine, part unspecified, without perforation or abscess without bleeding CT abdomen pelvis w IV con Today K57.92 - Diverticulitis of intestine, part unspecified, without perforation or abscess without bleeding PT Evaluation and Treatment Today M25.512 - Pain in left shoulder Medications: New Myrbetriq ER (mirabegron) 50 mg PO DAILY 90 tabs 0RF NS Refilled magnesium oxide 400 mg PO BEDTIME 90 tabs 3RF
[2025-07-14 13:08] VITALS: BP 126/68; PULSE 88; RESP 16; TEMP 36.6; O2SAT 98; BMI 30.2
--- OUTSIDE RECORDS SUMMARY | 2025-07-14 16:15 | XMS_ITS | Clinical Summary ---
Author Organization [facility] Address [address] [address] Phone Care Team Providers Care Nail Specialist Name Role Phone Beverley Perez MD Primary Care Provider [phone] Allergies Active Allergy Reactions Criticality Noted Date Comments Ibuprofen Mental Status Change 07/13/2017 Acetaminophen Mental Status Change 07/13/2017 Medications omega 3-fes-pxj-fish oil 1,000 mg (120 mg-180 mg) Cap [...] topic Medical Devices Not on file Insurance [facility] MEDICARE REPLACEMENT [facility] MEDICARE REPLACEMENT [facility] MEDICARE [facility]PLACEMENT [facility] MEDICARE [facility]PLACEMENT [facility] MEDICARE REPLACEMENT [facility] MEDICARE REPLACEMENT [facility] MEDICARE REPLACEMENT [place] [id number] [facility] MEDICARE REPLACEMENT [place] [id number] Care Teams Nail Specialist Relationship Specialty Start Date End Date Beverley Perez MD [address] [place] [address] PCP - General Internal Medicine 07/12/17 Additional Source Comments The information contained in this document represents components of the legal health record. It is not the complete legal health record.[facility]
--- OUTSIDE RECORDS SUMMARY | 2025-07-14 16:16 | XMS_ITS | Patient Health Record ---
Author Organization [employer] [facility] Address [address] [facility] [address] [place] [address] Care Team Providers Care Shipping Clerk Name Role Phone Beverley Perez MD Primary Care Provider FATOUMATA Pop Unavailable [phone] Allergies No Known Allergies Reason For Referral [...] Risk Notes Problem Cyst of right ovary ([id number] 25970) Other ovarian cyst, right side (N83.291) Active confirmed Vital Signs Temperature 97.8 degrees Fahrenheit 11/25/2024 Blood pressure diastolic 88 mm Hg 11/25/2024 Height 62.5 in 11/25/2024 Blood pressure systolic 158 mm Hg 11/25/2024 Weight 167 lbs 11/25/2024 BMI 30.05 kg/m2 11/25/2024 Encounters Encounter Location Date Provider Diagnosis Total [employer] [facility] [address] [place] [address] 10/07/2024 FATOUMATA QUIÑONES Encounter for gynecological examination (general) (routine) without abnormal findings Z01.419 and Encounter for screening mammogram for malignant neoplasm of breast Z12.31 [employer] [facility] [address] [facility] [address] [place] [address] 11/25/2024 FATOUMATA QUIÑONES Pruritus vulvae L29. 2 [...] End Date [employer] MEDICARE COMPLETE [address] [address] [place] [address] [phone] [id number] CORNELL JOSHI Self - patient is the [...]
--- OUTSIDE RECORDS SUMMARY | 2025-07-14 16:16 | XMS_ITS | Continuity of Care Document ---
Author Organization [facility] Address [address] [facility] [address] [place] [address] Phone [phone] Care Team Providers Care Electric Organ Assembler Name Role Phone Beverley Perez Care Team Information Spinning Frame Fixer [phone] Problems Active Problems Provider Date Vitamin D [...] Tablet By Mouth Daily Beverley Perez Olmesartan Vodakdocy03jx Tablets Take 1 Tablet By Mouth Daily Beverley Perez Jmemrac846gl Tablets DR Take 1 Tablet By Mouth Twice Daily Denisse Magallanes PA Abophq79xx Capsules Unknown Nxsvayhdhbr502hy Capsules Unknown Uiepjx9017szh Chewtabs 1 by mouth every day Unknown Vuxhdiflx506wh Tablets 1 by mouth every day Unknown Amogtgvsxq15uu Tablets 1 by mouth every day Unknown [...]
--- OUTSIDE RECORDS SUMMARY | 2025-07-14 16:16 | XMS_ITS | Clinical Summary ---
Author Organization [facility] [address] [facility] Address [address] [place] [address] Phone Care Team Providers Care Business Info Consultant Name Role Phone Beverley Perez MD Primary Care Provider [phone] Medications amoxicillin (AMOXIL) 500 mg capsule TAKE [...] 9:20 AM EST Office Visit Endocrinology - [place] [address] [place], [place] [phone] Maddi De La Cruz PA [address] [place] [address] Health Maintenance Due Date Last Done Comments [...] topic Insurance [employer] MEDICARE Care Teams Business Info Consultant Relationship Specialty Start Date End Date Beverley Perez MD [address] [place] [address] PCP - General Internal Medicine 10/31/24
--- OUTSIDE RECORDS SUMMARY | 2025-07-14 16:16 | XMS_ITS | Clinical Summary ---
Author Organization [employer] Address [address] [facility] 7t [place] [address] Care Team Providers Care Primary Special Educator Name Role Phone Unavailable Primary Care Provider [...] Description 05/13/2025 1:00 PM EDT Office Visit [facility] [address] [place] [address] Regina Willingham DDS 04/30/2025 Telephone [facility] [address] [place] [address] Regina Willingham DDS 04/28/2025 1:00 PM EDT Office Visit [facility] [address] [place] [address] Bassam Rivas DDS 04/14/2025 11:30 AM EDT Office Visit [facility] [address] [place] [address] Regina Willingham DDS from Last 3 Months [...] from Last 3 Months Insurance DENTAL - [facility]
--- OUTSIDE RECORDS SUMMARY | 2025-07-14 16:16 | XMS_ITS | Encounter Summary ---
Author Organization [employer] Address [address] [facility] 7t [place] [address] Care Team Providers Care Graphite Pan Drier Tender Name Role Phone Unavailable Primary Care Provider Unavailabl e Reason for Visit * Reason Onset Date Comments [facility] medical records release and grievance review 03/28/2025 Encounter Details Date Type Department Care Team (Late st Contact Info) Description 03/28/2025 Telephone [facility] ADULT D[facility] [address] [place] [address] WarrenuBassam, DDS [address] [place] [address] [facility] medical records release and grievance review [...] Jovita Bates - 03/28/2025 12:00 PM EDT [facility] called in asking if fax for medical records release and grievance review was received at [facility] fax number [phone]. Confirmed with both [facility] administrative assistant front desk as well as Jessica at [facility] administrative assistant front desk and it has not been received. They are going to resend today. documented in this encounter Plan of Treatment Not on file documented as of this encounter Visit Diagnoses Not on filedocumented in this encounter
== END 2025-07-14 15:21 | disposition home or self-care (01) ==
LOC: HO.HMCC 12:50
PROVIDERS: PCP Internal Medicine; Visit Provider Internal Medicine
DX: M25.512 Pain in left shoulder (principal); K57.92 Diverticulitis of intestine, part unspecified, without perforation or abscess without bleeding; I10 Essential (primary) hypertension

== ENCOUNTER → 2025-07-14 14:18 | Outpatient (BNV) | payer MEDICARE, SELFPAY | PROVIDERS: PCP Internal Medicine; Visit Provider Radiology Diagnostic Ultrasound | DX: M25.512 Pain in left shoulder (principal) | CPT/HCPCS: 73030 ==

== ENCOUNTER 2025-08-11 12:13 | Outpatient (REF) | payer MEDICARE, SELFPAY ==
--- NOTE | ~2025-08-11 | MM_ITS ---
EXAMINATION: MM SCREENING DIGITAL BREAST TOMOSYNTHESIS, BILATERAL CLINICAL INFORMATION: Screening. Asymptomatic. COMPARISON: Mammography: Comparison is made with available priors TECHNIQUE: Digital breast mammography with tomosynthesis is performed in both the craniocaudal and mediolateral oblique views along with computer-aided detection (CAD). FINDINGS: There are scattered areas of fibroglandular density. Right marker clip. There are no significant masses, abnormal calcifications, or other abnormalities. MM/MM tomosynthesis screening BI IMPRESSION: No mammographic evidence of malignancy. ASSESSMENT: BI-RADS Category 2: Benign RECOMMENDATION: Routine annual mammography screening. 1 year F/U This examination should not preclude the clinical evaluation of a suspicious palpable abnormality. This patient's information was entered into a reminder system with a target due date for their next mammogram. Electronically signed by: Araceli Kenny DO 08/11/2025 02:24 PM GIANNA
--- OUTSIDE RECORDS SUMMARY | 2025-08-11 15:56 | XMS_ITS | Continuity of Care Document ---
Author Organization [facility] Address 2 [facility] [address] [place] [address] Phone [phone] Care Team Providers Care Tanning Wheel Operator Name Role Phone Beverley Perez Care Team Information Collection Systems Worker [phone] Problems Active Problems Provider Date Vitamin D [...] Tablet By Mouth Daily Beverley Perez Olmesartan Lchndjiqd08gg Tablets Take 1 Tablet By Mouth Daily Beverley Perez Tjqphnr951ee Tablets DR Take 1 Tablet By Mouth Twice Daily Denisse Magallanes PA Wodmjz74cv Capsules Unknown Uypwkqxeedr236mf Capsules Unknown Oxczzr6531tam Chewtabs 1 by mouth every day Unknown Dlboiembx468ec Tablets 1 by mouth every day Unknown Ponaisxytg97ef Tablets 1 by mouth every day Unknown [...]
--- OUTSIDE RECORDS SUMMARY | 2025-08-11 15:56 | XMS_ITS | Encounter Summary ---
Author Organization [employer] Address 75 [facility] 7t [place] [address] Care Team Providers Care Board Saw Runner Name Role Phone Unavailable Primary Care Provider Unavailabl e Reason for Visit * Reason Onset Date Comments [facility] medical records release and grievance review 03/28/2025 Encounter Details Date Type Department Care Team (Late st Contact Info) Description 03/28/2025 Telephone [facility] ADULT DENTAL [address] [place] [address] WarrenuBassam, DDS [address] [place] [address] [facility] medical records release and grievance review Social [...] Jovita Bates - 03/28/2025 12:[address] [facility] called in asking if fax for medical records release and grievance review was received at [facility] fax number [phone]. Confirmed with both [facility] front window cashier as well as Jessica at [facility] front window cashier and it has not been received. They are going to resend today. documented in this encounter Plan of Treatment Not on file documented as of this encounter Visit Diagnoses Not on filedocumented in this encounter
--- OUTSIDE RECORDS SUMMARY | 2025-08-11 15:56 | XMS_ITS | Clinical Summary ---
Author Organization [employer] Address [address] [facility] 7t [place] [address] Care Team Providers Care Pasteuriser Operator Name Role Phone Unavailable Primary Care [...] Description 05/13/2025 1:00 PM EDT Office Visit [facility] ADULT [facility] [address] [place] [address] Regina Willingham DDS from Last 3 Months [...] 75+ series) 2022 COVID-19 Vaccine (1 - 2024-2 6 season) 2025 Influenza Vaccine (#1) 2025 Dental [...] EDT 24 FI COMPOSITE FILLING Routine 05/13/20 25 12:00 AM EDT 23 FF(V)I COMPOSITE FILLING [...] COMPOSITE FILLING Routine 05/13/2025 12:00 AM EDT from Last 3 Months Insurance DENTAL - [facility]
--- OUTSIDE RECORDS SUMMARY | 2025-08-11 15:56 | XMS_ITS | Clinical Summary ---
Author Organization [facility] Address [address] [address] Phone Care Team Providers Care Manual Arts Therapy Teacher Name Role Phone Beverley Perez MD Primary Care Provider [phone] Allergies Active Allergy Reactions Criticality Noted Date Comments Ibuprofen Mental Status Change 07/13/2017 Acetaminophen Mental Status Change 07/13/2017 Medications omega 4-uqm-dbn-fish oil 1,000 mg (120 mg-180 mg) Cap [...] topic Medical Devices Not on file Insurance [facility] MEDICARE REPLACEMENT [facility] MEDICARE [facility] MEDICARE [facility] MEDICARE REPLACEMENT [facility] MEDICARE REPLACEMENT [facility] MEDICARE REPLACEMENT [facility] MEDICARE REPLACEMENT [place] [id number] [facility] MEDICARE REPLACEMENT [place] [id number] Care Teams Manual Arts Therapy Teacher Relationship Specialty Start Date End Date Beverley Perez MD [address] [place] [address] PCP - General Internal Medicine 07/12/17 Additional Source Comments The information contained in this document represents components of the legal health record. It is not the complete legal health record.[facility]
--- OUTSIDE RECORDS SUMMARY | 2025-08-11 15:57 | XMS_ITS | Clinical Summary ---
Author Organization [facility] [address] [facility] Address [address] [place] [address] Phone Care Team Providers Care Field Liability Generalist Name Role Phone Beverley Perez MD Primary Care Provider [phone] Medications amoxicillin (AMOXIL) 500 mg capsule TAKE [...] Site/Laterality Comments OTHER SURGICAL HISTORY Right PROCEDURE: [place] BIOPSY OVARY UNI/BI SEPARATE PROCEDURE Medical History [...] Care Team (Late st Contact Info) Description 09/08/2025 1:00 PM EST Office Visit Urogynecology - [address] [phone] Magali Recinos MD [address] [place] [address] [address] [address] [place] [address] 09/15/2025 9:30 AM EST Office Visit Endocrinology - [place] [address] [place] [address] Maddi De La Cruz PA [address] [place] [address] Health Maintenance Due Date Last Done Comments [...] topic Insurance [employer] MEDICARE Care Teams Field Liability Generalist Relationship Specialty Start Date End Date Beverley Perez MD [address] [place] [address] PCP - General Internal Medicine 10/31/24
== END 2025-08-11 12:14 | disposition home or self-care (01) ==
LOC: HO.MAMMO 12:13
PROVIDERS: PCP Internal Medicine; Visit Provider Internal Medicine
DX: Z12.31 Encounter for screening mammogram for malignant neoplasm of breast (principal)
CPT/HCPCS: 77063; 77067

== ENCOUNTER → 2025-08-11 12:45 | Outpatient (BNV) | payer MEDICARE, SELFPAY | PROVIDERS: PCP Internal Medicine; Visit Provider Internal Medicine | DX: Z12.31 Encounter for screening mammogram for malignant neoplasm of breast (principal) | CPT/HCPCS: 77063; 77067 ==

== ENCOUNTER 2025-08-12 07:05 | Outpatient (REF) | payer MEDICARE, SELFPAY ==
--- NOTE | ~2025-08-12 | CT_ITS ---
CLINICAL HISTORY: K57.92 - Diverticulitis of intestine, part unspecified, without perforat... CT abdomen and pelvis with contrast Comparison: None provided Findings: The lung bases are clear. The liver, gallbladder, spleen, adrenal glands and pancreas demonstrate no acute process Kidneys demonstrate mild fullness of the collecting system. No definite ureteral calculus. Evaluation limited by artifact from multifocal hardware. The bladder is partially distended. Extensive diverticulosis with very faint stranding about the distal sigmoid. No bowel obstruction, pneumatosis, free air or abscess. Lobular uterus with multiple masses. Complex cystic structure, left adnexa. Diffuse atherosclerotic disease present. Postsurgical and degenerative changes seen within the spine Impression: Probable very mild diverticulitis of the distal sigmoid colon. No abscess or free air. Multiple uterine masses, possibly fibroids, as well as a complex cystic structure involving the left adnexa. Consider outpatient ultrasound for more complete evaluation. This document has been electronically signed by: Jr Gale MD on 08/12/2025 11:15:40
--- OUTSIDE RECORDS SUMMARY | 2025-08-12 07:07 | XMS_ITS | Clinical Summary ---
Author Organization [facility] 444 [facility] Address [address] [place] [address] Phone Care Team Providers Care Asbestos Shingle Inspector Name Role Phone Beverley Perez MD Primary Care Provider [phone] Medications amoxicillin (AMOXIL) 500 mg capsule TAKE [...] Site/Laterality Comments OTHER SURGICAL HISTORY Right PROCEDURE: [place] BIOPSY OVARY UNI/BI SEPARATE PROCEDURE Medical History [...] 1:00 PM EST Office Visit Urogynecology - [address] [phone] Magali Recinos MD [address] [place] [address] [address] [place] [address] 09/15/2025 9:30 AM EST Office Visit Endocrinology - [place] [address] [place] [address] Maddi De La Cruz PA [address] [place] [address] Health Maintenance Due Date Last Done Comments [...] topic Insurance [employer] MEDICARE Care Teams Asbestos Shingle Inspector Relationship Specialty Start Date End Date Beverley Perez MD [address] [place] [address] PCP - General Internal Medicine 10/31/24
--- OUTSIDE RECORDS SUMMARY | 2025-08-12 07:07 | XMS_ITS | Clinical Summary ---
Author Organization [employer] Address 75 [facility] 7t [place] [address] Care Team Providers Care Process Mold Technician Name Role Phone Unavailable Primary Care [...] Description 05/13/2025 1:00 PM EDT Office Visit [facility]ULT [facility] [address] [place] [address] Regina Willingham DDS from Last 3 Months [...] from Last 3 Months Insurance DENTAL - [facility]
--- OUTSIDE RECORDS SUMMARY | 2025-08-12 07:07 | XMS_ITS | Encounter Summary ---
Author Organization [employer] Address [address] [facility] 7t [place] [address] Care Team Providers Care Earth Moving Machine Operator Name Role Phone Unavailable Primary Care Provider Unavailabl e Reason for Visit * Reason Onset Date Comments [facility] medical records release and grievance review 03/28/2025 Encounter Details Date Type Department Care Team (Late st Contact Info) Description 03/28/2025 Telephone [facility] [address] [place] [address] WarrenuBassam, DDS [address] [place] [address] [facility] medical records release and grievance review [...] Jovita Bates - 03/28/2025 12:00 PM EDT [facility] called in asking if fax for medical records release and grievance review was received at [facility] fax number [phone]. Confirmed with both [facility] front desk assistant as well as Jessica at [facility] front desk assistant and it has not been received. They are going to resend today. documented in this encounter Plan of Treatment Not on file documented as of this encounter Visit Diagnoses Not on filedocumented in this encounter
--- OUTSIDE RECORDS SUMMARY | 2025-08-12 07:07 | XMS_ITS | Continuity of Care Document ---
Author Organization [facility] Address 2 [facility] [address] [place] [address] Phone [phone] Care Team Providers Care Client Integration Manager Name Role Phone Beverley Perez Care Team Information Milk Route Deliverer [phone] Problems Active Problems Provider Date Vitamin D [...] Tablet By Mouth Daily Beverley Perez Olmesartan Afxchecpd73qv Tablets Take 1 Tablet By Mouth Daily Beverley Perez Chgvcng157uf Tablets DR Take 1 Tablet By Mouth Twice Daily Denisse Magallanes PA Wqbsxx11br Capsules Unknown Pcbszllutus350xh Capsules Unknown Djmgni8931hhk Chewtabs 1 by mouth every day Unknown Zetxehede251yx Tablets 1 by mouth every day Unknown Ofazjokhnr81do Tablets 1 by mouth every day Unknown [...]
--- OUTSIDE RECORDS SUMMARY | 2025-08-12 07:07 | XMS_ITS | Clinical Summary ---
Author Organization [facility] Address [address] [address] Phone Care Team Providers Care Director Of Compensation Name Role Phone Beverley Perez MD Primary Care Provider [phone] Allergies Active Allergy Reactions Criticality Noted Date Comments Ibuprofen Mental Status Change 07/13/2017 Acetaminophen Mental Status Change 07/13/2017 Medications omega 4-uze-riz-fish oil 1,000 mg (120 mg-180 mg) Cap [...] topic Medical Devices Not on file Insurance [facility] MEDICARE REPLACEMENT [facility] MEDICARE REPLACEMENT [facility] MEDICARE REPLACEMENT [facility] MEDICARE REPLACEMENT [facility] MEDICARE [facility]PLACEMENT [facility] MEDICARE REPLACEMENT [facility] MEDICARE REPLACEMENT [place] [id number] [facility] MEDICARE REPLACEMENT [place] [id number] Care Teams Director Of Compensation Relationship Specialty Start Date End Date Beverley Perez MD [address] [place] [address] PCP - General Internal Medicine 07/12/17 Additional Source Comments The information contained in this document represents components of the legal health record. It is not the complete legal health record.[facility]
[2025-08-12] MEDS: iohexoL 350 MG/ML 100 ML INFUS..BTL IV (10:06)
[2025-08-12] MEDS: Barium Sulfate Oral (Mocha) 450 ML ORAL.SUSP 900 ML PO (10:14)
[2025-08-12 12:33] LABS: Creatinine POC 0.8 mg/dL (0.5-1.4); GFR POC > 60
== END 2025-08-12 07:06 | disposition home or self-care (01) ==
LOC: HO.CT 07:05
PROVIDERS: PCP Internal Medicine; Visit Provider Internal Medicine
DX: K57.92 Diverticulitis of intestine, part unspecified, without perforation or abscess without bleeding (principal)
CPT/HCPCS: 74177; 82565; Q9967

== ENCOUNTER → 2025-08-12 07:10 | Outpatient (BNV) | payer MEDICARE, SELFPAY | PROVIDERS: PCP Internal Medicine; Visit Provider Radiology Vascular & Interventional Radiology | DX: R19.00 Intra-abdominal and pelvic swelling, mass and lump, unspecified site (principal) | CPT/HCPCS: 74177 ==

== ENCOUNTER 2025-08-21 14:08 | Outpatient (AMB) | payer MEDICARE, SELFPAY ==
--- OUTSIDE RECORDS SUMMARY | 2025-08-19 03:20 | XMS_ITS ---
Author Organization [facility] Address [address] [address] Care Team Providers Care Project Administrator Name Role Phone Beverley Perez MD Primary Care Provider FATOUMATA Pop Unavailable [phone] Allergies No Known Allergies REASON FOR VISIT F/U FROM CT SCAN Medications Medication SIG (Take, Route, Frequency, Duration) Notes Start Date End Date Status Felodipine ER 2.5 MG as directed Orally Active Fish Oil Active Glucosamine Active Vitamin D-3 5000 UNIT 1 tablet Orally On ce a day; Duration: 30 day(s) Active Olmesartan Medoxomil 40 MG 1 tablet Orally Once a day; Duration: 30 day(s) Active Vagisil Active Clotrimazole-Betamethaso ne 1-0.05 % 1 application Externally Twice a day; Duration: 10 days 11/25/2024 Active Magnesium Active Choline Active Estradiol Active Vitamin C 500 MG as directed Orally Active Lutein Active Biotin 1 MG as directed Orally Not-Taking Niacin Not-Taking Social History Tobacco Use: Social History Observation Description Date Details (start date - stop date) Never Smoker NA - NA Tobacco Use/Smoking Question Answer Notes Are you a nonsmoker Alcohol Screen (Audit-C) Question Answer Notes Did you have a drink containing alcohol in the p ast year? No Points 0 Interpretation Negative Vital Signs Temperature 97.3 degrees Fahrenheit 08/19/20 25 Blood pressure systolic 144 mm Hg 08/19/20 25 Blood pressure diastolic 78 mm Hg 025 Height 62.5 in 08/19/2025 Weight 161 lbs 08/19/2025 BMI 28.97 kg/m2 08/19/2025 Encounters Encounter Location Date Provider Diagnosis [facility] [address] [place] [address] 08/19/2025 FATOUMATA QUIÑONES Abnormal findings on diagnostic imaging of other abdominal regions, including retroperitoneum R93.5 ; Other ovarian cyst, left side N83.292 ; Other ovarian cyst, right side N83.291 and Pruritus vulvae L29.2 Assessments Encounter Date Diagnosis (ICD Code) Assessment Notes Treatment Notes Treatment Clinical Notes Section Notes 08/19/2025 Abnormal findings on diagnostic imaging of other abdominal regions, including retroperitoneum (ICD-10 - R93.5) 08/19/2025 Other ovarian cyst, left side (ICD-10 - N83.292) I suspect left and right were transposed in the CT scan, as 2 separate ultrasounds, 5 years apart, showed a stable right ovarian cyst. Will obtain ultrasound to confirm. 08/19/2025 Other ovarian cyst, right side (ICD-10 - N83.291) 08/19/2025 Pruritus vulvae (ICD-10 - L29.2) Plan Of Treatment Medication Medication Name Sig Start Date Stop Date Notes Clotrimazole-Betamethasone 1-0.05 % 1 application Externally Twice a day; Duration: 10 days 11/25/2024 Treatment Notes Assessment Notes Other ovarian cyst, left side I suspect left and right were transposed in the CT scan, as 2 separate ultrasounds, 5 years apart, showed a stable right ovarian cyst. Will obtain ultrasound to confirm. Pending Test Test Name Order Date ULTRASOUND: PELVIC W/TRANSVAGINAL 2024 Next Appt Details Follow Up: prn, Reason: Provider Name:FATOUMATA Boudreaux, 09/26/2025 11:00:00 AM, [address], [address], [place], [address], Progress Notes * CORNELL CHRISTENSENDOB: [birth year] (80 yo F)Acc No.[id number]:08/19/2025 PROGRESS NOTES Patient: CORNELL DIAZ Provider: Yareli QUIÑONES MD :1945 A ge:80 Y S ex:Female Date:08/19/2025 Address:[address] [place], [place] [address], [place] Pcp:Beverley Perez MD Subjective: * Chief Complaints: * F /U FROM CT SCAN * HPI: C onstitutional: Patient is here today for a follow up visit. She underwent a CT scan on 08/12/25 for a diagnosis of diverticulitis, as ordered by her PCP. In addition to mild diverticulitis, the CT scan showed multiple uterine masses, possibly fibroids, as well a a complex cystic structure involving the left adnexa. Recommend ultrasound for more complete evaluation. An ultrasound at this office on 08/14/23 showed a uterus with multiple fibroids, stable (compared to? u/s in 2018) and the right ovary measuring 3.4 x 2.9 x 2.0 with a septated complex cystic lesion replacing the majority of the ovary, measuring 3.1 x 1.9 x 2.4 cm (previously 3.1 x 2.0 x 2.6cm in 2018). Left ovary was not seen (also not seen on 2018 u/s). She reports: abdominal pain, which is why she had the CT scan. She is here with daughter, Beverley, who is translating for her. She requests a refill of lotrisone. * ROS: G eneral/Constitutional: Denies C hills. D enies F ever. G astrointestinal: Admits A bdominal pain. D enies C hange in bowel habits. D enies D ecreased appetite. D enies N ausea. D enies V omiting. ? W omen Only: Patient denies a bnormal bleeding. D enies V aginal discharge/itching. 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 S exual activity c urrently sexually active, with men. L ast Pap Smear: NIL NEG HRHPV, PAPS NO LONGER INDICATED, 2018, neg.? M ammogram: . L MP and menses m enopause at 55. M enopause: B eliana at age: 7 3 E ndoscopy * 2 020. C olonoscopy 2 020 With Endoscopy. B one Density: ? date. States was WNL. G ardasil: h as not had vaccine. * Hep B Vac u nsure. * OB History: T otal pregnancies 2 . T otal living children 2 . N VD 2 . * Surgical History: L aparoscopy - Rt Cystectomy 2004Shoulder Surgery 2008Foot Surgery R shoulder 11/24/19LUMBAR SURGERY @ L4 , L5 2Right hip replacement 2022 * Hospitalization/Major Diagno stic Procedure: c hild see surgery Hx * Family History: M other: , lung cancer. F ather: . * Social History: T obacco Use: T obacco Use/Smoking A re you a n onsmoker S exual History: D etails of Sexual History A re you sexually active? N o D rugs/Alcohol: D rugs H ave you used drugs other than those for medical reasons in the past 12 months? N o Alcohol Screen (Audit-C) D id you have a drink containing alcohol in the past year? N o P oints 0 I nterpretation N egative M iscellaneous: C hildren: yes. Exercise: yes, walking. Housing: owns a home. Living with: spouse. Marital status: , Agustín. Natural support system: yes. Occupation: Retired. Pets: none. Sexually active: yes, monogamous relationship. * Medications: T akingVagisil Estradiol Choline Magnesium Felodipine ER 2.5 MG Tablet [...] reviewed and reconciled with the patient * Allergies: N .K.D.A.no[Allergies Verified] Objective: * Vitals: H t: 62.5 in, Wt: 161 lbs, BMI:28.97Index, BP: 144/78 mm Hg, Temp: 97.3 F. * Examination: G enitourinary - Female: GENERAL APPEARANCE: alert, oriented, no apparent distress. Assessment: * Assessment: 1. A bnormal findings on diagnostic imaging of other abdominal regions, including retroperitoneum - R93.5 (Primary) 2 . O ther ovarian cyst, left side - N83.292 ?3. O ther ovarian cyst, right side - N83.291 4 . P ruritus vulvae - L29.2? Plan: * Treatment: 2. O ther ovarian cyst, left side I maging: ULTRASOUND: PELVIC W/TRANSVAGINAL Notes: I suspect left and right were transposed in the CT scan, as 2 separate ultrasounds, 5 years apart, showed a stable right ovarian cyst. Will obtain ultrasound to confirm. 3. O ther ovarian cyst, right side I maging: ULTRASOUND: PELVIC W/TRANSVAGINAL 4. P ruritus vulvae Refill Clotrimazole-Betamethasone Cream, 1-0.05 %, 1 application, Externally, Twice a day, 10 days, 30 gram, Refills 1. * Procedure Codes: * Follow Up: p rn * Images: Billing Information: * Visit Code: 42790 Office Visit, Est Pt., Level 3. * Procedure Codes: * Sign off status: Completed true * Provider: Yareli QUIÑONES MD Date: 10/20/2024 Generated for Alonso oreilly/Marilynn/Fredoitting on: 10/22/2024 09:36 PM EST History and Physical Notes * HPI (History of Present Illness) Category Sub-Category Detail Notes Category Not es Constitutional Patient is here today for a follow up visit. She underwent a CT scan on 08/12/25 for a diagnosis of diverticulitis, as ordered by her PCP. In addition to mild diverticulitis, the CT scan showed multiple uterine masses, possibly fibroids, as well a a complex cystic structure involving the left adnexa. Recommend ultrasound for more complete evaluation. An ultrasound at this office on 08/14/23 showed a uterus with multiple fibroids, stable (compared to u/s in 2018) and the right ovary measuring 3.4 x 2.9 x 2.0 with a septated complex cystic lesion replacing the majority of the ovary, measuring 3.1 x 1.9 x 2.4 cm (previously 3.1 x 2.0 x 2.6cm in 2018). Left ovary was not seen (also not seen on 2018 u/s). She reports: abdominal pain, which is why she had the CT scan. She is here with daughter, Beverley, who is translating for her. She requests a refill of lotrisone. Examination Category Sub-Category Detail Notes Category Not es Genitourinary - Female GENERAL APPEARANCE: alert , oriented, no apparent distress
--- NOTE | 2025-08-21 14:11 | A.OFFPC_ITS ---
Vital Signs 08/21/25 14:20 Height 5 ft 2 in Weight 165 lb BMI 30.2 BP 134/82 Blood Pressure Location Lt brachial Position Sitting Respiration 16 Pulse 73 Pulse Source Pulse Oximeter Temp 98.7 F Temp Source Oral Pulse Oximetry (%) 95 Oxygen Delivery Method Room Air Intake Visit Reasons: chest pain Intake Note: Pt is here today for a sick visit. Pt c/o L side sharp chest pain which happened this morning at 5 am. Allergies donepezil Adverse Reaction (Intermediate, Verified 08/21/25 14:23) Nausea trazodone Adverse Reaction (Intermediate, Verified 08/21/25 14:23) Dizziness Medication List - Last Reconciled 08/21/25 by Beverley Perez MD acetaminophen 650 mg (2 x 325 mg) PO Q6H PRN 30 days [ankle orthosis As directed] biotin 1,000 mcg PO DAILY cholecalciferol (vitamin D3) (Vitamin D3) 50 mcg PO DAILY [choline 800 mg ] dextromethorphan polistirex ER (Delsym 12 hour) 10 mL PO Q12H dicyclomine 10 mg PO TID donepezil 5 mg PO BEDTIME 3 months MDD 5mg estradiol 0.01%(0.1mg/gram) (Estrace) 1 g vaginal 2XW felodipine ER 2.5 mg PO DAILY gabapentin 300 mg PO BEDTIME 3 months MDD 300mg ginkgo biloba-Panax ginseng rt 60-100 mg 2 caps PO DAILY [glucosemide with MSM 2 tabs PO DAILY] lutein 20 mg PO DAILY magnesium oxide 400 mg PO BEDTIME Myrbetriq ER (mirabegron) 50 mg PO DAILY NS olmesartan 40 mg PO DAILY vitamin K2 100 mcg PO DAILY Tobacco use date assessed: 08/21/25 Dental Screening Dental Screen Date: 01/13/25 HPI chest pain HPI Details Pt complains of L side chest sharp pain constant since 5 AM improve after taking four 81 mg aspirins. Patient denies pleurisy cough fever chills shortness or breath diaphoresis palpitations nausea vomiting GI or complaints. [facility] Medical History (Updated 08/21/25 @ 15:46 by Beverley Perez MD) Shoulder pain, left Acute respiratory disease IBS (irritable bowel syndrome) Osteoarthritis of right hip Thyroid nodule Arthritis Palpitations Vitamin D deficiency Annual physical exam Insomnia Memory deficit Hyperglycemia Hyperlipidemia History of mammogram Chronic neck pain Arthralgia Tension headache RLS (restless legs syndrome) Osteoarthritis of both knees Balance problem Osteoarthritis of right shoulder Sciatica of left side Sciatica, right side Hypertension Surgical History History of bunionectomy Hx of shoulder surgery Hx of spinal surgery H/O colonoscopy Family History Father Stroke Mother Lung cancer Social History Household Members: Spouse Housing: [facility] Are you a primary respiratory care assistant to a significant other at home: No Do you presently have visiting nurse or other home services: No Alcohol intake: current Alcohol intake frequency: does not drink Patient Tobacco Use Status: Never used Tobacco e-Cigarette/Vaping Use: Never Used service: No Current occupational status: retired Cognitive needs: No Hearing needs: No Vision needs: Yes Questionnaire Thrive Questionnaire Date Thrive assessed: 10/15/24 MABEL-7 AMB Questionnaire MABEL-7 Date MABEL - 7 assessed: 01/13/25 Source: Developed by Drs. Rajesh Ellis, Sharon Delarosa, Mikie Staley and colleagues, with an educational carolann from [employer]. Review of Systems Const All systems reviewed & are unremarkable except as noted in HPI and below Eyes Reports no additional complaints ENT Reports no additional complaints Card Reports no additional complaints Resp Reports no additional complaints GI Reports no additional complaints Reports no additional complaints Physical exam (Primary Care) Vital Signs: Last Vital Signs Temp 98.7 F 08/21/25 14:20 Pulse 73 08/21/25 14:20 Resp 16 08/21/25 14:20 BP 134/82 08/21/25 14:20 Pulse Ox 95 08/21/25 14:20 Oxygen Delivery Method Room Air 08/21/25 14:20 BMI result Body Mass Index 30.2 Tobacco/Smoking Status: Tobacco use Status Tobacco use date assessed 08/21/25 08/21/25 14:26 Patient Tobacco Use Status Never used Tobacco 08/21/25 14:11 e-Cigarette/Vaping Use Never Used 08/21/25 14:11 Thrive Assessment: Date of Thrive Assessment Date Thrive assessed 10/15/24 08/21/25 14:11 Const General: no acute distress HENMT Head: Yes normal to inspection Neck Neck: Yes supple Chest Chest palpation & inspection: normal inspection of the chest and localized rib tenderness with anteroposterior compression (Left lower ribs) Resp Effort & Inspection: normal respiratory effort Auscultation: clear to auscultation bilaterally Cardio Rhythm: regular rhythm Heart sounds: S1 normal heart sound present and S2 normal heart sound present Coding Level of Care Code Est Pt Level 4 (35647) Diagnoses Hypertension I10 Costochondritis M94.0 Assessment & Plan Assessment & Plan (1) Hypertension: Code(s): I10 - Essential (primary) hypertension Category: Medical Plan: Continue current medications (2) Costochondritis: Code(s): M94.0 - Chondrocostal junction syndrome [Tietze] Category: Medical Plan: EKG showed normal sinus rhythm no ST-T changes. Meloxicam 50 mg daily for 7 days is prescribed and supportive care discussed with the patient Orders: Orders AMB EKG-In Office Today I10 - Essential (primary) hypertension, R07.9 - Chest pain, unspecified Comprehensive [place]. Panel Fast 5 Months E04.9 - Nontoxic goiter, unspecified, I10 - Essential (primary) hypertension, R73.9 - Hyperglycemia, unspecified Complete Blood Count Auto Diff 5 Months E04.9 - Nontoxic goiter, unspecified, I10 - Essential (primary) hypertension, R73.9 - Hyperglycemia, unspecified Lipid Panel 5 Months E04.9 - Nontoxic goiter, unspecified, I10 - Essential (primary) hypertension, R73.9 - Hyperglycemia, unspecified Hemoglobin A1c 5 Months E04.9 - Nontoxic goiter, unspecified, I10 - Essential (primary) hypertension, R73.9 - Hyperglycemia, unspecified TSH reflex Free T4 5 Months E04.9 - Nontoxic goiter, unspecified, I10 - Essential (primary) hypertension, R73.9 - Hyperglycemia, unspecified Medications: New meloxicam 15 mg PO DAILY 7 tabs 0RF
[2025-08-21 14:20] VITALS: BP 134/82; PULSE 73; RESP 16; TEMP 37.1; O2SAT 95; BMI 30.2
--- OUTSIDE RECORDS SUMMARY | 2025-08-21 21:36 | XMS_ITS | Clinical Summary ---
Author Organization [employer] Address [address] [facility] 7[address] [place] [address] Care Team Providers Care Systems Technician Name Role Phone Unavailable Primary Care [...] Encounters Date Type Department Care Team Description 08/21/2025 Telephone [facility] [address] [place] [address] Javier Garcia DMD from Last 3 Months Social History Tobacco [...] 1965 DTaP/Tdap/Td Vaccines (1 - Tdap) 1966 Zoster Vaccines (1 of 2) 1997 Pneumococcal Vaccine: 50+ Years (2 of 2 - PCV) 08/02/2017 08/02/2016 RSV Patients and Patients Aged 60 years or older (1 - 1-dose 75+ series) 2022 COVID-19 Vaccine ( - season) 2025 06/01/2022, 06/14/2021, 12/13/2020, Additional history exists Influenza Vaccine (#1) 2025 Dental Oral Exam [...] Procedure Name Priority Date/Time Associated Diagnosis Comments PROPHYLAXIS - ADULT Routine 05/13/2025 1 :00 PM EDT INTRAORAL - COMPLETE SERIES OF RADIOGRAPHIC IMAGES Routine 05/13/2025 1:00 PM EDT COMPREHENSIVE ORAL EVALUATION - NEW OR ESTABLISHED PATIENT Routine 05/13/2025 1:00 PM EDT from Last 3 Months or Most Recently Relevant to Health Maintenance Insurance DENTAL - [facility] [place] [id number]
--- OUTSIDE RECORDS SUMMARY | 2025-08-21 21:36 | XMS_ITS | Encounter Summary ---
Author Organization [employer] Address [address] [facility] [address] [place] [address] Care Team Providers Care Braze Operator Name Role Phone Unavailable Primary Care Provider Unavailabl e Reason for Visit * Reason Onset Date Comments [facility] medical records release and grievance review 03/28/2025 Encounter Details Date Type Department Care Team (Late st Contact Info) Description 03/28/2025 Telephone [facility] ADULT D[facility] [address] [place] [address] WarrenuBassam, DDS [address] [place] [address] [facility] medical records release and grievance review Social [...] Jovita Bates - 03/28/2025 12:00 PM EDT [facility] called in asking if fax for medical records release and grievance review was received at [facility] fax number [phone]. Confirmed with both [facility] front end web designer as well as Jessica at [facility] front end web designer and it has not been received. They are going to resend today. documented in this encounter Plan of Treatment Not on file documented as of this encounter Visit Diagnoses Not on filedocumented in this encounter
--- OUTSIDE RECORDS SUMMARY | 2025-08-21 21:36 | XMS_ITS | Clinical Summary ---
Author Organization [facility] Address [address] [address] Phone Care Team Providers Care Forest Fire Equipment Operator Name Role Phone Beverley Perez MD Primary Care Provider [phone] Allergies Active Allergy Reactions Criticality Noted Date Comments Ibuprofen Mental Status Change 07/13/2017 Acetaminophen Mental Status Change 07/13/2017 Medications omega 5-tnn-fzz-fish oil 1,000 mg (120 mg-180 mg) Cap [...] topic Medical Devices Not on file Insurance [facility] MEDICARE REPLACEMENT [facility]PL[facility]EMENT [facility] REPL[facility]EMENT [facility] MED[facility] REPLACEMENT [facility] MED[facility] REPLACEMENT [facility] MEDICARE REPLACEMENT [place] [id number] [facility] MEDIC[facility] REPLACEMENT [place] [id number] Care Teams Forest Fire Equipment Operator Relationship Specialty Start Date End Date Beverley Perez MD [address] [place] [address] PCP - General Internal Medicine 07/12/17 Additional Source Comments The information contained in this document represents components of the legal health record. It is not the complete legal health record.[facility]
--- OUTSIDE RECORDS SUMMARY | 2025-08-21 21:36 | XMS_ITS | Continuity of Care Document ---
Author Organization [facility] Address [address] [facility] [address] [place] [address] Phone [phone] Care Team Providers Care Entertainment Usher Name Role Phone Beverley Perez Care Team Information Electrical Design Engineer [phone] Problems Active Problems Provider Date Vitamin D [...] Tablet By Mouth Daily Beverley Perez Olmesartan [id number] Tablets Take 1 Tablet By Mouth Daily Beverley Perez [id number] Tablets DR Take 1 Tablet By Mouth Twice Daily Denisse Magallanes PA [id number] Capsules Unknown [id number] Capsules Unknown [id number] Chewtabs 1 by mouth every day Unknown [id number] Tablets 1 by mouth every day Unknown Vxdtyxjaoj07bh Tablets 1 by mouth every day Unknown [...]
--- OUTSIDE RECORDS SUMMARY | 2025-08-21 21:37 | XMS_ITS | Patient Health Record ---
Author Organization [employer] [facility] (Formerly [facility]) Address [address] [place] [address] Care Team Providers Care Hedis Registered Nurse Rn Name Role Phone Beverley Perez MD Primary Care Provider Jania hines FATOUMATA QUIÑONES Unavailable [phone] Allergies No Known Allergies Results Component Value Reference Range Notes Urinalysis Reviewed date:07/24/2025 04:20:54 PM Interpretation: Performing Lab: Notes/Report: NITRITE NEG PH 8.0 PROTEIN TRACE S.G 1.000 WBC TRACE GLUCOSE NEG KETONES NEG UROBILINOGEN NEG BILIRUBIN NEG BLOOD TRACE Urine Culture, [id number] Reviewed date:07/28/2025 10:15:54 AM Interpretation: Performing Lab:[facility], Ileana Vandana Teena, [address] [employer], [place], Phone - [phone], Director - [facility] Notes/Report: Urine Culture, Routine Final report Result 1 No growth PDF Report Reviewed date:07/28/2025 10:16:23 AM Interpretation: Performing Lab:[facility] Ileana Hidalgo V[address] Teena, [place] [address], [place], Phone - [phone], Director - [facility] Notes/Report: Reason For Referral No Information Medications Medication SIG (Take, Route, Frequency, Duration) Notes Start Date End Date Status Vagisil Active Vitamin C 500 MG as directed Orally Active Lutein Active Felodipine ER 2.5 MG as directed Orally Active Magnesium Active Choline Active Estradiol Active Niacin Not-Taking Fish Oil Active Glucosamine Active Vitamin D-3 5000 UNIT 1 tablet Orally On ce a day; Duration: 30 day(s) Active Olmesartan Medoxomil 40 MG 1 tablet Orally Once a day; Duration: 30 day(s) Active Clotrimazole-Betamethaso ne 1-0.05 % 1 application Externally Twice a day; Duration: 10 days 11/25/2024 Active Biotin 1 MG as directed Orally Not-Taking Social History Tobacco Use: Social History [...] Risk Notes Problem Cyst of right ovary ([id number]) Other ovarian cyst, right side (N83.291) Active confirmed Vital Signs Temperature 97.3 degrees Fahrenheit 08/19/2025 Blood pressure diastolic 78 mm Hg 08/19/2025 Height 62.5 in 08/19/2025 Blood pressure systolic 144 mm Hg 08/19/2025 Weight 161 lbs 08/19/2025 BMI 28.97 kg/m2 08/19/2025 Encounters Encounter Location Date Provider Diagnosis Total [address] [address] 10/07/2024 FATOUMATA QUIÑONES Encounter for gynecological examination (general) (routine) without abnormal findings Z01.419 and Encounter for screening mammogram for malignant neoplasm of breast Z12.[address] [address] 11/25/2024 FATOUMATA QUIÑONES Pruritus vulvae L29. [address] [address] 07/24/2025 FATOUMATA QUIÑONES Frequency of micturi tion R35.[address] [address] 08/19/2025 FATOUMATA QUIÑONES Abnormal findings on diagnostic imaging of other abdominal regions, including retroperitoneum R93.5 ; Other ovarian cyst, left side N83.292 ; Other ovarian cyst, right side N83.291 and Pruritus vulvae L29.[address] [address] 07/24/2025 FATOUMATA QUIÑONES Assessments Encounter Date Diagnosis (ICD Code) Assessment [...] today. 11/25/2024 Pruritus vulvae (ICD-10 - L29.2) 07/24/2025 Frequency of micturition (ICD-10 - R35.0) Will rule out UTI, but likely there is no infection. With urge incontinence requiring the use of pads, she would be best served with a urogynecologist. She needs to be within the [facility] network. Magali Recinos MD, MPH is a urogynecologist with [facility] office in [place], [place], but it appears she may see patients at [facility]. Will refer for her. I discussed this with Anitha's daughter, Shahla. I have also given Anitha information on bladder training as well as bladder irritants, which she is encouraged to read so she can perhaps reduce her symptoms while she awaits the evaluation with the specialist. 08/19/2025 Abnormal findings on diagnostic imaging of other abdominal regions, including retroperitoneum (ICD-10 - R93.5) 08/19/2025 Other ovarian cyst, left side (ICD-10 - N83.292) I suspect left and right were transposed in the CT scan, as 2 separate ultrasounds, 5 years apart, showed a stable right ovarian cyst. Will obtain ultrasound to confirm. 08/19/2025 Other ovarian cyst, right side (ICD-10 - N83.291) 10/07/2024 Encounter for screening mammogram for malignant neoplasm of breast (ICD-10 - Z12.31) 08/19/2025 Pruritus vulvae (ICD-10 - L29.2) 07/24/2025 Other Plan Of Treatment Pending Test Test Name Order Date PELVIC ULTRASOUND W/TRANSVAGINAL 020 PELVIC ULTRASOUND W/TRANSVAGINAL 021 ULTRASOUND: PELVIC W/TRANSVAGINAL 2022 ULTRASOUND: PELVIC W/TRANSVAGINAL 2024 MM Digital Screening Mammogram 3D 2024 MM Digital Screening Mammogram 3D 2022 Future Test Test Name Order Date PELVIC ULTRASOUND W/TRANSVAGINAL 019 ULTRASOUND: PELVIC W/TRANSVAGINAL 2018 Next Appt Details Provider Name:FATOUMATAJanna Boudreaux, 09/26/2025 11:00:00 AM, [address], [address], [place], [address], Insurance Providers Payer Name Payer Address Payer Phone Subscriber Number Group Number Insured Name Patient Relationship to Insured Coverage Start Date Coverage End Date AARP MEDICARE COMPLETE [address] [address] [place] [address] [id number] ANITHA JOSHI Self - patient is the insured [...]
--- OUTSIDE RECORDS SUMMARY | 2025-08-21 21:37 | XMS_ITS | Clinical Summary ---
Author Organization [facility] [address] [facility] Address [address] [place] [address] Phone Care Team Providers Care Senior Physician Name Role Phone Beverley Perez MD Primary Care Provider [phone] Medications amoxicillin (AMOXIL) 500 mg capsule TAKE [...] Site/Laterality Comments OTHER SURGICAL HISTORY Right PROCEDURE: [place] BIOPSY OVARY UNI/BI SEPARATE PROCEDURE Medical History [...] 1:00 PM EST Office Visit Urogynecology - [address] [phone] Magali Recinos MD [address] [place] [address] [address] [place] [address] 09/15/2025 9:30 AM EST Office Visit Endocrinology - [address] [place] [address] Maddi De La Cruz PA [address] [place] [address] Health Maintenance Due Date Last Done Comments [...] topic Insurance [employer] MEDICARE Care Teams Senior Physician Relationship Specialty Start Date End Date Beverley Perez MD [address] [place] [address] PCP - General Internal Medicine 10/31/24
--- OUTSIDE RECORDS SUMMARY | 2025-08-21 21:37 | XMS_ITS | Encounter Summary ---
Author Organization [employer] Address [address] 7t [place] [address] Care Team Providers Care Business Support Associate Name Role Phone Unavailable Primary Care Provider Unavailabl e Encounter Details Date Type Department Care Team (Late st Contact Info) Description 08/21/2025 Telephone [facility] ADULT DENTAL [address] [place] [address] Javier Garcia, DMD [address] [place] [address] Social History Tobacco Use Types Packs/Day Years [...] encounter Miscellaneous Notes * Telephone Encounter - Jayla Johnson - 08/21/2025 9:08 AM EST TC made to [facility] per patient to make sure that they recieved the xrays sent via email. Asked office to kindly call us back for confirmation. documented in this encounter Plan of Treatment Not on file documented as of this encounter Visit Diagnoses Not on filedocumented in this encounter
== END 2025-08-21 15:47 | disposition home or self-care (01) ==
LOC: HO.HMCC 14:08
PROVIDERS: PCP Internal Medicine; Visit Provider Internal Medicine
DX: I10 Essential (primary) hypertension (principal); M94.0 Chondrocostal junction syndrome [Tietze]

== ENCOUNTER → 2025-08-21 14:08 | Outpatient (BNVA) | payer MEDICARE, SELFPAY | PROVIDERS: PCP Internal Medicine; Visit Provider Internal Medicine | DX: I10 Essential (primary) hypertension (principal); M94.0 Chondrocostal junction syndrome [Tietze]; E04.9 Nontoxic goiter, unspecified; R07.9 Chest pain, unspecified | CPT/HCPCS: 99212 ==

== ENCOUNTER 2025-09-10 10:49 | Outpatient (AMB) | payer MEDICARE, SELFPAY ==
--- NOTE | 2025-09-10 10:53 | MHC.OFFWIV ---
Intake Vital Signs 09/10/25 10:58 Height 5 ft 2 in Weight 165 lb BMI 30.2 BP 120/64 Blood Pressure Location Lt brachial Position Sitting Respiration 16 Pulse 96 Pulse Source Pulse Oximeter Temp 98.1 F Temp Source Oral Pulse Oximetry (%) 95 Oxygen Delivery Method Room Air Intake Visit Reasons: EP abdominal pain, lt side is worse Intake Note: Persian speaking patient presents with s/s beginning this morning- lots of gas x1 hr, then full belly pain with LT side being the worse with extreme pain to touch, changes in BM-loose pieces of stool, was able to eat breakfast this morning, peeing normal, no headache, denies nausea Patient Tobacco Use Status: Never used Tobacco Allergies donepezil Adverse Reaction (Intermediate, Verified 09/10/25 10:58) Nausea trazodone Adverse Reaction (Intermediate, Verified 09/10/25 10:58) Dizziness Do you need a note to return to daycare/school/sports/work: No HPI HPI Comments History of Present Illness Details Patient is a 80yo F who presents to the office with abdominal pain She has documented hx of diverticulosis, diverticulitis, gastritis and IBS Patient sees Dr. Perez for PCP She had a CT scan of the abdomen pelvis on 08/12/25 which showed mild diverticulitis with uterine fibroids and a complicated L adnexal cystic mass Of note, nothing was seen in chart to show treatment/management of this diverticulitis finding Has been following a no seed diet Phone order management specialist for maori is being used Presents for abdominal pain a few days ago Worsening this morning Worsening and located LLQ that is now constant + extreme gas this morning with abdominal extension + severe sharp LLQ pain, Worse with palpation She denies similar pain this severe in the past Today was last BM which she states is not diarrhea; her normal is one long stool but now it is small pieces and feels like not emptying No melena or brbpr No nausea or vomiting No fever or chills PFSH Medical History (Updated 09/10/25 @ 11:32 by Meena Briones PA-C) Shoulder pain, left Acute respiratory disease IBS (irritable bowel syndrome) Osteoarthritis of right hip Thyroid nodule Arthritis Palpitations Vitamin D deficiency Annual physical exam Insomnia Memory deficit Hyperglycemia Hyperlipidemia History of mammogram Chronic neck pain Arthralgia Tension headache RLS (restless legs syndrome) Osteoarthritis of both knees Balance problem Osteoarthritis of right shoulder Sciatica of left side Sciatica, right side Hypertension Surgical History History of bunionectomy Hx of shoulder surgery Hx of spinal surgery H/O colonoscopy Family History Father Stroke Mother Lung cancer Social History Household Members: Spouse Housing: [facility] Are you a primary nursing care attendant to a significant other at home: No Do you presently have visiting nurse or other home services: No Alcohol intake: current Alcohol intake frequency: does not drink Patient Tobacco Use Status: Never used Tobacco e-Cigarette/Vaping Use: Never Used service: No Current occupational status: retired Cognitive needs: No Hearing needs: No Vision needs: Yes Review of Systems Const Denies chills and Denies fever(s) Card Denies chest pain and Denies dyspnea Resp Denies dyspnea GI Reports abdominal pain, Denies melena, Reports bloating, Denies hematochezia, Reports change in stool character, Reports constipation, Denies diarrhea and Denies vomiting Musc Denies back pain Physical Exam Exam Exam: General: Non-toxic, NAD. Speaking full sentences. Skin: Warm dry throughout Eye: EOMI HENT: Airway patent. Uvula midline. No pharyngeal erythema or edema. No DUDE WRANGLER. Respiratory: CTA bilaterally. No wheezes, rales or rhonchi Cardiac: RRR. No murmur Abdominal: BS present x4. + tenderness to light palpation RLQ < LLQ. + rebound LLQ. No rigidity appreciated MSK: Full ROM extremities. Neurology: Alert. No aphasia or facial droop. Gait without abnormality Psych: Good mood and affect Vital Signs: Last Vital Signs Temp 98.1 F 09/10/25 10:58 Pulse 96 09/10/25 10:58 Resp 16 09/10/25 10:58 BP 120/64 09/10/25 10:58 Pulse Ox 95 09/10/25 10:58 Oxygen Delivery Method Room Air 09/10/25 10:58 BMI result Body Mass Index 30.2 Assessment & Plan Assessment & Plan (1) Acute abdominal pain: Code(s): R10.9 - Unspecified abdominal pain Plan: Patient seen and evaluated. + acute abdomen on examination with rebound LLQ and mild diverticulosis and was not tx with antibiotics Call given to [facility] for r/o abscess vs perforation Daughter will bring down and pt declined ambulance. Patient gave verbal understanding and had no additional questions or concerns at time of discharge All questions answered (2) Diverticulitis: Code(s): K57.92 - Diverticulitis of intestine, part unspecified, without perforation or abscess without bleeding Plan: see above Coding Level of Care Code Est Pt Level 4 (22756) Diagnoses Acute abdominal pain R10.9 Diverticulitis K57.92
[2025-09-10 10:58] VITALS: BP 120/64; PULSE 96; RESP 16; TEMP 36.7; O2SAT 95; BMI 30.2
--- OUTSIDE RECORDS SUMMARY | 2025-09-10 12:15 | XMS_ITS | Encounter Summary ---
Author Organization [employer] Address [address] [facility] 7t [place] [address] Care Team Providers Care Fisher Sponge Hooking Name Role Phone Unavailable Primary Care Provider Unavailabl e Reason for Visit * Reason Onset Date Comments [facility] medical records release and grievance review 03/28/2025 Encounter Details Date Type Department Care Team (Late st Contact Info) Description 03/28/2025 Telephone [facility] ADULT DENTAL [address] [place] [address] WarrenuBassam, DDS [address] [place] [address] [facility] medical records release and grievance [...] Jovita Bates - 03/28/2025 12:00 PM EDT [facility] called in asking if fax for medical records release and grievance review was received at [facility] fax number [phone]. Confirmed with both [facility] front end loader operator as well as Jessica at [facility] front end loader operator and it has not been received. They are going to resend today. documented in this encounter Plan of Treatment Not on file documented as of this encounter Visit Diagnoses Not on filedocumented in this encounter
--- OUTSIDE RECORDS SUMMARY | 2025-09-10 12:15 | XMS_ITS | Clinical Summary ---
Author Organization [facility] Address [address] [address] Phone Care Team Providers Care Aquatics Assistant Department Head Name Role Phone Beverley Perez MD Primary Care Provider [phone] Allergies Active Allergy Reactions Criticality Noted Date Comments Ibuprofen Mental Status Change 07/13/2017 Acetaminophen Mental Status Change 07/13/2017 Medications omega 4-njq-tbl-fish oil 1,000 mg (120 mg-180 mg) Cap [...] topic Medical Devices Not on file Insurance [facility] MED[facility] REPLACEMENT [facility] REPL[facility]EMENT [facility] MED[facility] REPLACEMENT [facility] MED[facility] REPLACEMENT [facility] MED[facility] REPLACEMENT [facility] MEDIC[facility] REPLACEMENT [facility] MEDICARE REPLACEMENT [place] [id number] [facility] MEDIC[facility] REPLACEMENT [place] [id number] Care Teams Aquatics Assistant Department Head Relationship Specialty Start Date End Date Beverley Perez MD [address] [place] [address] PCP - General Internal Medicine 07/12/17 Additional Source Comments The information contained in this document represents components of the legal health record. It is not the complete legal health record.[facility]
--- OUTSIDE RECORDS SUMMARY | 2025-09-10 12:15 | XMS_ITS | Clinical Summary ---
Author Organization [employer] Address [address] [facility] 7[address] [place] [address] Care Team Providers Care Seasonal Driver Name Role Phone Unavailable Primary Care Provider [...] Department Care Team Description 08/21/2025 Telephone [facility] ADULT DENTAL [address] [place] [address] Javier Garcia DMD from Last 3 Months [...] Relevant to Health Maintenance Insurance DENTAL - [facility] [place] [id number]
--- OUTSIDE RECORDS SUMMARY | 2025-09-10 12:15 | XMS_ITS | Patient Health Record ---
Author Organization [employer] [facility] Address [address] [place] [address] Care Team Providers Care Frozen Foods Manager Name Role Phone Beverley Perez MD Primary Care Provider Jania hines FATOUMATA QUIÑONES Unavailable [phone] Allergies No Known Allergies Results Component Value Reference Range Notes Urinalysis Reviewed date:07/24/2025 04:20:54 PM Interpretation: Performing Lab: Notes/Report: NITRITE NEG PH 8.0 PROTEIN TRACE S.G 1.000 WBC TRACE GLUCOSE NEG KETONES NEG UROBILINOGEN NEG BILIRUBIN NEG BLOOD TRACE Urine Culture, [id number] Reviewed date:07/28/2025 10:15:54 AM Interpretation: Performing Lab:[facility], Ileana Vandana Teena, [address] [employer], [place], Phone - [phone], Director - [facility] Notes/Report: Urine Culture, Routine Final report Result 1 No growth PDF Report Reviewed date:07/28/2025 10:16:23 AM Interpretation: Performing Lab:[facility] Ileana Hidalgo Vandana Teena, [place] [address], [place], Phone - [phone], Director - [facility] Notes/Report: Reason For Referral No Information Medications [...] Risk Notes Problem Cyst of right ovary ([id number]) Other ovarian cyst, right side (N83.291) Active confirmed Vital Signs Temperature 97.3 degrees Fahrenheit 08/19/2025 Blood pressure diastolic 78 mm Hg 08/19/2025 Height 62.5 in 08/19/2025 Blood pressure systolic 144 mm Hg 08/19/2025 Weight 161 lbs 08/19/2025 BMI 28.97 kg/m2 08/19/2025 Encounters Encounter Location Date Provider Diagnosis Total [address] [address] 10/07/2024 FATOUMATA QUIÑONES Encounter for gynecological examination (general) (routine) without abnormal findings Z01.419 and Encounter for screening mammogram for malignant neoplasm of breast Z12.[address] [address] 11/25/2024 FATOUMATA QUIÑONES Pruritus vulvae L29. [address] [address] 07/24/2025 FATOUMATA QUIÑONES Frequency of micturi tion R35.[address] [address] 08/19/2025 FATOUMATA QUIÑONES Abnormal findings on diagnostic imaging of other abdominal regions, including retroperitoneum R93.5 ; Other ovarian cyst, left side N83.292 ; Other ovarian cyst, right side N83.291 and Pruritus vulvae L29.[address] [address] 07/24/2025 FATOUMATA QUIÑONES Assessments Encounter Date Diagnosis [...] urogynecologist. She needs to be within the [facility] network. Magali Recinos MD, MPH is a urogynecologist with [facility] office in [place], [place], but it appears she may see patients at [facility]. Will refer for her. I discussed [...] Provider Name:FATOUMATAJanna Boudreaux, 09/26/2025 11:00:00 AM, [address], [address], [place], [address], Insurance Providers Payer Name Payer Address Payer Phone Subscriber Number Group Number Insured Name Patient Relationship to Insured Coverage Start Date Coverage End Date AARP MEDICARE COMPLETE [address] [address] [place] [address] [phone] [id number] ANITHA JOSHI Self - patient is the [...]
--- OUTSIDE RECORDS SUMMARY | 2025-09-10 12:15 | XMS_ITS | Clinical Summary ---
Author Organization [facility] [address] [facility] Address [address] [place] [address] Phone Care Team Providers Care Termination Clerk Name Role Phone Beverley Perez MD Primary Care Provider [phone] Medications amoxicillin (AMOXIL) 500 mg capsule TAKE [...] Site/Laterality Comments OTHER SURGICAL HISTORY Right PROCEDURE: [place] BIOPSY OVARY UNI/BI SEPARATE PROCEDURE Medical History [...] Team (Late st Contact Info) Description 09/15/2025 9:30 AM EST Office Visit Endocrinology - [address] [address] Maddi De La Cruz PA [address] [place] [address] 10/08/2025 2:30 PM EST Office Visit Urogynecology - [address] [place] [address] Cornelia Talbert MD [address] [place] [address] [address] [place] [address] Health Maintenance Due Date Last Done Comments [...] topic Insurance [employer] MEDICARE Care Teams Termination Clerk Relationship Specialty Start Date End Date Beverley Perez MD [address] [place] [address] PCP - General Internal Medicine 10/31/24
== END 2025-09-10 11:42 | disposition home or self-care (01) ==
PROVIDERS: PCP Internal Medicine; Visit Provider Physician Assistant
DX: R10.9 Unspecified abdominal pain (principal); K57.92 Diverticulitis of intestine, part unspecified, without perforation or abscess without bleeding

== ENCOUNTER 2025-09-10 12:01 | Emergency (ER) | payer MEDICARE, SELFPAY ==
--- NOTE | ~2025-09-10 | CT_ITS ---
EXAMINATION: CT ABDOMEN AND PELVIS WITH CONTRAST CLINICAL INFORMATION: Left lower quadrant pain. COMPARISON: 08/12/2025. TECHNIQUE: Multidetector volumetric images were obtained from the superior aspect of the liver through the pubic symphysis following administration 65 mL of Omnipaque 350 intravenous contrast. Sagittal and coronal reformatted images were obtained on the technologist's workstation. Oral contrast: No This CT examination was performed using dose optimization techniques as appropriate, variously including the following: *Automated exposure control *Adjustment of mA and/or kV according to patient size (this includes techniques or standardized protocols for targeted exams where dose is matched to indication/reason for exam; i.e. extremities or head) *Use of iterative reconstruction technique FINDINGS: LUNG BASES: Lung bases are clear. Heart size is normal. There is a small type I hiatus hernia. There are no effusions. LIVER, GALLBLADDER, AND BILIARY TREE: The liver is normal in size, shape, and attenuation. No focal hepatic lesion or biliary ductal dilatation is present. The gallbladder is unremarkable with no evidence of radiopaque gallstones, gallbladder wall thickening, or obvious pericholecystic inflammatory changes. PANCREAS: Unremarkable. SPLEEN: Unremarkable. ADRENAL GLANDS: Unremarkable. KIDNEYS AND URETERS: The kidneys are normal in size, shape, and attenuation. No hydronephrosis, hydroureter, or calculi seen. No perinephric stranding. BLADDER: Unremarkable. GASTROINTESTINAL TRACT: Extensive diverticulosis of the sigmoid colon is present, with residual inflammation superiorly of the distal sigmoid from prior recent bout of diverticulitis. There is no abscess. There is a new region of inflammation of the distal descending colon with a prominent enhancing diverticulum and pericolonic fat stranding (series 3, image 63), consistent with a new focus of diverticulitis. No complication evident. The remainder of the colon is normal in caliber and course. There are no CT features of appendicitis. The small bowel is normal in caliber and course. The stomach is decompressed. There is a type I hiatus hernia at the GE junction. The duodenum is normal in appearance. There is no rectal abnormality. ABDOMINAL WALL: No significant hernia is appreciated. LYMPH NODES: No abnormal lymphadenopathy is present. VASCULAR: Moderate to heavy calcification of the aorta and iliac arteries. No aneurysm. PELVIC VISCERA: The uterus is unremarkable aside from small calcified fibroids. There is a left ovarian cyst measuring 2.8 cm in diameter maximally. This is unchanged. There is no right adnexal abnormality. OSSEOUS STRUCTURES: There is no suspicious lytic or blastic bone lesion present. There are degenerative changes throughout the spine. There has been prior fusion of L4-5 with transpedicular screws and posterior connecting rods. There is an intervening disc graft. There is a total right hip arthroplasty in place. No complication evident. CT/CT abdomen pelvis w IV con IMPRESSION: 1. There is a new focus of acute uncomplicated diverticulitis involving the distal descending colon. 2. There is mild residual inflammation of the distal sigmoid colon from recent bowel of sigmoid diverticulitis. There is no abscess or complication evident. 3. There is a stable 2.8 cm left ovarian cyst, for which ultrasound as outpatient is advised. 4. Additional ancillary findings as discussed in the body of the report. Electronically signed by: Matthew Bush MD 09/10/2025 03:32 PM [facility]
--- NOTE | 2025-09-10 12:29 | ED.ABDPAIN ---
HPI - Abdominal Pain General Chief Complaint: Abdominal Pain Stated Complaint: sent here for chrons by pcp Time Seen by Provider: 09/10/25 15:11 Source: patient and family (daughter) Mode of arrival: ambulatory Limitations: no limitations History of Present Illness ED Provider: SANJANA GALINDO PA-C HPI narrative: 80-year-old [place] speaking female with pmhx significant for IBS, HLD, HTN presents to the ED today for evaluation of abdominal pain x4 weeks. Patient is [place] speaking however prefers her daughter, who is at bedside, to interpret for her. Patient states that she has had pain to her left lower abdomen x4 weeks. She was initially evaluated by her primary care provider who ordered a CAT scan. She was informed that the CT scan showed a cyst to her left ovary. She has since followed up with her lineman a class and it was determined that this is not the cause of her pain. She contacted her primary care office due to continued left lower abdominal pain, they again reviewed the CT scan that was obtained 4 weeks ago and noted a finding of diverticulitis. Patient was never treated with any antibiotics. She was advised to come to the ED for further imaging. She admits to intermittent constipation and loose stool. Denies any nausea or vomiting. Denies fever, chills, urinary symptoms. She has not been trialing any [id number] pain medications at home. She has been drinking hot water as this seems to help with the discomfort. Related Data Home Medications ?Medication ?Instructions ?Recorded ?Confirmed glucosemide with MSM 2 tab PO DAILY 09/07/20 08/21/25 lutein 20 mg capsule 20 mg PO DAILY 09/07/20 08/21/25 ginkgo biloba extract-Panax 2 cap PO DAILY 07/23/21 08/21/25 ginseng root extract 60 mg-100 mg capsule cholecalciferol (vitamin D3) 50 50 mcg PO DAILY 12/05/23 08/21/25 mcg (2,000 unit) capsule (Vitamin D3) choline PO 05/29/24 08/21/25 biotin 800 mcg tablet 1,000 mcg PO DAILY 01/13/25 08/21/25 vitamin K2 100 mcg capsule 100 mcg PO DAILY 01/13/25 08/21/25 Previous Rx's ?Medication ?Instructions ?Recorded acetaminophen 325 mg tablet 650 mg (2 x 325 mg) PO Q6H PRN 12/14/23 Pain, Mild (Pain Scale 1-3) 30 days #240 tabs ankle orthosis #1 ea 07/02/24 estradiol 0.01% (0.1 mg/gram) 1 g vaginal 2XW #42.5 grams 10/15/24 vaginal cream (Estrace) felodipine 2.5 mg tablet,extended 2.5 mg PO DAILY #90 tabs 01/13/25 release 24 hr olmesartan 40 mg tablet 40 mg PO DAILY #90 tabs 01/13/25 dextromethorphan polistirex 30 10 ml PO Q12H cough #89 mL 03/13/25 mg/5 mL oral susp ext.release 12hr (Delsym 12 hour) dicyclomine 10 mg capsule 10 mg PO TID #90 caps 04/23/25 donepezil 5 mg tablet 5 mg PO BEDTIME confusion 3 months 06/20/25 #90 tabs gabapentin 300 mg capsule 300 mg PO BEDTIME Restless legs 3 06/20/25 months #90 caps Myrbetriq 50 mg tablet,extended 50 mg PO DAILY #90 tabs 07/14/25 release (mirabegron) magnesium oxide 400 mg (241.3 mg 400 mg PO BEDTIME #90 tabs 07/14/25 magnesium) tablet meloxicam 15 mg tablet 15 mg PO DAILY #7 tabs 08/21/25 amoxicillin 875 mg-potassium 1 tab PO Q12H 10 days #20 tabs 09/10/25 clavulanate 125 mg tablet morphine 15 mg immediate release 15 mg PO TID PRN pain 3 days #9 09/10/25 tablet tabs ondansetron 4 mg disintegrating 4 mg PO Q8H PRN nausea and 09/10/25 tablet vomiting #10 tabs Allergies Allergy/AdvReac Type Severity Reaction Status Date / Time donepezil AdvReac Intermediate Nausea Verified 09/10/25 12:34 trazodone AdvReac Intermediate Dizziness Verified 09/10/25 12:34 Review of Systems Review of Systems Yes all other systems are reviewed and are negative [facility] Past Medical History Attestation statement: The following information was validated with the patient. Source: old records reviewed and nursing notes reviewed Medical History Shoulder pain, left Acute respiratory disease IBS (irritable bowel syndrome) Osteoarthritis of right hip Thyroid nodule Arthritis Palpitations Vitamin D deficiency Annual physical exam Insomnia Memory deficit Hyperglycemia Hyperlipidemia History of mammogram Chronic neck pain Arthralgia Tension headache RLS (restless legs syndrome) Osteoarthritis of both knees Balance problem Osteoarthritis of right shoulder Sciatica of left side Sciatica, right side Hypertension Surgical History History of bunionectomy Hx of shoulder surgery Hx of spinal surgery H/O colonoscopy Family History Family History Father Stroke Mother Lung cancer Social History Social History Household Members: Spouse Housing: [facility] Are you a primary healthcare interpreter to a significant other at home: No Do you presently have visiting nurse or other home services: No Alcohol intake: current Alcohol intake frequency: does not drink Patient Tobacco Use Status: Never used Tobacco e-Cigarette/Vaping Use: Never Used service: No Current occupational status: retired Cognitive needs: No Hearing needs: No Vision needs: Yes Physical Exam ED Vital Signs: Vital Signs - 24 hr 09/10/25 12:30 09/10/25 16:28 Temperature 98.1 F Pulse Rate 87 Respiratory Rate 16 18 Blood Pressure 148/65 H Pulse Oximetry 96 Oxygen Delivery Method Room Air BMI result Body Mass Index 29.9 hypertensive vitals are otherwise wnl General: Well appearing, in no acute distress. Skin: Warm, dry, intact. No rashes or lesions. Head: Normocephalic, atraumatic. EENT: Hearing is intact b/l. Conjunctiva clear. PERRLA. EOM intact. Moist mucous membranes.? Neck: Supple without LAD Cardiac: Chest wall symmetric. RRR Lungs: Normal respiratory effort without accessory muscle use. CTA bilaterally Abdomen: Soft, nondistended, tender to palpation of left lower quadrant with guarding, no rebound tenderness, active bowel sounds x4, no CVAT Back: No midline spinous or paraspinal tenderness. No step off deformity. Ext: Upper and lower extremities atraumatic, without tenderness, deformity, swelling or erythema. Full ROM throughout Neuro: AOx3. Normal speech. Ambulating with steady gait Course Course Course Narrative: This is a Rapid Medical Exam performed in triage by Peri Camilo PA-C. Full HPI, ROS and PE to be performed by primary ED provider. 80-year-old [place] speaking female with a past medical history of IBS, arthralgia, or LS, HTN, presenting to the ED sent in from urgent care c/o continue/worsening left lower quadrant abdominal pain. Patient had outpatient CT AP on 08/12/2025 which showed mild diverticulitis but was never treated with antibiotics. PE: Abdomen is soft with + left lower quadrant tenderness Plan: Labs, UA Reevaluation(s) Reevaluation #1: CBC without leukocytosis. No anemia, H&H stable. Chemistry without acute electrolyte abnormality requiring intervention. No STELLA. Liver function and lipase WNL. Urine without infection. CTA/P showing new focus of acute uncomplicated diverticulitis involving distal descending colon, there is mild residual inflammation of the distal sigmoid colon from recent bout of sigmoid diverticulitis, no abscess or complication. Stable 2.8 cm left ovarian cyst. > discussed workup results with patient and her daughter. Will trial oral morphine. She is currently drinking water and tolerating crackers. Daughter and patient are agreeable with discharge for outpatient abx. Patient has remained stable throughout ED visit today. Discussed worrisome signs and symptoms and when to return to the ED. All questions answered at this time. Patient is agreeable with disposition and stable for discharge. Medical Decision Making Medical Decision Making [facility] Narrative: 80-year-old [place] speaking female with pmhx significant for IBS, HLD, HTN presents to the ED today for evaluation of abdominal pain x4 weeks. Patient is hypertensive, vitals are otherwise WNL. She is well-appearing, no acute distress. On exam, her abdomen is Differential diagnoses: diverticulitis, diverticulosis, UTI, constipation Abdominal exam without peritoneal signs. No evidence of acute abdomen at this time. Well appearing. Low suspicion for acute hepatobiliary disease (including acute cholecystitis), acute infectious processes (pneumonia, hepatitis, pyelonephritis, PID, TOA), vascular catastrophe, bowel obstruction or viscus perforation, ovarian cyst/ rupture/ torsion, ectopic. Presentation not consistent with other acute, emergent causes of abdominal pain at this time. Plan: labs, UA, CT AP, pain control, serial reassessment Differential Diagnosis Differential Diagnoses: The differential diagnosis associated with the presentation includes As above Admission/Observation Not indicated Lab Data MDM Lab Attestation statement: I reviewed the patient's lab results. as above. 09/10/25 14:18 09/10/25 14:18 Labs: Lab Results 09/10/25 09/10/25 Range/Units 14:16 14:18 WBC 10.1 (4.8-10.8) X10*3/uL RBC 4.85 (4.20-5.50) X10*6/uL Hgb 14.2 (12.0-16.0) g/dl Hct 44.3 (37.0-47.0) % MCV 91.3 (80.0-98.0) fL MCH 29.3 (27.0-33.0) pg MCHC 32.1 (31.0-35.0) g/dl RDW 13.3 (11.0-16.0) % Plt Count 252 (160-400) X10*3/uL MPV 9.5 (9.4-12.3) fL Immature Gran % (Auto) 0.5 H (0.0-0.4) % Neut % (Auto) 74.3 H (45-73) % Lymph % (Auto) 13.5 L (20-40) % [place] % (Auto) 8.3 (2-11) % Eos % (Auto) 3.1 (0-4) % Baso % (Auto) 0.3 (0-2) % Lymph # (Auto) 1.4 (1.2-4.9) X10*3/uL [place] # (Auto) 0.8 (0.1-1.2) X10*3/uL Eos # (Auto) 0.3 (0.0-0.4) X10*3/uL Baso # (Auto) 0.0 (0.0-0.2) X10*3/uL Abs Immat Gran (auto) 0.05 H (0.00-0.03) X10*3/uL Absolute Neuts (auto) 7.5 (2.0-8.3) x10*3/uL Absolute Nucleated RBC 0.000 (0.0-0.012) X10*3/uL Nucleated RBC % (auto) 0.0 (0.0-0.2) /100WBC Sodium 141 (135-145) mmol/L Potassium 4.7 (3.3-5.1) mmol/L Chloride 107 (96-108) mmol/L Carbon Dioxide 28 (22-29) mmol/L Anion Gap 11 L (12-20) BUN 18 H (9-16) mg/dL Creatinine 0.82 (0.5-1.4) mg/dL Estim Creat Clear Calc 53.3 Estimated GFR > 60 Random Glucose 105 (60-115) mg/dL Calcium 9.3 D (8.4-10.2) mg/dL Magnesium 2.2 (1.6-2.6) mg/dL Total Bilirubin 0.3 (0.0-1.0) mg/dL Direct Bilirubin 0.1 (0.0-0.5) mg/dL AST 26 (5-31) U/L ALT 24 (0-31) U/L Alkaline Phosphatase 81 (39-117) U/L Total Protein 7.4 (6.5-8.0) g/dL Albumin 3.9 (3.5-5.0) g/dL Lipase 23 (8-78) U/L Urine Color Yellow Urine Appearance Clear Urine pH 6.5 (5.0-9.0) Ur Specific [place] 1.010 (1.005-1.025) Urine Protein Negative (Neg-Trace) mg/dL Urine Glucose (UA) Negative (Negative) mg/dL Urine Ketones Negative (Negative) mg/dL Urine Blood Negative (Negative) Urine Nitrite Negative (Negative) Ur Leukocyte Esterase Trace H (Negative) Urine RBC 0-2 (0-2) /HPF Urine WBC 0-5 (0-5) /HPF Ur Squamous Epith Cells 0-2 (0-2) /HPF Urine Bacteria None Seen (None Seen) Hyaline Casts 0-2 (0-2) /LPF Independent Interpretation I performed an independent interpretation of an: CT Scan Interpretation: ct a/p without bowel obstruction Radiology Impression Discussion of test interpretation with radiology: I have reviewed the radiologist's reading. Radiologist Impression: Procedure(s): CT abdomen pelvis w IV con Accession Number(s): [id number] cc: Beverley Perez MD; Adia Duffy Report Number: [id number]: Total DLP = 650.00 mGy-cm Reason for Exam: LLQ pain EXAMINATION: CT ABDOMEN AND PELVIS WITH CONTRAST CLINICAL INFORMATION: Left lower quadrant pain. COMPARISON: 08/12/2025. TECHNIQUE: Multidetector volumetric images were obtained from the superior aspect of the liver through the pubic symphysis following administration 65 mL of Omnipaque 350 intravenous contrast. Sagittal and coronal reformatted images were obtained on the technologist's workstation. Oral contrast: No This CT examination was performed using dose optimization techniques as appropriate, variously including the following: *Automated exposure control *Adjustment of mA and/or kV according to patient size (this includes techniques or standardized protocols for targeted exams where dose is matched to indication/reason for exam; i.e. extremities or head) *Use of iterative reconstruction technique FINDINGS: LUNG BASES: Lung bases are clear. Heart size is normal. There is a small type I hiatus hernia. There are no effusions. LIVER, GALLBLADDER, AND BILIARY TREE: The liver is normal in size, shape, and attenuation. No focal hepatic lesion or biliary ductal dilatation is present. The gallbladder is unremarkable with no evidence of radiopaque gallstones, gallbladder wall thickening, or obvious pericholecystic inflammatory changes. PANCREAS: Unremarkable. SPLEEN: Unremarkable. ADRENAL GLANDS: Unremarkable. KIDNEYS AND URETERS: The kidneys are normal in size, shape, and attenuation. No hydronephrosis, hydroureter, or calculi seen. No perinephric stranding. BLADDER: Unremarkable. GASTROINTESTINAL TRACT: Extensive diverticulosis of the sigmoid colon is present, with residual inflammation superiorly of the distal sigmoid from prior recent bout of diverticulitis. There is no abscess. There is a new region of inflammation of the distal descending colon with a prominent enhancing diverticulum and pericolonic fat stranding (series 3, image 63), consistent with a new focus of diverticulitis. No complication evident. The remainder of the colon is normal in caliber and course. There are no CT features of appendicitis. The small bowel is normal in caliber and course. The stomach is decompressed. There is a type I hiatus hernia at the GE junction. The duodenum is normal in appearance. There is no rectal abnormality. ABDOMINAL WALL: No significant hernia is appreciated. LYMPH NODES: No abnormal lymphadenopathy is present. VASCULAR: Moderate to heavy calcification of the aorta and iliac arteries. No aneurysm. PELVIC VISCERA: The uterus is unremarkable aside from small calcified fibroids. There is a left ovarian cyst measuring 2.8 cm in diameter maximally. This is unchanged. There is no right adnexal abnormality. OSSEOUS STRUCTURES: There is no suspicious lytic or blastic bone lesion present. There are degenerative changes throughout the spine. There has been prior fusion of L4-5 with transpedicular screws and posterior connecting rods. There is an intervening disc graft. There is a total right hip arthroplasty in place. No complication evident. CT/CT abdomen pelvis w IV con IMPRESSION: 1. There is a new focus of acute uncomplicated diverticulitis involving the distal descending colon. 2. There is mild residual inflammation of the distal sigmoid colon from recent bowel of sigmoid diverticulitis. There is no abscess or complication evident. 3. There is a stable 2.8 cm left ovarian cyst, for which ultrasound as outpatient is advised. 4. Additional ancillary findings as discussed in the body of the report. Electronically signed by: Matthew Bush MD 09/10/2025 03:32 PM [facility] Independent Historian Clinical information obtained from an independent historian. History obtained from or confirmed by: Other (daughter) External Record Review External record reviewed: Inpatient record, Office record, Outpatient record, Prior outpatient labs and Prior outpatient radiology Prescription Management I considered prescription management with: Pain Medication and Antibiotic Social Determinants Patient?s care significantly limited by Social Determinants of Health including: Other Social Determinant of Health Medications Administered Discontinued Medications Generic Name Dose Route Start Last Admin Trade Name Freq PRN Reason Stop Dose Admin Iohexol 85 ml 09/10/25 15:11 09/10/25 15:11 Iohexol 350 Mg/Ml 75 Ml Infus..Btl IV 09/10/25 15:12 85 ml ONCE ONE Administration Morphine Sulfate 4 mg 09/10/25 16:01 09/10/25 16:28 Morphine Sulfate 4 Mg/Ml Cartridge IVPUSH 09/10/25 16:02 4 mg ONCE ONE Administration Protocol Discharge Plan Discharge Clinical Impression: Diverticulitis Patient Disposition: Home, Self-Care Instructions: Diverticulitis (ED), Diverticulitis Diet (ED) Additional Instructions: You were evaluated in the ED today for lower abdominal pain. Your blood work is reassuring. As discussed, the CT scan of your abdomen shows uncomplicated diverticulitis. See home care instructions. Treatment for this is with antibiotics. I am starting you on an antibiotic called Augmentin. Take this twice daily x 10 days. Zofran has been sent to your pharmacy as well for you to take as needed for nausea/vomiting. Take Tylenol and Motrin at home as needed for pain/discomfort. Morphine has been sent to your pharmacy for you to take as needed for breakthrough pain. Please use this medication with caution. Follow up with your primary care provider. Return with any new or worsening symptoms. In the case of an emergency call 911. Prescriptions: New amoxicillin-pot clavulanate 875-125 mg tablet 1 tab PO Q12H 10 Days Qty: 20 0RF ondansetron 4 mg tablet,disintegrating 4 mg PO Q8H PRN (Reason: nausea and vomiting) Qty: 10 0RF morphine 15 mg tablet 15 mg PO TID PRN (Reason: pain) 3 Days Qty: 9 0RF Rx Instructions: Partial Fill upon patient request. No Action dicyclomine 10 mg capsule 10 mg PO TID Qty: 90 0RF cholecalciferol (vitamin D3) [Vitamin D3] 50 mcg (2,000 unit) Capsule 50 mcg PO DAILY acetaminophen 325 mg Tablet 650 mg PO Q6H PRN (Reason: Pain, Mild (Pain Scale 1-3)) 30 Days Qty: 240 0RF glucosemide with MSM 2 tab PO DAILY lutein 20 mg capsule 20 mg PO DAILY Rx Instructions: give with meal/snack ginkgo biloba-Panax ginseng rt 60-100 mg capsule 2 cap PO DAILY choline PO Rx Instructions: 800 mg meloxicam 15 mg tablet 15 mg PO DAILY Qty: 7 0RF (DME) ankle orthosis See Rx Instructions .Route .MEDSUPPLY Qty: 1 0RF Rx Instructions: As directed biotin 800 mcg tablet 1,000 mcg PO DAILY vitamin K2 100 mcg capsule 100 mcg PO DAILY felodipine 2.5 mg tablet extended release 24 hr 2.5 mg PO DAILY Qty: 90 3RF olmesartan 40 mg tablet 40 mg PO DAILY Qty: 90 3RF estradiol [Estrace] 0.01 % (0.1 mg/gram) cream 1 g vaginal 2XW Qty: 42.5 5RF magnesium oxide 400 mg (241.3 mg magnesium) tablet 400 mg PO BEDTIME Qty: 90 3RF mirabegron [Myrbetriq] 50 mg tablet extended release 24 hr 50 mg PO DAILY Qty: 90 0RF dextromethorphan polistirex [Delsym 12 hour] 30 mg/5 mL suspension,extended rel 12 hr 10 ml PO Q12H Qty: 89 0RF gabapentin 300 mg capsule 300 mg PO BEDTIME MDD 300mg 90 Days Qty: 90 0RF donepezil 5 mg tablet 5 mg PO BEDTIME MDD 5mg 90 Days Qty: 90 0RF Referrals: Beverley Perez MD [Primary Care Provider, Internal Medicine] Discharge Date/Time: 09/10/25 16:54 Print Language: [place]
[2025-09-10 12:30] VITALS: BP 148/65; PULSE 87; RESP 16; TEMP 36.7; O2SAT 96; BMI 29.9
[2025-09-10 14:28] LABS: MANUAL DIFF FLAG NO
[2025-09-10 14:31] LABS: Hematocrit 44.3 % (37.0-47.0); Hemoglobin 14.2 g/dl (12.0-16.0); Imm Gran Abs Auto 0.05 X10*3/uL (0.00-0.03); Imm Gran Pct Auto 0.5 % (0.0-0.4); Lymphocytes Absolute Auto 1.4 X10*3/uL (1.2-4.9); Mean Corpuscular HGB Conc 32.1 g/dl (31.0-35.0); Mean Corpuscular Hemoglobin 29.3 pg (27.0-33.0); Mean Corpuscular Volume 91.3 fL (80.0-98.0); NRBC Abs Auto 0.000 X10*3/uL (0.0-0.012); NRBC Pct Auto 0.0 /100WBC (0.0-0.2); Platelet Count 252 X10*3/uL (160-400); Red Blood Count 4.85 X10*6/uL (4.20-5.50); White Blood Count 10.1 X10*3/uL (4.8-10.8)
[2025-09-10 14:34] LABS: Appearance Urine Clear; Glucose Urine UA Negative (Negative); PH 6.5 (5.0-9.0); Specific Gravity - Urine 1.010 (1.005-1.025); UMIC TRIGGER UACC YES
[2025-09-10 14:44] LABS: Alanine Aminotransferase 24 U/L (0-31); Albumin Level 3.9 g/dL (3.5-5.0); Alkaline Phosphatase 81 U/L (39-117); Anion Gap 11 (12-20); Aspartate Amino Transferase 26 U/L (5-31); Blood Urea Nitrogen 18 mg/dL (9-16); Calcium 9.3 mg/dL (8.4-10.2); Carbon Dioxide 28 mmol/L (22-29); Chloride 107 mmol/L (96-108); Creatinine Clr Calc Pharmacy 53.3; Estimated Glomerular Filt Rate > 60; Lipase 23 U/L (8-78); Magnesium 2.2 mg/dL (1.6-2.6); Potassium 4.7 mmol/L (3.3-5.1); Sodium 141 mmol/L (135-145); Total Protein 7.4 g/dL (6.5-8.0)
[2025-09-10] MEDS: iohexoL 350 MG/ML 75 ML INFUS..BTL 85 ML IV (15:11)
[2025-09-10 16:28] VITALS: RESP 18
[2025-09-10 16:54] VITALS: BP 142/72; PULSE 80; RESP 18; TEMP 36.9; O2SAT 97
== END 2025-09-10 16:54 | disposition home or self-care (01) ==
PROVIDERS: Physician Assistant; Emergency Provider Student in an Organized Health Care Education/Training Program; PCP Internal Medicine
DX: K57.92 Diverticulitis of intestine, part unspecified, without perforation or abscess without bleeding (principal); R10.32 Left lower quadrant pain; I10 Essential (primary) hypertension; Z87.19 Personal history of other diseases of the digestive system; Z79.899 Other long term (current) drug therapy
CPT/HCPCS: 36415; 74177; 80048; 80076; 81001; 83690; 83735; 85025; 96374; 99212; 99283; 99285; J2270; Q9967

== ENCOUNTER → 2025-09-10 14:21 | Outpatient (BNV) | payer MEDICARE, SELFPAY | PROVIDERS: PCP Internal Medicine; Visit Provider Radiology Diagnostic Radiology | DX: N83.202 Unspecified ovarian cyst, left side (principal) | CPT/HCPCS: 74177 ==